=== PATIENT | female | born 1935 | race Caucasian/White ===

== ENCOUNTER 2016-09-13 01:31 | Emergency (ER) | payer MEDICARE, OTHER ==
[~2016-09-13] VITALS: Ht 154.9 cm; Wt 90.7 kg
[~2016-09-13 01:31] MED LIST: ACET-2303 PO; AMT10T PO; ANAL2.5CR PR; ASP81TEC PO; BISA5TAB8 PO; CITA20TA4 PO; CLOT10SO TOP; DICY20TA10 PO; DICY20TA57 PO; DOXY-182 PO; DOXY100C2 PO; DXCC100CRX PO; FAMO20TA5 PO; FLC100T1 PO; GBPN100C PO; HSCO125 PO; HYOS0.1217 PO; LIPOFLAVONOID PO; MAGN1TAB PO; MECL-105 PO; MELO15TA39 PO; METO25TA2 PO; ONDA-42 SL; ONDA8TAB9 PO; ONDN4T PO; PNT40TEC PO; POTA10CA43 PO; SCOP1PAT TD; SCR1T PO; SENN1TAB76 PO; SMT80CT PO; TRAM150C3 PO; TRM50T PO
[2016-09-13 02:05] LABS: BILIRUBIN,URINE NEGATIVE (NEGATIVE); KETONES,URINE NEGATIVE (NEGATIVE); LEUKOCYTE ESTERASE ,URINE NEGATIVE (NEGATIVE); NITRITE,URINE NEGATIVE (NEGATIVE); PH,URINE 8 (5-9); PROTEIN,URINE NEGATIVE (NEGATIVE); UROBILINOGEN,URINE NORMAL (NORMAL)
[2016-09-13 02:14] LABS: SQUAMOUS EPITHELIAL CELL,UR 0-2 /HPF
[2016-09-13 02:22] LABS: BASOPHILS % (AUTO) 0 % (0-10); EOSINOPHILS # (AUTO) 0.1 10^3/uL (0.0-0.3); EOSINOPHILS % (AUTO) 2 % (0-10); LYMPHOCYTES # (AUTO) 1.7 X 10^3 (1.0-4.0); LYMPHOCYTES % (AUTO) 25 % (12-44); MEAN CORPUSCULAR HEMOGLOBIN 31 PG (25-34); MEAN CORPUSCULAR HGB CONC 33 G/DL (32-36); MEAN CORPUSCULAR VOLUME 93 FL (80-99); MEAN PLATELET VOLUME 10.3 FL (7.4-10.4); MONOCYTES % (AUTO) 15 % (0-12); NEUTROPHILS # (AUTO) 3.9 X 10^3 (1.8-7.8); NEUTROPHILS % (AUTO) 58 % (42-75); PLATELET COUNT 161 10^3/uL (130-400); RED BLOOD COUNT 4.23 10^6/uL (4.35-5.85); RED CELL DISTRIBUTION WIDTH 13.8 % (10.0-14.5); WHITE BLOOD COUNT 6.8 10^3/uL (4.3-11.0)
[2016-09-13 02:37] LABS: ALANINE AMINOTRANSFERASE 12 U/L (0-55); ANION GAP 12 MMOL/L (5-14); ASPARTATE AMINO TRANSFERASE 20 U/L (5-34); BLOOD UREA NITROGEN 11 MG/DL (7-18); BUN/CREATININE RATIO 13; CALCIUM 9.2 MG/DL (8.5-10.1); CARBON DIOXIDE 21 MMOL/L (21-32); CHLORIDE 111 MMOL/L (98-107); CREATININE SERUM 0.82 MG/DL (0.60-1.30); GFR ESTIMATED > 60; GLUCOSE 136 MG/DL (70-105); LIPASE 15 U/L (8-78); POTASSIUM 3.5 MMOL/L (3.6-5.0); SODIUM 144 MMOL/L (135-145); TOTAL PROTEIN 6.9 G/DL (6.4-8.2)
[2016-09-13] MEDS ORDERED: ONDANSETRON 4 MG/2 ML (SDV) Z0FRAN IVP ONE (03:15)
[2016-09-13] MEDS ORDERED: LIDOCAINE 2% VISCOUS 15 ML UDC PO ONE (03:15)
[2016-09-13] MEDS ORDERED: ANTACID SUSP 30 ML UDC (MYLANTA) PO ONE (03:15)
[2016-09-13] MEDS ORDERED: OMEP20CA12 PO (03:56)
--- NOTE | 2016-09-13 03:56 | ED Abdominal Pain ---
General Chief Complaint: Abdominal/GI Problems Stated Complaint: ABD PAIN Nursing Triage Note: c/o LUQ abdomen pain. c/o nausea, denies vomiting and diarrhea Sepsis Screen: No Definite Risk Source of Information: Patient Exam Limitations: No Limitations History of Present Illness Time Seen By Provider: 01:45 Initial Comments This 81-year-old woman presents to the emergency room with left flank pain and left upper quadrant pain 2 this evening. She has a dull ache now but states the 2 episodes of pain that brought her to the emergency room where intense and sharp in nature. She has had some similar pains intermittently over the past week. She has been eating some food that is uncharacteristically spicy for her over the past week. She has also had some epigastric discomfort similar to the pain that led to diagnosis of gallbladder problems and cholecystectomy. She denies constipation or diarrhea. Her last bowel movement was this morning and was normal. Denies vomiting but the pain did cause nausea. No urinary changes. Patient has significant hypertension. Blood pressure is consistently higher on the left than the right. Patient denies any chest pain. Allergies and Home Medications Allergies Coded Allergies: gabapentin (Unverified Adverse Reaction, Unknown, VOMITING. , 12/10/14) Home Medications Meclizine Hcl 25 Mg Tablet 25 MG PO BID (Reported) Omeprazole 20 Mg Capsule. #30 20 MG PO BID Prescribed by: OCTAVIO RENO on 09/13/16 0356 Review of Systems Constitutional: no symptoms reported EENTM: No Symptoms Reported Respiratory: No Symptoms Reported Cardiovascular: No Symptoms Reported Gastrointestinal: See HPI Genitourinary: No Symptoms Reported Musculoskeletal: no symptoms reported Skin: no symptoms reported Psychiatric/Neurological: No Symptoms Reported Endocrine: No Symptoms Reported Past Xngvicr-Flnxid-Phxxpk Hx Patient Social History Alcohol Use: Denies Use Recreational Drug Use: No Smoking Status: Never a Smoker Recent Foreign Travel: No Contact w/Someone Who Travel: No Recent Infectious Disease Expo: No Recent Hopitalizations: No Physical Abuse Screen: No Sexual Abuse: No Immunizations Up To Date Tetanus Booster (TDap): More than 5yrs Seasonal Allergies Seasonal Allergies: No Surgeries HX Surgeries: Yes (EGD/ESOPHAGEAL DILATION) Surgeries: Appendectomy, Cardiac, Gallbladder Respiratory Hx Respiratory Disorders: No Cardiovascular Hx Cardiac Disorders: Yes (RECENT HEART CATH that was negative) Neurological Hx Neurological Disorders: Yes Neurological Disorders: Neuropathy, Vertigo Reproductive System Hx Reproductive Disorders: No Sexually Transmitted Disease: No HIV/AIDS: No Female 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 Flores 2012--ESOPHAGEAL DILATION FOR STRICTURE;TELLY) Gastrointestinal Disorders: Gastroesophageal Reflux, Chronic Constipation, Hemorrhoids, Ulcer, Gall Bladder Disease Musculoskeletal Hx Musculoskeletal Disorders: Yes Musculoskeletal Disorders: Arthritis Endocrine Hx Endocrine Disorders: Yes Endocrine Disorders: Hypothyroidsim HEENT HX ENT Disorders: Yes ("SINUS DRAINAGE") HEENT Disorders: Tinnitis Cancer Hx Cancer: No Psychosocial Hx Psychiatric Problems: Yes (REFUSES TO TAKE MEDICATION) Behavioral Health Disorders: Anxiety, Depression Integumentary HX Skin/Integumentary Disorder: No Blood Transfusions Hx Blood Disorders: No Adverse Reaction to a Blood Tr: No Family Medical History Family Medial History: FHx: pancreatic cancer 19 MOTHER Myocardial infarction 19 FATHER Physical Exam Vital Signs VS - Last 72 Hours, by Label 09/13/16 09/13/16 01:39 03:58 Temp 98.2 Pulse 81 72 Resp 18 18 B/P Pulse Ox 96 99 O2 Delivery Room Air Capillary Refill : Less Than 3 Seconds General Appearance: WD/WN no apparent distress HEENT: PERRL/EOMI normal ENT inspection pharynx normal Neck: normal inspection Respiratory: lungs clear normal breath sounds no respiratory distress no accessory muscle use Cardiovascular: regular rate, rhythm no edema no murmur Gastrointestinal: normal bowel sounds non tender soft Extremities: normal inspection no pedal edema 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 no motor/sensory deficits alert normal mood/affect oriented x 3 Skin: normal color warm/dry Progress/Results/Core Measures Results/Orders Lab Results Laboratory Tests Test 09/13/16 01:55 09/13/16 02:10 Range/Units Urine Bacteria NEGATIVE /HPF Urine Bilirubin NEGATIVE NEGATIVE Urine Casts NONE /LPF Urine Clarity CLEAR Urine Color YELLOW Urine Crystals NONE /LPF Urine Culture Indicated NO Urine Glucose (UA) NEGATIVE NEGATIVE Urine Ketones NEGATIVE NEGATIVE Urine Leukocyte Esterase NEGATIVE NEGATIVE Urine Mucus NEGATIVE /LPF Urine Nitrite NEGATIVE NEGATIVE Urine Protein NEGATIVE NEGATIVE Urine RBC NONE /HPF Urine RBC (Auto) NEGATIVE NEGATIVE Urine Specific [place] 1.010 L 1.016-1.022 Urine Squamous Epithelial Cells 0-2 /HPF Urine Urobilinogen NORMAL NORMAL MG/DL Urine WBC NONE /HPF Urine pH 8 5-9 Alanine Aminotransferase (ALT/SGPT) 12 0-55 U/L Albumin 4.0 3.2-4.5 G/DL Alkaline Phosphatase 79 40-136 U/L Anion Gap 12 5-14 MMOL/L Aspartate Amino Transf (AST/SGOT) 20 5-34 U/L BUN/Creatinine Ratio 13 Basophils # (Auto) 0.0 0.0-0.1 10^3/uL Basophils (%) (Auto) 0 0-10 % Blood Urea Nitrogen 11 7-18 MG/DL Calcium Level 9.2 8.5-10.1 MG/DL Carbon Dioxide Level 21 21-32 MMOL/L Chloride Level 111 H 98-107 MMOL/L Creatinine 0.82 0.60-1.30 MG/DL Eosinophils # (Auto) 0.1 0.0-0.3 10^3/uL Eosinophils (%) (Auto) 2 0-10 % Estimat Glomerular Filtration Rate > 60 Glucose Level 136 H 70-105 MG/DL Hematocrit 40 35-52 % Hemoglobin 13.2 11.5-16.0 G/DL Lipase 15 8-78 U/L Lymphocytes # (Auto) 1.7 1.0-4.0 X 10^3 Lymphocytes (%) (Auto) 25 12-44 % Mean Corpuscular Hemoglobin 31 25-34 PG Mean Corpuscular Hemoglobin Concent 33 32-36 G/DL Mean Corpuscular Volume 93 80-99 FL Mean Platelet Volume 10.3 7.4-10.4 FL Monocytes # (Auto) 1.0 0.0-1.0 X 10^3 Monocytes (%) (Auto) 15 H 0-12 % Neutrophils # (Auto) 3.9 1.8-7.8 X 10^3 Neutrophils (%) (Auto) 58 42-75 % Platelet Count 161 130-400 10^3/uL Potassium Level 3.5 L 3.6-5.0 MMOL/L Red Blood Count 4.23 L 4.35-5.85 10^6/uL Red Cell Distribution Width 13.8 10.0-14.5 % Sodium Level 144 135-145 MMOL/L Total Bilirubin 1.0 0.1-1.0 MG/DL Total Protein 6.9 6.4-8.2 G/DL White Blood Count 6.8 4.3-11.0 10^3/uL My Orders Orders-OCTAVIO PECK MD Cbc With Automated Diff (09/13/16 01:46) Comprehensive Metabolic Panel (09/13/16 01:46) Lipase (09/13/16 01:46) Ua Culture If Indicated (09/13/16 01:46) Saline Lock/Iv-Start (09/13/16 01:46) Ondansetron Injection (Zofran Injectio (09/13/16 03:15) Lidocaine 2% Viscous 15 Ml (Xylocaine Vi (09/13/16 03:15) Antacid Suspension (Mylanta Suspension (09/13/16 03:15) Abdomen, Flat & Upright/Decub (09/13/16 03:03) Pantoprazole Tablet (Protonix Tablet) (09/13/16 04:00) Medications Given in ED Current Medications Medications Dose Ordered Sig/Toyin Route Start Time Stop Time Status Last Admin Dose Admin Al Hydrox/Mg Hydrox/Simethicone 30 ml ONCE ONCE PO 09/13/16 03:15 09/13/16 03:16 DC 09/13/16 03:11 30 ML Lidocaine HCl 15 ml ONCE ONCE PO 09/13/16 03:15 09/13/16 03:16 DC 09/13/16 03:11 15 ML Ondansetron HCl 4 mg ONCE ONCE IVP 09/13/16 03:15 09/13/16 03:16 DC 09/13/16 03:10 4 MG Pantoprazole Sodium 40 mg ONCE ONCE PO 09/13/16 04:00 09/13/16 04:00 DC 09/13/16 03:56 40 MG Vital Signs/I&O Vital Sign - Last 12Hours 09/13/16 09/13/16 01:39 03:58 Temp 98.2 Pulse 81 72 Resp 18 18 B/P Pulse Ox 96 99 O2 Delivery Room Air Progress Note : Progress Note Workup was essentially unremarkable. Patient was treated with a GI cocktail which improved her pain. Her blood pressure improved after her pain was controlled as well. Her last blood pressure was 134/73. An oral Protonix was given prior to dismissal. Diagnostic Imaging Diagonstic Imaging: Xray Plain Films/CT/US/NM/MRI: abdomen Comments Abdominal x-ray was viewed by me. Report not yet available. No acute abnormalities were appreciated. Departure Impression Impression: Primary Impression: Left upper quadrant pain Additional Impression: Gastritis Qualified Code: K29.00 - Acute gastritis without bleeding Disposition: HOME, SELF-CARE Condition: Improved Departure-Patient Inst. Decision time for Depature: 03:50 Referrals: [facility] [place] (PCP/Family) Primary Care Physician Patient Instructions: Acute Abdomen (Belly Pain), Adult (DC), Gastritis (DC) Add. Discharge Instructions: Use omeprazole as prescribed for at least 2 weeks. Avoid the following: Eating large meals, eating close to bedtime, spicy foods, fatty or greasy foods, caffeine, carbonation, chocolate, citrus fruits and juices, tomato products, alcohol, tobacco products, NSAID medications such as ibuprofen or naproxen, or anything else you know irritates your stomach. Follow-up with your primary care provider within the next couple of weeks. Return to the ER symptoms worsen. All discharge instructions reviewed with patient and/or family. Voiced understanding. Scripts Omeprazole 20 Mg Capsule.dr20 Mg PO BID #30 CAP Prov:OCTAVIO PECK MD 09/13/16 OCTAVIO PECK MD Sep 13, 2016 03:56
[2016-09-13 03:58] VITALS: BP 134/73
[2016-09-13] MEDS ORDERED: PANTOPRAZOLE 40 MG (PROTONIX) TAB PO ONE (04:00)
--- NOTE | 2016-09-13 06:13 | Diagnostic Imaging Report ---
INDICATION: Abdominal pain. Patient has history of ulcers. Comparison with 11/02/2015. FINDINGS: The bowel gas pattern appears normal. No evidence of bowel obstruction. No organomegaly. There are surgical clips in the biliary fossa. No pathologic calcifications. Degenerative changes noted in the lumbar spine. IMPRESSION: No acute abnormalities are demonstrated when compared with previous exam. Dictated by: Dictated on workstation # [id number]
[2016-10-21] MEDS ORDERED: OMEP40CA36 PO (12:20)
== END 2016-09-13 03:59 | disposition home or self-care (01) ==
LOC: EDUNIT# 01:31 → ER 01:33
DX: R10.12 Left upper quadrant pain (principal); K29.70 Gastritis, unspecified, without bleeding; I10 Essential (primary) hypertension; Z79.899 Other long term (current) drug therapy
CPT/HCPCS: 36415; 74020; 80053; 81000; 83690; 85025; 96374

== ENCOUNTER 2016-10-20 04:18 | Observation (INO) | payer MEDICARE, OTHER ==
[~2016-10-20] VITALS: Ht 162.6 cm; Wt 98.0 kg
[~2016-10-20 04:18] MED LIST changes: +OMEP20CA12 PO
[2016-10-20] MEDS ORDERED: LACTATED RINGERS 1,000 ML IV ONE (04:24)
[2016-10-20] MEDS ORDERED: SCOPOLAMINE 1.5 MG (TRANSDERM-SCOP) PATCH TD ONE (04:30)
[2016-10-20] MEDS ORDERED: MECLIZINE 25 MG (ANTIVERT) TAB PO ONE (04:30)
[2016-10-20] MEDS ORDERED: ONDANSETRON 4 MG/2 ML (SDV) Z0FRAN IVP ONE ×2 (04:30→06:30)
--- NOTE | 2016-10-20 04:31 | ED General ---
General Chief Complaint: Dizziness/Syncope Stated Complaint: DIZZINESS Source of Information: Patient, EMS, Old Records History of Present Illness Time Seen by Provider: 04:17 Initial Comments PT ARRIVES VIA [facility] FROM HOME C/O WAKING UP AN HOUR AGO WITH SEVERE DIZZINESS, SWEATS, NAUSEA AND VOMITING AND LUQ/LEFT FLANK PAIN STATES SHE HAS VOMITED SEVERAL TIMES--UNKNOWN #--PT HAS CONTINUED TO DRINK WATER AND MILK--STATES "IT JUST COMES RIGHT BACK UP" NO DIARRHEA NO FEVER STATES SHE FELT FINE WHEN SHE WENT TO BED PT HAS CHRONIC INTERMITTENT VERTIGO FOR MANY YEARS--HAS RX FOR MECLIZINE BUT HAS NOT TAKEN ANY PT SEEN HERE 09/13/16 FOR LUQ PAIN--FELT TO BE GASTRITIS, TX WITH GI COCKTAIL, NO ADDITIONAL RX--PT WAS ALREADY ON A PPI PCP: ALEXANDER, XIAO CEVALLOS Allergies and Home Medications Allergies Coded Allergies: gabapentin (Unverified Adverse Reaction, Unknown, VOMITING. , 12/10/14) Home Medications Meclizine Hcl 25 Mg Tablet 25 MG PO BID (Reported) Omeprazole 20 Mg Capsule. #30 20 MG PO BID Prescribed by: OCTAVIO RENO on 09/13/16 0356 Constitutional: diaphoresis dizziness EENTM: no symptoms reported Respiratory: no symptoms reported Cardiovascular: no symptoms reported Gastrointestinal: see HPI abdominal pain nausea vomiting Genitourinary: no symptoms reported Musculoskeletal: see HPI Skin: no symptoms reported Psychiatric/Neurological: No Symptoms ReportedDenies Headache, Denies Numbness , Denies Paresthesia, Denies Seizure, Denies Tingling, Denies Weakness Hematologic/Lymphatic: No Symptoms Reported Immunological/Allergic: no symptoms reported Past Yhfdkyt-Lcosvq-Thojwr Hx Patient Social History Alcohol Use: Denies Use Recreational Drug Use: No Smoking Status: Never a Smoker Recent Foreign Travel: No Contact w/Someone Who Travel: No Recent Hopitalizations: No Immunizations Up To Date Tetanus Booster (TDap): More than 5yrs Seasonal Allergies Seasonal Allergies: No Surgeries HX Surgeries: Yes (EGD/ESOPHAGEAL DILATION; CARDIAC CATH--NO INTERVENTION) Surgeries: Appendectomy, Cardiac, Gallbladder Respiratory Hx Respiratory Disorders: No Cardiovascular Hx Cardiac Disorders: Yes (CARDIAC CATH--NORMAL) Cardiac Disorders: Hypertension Neurological Hx Neurological Disorders: Yes Neurological Disorders: Neuropathy, Vertigo Reproductive System Hx Reproductive Disorders: No Sexually Transmitted Disease: No HIV/AIDS: No Female 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 Flores 2012--ESOPHAGEAL DILATION FOR STRICTURE;TELLY) Gastrointestinal Disorders: Gastroesophageal Reflux, Chronic Constipation, Hemorrhoids, Ulcer, Gall Bladder Disease Musculoskeletal Hx Musculoskeletal Disorders: Yes Musculoskeletal Disorders: Arthritis Endocrine Hx Endocrine Disorders: Yes (OBESITY) Endocrine Disorders: Hypothyroidsim HEENT HX ENT Disorders: Yes ("SINUS DRAINAGE") HEENT Disorders: Tinnitis Cancer Hx Cancer: No Psychosocial Hx Psychiatric Problems: Yes (REFUSES TO TAKE MEDICATION) Behavioral Health Disorders: Anxiety, Depression Integumentary HX Skin/Integumentary Disorder: No Blood Transfusions Hx Blood Disorders: No Adverse Reaction to a Blood Tr: No Family Medical History Family Medial History: FHx: pancreatic cancer 19 MOTHER Myocardial infarction 19 FATHER Physical Exam Vital Signs Vital Sign - Last 12Hours 10/20/16 04:20 Temp 97.7 Pulse 72 Resp 20 B/P 192/77 Pulse Ox 97 O2 Delivery Room Air Capillary Refill : General Appearance: No Apparent Distress WD/WN Obese HEENT: PERRL/EOMI Neck: Full Range of Motion Normal Inspection Non Tender Supple Respiratory: Normal Breath Sounds No Accessory Muscle Use No Respiratory Distress Cardiovascular: Regular Rate, Rhythm No Edema No JVD No Murmur Normal Peripheral Pulses Gastrointestinal: Normal Bowel Sounds No Organomegaly No Pulsatile Mass Soft Tenderness (LUQ AND LEFT FLANK WITH MODERATE TENDERNESS) Back: No Vertebral Tenderness CVA Tenderness (L) Extremity: Normal Capillary Refill Normal Inspection Normal Range of Motion Non Tender No Calf Tenderness Neurologic/Psychiatric: Alert Oriented x3 No Motor/Sensory Deficits 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 Norm as Tested Other (UNABLE TO PERFORM CEREBELLAR TESTING ON ARRIVAL) Skin: Normal Color Warm/Dry Progress/Results/Core Measures Results/Orders Lab Results Laboratory Tests Test 10/20/16 04:30 10/20/16 04:46 Range/Units Alanine Aminotransferase (ALT/SGPT) 11 0-55 U/L Albumin 3.8 3.2-4.5 G/DL Alkaline Phosphatase 77 40-136 U/L Amylase Level 18 L 25-125 U/L Anion Gap 13 5-14 MMOL/L Aspartate Amino Transf (AST/SGOT) 20 5-34 U/L BUN/Creatinine Ratio 16 Basophils # (Auto) 0.0 0.0-0.1 10^3/uL Basophils (%) (Auto) 0 0-10 % Blood Urea Nitrogen 12 7-18 MG/DL Calcium Level 8.9 8.5-10.1 MG/DL Carbon Dioxide Level 20 L 21-32 MMOL/L Chloride Level 108 H 98-107 MMOL/L Creatinine 0.76 0.60-1.30 MG/DL Eosinophils # (Auto) 0.1 0.0-0.3 10^3/uL Eosinophils (%) (Auto) 1 0-10 % Estimat Glomerular Filtration Rate > 60 Glucose Level 138 H 70-105 MG/DL Hematocrit 39 35-52 % Hemoglobin 13.2 11.5-16.0 G/DL Lipase 11 8-78 U/L Lymphocytes # (Auto) 1.5 1.0-4.0 X 10^3 Lymphocytes (%) (Auto) 23 12-44 % Magnesium Level 2.1 1.8-2.4 MG/DL Mean Corpuscular Hemoglobin 31 25-34 PG Mean Corpuscular Hemoglobin Concent 34 32-36 G/DL Mean Corpuscular Volume 91 80-99 FL Mean Platelet Volume 10.5 H 7.4-10.4 FL Monocytes # (Auto) 0.8 0.0-1.0 X 10^3 Monocytes (%) (Auto) 12 0-12 % Neutrophils # (Auto) 4.0 1.8-7.8 X 10^3 Neutrophils (%) (Auto) 63 42-75 % Platelet Count 172 130-400 10^3/uL Potassium Level 3.7 3.6-5.0 MMOL/L Red Blood Count 4.25 L 4.35-5.85 10^6/uL Red Cell Distribution Width 14.0 10.0-14.5 % Sodium Level 141 135-145 MMOL/L Total Bilirubin 1.0 0.1-1.0 MG/DL Total Protein 6.6 6.4-8.2 G/DL Troponin I < 0.30 <0.30 NG/ML White Blood Count 6.3 4.3-11.0 10^3/uL Urine Bacteria TRACE /HPF Urine Bilirubin NEGATIVE NEGATIVE Urine Casts NONE /LPF Urine Clarity CLEAR Urine Color YELLOW Urine Crystals NONE /LPF Urine Culture Indicated YES Urine Glucose (UA) NEGATIVE NEGATIVE Urine Ketones NEGATIVE NEGATIVE Urine Leukocyte Esterase 1+ H NEGATIVE Urine Mucus NEGATIVE /LPF Urine Nitrite NEGATIVE NEGATIVE Urine Protein NEGATIVE NEGATIVE Urine RBC NONE /HPF Urine RBC (Auto) NEGATIVE NEGATIVE Urine Specific [place] 1.010 L 1.016-1.022 Urine Squamous Epithelial Cells 10-25 H /HPF Urine Urobilinogen NORMAL NORMAL MG/DL Urine WBC 5-10 H /HPF Urine pH 8 5-9 My Orders Orders-LAMBERT RAMOS DO Scopolamine Patch (Transderm-Scop Patch) (10/20/16 04:30) Meclizine Tablet (Antivert Tablet) (10/20/16 04:30) Ondansetron Injection (Zofran Injectio (10/20/16 04:30) Saline Lock/Iv-Start (10/20/16 04:24) Ekg Tracing (10/20/16 04:24) Monitor-Rhythm Ecg Trace Only (10/20/16 04:24) Amylase (10/20/16 04:24) Cbc With Automated Diff (10/20/16 04:24) Comprehensive Metabolic Panel (10/20/16 04:24) Lipase (10/20/16 04:24) Magnesium (10/20/16 04:24) Troponin I (10/20/16 04:24) Ua Culture If Indicated (10/20/16 04:24) Saline Lock/Iv-Start (10/20/16 04:24) Lactated Ringers (Lr 1000 Ml Iv Solution (10/20/16 04:24) Ct Abd/Pelvis Wo(Kidney Stone) (10/20/16 04:31) Ct Head Wo (10/20/16 04:31) Chest 1 View, Ap/Pa Only (10/20/16 04:31) Urine Culture (10/20/16 04:46) Ondansetron Injection (Zofran Injectio (10/20/16 06:30) Diazepam Injection (Valium Injection) (10/20/16 06:30) Levofloxacin 500 Mg/100 Ml Iv (Levaquin (10/20/16 06:30) Medications Given in ED Current Medications Medications Dose Ordered Sig/Toyin Route Start Time Stop Time Status Last Admin Dose Admin Meclizine HCl 50 mg ONCE ONCE PO 10/20/16 04:30 10/20/16 04:31 DC 10/20/16 04:44 50 MG Ondansetron HCl 4 mg ONCE ONCE IVP 10/20/16 04:30 10/20/16 04:31 DC 10/20/16 04:44 4 MG Scopolamine 1.5 mg ONCE ONCE TD 10/20/16 04:30 10/20/16 04:31 DC 10/20/16 04:44 1.5 MG Vital Signs/I&O Vital Sign - Last 12Hours 10/20/16 04:20 Temp 97.7 Pulse 72 Resp 20 B/P 192/77 Pulse Ox 97 O2 Delivery Room Air Progress Note : Progress Note BP IS SIGNIFICANTLY ELEVATED EVERY TIME SHE COMES TO ER--INSISTS THAT BP IS ONLY HIGH WHEN SHE HAS VERTIGO, OR PAIN OR WHATEVER COMPLAINT SHE COMES TO ER FOR THAT PARTICULAR VISIT. BP DOWN WITHOUT TREATMENT SYMPTOMS IMPROVED SOMEWHAT WITH MEDICATIONS, BUT WITH ANY MOVEMENT PT BECOMES SEVERELY DIZZY AND HAS NAUSEA AND DRY HEAVES ECG Initial ECG Impression Time: 04:36 Initial ECG Rate: 68 Initial ECG Rhythm: Normal Sinus Initial ECG Impression: Normal Initial ECG Comparisson: Unchanged Diagnostic Imaging Comments CXR--NO ACUTE PROCESS, PENDING RADIOLOGIST REVIEW CT HEAD--NO ACUTE PROCESS, PER [facility] VIA FAX @ [phone] CT ABDOMEN/PELVIS--THICKENING OF PROXIMAL DESCENDING COLON--NON-SPECIFIC COLITIS --PER [facility] VIA FAX @ [phone] Reviewed: Reviewed by Me Departure Communication Progress Notes 0622--SPOKE WITH DR. ROUSE, ACCEPTS PT FOR ADMIT. Impression Impression: Primary Impression: INTRACTABLE VERTIGO Additional Impressions: CHRONIC INTERMITTENT VERTIGO UTI (urinary tract infection) Chronic hypertension COLITIS WITH LUQ/LEFT FLANK PAIN Disposition: ADMITTED INPATIENT Condition: Stable Decision to Admit Reason: Admit from ER (General) Decision to Admit/Date: Oct 20, 2016 Time/Decision to Admit Time: 06:25 Departure-Patient Inst. Referrals: [facility] [place] ([place]P/Family) Primary Care Physician LAMBERT RAMOS DO Oct 20, 2016 04:31
[2016-10-20 04:43] LABS: BASOPHILS % (AUTO) 0 % (0-10); EOSINOPHILS # (AUTO) 0.1 10^3/uL (0.0-0.3); EOSINOPHILS % (AUTO) 1 % (0-10); LYMPHOCYTES # (AUTO) 1.5 X 10^3 (1.0-4.0); LYMPHOCYTES % (AUTO) 23 % (12-44); MEAN CORPUSCULAR HEMOGLOBIN 31 PG (25-34); MEAN CORPUSCULAR HGB CONC 34 G/DL (32-36); MEAN CORPUSCULAR VOLUME 91 FL (80-99); MEAN PLATELET VOLUME 10.5 FL (7.4-10.4); MONOCYTES # (AUTO) 0.8 X 10^3 (0.0-1.0); MONOCYTES % (AUTO) 12 % (0-12); NEUTROPHILS % (AUTO) 63 % (42-75); PLATELET COUNT 172 10^3/uL (130-400); RED BLOOD COUNT 4.25 10^6/uL (4.35-5.85); WHITE BLOOD COUNT 6.3 10^3/uL (4.3-11.0)
[2016-10-20 04:53] LABS: BILIRUBIN,URINE NEGATIVE (NEGATIVE); KETONES,URINE NEGATIVE (NEGATIVE); LEUKOCYTE ESTERASE ,URINE 1+ (NEGATIVE); NITRITE,URINE NEGATIVE (NEGATIVE); PH,URINE 8 (5-9); PROTEIN,URINE NEGATIVE (NEGATIVE); UROBILINOGEN,URINE NORMAL (NORMAL)
[2016-10-20 05:05] LABS: ALANINE AMINOTRANSFERASE 11 U/L (0-55); ALBUMIN 3.8 G/DL (3.2-4.5); AMYLASE 18 U/L (25-125); ANION GAP 13 MMOL/L (5-14); ASPARTATE AMINO TRANSFERASE 20 U/L (5-34); BLOOD UREA NITROGEN 12 MG/DL (7-18); BUN/CREATININE RATIO 16; CALCIUM 8.9 MG/DL (8.5-10.1); CARBON DIOXIDE 20 MMOL/L (21-32); CHLORIDE 108 MMOL/L (98-107); CREATININE SERUM 0.76 MG/DL (0.60-1.30); GFR ESTIMATED > 60; GLUCOSE 138 MG/DL (70-105); LIPASE 11 U/L (8-78); MAGNESIUM 2.1 MG/DL (1.8-2.4); POTASSIUM 3.7 MMOL/L (3.6-5.0); SODIUM 141 MMOL/L (135-145); TOTAL PROTEIN 6.6 G/DL (6.4-8.2)
[2016-10-20 05:13] LABS: TROPONIN I < 0.30 NG/ML (<0.30)
--- NOTE | 2016-10-20 06:17 | Diagnostic Imaging Report ---
Indication: Altered mental status Chest 5:49 AM Heart size and pulmonary vascularity are normal. Lungs are clear. There are no effusions or pneumothoraces. Impression: Negative chest Dictated by: Dictated on workstation # [id number]
--- NOTE | 2016-10-20 06:22 | Diagnostic Imaging Report ---
PROCEDURE: CT head without contrast. TECHNIQUE: Multiple contiguous axial images were obtained through the brain without the use of intravenous contrast. INDICATION: Altered mental status, dizziness Ventricles are normal in size, shape and position. There is mild atrophy. There is basal ganglia calcification. There are no hemorrhages or masses. There are no extra-axial fluid collections. Impression: Diffuse cerebral degeneration. No acute abnormalities seen. Dictated by: Dictated on workstation # [id number]
[2016-10-20] MEDS ORDERED: DIAZEPAM INJ 10 MG/2 ML (VALIUM) SYR IV ONE (06:30)
[2016-10-20] MEDS ORDERED: LEVOFLOXACIN 500 MG/100 ML IV 100 ML IV ONE (06:30)
--- NOTE | 2016-10-20 06:36 | Diagnostic Imaging Report ---
PROCEDURE: CT urinary tract, rule out kidney stone. TECHNIQUE: Multiple contiguous axial images were obtained through the abdomen and pelvis without the use of intravenous contrast. INDICATION: Flank pain There is minimal atelectasis at both lung bases. There is cardiac annular calcification. Liver appears normal. The gallbladder is surgically absent. Pancreas is fatty-replaced. Spleen is not enlarged. Adrenals are normal. Kidneys appear normal. There is calcific atherosclerosis of the aorta but no aneurysm. Small bowel is not dilated. The urinary bladder is distended. Uterus is present. Adnexa are unremarkable. Small bowel is not dilated. There is diverticulosis of the colon without evidence of diverticulitis. IMPRESSION: Uncomplicated diverticulosis of the colon. Dictated by: Dictated on workstation # [id number]
[2016-10-20 08:30] VITALS: BP 164/78
[2016-10-20] MEDS ORDERED: metroNIDAZOLE 500 MG/100 ML IVPB (PRE-MIX) IV SCH (08:38)
[2016-10-20] MEDS ORDERED: ONDANSETRON 4 MG/2 ML (SDV) Z0FRAN IV PRN (08:45)
[2016-10-20] MEDS ORDERED: DIAZEPAM INJ 10 MG/2 ML (VALIUM) SYR IV PRN (08:45)
[2016-10-20] MEDS ORDERED: CATHETER FLUSH 10 ML SYR IV PRN (08:45)
[2016-10-20] MEDS ORDERED: fentaNYL INJECTION 100 MCG/2 ML AMP IV PRN (08:45)
--- NOTE | 2016-10-20 09:11 | History & Physicial (CHS) ---
HPI History of Present Illness: 81 yo female admitted from ER after coming in for vertigo and LUQ pain. She has chronic intermittent vertigo, last night she took meclizine and then vomited and then had LUQ pain and came in by EMS to the ER. She continued to have LUQ pain, nausea, vomiting, diaphoresis and vertigo. She denies fever, but states she has had bright yellow, loose, floating stools for the last month ever since she had the first episode of shooting LUQ pain in September (for which she was seen in the ER and no clear pathology was found). Has had history of peptic ulcer disease she states and was prescribed omeprazole after her ER visit but she does not take it. Movement makes her abdominal pain worse. She has had problems with abdominal pain on and off for a long time and is concerned about taking any oral medications, particularly antibiotics because she gets an upset stomach so easily. She says she has had a dull aching right upper quadrant pain ever since her cholecystectomy. She notes she has had vertigo diagnosed 15 years ago and takes meclizine scheduled ever since. She saw an ENT at one point and states he was a "quack" and wanted her to do exercises. Her biggest concern is her LUQ pain. She had an EGD and colonoscopy 11/2015 which showed internal hemorrhoids and diverticulosis but was otherwise essentially unremarkable. Attending Physician Shanon Tejeda [place] [facility] [place] Date of Admission Oct 20, 2016 at 06:34 Home Medications Home Medications Reviewed patient Home Medication Reconciliation Form Allergies Coded Allergies: gabapentin (Unverified Adverse Reaction, Unknown, VOMITING. , 12/10/14) WEJ-Hyzvbw-Auvddq Hx Patient Social History Alcohol Use: Denies Use Recreational Drug Use: No Smoking Status: Never a Smoker Recent Foreign Travel: No Contact w/other who traveled: No Recent Hopitalizations: No Recent Infectious Disease Expo: No Immunizations Up To Date Tetanus Booster (TDap): More than 5yrs Past Medical History PMHx: Vertigo PSurgHx: Cholecystectomy Appendectomy Family Medical History Significant Family History: Cancer (mother pancreatic cancer) Review of Systems ([facility]) Constitutional: No fever EENTM: No nose congestion, No throat pain Respiratory: No short of breath Cardiovascular: No palpitations Gastrointestinal: see HPINo constipation, diarrhea Genitourinary: dysuria Musculoskeletal: no symptoms reported Skin: no symptoms reported Psychiatric/Neurological: No Symptoms Reported Reviewed Test Results Reviewed Test Results Lab Laboratory Tests Test 10/20/16 04:30 10/20/16 04:46 Range/Units Alanine Aminotransferase (ALT/SGPT) 11 0-55 U/L Albumin 3.8 3.2-4.5 G/DL Alkaline Phosphatase 77 40-136 U/L Amylase Level 18 L 25-125 U/L Anion Gap 13 5-14 MMOL/L Aspartate Amino Transf (AST/SGOT) 20 5-34 U/L BUN/Creatinine Ratio 16 Basophils # (Auto) 0.0 0.0-0.1 10^3/uL Basophils (%) (Auto) 0 0-10 % Blood Urea Nitrogen 12 7-18 MG/DL Calcium Level 8.9 8.5-10.1 MG/DL Carbon Dioxide Level 20 L 21-32 MMOL/L Chloride Level 108 H 98-107 MMOL/L Creatinine 0.76 0.60-1.30 MG/DL Eosinophils # (Auto) 0.1 0.0-0.3 10^3/uL Eosinophils (%) (Auto) 1 0-10 % Estimat Glomerular Filtration Rate > 60 Glucose Level 138 H 70-105 MG/DL Hematocrit 39 35-52 % Hemoglobin 13.2 11.5-16.0 G/DL Lipase 11 8-78 U/L Lymphocytes # (Auto) 1.5 1.0-4.0 X 10^3 Lymphocytes (%) (Auto) 23 12-44 % Magnesium Level 2.1 1.8-2.4 MG/DL Mean Corpuscular Hemoglobin 31 25-34 PG Mean Corpuscular Hemoglobin Concent 34 32-36 G/DL Mean Corpuscular Volume 91 80-99 FL Mean Platelet Volume 10.5 H 7.4-10.4 FL Monocytes # (Auto) 0.8 0.0-1.0 X 10^3 Monocytes (%) (Auto) 12 0-12 % Neutrophils # (Auto) 4.0 1.8-7.8 X 10^3 Neutrophils (%) (Auto) 63 42-75 % Platelet Count 172 130-400 10^3/uL Potassium Level 3.7 3.6-5.0 MMOL/L Red Blood Count 4.25 L 4.35-5.85 10^6/uL Red Cell Distribution Width 14.0 10.0-14.5 % Sodium Level 141 135-145 MMOL/L Total Bilirubin 1.0 0.1-1.0 MG/DL Total Protein 6.6 6.4-8.2 G/DL Troponin I < 0.30 <0.30 NG/ML White Blood Count 6.3 4.3-11.0 10^3/uL Urine Bacteria TRACE /HPF Urine Bilirubin NEGATIVE NEGATIVE Urine Casts NONE /LPF Urine Clarity CLEAR Urine Color YELLOW Urine Crystals NONE /LPF Urine Culture Indicated YES Urine Glucose (UA) NEGATIVE NEGATIVE Urine Ketones NEGATIVE NEGATIVE Urine Leukocyte Esterase 1+ H NEGATIVE Urine Mucus NEGATIVE /LPF Urine Nitrite NEGATIVE NEGATIVE Urine Protein NEGATIVE NEGATIVE Urine RBC NONE /HPF Urine RBC (Auto) NEGATIVE NEGATIVE Urine Specific [place] 1.010 L 1.016-1.022 Urine Squamous Epithelial Cells 10-25 H /HPF Urine Urobilinogen NORMAL NORMAL MG/DL Urine WBC 5-10 H /HPF Urine pH 8 5-[address] head 10/20/16 Diffuse cerebral degeneration CXR 10/20/[address] abdomen/pelvis 10/20/16 Diverticulosis with no diverticulitis Physical Exam-([facility]) Physical Exam Vital Signs VS - Last 72 Hours, by Label 10/20/16 04:20 Temp 97.7 Pulse 72 Resp 20 B/P 192/77 Pulse Ox 97 O2 Delivery Room Air Capillary Refill : Less Than 3 Seconds General Appearance: WD/WN no apparent distress HEENT: No scleral icterus (R), No scleral icterus (L) Respiratory: lungs clear Cardiovascular: regular rate, rhythm no murmur Gastrointestinal: normal bowel sounds soft tenderness (epigastric, RUQ, and LUQ, greatest in LUQ) 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 Vertigo 2. Left upper quadrant pain 3. Suspected UTI Plan 1. Vertigo- chronic, continue meclizine, discussed the likely benefit of exercises for probable BPPV -Zofran for nausea 2. Left upper quadrant pain- unclear etiology, CT without significant pathology and labwork without concerns -Will d/c antibiotics for colitis -Discussed further outpatient work-up, consider repeat EGD or GI consult 3. Suspected UTI- rocephin for now while waiting on culture given her desire to avoid PO antibiotics DVT ppx- SCDs, enoxaparin Diagnosis/Problems: Copy Copies To 1: JULIO Szymanski BETHANY N MD Oct 20, 2016 9:11 am
[2016-10-20] MEDS: D5 1/2 NS 1000 ML IV SOLUTION 1,000 ML IV SCH (10:07)
--- NOTE | 2016-10-20 11:51 | History & Physicial ---
GEORGE HOLDER MEDICAL STUDENT 10/20/16 1150: History of Present Illness History of Present Illness Reason for visit/HPI L flank pain and dizziness Date of Admission Oct 20, 2016 at 06:34 I consulted on this patient on 10/20/16 06:25 Attending Physician Attending Physician: Ankur Rouse MD Medical Student: George Holder Admitting Physician [place],[facility] Allergies and Home Medications Allergies Coded Allergies: gabapentin (Unverified Adverse Reaction, Unknown, VOMITING. , 12/10/14) Home Medications Meclizine Hcl 25 Mg Tablet 25 MG PO 0800,1400,1999 (Reported) Past Gmkwaus-Huwgia-Rrlyjg Hx Patient Social History Living Status: Lives with son Alcohol Use: Denies Use Recreational Drug Use: No Smoking Status: Smoker Current Status [facility] Recent Foreign Travel: No Contact w/other who traveled: No Recent Hopitalizations: No Recent Infectious Disease Expo: No Immunizations Up To Date Tetanus Booster (TDap): Unknown Seasonal Allergies Seasonal Allergies: No Surgeries HX Surgeries: Yes (EGD/ESOPHAGEAL DILATION; CARDIAC CATH--NO INTERVENTION) Surgeries: Appendectomy, Cardiac, Gallbladder Respiratory Hx Respiratory Disorders: No Cardiovascular Hx Cardiovascular Disorders: Yes (CARDIAC CATH--NORMAL) Cardiac Disorders: Hypertension Neurological Hx Neurological Disorders: Yes (CHRONIC VERTIGO) Neurological Disorders: Neuropathy, Vertigo (~15 year history, refused vestibular rehabilitation therapy, currently treated with meclizine PRN (she reports regular use at least once per day)) Reproductive System Hx Reproductive Disorders: No Sexually Transmitted Disease: No HIV/AIDS: No Female Reproductive Disorders: Denies Genitourinary Hx Genitourinary Disorders: Yes Genitourinary Disorders: UTI-Chronic Gastrointestinal Hx Gastrointestinal Disorders: Yes (EGD by Dr. Flores 2012--ESOPHAGEAL DILATION FOR STRICTURE;TELLY) Gastrointestinal Disorders: Gastroesophageal Reflux, Hemorrhoids, Ulcer, Gall Bladder Disease (s/p cholecystectomy in 2012) Musculoskeletal Hx Musculoskeletal Disorders: Yes Musculoskeletal Disorders: Arthritis Endocrine Hx Endocrine Disorders: Yes (OBESITY) Endocrine Disorders: Hypothyroidsim HEENT HX ENT Disorders: Yes ("SINUS DRAINAGE") HEENT Disorders: Tinnitis Cancer Hx Cancer: No Psychosocial Hx Psychiatric Problems: Yes (not on any pharmacologic treatment) Behavioral Health Disorders: Anxiety, Depression Integumentary HX Skin/Integumentary Disorder: No Blood Transfusions Hx Blood Disorders: No Adverse Reaction to a Blood Tr: No Family Medical History Significant Family History: Heart Disease (Her son has had an AR), Cancer (Her mother was diagnosed with pancreatic cancer at age 74) Family Hx: FHx: pancreatic cancer 19 MOTHER, Onset:60 years & older Myocardial infarction 19 FATHER Son Constitutional: see HPI diaphoresis dizziness Respiratory: no symptoms reported Cardiovascular: no symptoms reported Gastrointestinal: LUQ (severe L flank and LUQ pain)No constipation, nausea vomiting other (steatorrhea for approximately the past month) Genitourinary: dysuriaNo incontinence Physical Exam Vital Signs Vital Sign - Last 12Hours 10/20/16 04:20 Temp 97.7 Pulse 72 Resp 20 B/P 192/77 Pulse Ox 97 O2 Delivery Room Air Capillary Refill : Less Than 3 Seconds General Appearance: No Apparent Distress Other (Some generalized pallor, appears younger than stated age) Eyes: Bilateral Eye EOMI, Bilateral Eye Normal Inspection, Bilateral Eye PERRL HEENT: PERRL/EOMI Neck: No JVD Respiratory: Chest Non Tender Lungs Clear Normal Breath Sounds Cardiovascular: Regular Rate, Rhythm (one skipped beat during ~20 second cardiac auscultation) No JVD No Murmur Gastrointestinal: Normal Bowel Sounds Soft Tenderness (moderate RUQ TTP, severe LUQ TTP) Other (Pt reports that she feels very bloated, abdomen demonstrates some bloating on exam) Neurologic/Psychiatric: Alert Normal Mood/Affect Skin: Pallor Assessment/Plan Assessment and Plan Dizziness - Describes as "head feels like it's spinning" - ~15 year history of episodic vertigo that she experiences on a daily basis - Has been evaluated by ENT but declined vestibular rehabilitation maneuvers/ therapy when offered - Currently tx with meclizine prn which she reportedly takes at least daily - Also reports tinnitus, but not associated with timing of dizziness onset - CT head was negative for cerebrovascular etiology and neuro exam was normal, but this does not rule out neurologic origin - Ms. Cm may benefit from further education about common causes of dizziness and the potential benefit of vestibular rehabilitation therapy as she seemed to have some misconceptions about its purpose - Treated inpatient with one dose of diazepam 2.5 mg IV - [employer]CR[employer]E [employer] meclizine 50 mg PO Q6H PRN - IVF (D5 1/2 NS @ 60 mL/hr) L flank and LUQ pain - Severe, sharp, shooting, motion-sensitive pain that has occurred multiple times for at least the past 4 years - She reports that she was evaluated at [facility] on 09/13 for very similar pain (rapid onset of sever L flank pain that caused her to lose consciousness and fall) - She reports that that her current painful episode started yesterday after she vomited shortly after she took a dose of meclizine due to onset of vertigo - She reports that the pain has been stable and severe since early this AM despite treatment in the ED - Discussed her prescription for omeprazole, and she explained that she was too hesitant to take it due to history of GI symptoms after taking PO medications. We emphasized today that the omeprazole is to help with her stomach pain and facilitate healing of her GI tissue - Discussed our recommendation that she follow up as an outpatient with a cardiovascular invasive specialist in [place] for further evaluation of her episodes of abdominal pain and recent abnormal bowel movements - CT exam and laboratory findings not immediately suggestive of pancreatic etiology, but her symptoms warrant further evaluation with GI specialist UTI - She reports burning with urination recently - Urine testing demonstrated positive leukocyte esterase, WBCs, and bacteria - Urine culture and sensitivities pending - Ms. Cm explained that she has a history of severe stomach sensitivity to PO antibiotics and that she will refuse any PO abx - Plan to start ceftriaxone tomorrow (due to administration of Levaquin today due to suspicion for colitis initially) ANKUR ROUSE MD 10/20/16 1242: Allergies and Home Medications Allergies Coded Allergies: gabapentin (Unverified Adverse Reaction, Unknown, VOMITING. , 12/10/14) Home Medications Meclizine Hcl 25 Mg Tablet 25 MG PO 0800,1400,1999 (Reported) Past Sakgmgs-Okunbe-Vupvbk Hx Family Medical History Family Hx: FHx: pancreatic cancer 19 MOTHER, Onset:60 years & older Myocardial infarction 19 FATHER Son Physical Exam Vital Signs Vital Sign - Last 12Hours 10/20/16 04:20 Temp 97.7 Pulse 72 Resp 20 B/P 192/77 Pulse Ox 97 O2 Delivery Room Air Supervisory-Addendum Brief Supervisory Addendum Patient seen and evaluated by me with EVELIN Holder, see my notes same day. GEORGE HOLDER MEDICAL STUDENT Oct 20, 2016 11:50 ANKUR ROUSE MD Oct 20, 2016 12:42
[2016-10-20 12:00] VITALS: BP 153/72
[2016-10-20] MEDS: MECLIZINE 25 MG (ANTIVERT) TAB PO SCH ×3 (13:07→23:59)
[2016-10-20] MEDS: ENOXAPARIN 40 MG/0.4 ML (LOVENOX) SYR SC SCH (13:09)
[2016-10-20 15:50] VITALS: BP 131/67
[2016-10-20 20:00] VITALS: BP 144/68
[2016-10-20] MEDS ORDERED: FLUTICASONE NASAL SPRAY (FLONASE) 16 GM BTL NS PRN (20:15)
[2016-10-21] VITALS (7 sets, daily range): BP systolic 121–210; BP diastolic 57–79
[2016-10-21] MEDS: D5 1/2 NS 1000 ML IV SOLUTION 1,000 ML IV SCH (03:31)
[2016-10-21 05:15] LABS: BASOPHILS % (AUTO) 0 % (0-10); EOSINOPHILS # (AUTO) 0.1 10^3/uL (0.0-0.3); EOSINOPHILS % (AUTO) 1 % (0-10); LYMPHOCYTES # (AUTO) 1.8 X 10^3 (1.0-4.0); LYMPHOCYTES % (AUTO) 30 % (12-44); MEAN CORPUSCULAR HEMOGLOBIN 31 PG (25-34); MEAN CORPUSCULAR HGB CONC 33 G/DL (32-36); MEAN CORPUSCULAR VOLUME 94 FL (80-99); MEAN PLATELET VOLUME 10.9 FL (7.4-10.4); MONOCYTES # (AUTO) 0.8 X 10^3 (0.0-1.0); MONOCYTES % (AUTO) 13 % (0-12); NEUTROPHILS # (AUTO) 3.3 X 10^3 (1.8-7.8); NEUTROPHILS % (AUTO) 55 % (42-75); PLATELET COUNT 168 10^3/uL (130-400); RED BLOOD COUNT 3.99 10^6/uL (4.35-5.85); RED CELL DISTRIBUTION WIDTH 14.2 % (10.0-14.5); WHITE BLOOD COUNT 5.9 10^3/uL (4.3-11.0)
[2016-10-21 05:17] LABS: ALBUMIN 3.5 G/DL (3.2-4.5); BILIRUBIN,TOTAL 1.7 MG/DL (0.1-1.0); CALCIUM 8.4 MG/DL (8.5-10.1); CREATININE SERUM 0.92 MG/DL (0.60-1.30); POTASSIUM 3.6 MMOL/L (3.6-5.0); TOTAL PROTEIN 6.1 G/DL (6.4-8.2)
[2016-10-21] MEDS: MECLIZINE 25 MG (ANTIVERT) TAB PO SCH ×2 (05:29→12:13)
--- NOTE | 2016-10-21 08:12 | Progress Note (SOAP) ---
IVY HOLDER MEDICAL STUDENT 10/21/1612: Subjective Subjective/Events-last exam Ms. Cm reports that this morning her pain has not improved at all, and painful area starting at her posterior left flank and extending around her LUQ has now expanded to extend down to her left groin, ending just medial to her anterior superior iliac spine. She is interested in knowing what is going on with her care, so I talked to her about some of the investigations that we have done so far, and I explained that she may still benefit from further workup by a GI specialist given her history. Based on our discussion yesterday, I also took some time to explain the reasons for prescribing and the mechanism of action of omeprazole, and she agreed that it's a medication that she could benefit from taking, and is willing to start taking it again for now. I also discussed her vertigo with her, and although we don't have records from her workup by ENT, her clinical history sounds like BPPV (she describes true vertigo, her symptoms are worst when she first moves her head in the morning, and episodes of vertigo are often triggered by head rotations/accelerations). I explained the reasoning behind vestibular rehabilitation maneuvers, and she expressed better understanding of why that was prescribed, but she strongly prefers to take meclizine PRN as she has been doing for some time now. Review of Systems General: No Chills, No Night Sweats HEENT: Other (she feels like her ear canals are very dry (which she prefers), and her nasal passages are very dry (which is uncomfortable for her)) Pulmonary: No Dyspnea Cardiovascular: No: Chest Pain, Palpitations Gastrointestinal: No: Vomiting (She tolerated some soup over the past 24 hrs without vomiting, and she has not had a bowel movement since yesterday morning) Neurological: No: Numbness, Weakness Objective Exam Vital Signs Date Time Temp Pulse Resp B/P Pulse Ox O2 Delivery O2 Flow Rate FiO2 10/21/16 07:55 96.0 58 16 121/63 94 Room Air 10/21/16 01:18 59 10/21/16 00:00 98.2 54 18 121/57 94 Room Air 10/20/16 21:00 94 Room Air 10/20/16 20:00 98.2 56 18 144/68 97 Room Air 2/16/17 19:00 61 10/20/16 15:50 98.4 62 17 131/67 92 Room Air 10/20/16 13:00 66 10/20/16 12:00 98.7 66 20 153/72 98 Room Air 10/20/16 11:00 68 10/20/16 08:30 97.2 69 20 164/78 99 Nasal Cannula 2.00 I & O 10/21/16 07:00 Intake Total 1050 ml Output Total 750 ml Balance 300 ml Capillary Refill : Less Than 3 Seconds General Appearance: No Apparent Distress Obese HEENT: PERRL/EOMI Neck: No JVD Respiratory: Lungs Clear Normal Breath Sounds Cardiovascular: Regular Rate, Rhythm No Edema No Murmur Peripheral Pulses: 2+ Radial Pulses (R), 2+ Radial Pulses (L) Gastrointestinal: abnormal bowel sounds (somewhat hyperactive low-pitched bowel sounds) other (moderate RUQ tenderness to palpation, severe LUQ tenderness to palpation) Neurologic/Psychiatric: Alert Oriented x3 Normal Mood/Affect Skin: Warm/Dry Results Lab Laboratory Tests 10/21/16 03:50: Alanine Aminotransferase (ALT/SGPT) 11, Albumin 3.5, Alkaline Phosphatase 70, Anion Gap 8, Aspartate Amino Transf (AST/SGOT) 17, BUN/Creatinine Ratio 14, Basophils # (Auto) 0.0, Basophils (%) (Auto) 0, Blood Urea Nitrogen 13, Calcium Level 8.4L, Carbon Dioxide Level 23, Chloride Level 108H, Creatinine 0.92, Eosinophils # (Auto) 0.1, Eosinophils (%) (Auto) 1, Estimat Glomerular Filtration Rate 58, Glucose Level 135H, Hematocrit 37, Hemoglobin 12.4, Lymphocytes # (Auto) 1.8, Lymphocytes (%) (Auto) 30, Mean Corpuscular Hemoglobin 31, Mean Corpuscular Hemoglobin Concent 33, Mean Corpuscular Volume 94, Mean Platelet Volume 10.9H, Monocytes # (Auto) 0.8, Monocytes (%) (Auto) 13H , Neutrophils # (Auto) 3.3, Neutrophils (%) (Auto) 55, Platelet Count 168, Potassium Level 3.6, Red Blood Count 3.99L, Red Cell Distribution Width 14.2, Sodium Level 139, Total Bilirubin 1.7H, Total Protein 6.1L, White Blood Count 5.9 Microbiology 10/20/16 Urine Culture - Preliminary, Resulted Assessment/Plan Assessment/Plan Assess & Plan/Chief Complaint L flank pain - She reports minimal improvement compared to yesterday - The pain used to extend around to LUQ, and now it goes all the way down to her L groin - She has not had a bowel movement since yesterday AM (unusual for her, but she also has been eating less; she had soup PO yesterday without nausea/vomiting) - No vomiting since yesterday early AM - She is ok to start omeprazole Vertigo - Worst in AM when she first moves her head, occasionally triggered with head movement, affects her daily - We discussed vestibular rehabilitation maneuvers at length today - For now she prefers to continue treatment with meclizine PRN (she does not have constipation, evidence of delirium or other cognitive impairment, or urinary retention, but meclizine is on the [facility] list for its partial anticholinergic activity) Nasal dryness - Consider switching nasal spray from Flonase to a saline spray PRN for dryness (initially started Flonase for complaint of nasal congestion) Disposition - Plan for discharge today on omeprazole - Plan to revisit meclizine and discuss vestibular rehab with PCP at outpatient hospital follow-up - Plan for followup with gasterenterology in [place] for further evaluation, consider MRCP Diagnosis/Problems: Clinical Quality Measures DVT/VTE Risk/Contraindication: Risk Factor Score Per Nursin RFS Level Per Nursing on Admit: 2=Moderate ANKUR ROUSE MD 10/21/16 1231: Supervisory-Addendum Brief Supervisory Addendum I personally interviewed and examined the patient, please see my notes for documentation IVY HOLDER MEDICAL STUDENT Oct 21, 2016 08:12 ANKUR ROUSE MD Oct 21, 2016 16:44
[2016-10-21] MEDS ORDERED: cefTRIAXone INJECTION 1,000 MG in NS (IVPB) 50 ML IV SCH (09:00)
[2016-10-21] MEDS ORDERED: LEVOFLOXACIN 500 MG/D5W 100 ML (PRE-MIX) IV SCH (09:00)
[2016-10-21] MEDS ORDERED: FLU TRIvalent (5 YOA+) 2016-17 (AFLURIA) 0.5 ML IM ONE (11:15)
[2016-10-21] MEDS: ENOXAPARIN 40 MG/0.4 ML (LOVENOX) SYR SC SCH (12:00)
[2016-10-21] MEDS ORDERED: OMEP40CA36 PO (12:20)
--- NOTE | 2016-10-21 12:22 | Discharge Instructions ---
Discharge [facility] Discharge Medications New, Converted or Re-Newed RX: Transmitted to Pharmacy New Medications: Omeprazole (Omeprazole) 40 Mg Capsule. 40 MG PO DAILY #0 Ref 0 CAP Continued Medications: Meclizine Hcl (Verticalm) 25 Mg Tablet 25 MG PO 0800,1400,2000 TAB Patient Instructions Goal/Follow Up Appt: Follow up with Lakia Platt APRN on 10/08 at 9 am. Return to The Hospital For: Uncontrolled dizziness, uncontrolled pain, inability to keep down liquids Activity & Diet Discharge Diet: Eat Small Frequent Meals Activity as Tolerated: Yes Orders-Post D/C & Referrals Pneu Vac Indicated: Yes Copy Copies To 1: JULIO Szymanski BETHANY N MD Oct 21, 2016 12:22 pm
--- NOTE | 2016-10-21 12:23 | Discharge Summary ---
Diagnosis/Chief Complaint Date of Admission Oct 20, 2016 at 6:34 am Date of Discharge Oct 21, 2016 Admission Diagnosis Admission Diagnosis 1. Vertigo 2. Left upper quadrant pain 3. Suspected UTI Discharge Diagnosis 1. Vertigo- chronic, improved and able to tolerate oral intake and walked with walker (has walker at home) without difficulty. 2. Left upper quadrant pain- present for some time, unclear etiology, CT abdomen without clear pathology but given the fatty replacement of per pancreas and her report of floating, yellow stools, consider chronic pancreatitis or other pancreatic problem, discussed with her that GI consult and stool testing for fat (72 hours) may be considered as next steps outpatient. She is agreeable to continuing omeprazole at this time to address any gastritis which may be contributing to her epigastric pain. -Elevated bilirubin on day of d/c- again CT unremarkable, consider further testing as noted and recheck labs at f/u visit. 3. Suspected UTI- ruled out, culture with mixed vinicio 4. HTN- resolved after admission with no treatment and was high again before d/ c but given her vertigo and normal BP without intervention, hesitate to start medication which may increase her risk of hypotension and fall. Recommended outpatient BP check tomorrow for further evaluation. Chief Complaint/HPI Chief Complaint/HPI 81 yo female admitted from ER after coming in for vertigo and LUQ pain. She has chronic intermittent vertigo, last night she took meclizine and then vomited and then had LUQ pain and came in by EMS to the ER. She continued to have LUQ pain, nausea, vomiting, diaphoresis and vertigo. She denies fever, but states she has had bright yellow, loose, floating stools for the last month ever since she had the first episode of shooting LUQ pain in September (for which she was seen in the ER and no clear pathology was found). Has had history of peptic ulcer disease she states and was prescribed omeprazole after her ER visit but she does not take it. Movement makes her abdominal pain worse. She has had problems with abdominal pain on and off for a long time and is concerned about taking any oral medications, particularly antibiotics because she gets an upset stomach so easily. She says she has had a dull aching right upper quadrant pain ever since her cholecystectomy. She notes she has had vertigo diagnosed 15 years ago and takes meclizine scheduled ever since. She saw an ENT at one point and states he was a "quack" and wanted her to do exercises. Her biggest concern is her LUQ pain. She had an EGD and colonoscopy 11/2015 which showed internal hemorrhoids and diverticulosis but was otherwise essentially unremarkable. Discharge Summary-Simple/Stand Consultations Discharge Physical Examination Allergies: Coded Allergies: gabapentin (Unverified Adverse Reaction, Unknown, VOMITING. , 12/10/14) Vitals & I&Os Vital Sign - Last 12Hours Date Time Temp Pulse Resp B/P Pulse Ox O2 Delivery O2 Flow Rate FiO2 10/21/16 07:55 96.0 58 16 121/63 94 Room Air 10/20/16 08:30 2.00 Intake and Output 10/21/16 00:00 Intake Total 850 ml Output Total 750 ml Balance 100 ml General Appearance: Alert, No Acute Distress Respiratory: Clear to Auscultation, Normal Air Movement Cardiovascular: Regular Rate, No Murmurs Abdominal: Normal Bowel Sounds, Soft, Other (mild epigastric and RUQ ttp) Neuro: Normal Speech Hospital Course See final discharge diagnosis. Labs Laboratory Tests Test 10/20/16 04:30 10/20/16 04:46 10/21/16 03:50 Range/Units Alanine Aminotransferase (ALT/SGPT) 11 11 0-55 U/L Albumin 3.8 3.5 3.2-4.5 G/DL Alkaline Phosphatase 77 70 40-136 U/L Amylase Level 18 L 25-125 U/L Anion Gap 13 8 5-14 MMOL/L Aspartate Amino Transf (AST/SGOT) 20 17 5-34 U/L BUN/Creatinine Ratio 16 14 Basophils # (Auto) 0.0 0.0 0.0-0.1 10^3/uL Basophils (%) (Auto) 0 0 0-10 % Blood Urea Nitrogen 12 13 7-18 MG/DL Calcium Level 8.9 8.4 L 8.5-10.1 MG/DL Carbon Dioxide Level 20 L 23 21-32 MMOL/L Chloride Level 108 H 108 H 98-107 MMOL/L Creatinine 0.76 0.92 0.60-1.30 MG/DL Eosinophils # (Auto) 0.1 0.1 0.0-0.3 10^3/uL Eosinophils (%) (Auto) 1 1 0-10 % Estimat Glomerular Filtration Rate > 60 58 Glucose Level 138 H 135 H 70-105 MG/DL Hematocrit 39 37 35-52 % Hemoglobin 13.2 12.4 11.5-16.0 G/DL Lipase 11 8-78 U/L Lymphocytes # (Auto) 1.5 1.8 1.0-4.0 X 10^3 Lymphocytes (%) (Auto) 23 30 12-44 % Magnesium Level 2.1 1.8-2.4 MG/DL Mean Corpuscular Hemoglobin 31 31 25-34 PG Mean Corpuscular Hemoglobin Concent 34 33 32-36 G/DL Mean Corpuscular Volume 91 94 80-99 FL Mean Platelet Volume 10.5 H 10.9 H 7.4-10.4 FL Monocytes # (Auto) 0.8 0.8 0.0-1.0 X 10^3 Monocytes (%) (Auto) 12 13 H 0-12 % Neutrophils # (Auto) 4.0 3.3 1.8-7.8 X 10^3 Neutrophils (%) (Auto) 63 55 42-75 % Platelet Count 172 168 130-400 10^3/uL Potassium Level 3.7 3.6 3.6-5.0 MMOL/L Red Blood Count 4.25 L 3.99 L 4.35-5.85 10^6/uL Red Cell Distribution Width 14.0 14.2 10.0-14.5 % Sodium Level 141 139 135-145 MMOL/L Total Bilirubin 1.0 1.7 H 0.1-1.0 MG/DL Total Protein 6.6 6.1 L 6.4-8.2 G/DL Troponin I < 0.30 <0.30 NG/ML White Blood Count 6.3 5.9 4.3-11.0 10^3/uL Urine Bacteria TRACE /HPF Urine Bilirubin NEGATIVE NEGATIVE Urine Casts NONE /LPF Urine Clarity CLEAR Urine Color YELLOW Urine Crystals NONE /LPF Urine Culture Indicated YES Urine Glucose (UA) NEGATIVE NEGATIVE Urine Ketones NEGATIVE NEGATIVE Urine Leukocyte Esterase 1+ H NEGATIVE Urine Mucus NEGATIVE /LPF Urine Nitrite NEGATIVE NEGATIVE Urine Protein NEGATIVE NEGATIVE Urine RBC NONE /HPF Urine RBC (Auto) NEGATIVE NEGATIVE Urine Specific [place] 1.010 L 1.016-1.022 Urine Squamous Epithelial Cells 10-25 H /HPF Urine Urobilinogen NORMAL NORMAL MG/DL Urine WBC 5-10 H /HPF Urine pH 8 5-[address] head 10/20/16 Diffuse cerebral degeneration CXR 10/20/[address] abdomen/pelvis 10/20/16 Diverticulosis with no diverticulitis Discharge Instructions to patient/family Please see electonic discharge instructions given to patient. Discharge Medications Reviewed and agree with Discharge Medication list on patient's Discharge Instruction sheet Clinical Quality Measures DVT/VTE Risk/Contraindication: Risk Factor Score Per Nursin RFS Level Per Nursing on Admit: 2=Moderate Copy Copies To 1: JULIO Szymanski BETHANY N MD Oct 21, 2016 12:22 pm
[2016-10-23] MEDS ORDERED: SCOPOLAMINE PATCH REMOVAL TP SCH (08:59)
[2016-10-23] MEDS ORDERED: SCOPOLAMINE 1.5 MG (TRANSDERM-SCOP) PATCH TOP SCH (09:00)
== END 2016-10-21 12:21 | disposition home or self-care (01) ==
LOC: EDUNIT# 04:18 → ER 04:21 → CSD 06:34 → UNDOADMOB 06:34 → CSD 08:30 → UNDODISOB 10-21 15:00
PROVIDERS: ADMIT Family Medicine; ATTEND Family Medicine
DX: R42 Dizziness and giddiness (principal); R10.12 Left upper quadrant pain; I10 Essential (primary) hypertension; E03.9 Hypothyroidism, unspecified; K21.9 Gastro-esophageal reflux disease without esophagitis; R30.0 Dysuria; J34.89 Other specified disorders of nose and nasal sinuses
CPT/HCPCS: 36415; 70450; 71010; 74176; 80053; 81000; 82150; 83690; 83735; 84484; 85025; 87088; 93005; 93041; 96374; 96375; 96376; G0378

== ENCOUNTER 2016-10-25 07:57 | Emergency (ER) | payer MEDICARE, OTHER ==
[~2016-10-25] VITALS: Ht 162.6 cm; Wt 98.0 kg
[~2016-10-25 07:57] MED LIST changes: +OMEP40CA36 PO
[2016-10-25] MEDS ORDERED: LACTATED RINGERS 1,000 ML IV ONE (08:09)
[2016-10-25] MEDS ORDERED: CATHETER FLUSH 10 ML SYR IV PRN (08:15)
[2016-10-25] MEDS ORDERED: IOHEXOL 350 MG/ML 100 ML (OMNIPAQUE 350) VIAL IV ONE (08:15)
[2016-10-25] MEDS ORDERED: NS 100 ML (IVPB) BAG IV ONE (08:15)
--- NOTE | 2016-10-25 08:20 | ED Abdominal Pain ---
General Stated Complaint: LEFT FLANK PAIN/UTI SYMPTOMS Source of Information: Patient, Family (SON) History of Present Illness Time Seen By Provider: 08:04 Initial Comments PT ARRIVES VIA POV FROM HOME C/O ONGOING LUQ/LEFT FLANK PAIN -PAIN IN LEFT FLANK HAS BEEN SEVERE SINCE 0300 THIS AM. HAS NOT TAKEN ANYTHING FOR PAIN HAS BEEN DX WITH COLITIS--PT ADMITTED HERE 10/21-10/21 FOR INTRACTABLE VERTIGO ( PT HAS CHRONIC VERTIGO) AND WAS ALSO C/O ONGOING LUQ PAIN AT THAT TIME AND CT SHOWED COLITIS. PT C/O URINARY FREQUENCY THIS AM NO FEVER NO NAUSEA--HAS TAKEN OMEPRAZOLE, MECLIZINE AND ASPIRIN THIS AM NO DIARRHEA OR CONSTIPATION Allergies and Home Medications Allergies Coded Allergies: gabapentin (Unverified Adverse Reaction, Unknown, VOMITING. , 12/10/14) Home Medications Ciprofloxacin HCl 500 Mg Tablet #20 500 MG PO BID Prescribed by: LAMBERT RAMOS on 10/25/16 0945 Hydrocodone/Acetaminophen 1 Each Tablet #20 1 EACH PO Q4H Prescribed by: LAMBERT RAMOS on 10/25/16 0945 Meclizine Hcl 25 Mg Tablet 25 MG PO 0800,1400,1999 (Reported) Metronidazole 500 Mg Tablet #40 500 MG PO QID Prescribed by: LAMBERT RAMOS on 10/25/16 0945 Omeprazole 40 Mg Capsule.dr #0 40 MG PO DAILY Prescribed by: ANKUR ROUSE on 10/21/16 1220 Ondansetron 4 Mg Tab.rapdis #10 4 MG PO Q4H Prescribed by: LAMBERT RAMOS on 10/25/16 0945 Review of Systems Constitutional: no symptoms reported Respiratory: No Symptoms Reported Cardiovascular: No Symptoms Reported Gastrointestinal: See HPI Genitourinary: See HPI Musculoskeletal: see HPI Skin: no symptoms reported Psychiatric/Neurological: No Symptoms Reported Endocrine: No Symptoms Reported Past Rwpnumn-Ikmcxw-Gbajib Hx Patient Social History Recent Foreign Travel: No Contact w/Someone Who Travel: No Recent Hopitalizations: No Immunizations Up To Date Tetanus Booster (TDap): Unknown Seasonal Allergies Seasonal Allergies: Yes (vicks under nose, lashaun bothered stomach) Surgeries HX Surgeries: Yes (EGD/ESOPHAGEAL DILATION; CARDIAC CATH--NO INTERVENTION) Surgeries: Appendectomy, Cardiac, Gallbladder Respiratory Hx Respiratory Disorders: No Cardiovascular Hx Cardiac Disorders: Yes (CARDIAC CATH--NORMAL) Cardiac Disorders: Hypertension Neurological Hx Neurological Disorders: Yes (CHRONIC VERTIGO) Neurological Disorders: Neuropathy, Vertigo Reproductive System Hx Reproductive Disorders: No Sexually Transmitted Disease: No HIV/AIDS: No 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 Flores 2012--ESOPHAGEAL DILATION FOR STRICTURE;TELLY) Gastrointestinal Disorders: Gastroesophageal Reflux, Hemorrhoids, Ulcer, Gall Bladder Disease Musculoskeletal Hx Musculoskeletal Disorders: Yes Musculoskeletal Disorders: Arthritis Endocrine Hx Endocrine Disorders: Yes (OBESITY) Endocrine Disorders: Hypothyroidsim HEENT HX ENT Disorders: Yes ("SINUS DRAINAGE") HEENT Disorders: Tinnitis Cancer Hx Cancer: No Psychosocial Hx Psychiatric Problems: Yes (not on any pharmacologic treatment) Behavioral Health Disorders: Eating Disorder, Sleep Difficulties, Anxiety, Depression Integumentary HX Skin/Integumentary Disorder: No Blood Transfusions Hx Blood Disorders: No Adverse Reaction to a Blood Tr: No Family Medical History Significant Family History: Heart Disease, Cancer Family Medial History: FHx: pancreatic cancer 19 MOTHER, Onset:60 years & older Myocardial infarction 19 FATHER Son Physical Exam Vital Signs VS - Last 72 Hours, by Label 10/25/16 10/25/16 08:05 10:30 Temp 97.5 97.5 Pulse 70 74 Resp 18 18 B/P 199/86 Pulse Ox 96 96 O2 Delivery Room Air Capillary Refill : General Appearance: WD/WN no apparent distress Respiratory: normal breath sounds no respiratory distress no accessory muscle use Cardiovascular: regular rate, rhythm no murmur Gastrointestinal: normal bowel sounds soft tenderness (LEFT MID ABD AND LEFT FLANK TENDERNESS) Back: CVA tenderness (L) 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 as tested no motor/sensory deficits alert normal mood/affect oriented x 3 Skin: normal color warm/dryNo rash Progress/Results/Core Measures Results/Orders Lab Results Laboratory Tests Test 10/25/16 08:20 10/25/16 08:24 Range/Units Alanine Aminotransferase (ALT/SGPT) 16 0-55 U/L Albumin 3.9 3.2-4.5 G/DL Alkaline Phosphatase 71 40-136 U/L Amylase Level 16 L 25-125 U/L Anion Gap 9 5-14 MMOL/L Aspartate Amino Transf (AST/SGOT) 22 5-34 U/L BUN/Creatinine Ratio 12 Basophils # (Auto) 0.0 0.0-0.1 10^3/uL Basophils (%) (Auto) 0 0-10 % Blood Urea Nitrogen 10 7-18 MG/DL Calcium Level 9.0 8.5-10.1 MG/DL Carbon Dioxide Level 25 21-32 MMOL/L Chloride Level 109 H 98-107 MMOL/L Creatinine 0.82 0.60-1.30 MG/DL Eosinophils # (Auto) 0.1 0.0-0.3 10^3/uL Eosinophils (%) (Auto) 2 0-10 % Estimat Glomerular Filtration Rate > 60 Glucose Level 123 H 70-105 MG/DL Hematocrit 39 35-52 % Hemoglobin 13.1 11.5-16.0 G/DL Lipase 11 8-78 U/L Lymphocytes # (Auto) 1.5 1.0-4.0 X 10^3 Lymphocytes (%) (Auto) 27 12-44 % Mean Corpuscular Hemoglobin 31 25-34 PG Mean Corpuscular Hemoglobin Concent 34 32-36 G/DL Mean Corpuscular Volume 92 80-99 FL Mean Platelet Volume 10.9 H 7.4-10.4 FL Monocytes # (Auto) 0.7 0.0-1.0 X 10^3 Monocytes (%) (Auto) 13 H 0-12 % Neutrophils # (Auto) 3.3 1.8-7.8 X 10^3 Neutrophils (%) (Auto) 58 42-75 % Platelet Count 168 130-400 10^3/uL Potassium Level 3.6 3.6-5.0 MMOL/L Red Blood Count 4.22 L 4.35-5.85 10^6/uL Red Cell Distribution Width 14.0 10.0-14.5 % Sodium Level 143 135-145 MMOL/L Total Bilirubin 1.6 H 0.1-1.0 MG/DL Total Protein 6.8 6.4-8.2 G/DL White Blood Count 5.6 4.3-11.0 10^3/uL Urine Bacteria NEGATIVE /HPF Urine Bilirubin NEGATIVE NEGATIVE Urine Casts NONE /LPF Urine Clarity CLEAR Urine Color YELLOW Urine Crystals NONE /LPF Urine Culture Indicated NO Urine Glucose (UA) NEGATIVE NEGATIVE Urine Ketones NEGATIVE NEGATIVE Urine Leukocyte Esterase NEGATIVE NEGATIVE Urine Mucus NEGATIVE /LPF Urine Nitrite NEGATIVE NEGATIVE Urine Protein NEGATIVE NEGATIVE Urine RBC NONE /HPF Urine RBC (Auto) NEGATIVE NEGATIVE Urine Specific [place] 1.005 L 1.016-1.022 Urine Squamous Epithelial Cells 0-2 /HPF Urine Urobilinogen NORMAL NORMAL MG/DL Urine WBC NONE /HPF Urine pH 7 5-9 My Orders Orders-LAMBERT RAMOS Carmelita DO Ua Culture If Indicated (10/25/16 08:05) Saline Lock/Iv-Start (10/25/16 08:09) Ct Abdomen/Pelvis W (10/25/16 08:09) Amylase (10/25/16 08:09) Cbc With Automated Diff (10/25/16 08:09) Comprehensive Metabolic Panel (10/25/16 08:09) Lipase (10/25/16 08:09) Saline Lock/Iv-Start (10/25/16 08:09) Lactated Ringers (Lr 1000 Ml Iv Solution (10/25/16 08:09) Iohexol Injection (Omnipaque 350 Mg/Ml 1 (10/25/16 08:15) Sodium Chloride Flush (Catheter Flush Sy (10/25/16 08:15) Ns (Ivpb) (Sodium Chloride 0.9% Ivpb Bag (10/25/16 08:15) Ketorolac Injection (Toradol Injection) (10/25/16 09:45) Fentanyl Injection (Sublimaze Injection (10/25/16 09:46) Medications Given in ED Vital Signs/I&O Vital Sign - Last 12Hours 10/25/16 10/25/16 08:05 10:30 Temp 97.5 97.5 Pulse 70 74 Resp 18 18 B/P 199/86 Pulse Ox 96 96 O2 Delivery Room Air Progress Note : Progress Note PAIN EASED AT DISMISSAL Diagnostic Imaging Comments CT ABDOMEN/PELVIS--DIVERTICULAR DISEASE, QUESTIONABLE MILD DIVERTICULITIS IN LLQ --PER RADIOLOGIST VIA PHONE @ 0991 Reviewed: Reviewed by Me, Discussed w/Radiologist Departure Impression Impression: Primary Impression: Left flank pain Additional Impressions: LUQ pain Diverticulitis Disposition: 01 HOME, SELF-CARE Condition: Stable Departure-Patient Inst. Referrals: [facility] (PCP/Family) Primary Care Physician Patient Instructions: Diverticulitis (DC), Flank Pain (DC) Add. Discharge Instructions: CLEAR LIQUIDS--WATER, BROTH, JELLO, GATORADE TOMORROW IF YOU ARE BETTER, ADD BRATS DIET TO CLEAR LIQUIDS--BANANAS, RICE, APPLESAUCE, TOAST, SALTINES FOLLOW UP WITH YOUR DR THIS WEEK FOR FURTHER CARE Scripts Hydrocodone/Acetaminophen (Hydrocodon -Acetaminophen 5-325)1 Each Tablet1 Each PO Q4H #20 TAB Prov:LAMBERT RAMOS DO 10/25/16 Ondansetron (Zofran Odt)4 Mg Tab.rapdis4 Mg PO Q4H Nausea/Vomiting #10 TAB Prov:LAMBERT RAMOS DO 10/25/16 Metronidazole (Flagyl)500 Mg [id number] Mg PO QID FOR INFECTION #40 TAB Prov:LAMBERT RAMOS DO 10/25/16 Ciprofloxacin HCl (Cipro)500 Mg [id number] Mg PO BID #20 TAB Prov:LAMBERT RAMOS DO 10/25/16 LAMBERT RAMOS DO Oct 25, 2016 08:20
[2016-10-25 08:30] LABS: BASOPHILS % (AUTO) 0 % (0-10); EOSINOPHILS # (AUTO) 0.1 10^3/uL (0.0-0.3); EOSINOPHILS % (AUTO) 2 % (0-10); LYMPHOCYTES # (AUTO) 1.5 X 10^3 (1.0-4.0); LYMPHOCYTES % (AUTO) 27 % (12-44); MEAN CORPUSCULAR HEMOGLOBIN 31 PG (25-34); MEAN CORPUSCULAR HGB CONC 34 G/DL (32-36); MEAN CORPUSCULAR VOLUME 92 FL (80-99); MEAN PLATELET VOLUME 10.9 FL (7.4-10.4); MONOCYTES # (AUTO) 0.7 X 10^3 (0.0-1.0); MONOCYTES % (AUTO) 13 % (0-12); NEUTROPHILS # (AUTO) 3.3 X 10^3 (1.8-7.8); NEUTROPHILS % (AUTO) 58 % (42-75); PLATELET COUNT 168 10^3/uL (130-400); RED BLOOD COUNT 4.22 10^6/uL (4.35-5.85); WHITE BLOOD COUNT 5.6 10^3/uL (4.3-11.0)
[2016-10-25 08:34] LABS: BILIRUBIN,URINE NEGATIVE (NEGATIVE); KETONES,URINE NEGATIVE (NEGATIVE); LEUKOCYTE ESTERASE ,URINE NEGATIVE (NEGATIVE); NITRITE,URINE NEGATIVE (NEGATIVE); PH,URINE 7 (5-9); PROTEIN,URINE NEGATIVE (NEGATIVE); UROBILINOGEN,URINE NORMAL (NORMAL)
[2016-10-25 08:43] LABS: SQUAMOUS EPITHELIAL CELL,UR 0-2 /HPF
[2016-10-25 08:46] LABS: ALANINE AMINOTRANSFERASE 16 U/L (0-55); ALBUMIN 3.9 G/DL (3.2-4.5); AMYLASE 16 U/L (25-125); ANION GAP 9 MMOL/L (5-14); ASPARTATE AMINO TRANSFERASE 22 U/L (5-34); BILIRUBIN,TOTAL 1.6 MG/DL (0.1-1.0); BLOOD UREA NITROGEN 10 MG/DL (7-18); BUN/CREATININE RATIO 12; CARBON DIOXIDE 25 MMOL/L (21-32); CHLORIDE 109 MMOL/L (98-107); CREATININE SERUM 0.82 MG/DL (0.60-1.30); GFR ESTIMATED > 60; GLUCOSE 123 MG/DL (70-105); LIPASE 11 U/L (8-78); POTASSIUM 3.6 MMOL/L (3.6-5.0); SODIUM 143 MMOL/L (135-145); TOTAL PROTEIN 6.8 G/DL (6.4-8.2)
--- NOTE | 2016-10-25 09:43 | Diagnostic Imaging Report ---
PROCEDURE: CT abdomen and pelvis with contrast. TECHNIQUE: Multiple contiguous axial images were obtained through the abdomen and pelvis after administration of intravenous contrast. INDICATION: Left flank pain Recent CT abdomen/pelvis exam performed on 10/20/16 noted numerous diverticula involving the sigmoid and descending colon. There is no sign of acute diverticulitis however. On this exam the overall appearance of the sigmoid and descending colon does not seem to have changed significantly. There may be very slight distortion of the pericolonic fat near the junction of sigmoid and descending colon. The possibility that there is an element of mild diverticulitis present should be considered. There is certainly no diverticular mass or abscess identified and there is no sign of a microperforation. There is no pelvic mass or free fluid collection noted either. The uterus and urinary bladder are grossly unremarkable. By history the appendix is surgically absent. The liver, spleen, pancreas, adrenals, kidneys, aorta and inferior vena cava are unremarkable for an acute abnormality. There is atherosclerotic plaque involving both renal origins but there is no clear evidence for hemodynamically significant stenosis. The stomach is not well distended and consequently difficult to assess. There is a small 2.0 x 2.6 CM hiatal hernia. The bone windows show no sign of a fracture or of a destructive lesion. The lung bases are generally clear. The heart is enlarged. IMPRESSION: 1. There is extensive diverticulosis of the sigmoid and descending colon. There is slight distortion of the pericolonic fat near the junction of sigmoid and descending colon does raise the question of mild diverticulitis. Clinical followup is recommended. 2. There is no acute abnormality of the abdomen or pelvis noted otherwise. 3. These results were discussed with Dr. Arellano in the ER. Dictated by: Dictated on workstation # [id number]
[2016-10-25] MEDS ORDERED: ONDA4TAB8 PO (09:45)
[2016-10-25] MEDS ORDERED: CIPR-225 PO (09:45)
[2016-10-25] MEDS ORDERED: KETOROLAC 30 MG/ML VIAL IVP ONE (09:45)
[2016-10-25] MEDS ORDERED: METR500T PO (09:45)
[2016-10-25] MEDS ORDERED: HYDR-3812 PO (09:45)
[2016-10-25] MEDS ORDERED: fentaNYL INJECTION 100 MCG/2 ML AMP IVP STA (09:46)
[2016-10-25 10:30] VITALS: BP 185/86
--- OUTSIDE RECORDS SUMMARY | 2016-10-25 13:11 | XMS REPORT | Continuity of Care Document ---
Author Author [facility] Organization [facility] Address Unknown Phone Unavailable Care Team Providers Care Supervisor [employer] Name Role Phone [facility] OF PCP Insurance Providers Payer Name Policy Number Subscriber Name Relationship [employer] [id number] Lety Carver 17 Self / Same As Patient Advance Directives Directive Response Recorded Date/Time Advance Directives Yes 10/25/16 8:05am Health Care Power of Routing Equipment Tender No 10/25/16 8:05am Organ Donor No 10/25/16 8:05am Resuscitation Status Full Code 10/25/16 8:05am Chief Complaint and Reason for Visit Chief Complaint Back Problems Reason for Visit [id number] Left flank pain Problems Active Problems Medical Problem Onset Date Status Acute lower GI bleeding Unknown Acute Carotid artery stenosis Unknown Acute Chronic abdominal pain Unknown Acute Chronic hypertension Unknown Acute Constipation Unknown Acute Diverticulitis Unknown Acute Epigastric abdominal pain Unknown Acute Epigastric abdominal pain Unknown Acute GERD (gastroesophageal reflux disease) Unknown Acute Gastritis Unknown Acute Headache Unknown Acute Hypertension Unknown Acute Hypokalemia Unknown Acute Hypokalemia Unknown Acute LUQ pain Unknown Acute Labile hypertension Unknown Acute Left flank pain Unknown Acute Left upper quadrant pain Unknown Acute Nausea Unknown Acute Neuropathy Unknown Acute Otitis media Unknown Acute Paresthesia Unknown Acute UTI (urinary tract infection) Unknown Acute generalized weakness Unknown Acute unable to care for self Unknown Acute weakness Unknown Acute Medications Current Home Medications Medication Dose Units Route Directions Days/Qty Instructions Start Date Meclizine Hcl 25 Mg 25 Mg Oral Take Today At 8:00AM, 2:00PM, And 8:00PM 10/24/12 Omeprazole 40 Mg 40 Mg Oral Daily 0 10/21/16 Ciprofloxacin Hcl 500 Mg 500 Mg Oral Twice A Day 20 10/25/16 Metronidazole 500 Mg 500 Mg Oral Four Times Daily for For Infection 40 10/25/16 Ondansetron 4 Mg 4 Mg Oral Every 4HRS for Nausea/Vomiting 10 10/25/16 Hydrocodone/Acetaminophen 1 Each 1 Each Oral Every 4HRS 10/25/16 Past Home Medications Medication Directions Ordered Status Amitriptyline Hcl 10 Mg Tab, 1 Each Oral Bedtime 08/11/12 Discontinued Aspirin 81 Mg Tabec, 81 Mg Oral Daily 10/26/12 Discontinued Doxycycline Hyclate 100 Mg Tab, 100 Mg Oral Twice A Day 03/08/13 Discontinued Acetaminophen 500 Mg Tab, 0 Mg Oral Every 6 Hours as needed 03/08/13 Discontinued Ondansetron Hcl 4 Mg Tab, 1 Tab Oral Every 6 Hours 03/08/13 Discontinued Doxycycline Hyclate 100 Mg Tablet.dr, 100 Mg Oral Twice A Day 03/09/13 Discontinued Dicyclomine Hcl 20 Mg Tablet, 1 Each Oral Qid Prn 03/12/13 Discontinued [Lipoflavonoid] , 1 Tab Oral Twice A Day 03/15/13 Discontinued Ondansetron Hcl 4 Mg Tab, 4 Mg Oral Every 6 Hours as needed 03/15/13 Discontinued Dicyclomine Hcl 20 Mg Tablet, 20 Mg Oral Four Times Daily as needed 03/15/13 Discontinued Doxycycline Hyclate (Vibramycin) 100 Mg Capsule, 100 Mg Oral Twice A Day 08/16 Discontinued Magnesium Carbonate/Al Hydrox 1 Tab.chew Tab.chew, 2 Tab.chew Oral Before Meals as needed 03/15/13 Discontinued Fluconazole 100 Mg Tablet, 100 Mg Oral Daily 03/15/13 Discontinued Dicyclomine Hcl 20 Mg Tablet, 20 Mg Oral Four Times Daily as needed 03/19/13 Discontinued Tramadol Hcl 150 Mg Cpmp.25.75, 50 Mg Oral Give Every 12 Hrs On Schedule Discontinued Aspirin 81 Mg Tabec, 81 Mg Oral Daily 05/09/13 Discontinued Famotidine (Pepcid) 20 Mg Tablet, 1 Each Oral Twice A Day 06/28/13 Discontinued Pantoprazole Sodium 40 Mg Tablet.dr, 40 Mg Oral Daily@0700 07/02/13 Discontinued Simethicone 80 Mg Chew, 80 Mg Oral As Needed 07/02/13 Discontinued Hyoscyamine Sulfate 0.125 Mg Tab, 0.125 Mg Oral Before Meals And At Bedtime 07/02/13 Discontinued Ondansetron Hcl 8 Mg/Tab Tab.rapdis, 8 Mg Oral Every 6 Hours as needed Discontinued Potassium Chloride (Micro K) 10 Meq Capsule.sa, 1 Each Oral Daily With Food 07/11/13 Discontinued Potassium Chloride (Micro K) 10 Meq Capsule.sa, 1 Each Oral Daily With Food 07/11/13 Discontinued Tramadol Hcl 50 Mg Tablet, 50 Mg Oral Every 6 Hours as needed for Pain Discontinued Bisacodyl 5 Mg Tab, 0 Mg Oral Daily 08/05/13 Discontinued Citalopram Hydrobromide 20 Mg Tab, 20 Mg Oral Daily 08/05/13 Discontinued Clotrimazole 10 Ml Solution, 0 Ml Topically Three Times A Day 08/05/13 Discontinued Gabapentin 100 Mg Cap, 100 Mg Oral Three Times A Day 08/05/13 Discontinued Hydrocortisone/Pramoxine 30 Gm Cream.gm., 0 Gm Rectal Twice A Day as needed for Rash 08/05/13 Discontinued Senna 1 Ea Tablet, 1 Ea Oral Twice A Day as needed for Constipation 08/05/13 Discontinued Simethicone 80 Mg Chew, 80 Mg Oral Four Times Daily for Indigestion 08/05/13 Discontinued Pantoprazole Sod 40 Mg Tab, 40 Mg Oral Daily 12/10/14 Discontinued Sucralfate 1 Gm/10 Ml Susp, 2 Tsp Oral Before Meals And At Bedtime 12/10/14 Discontinued Ondansetron Hcl 4 Mg Tab, 4 Mg Sublingual Every 4HRS 12/10/14 Discontinued Bisacodyl 5 Mg Tab, 1 Mg Oral Twice A Day 12/12/14 Discontinued Meloxicam 15 Mg Tablet, 15 Mg Oral Daily as needed for Pain 11/03/15 Discontinued Scopolamine 1 Each Patch.td72, 1 Each Transderm Q72 Hours for Dizziness 07/31 Discontinued Omeprazole 20 Mg Capsule.dr, 20 Mg Oral Twice A Day 09/13/16 Discontinued Social History Social History Problem Response Recorded Date/Time Alcohol Use Denies Use 11/02/2015 10:11pm Recreational Drug Use No 11/02/2015 10:11pm Recent Foreign Travel No 10/25/2016 8:05am Recent Infectious Disease Exposure No 10/25/2016 8:05am Hospitalization with Isolation Denies 08/05/2013 2:45pm Sexually Transmitted Disease No 10/25/2016 8:05am HIV/AIDS No 10/25/2016 8:05am Smoking Status Never a Smoker 10/25/2016 8:05am Do you dip or chew tobacco? No 11/02/2015 10:11pm Recent Hopitalizations Y VERTIGO 10/25/2016 8:05am Sexually Transmitted Disease No 10/25/2016 8:05am Hospitalization with Isolation Denies 08/05/2013 2:45pm Query Response Start Date Stop Date Smoking Status Never a Smoker Hospital Discharge Instructions No hospital discharge instructions. Plan of Care Discharge Date 10/25/16 10:30am Disposition 01 HOME, SELF-CARE Condition at Discharge Stable Instructions/Education Provided Diverticulitis (DC) Flank Pain (DC) Prescriptions See Medication Section Referrals [facility] - Primary Care Physician Additional Instructions/Education CLEAR LIQUIDS--WATER, BROTH, JELLO, GATORADE TOMORROW IF YOU ARE BETTER, ADD BRATS DIET TO CLEAR LIQUIDS--BANANAS, RICE, APPLESAUCE, TOAST, SALTINES FOLLOW UP WITH YOUR DR THIS WEEK FOR FURTHER CARE Functional Status No functional status results. Allergies, Adverse Reactions, Alerts Allergen Type Severity Reaction Status Last Updated Gabapentin Adverse Reaction Unknown VOMITING. Active 12/10/14 Immunizations Name Given Type FLU TRIvalent 5 years - Adult 10/21/16 Administered Vital Signs Acute Vital Signs Vital Response Date/Time Temperature (Fahrenheit) 97.5 degrees F (97.6 - 99.5) 10/25/2016 8:05am Temperature (Calculated Celsius) 36.65290 degrees C (36.4 - 37.5) 10/25/2016 8:05am Temperature Source Tympanic 10/25/2016 8:05am Pulse Rate (adult) 70 bpm (60 - 90) 10/25/2016 8:05am Respiratory Rate 18 bpm (12 - 24) 10/25/2016 8:05am O2 Sat by Pulse Oximetry 96 % (88 - 100) 10/25/2016 8:05am Blood Pressure 199/86 mm Hg 10/25/2016 8:05am Blood Pressure Mean 123 mm Hg 10/25/2016 8:05am Pain Numeric Pain Scale 8 10/25/2016 10:11am Pain Numeric Pain Scale 8 10/25/2016 10:11am Height (Feet) 5 feet 10/25/2016 8:05am Height (Inches) 4.00 inches 10/25/2016 8:05am Height (Calculated Centimeters) 162.456265 cm 10/25/2016 8:05am Weight (Pounds) 216 pounds 10/25/2016 8:05am Weight (Ounces) 0.0 oz 10/25/2016 8:05am Weight (Calculated Grams) 05559.953 gm 10/25/2016 8:05am Weight (Calculated Kilograms) 97.621547 kilograms 10/25/2016 8:05am Calculated BMI 37.1 10/25/2016 8:05am Capillary Refill Capillary Refill Less Than 3 Seconds 10/25/2016 8:05am Results Laboratory Results Test Name Result Units Flags Reference Collection Date/Time Result Date/ Time Comments White Blood Count 5.9 10^3/uL 4.3-11.0 10/21/2016 3:50am 10/21/2016 5: 16am Red Blood Count 3.99 10^6/uL L 4.35-5.85 10/21/2016 3:50am 10/21/2016 5: 16am Hemoglobin 12.4 G/DL 11.5-16.0 10/21/2016 3:50am 10/21/2016 5:16am Hematocrit 37 % 35-52 10/21/2016 3:50am 10/21/2016 5:16am Mean Corpuscular Volume 94 FL 80-99 10/21/2016 3:50am 10/21/2016 5: 16am Mean Corpuscular Hemoglobin 31 PG 25-34 10/21/2016 3:50am 10/21/2016 5: 16am Mean Corpuscular Hemoglobin Concent 33 G/DL 32-36 10/21/2016 3:50am 5:16am Red Cell Distribution Width 14.2 % 10.0-14.5 10/21/2016 3:50am 2016 5:16am Platelet Count 168 10^3/uL 130-400 10/21/2016 3:50am 10/21/2016 5:16am Mean Platelet Volume 10.9 FL H 7.4-10.4 10/21/2016 3:50am 10/21/2016 5: 16am Neutrophils (%) (Auto) 55 % 42-75 10/21/2016 3:50am 10/21/2016 5:16am Lymphocytes (%) (Auto) 30 % 12-44 10/21/2016 3:50am 10/21/2016 5:16am Monocytes (%) (Auto) 13 % H 0-12 10/21/2016 3:50am 10/21/2016 5:16am Eosinophils (%) (Auto) 1 % 0-10 10/21/2016 3:50am 10/21/2016 5:16am Basophils (%) (Auto) 0 % 0-10 10/21/2016 3:50am 10/21/2016 5:16am Neutrophils # (Auto) 3.3 X 10^3 1.8-7.8 10/21/2016 3:50am 10/21/2016 5: 16am Lymphocytes # (Auto) 1.8 X 10^3 1.0-4.0 10/21/2016 3:50am 10/21/2016 5: 16am Monocytes # (Auto) 0.8 X 10^3 0.0-1.0 10/21/2016 3:50am 10/21/2016 5: 16am Eosinophils # (Auto) 0.1 10^3/uL 0.0-0.3 10/21/2016 3:50am 10/21/2016 5 :16am Basophils # (Auto) 0.0 10^3/uL 0.0-0.1 10/21/2016 3:50am 10/21/2016 5: 16am Urine Color YELLOW 10/20/2016 4:46am 10/20/2016 5:01am Urine Clarity CLEAR 10/20/2016 4:46am 10/20/2016 5:01am Urine pH 8 5-9 10/20/2016 4:46am 10/20/2016 5:01am Urine Specific Bar[place] 1.010 * 1.016-1.022 10/20/2016 4:46am 2016 5:01am Urine Protein NEGATIVE NEGATIVE 10/20/2016 4:46am 10/20/2016 5:01am Urine Glucose (UA) NEGATIVE NEGATIVE 10/20/2016 4:46am 10/20/2016 5: 01am Urine RBC (Auto) NEGATIVE NEGATIVE 10/20/2016 4:46am 10/20/2016 5: 01am Urine Ketones NEGATIVE NEGATIVE 10/20/2016 4:46am 10/20/2016 5:01am Urine Nitrite NEGATIVE NEGATIVE 10/20/2016 4:46am 10/20/2016 5:01am Urine Bilirubin NEGATIVE NEGATIVE 10/20/2016 4:46am 10/20/2016 5: 01am Urine Urobilinogen NORMAL MG/DL NORMAL 10/20/2016 4:46am 10/20/2016 5: 01am Urine Leukocyte Esterase 1+ * NEGATIVE 10/20/2016 4:46am 10/20/2016 5: 01am Urine RBC NONE /HPF 10/20/2016 4:46am 10/20/2016 5:01am Urine WBC 5-10 /HPF * 10/20/2016 4:46am 10/20/2016 5:01am Urine Bacteria TRACE /HPF 10/20/2016 4:46am 10/20/2016 5:01am Urine Squamous Epithelial Cells 10-25 /HPF * 10/20/2016 4:46am 2016 5:01am Urine Crystals NONE /LPF 10/20/2016 4:46am 10/20/2016 5:01am Urine Casts NONE /LPF 10/20/2016 4:46am 10/20/2016 5:01am Urine Mucus NEGATIVE /LPF 10/20/2016 4:46am 10/20/2016 5:01am Urine Culture Indicated YES 10/20/2016 4:46am 10/20/2016 5:01am Sodium Level 139 MMOL/L 135-145 10/21/2016 3:50am 10/21/2016 5:20am Potassium Level 3.6 MMOL/L 3.6-5.0 10/21/2016 3:50am 10/21/2016 5:20am Chloride Level 108 MMOL/L H 98-107 10/21/2016 3:50am 10/21/2016 5:20am Carbon Dioxide Level 23 MMOL/L 21-32 10/21/2016 3:50am 10/21/2016 5: 20am Anion Gap 8 MMOL/L 5-14 10/21/2016 3:50am 10/21/2016 5:20am Blood Urea Nitrogen 13 MG/DL 7-18 10/21/2016 3:50am 10/21/2016 5:20am Creatinine 0.92 MG/DL 0.60-1.30 10/21/2016 3:50am 10/21/2016 5:20am BUN/Creatinine Ratio 14 10/21/2016 3:50am 10/21/2016 5:20am Estimat Glomerular Filtration Rate 58 10/21/2016 3:50am 10/21/2016 5:20am GFR INTERPRETIVE DATA UNITS FOR ESTIMATED GFR (eGFR): mL/min/1.73 M2 REFERENCE RANGE FOR ESTIMATED GFR (eGFR) eGFR NORMAL eGFR >60 MODERATELY DECREASED eGFR 30-59 SEVERLY DECREASED eGFR 15-29 KIDNEY FAILURE <15 (OR DIALYSIS) Glucose Level 135 MG/DL H 70-105 10/21/2016 3:50am 10/21/2016 5:20am Calcium Level 8.4 MG/DL L 8.5-10.1 10/21/2016 3:50am 10/21/2016 5:20am Magnesium Level 2.1 MG/DL 1.8-2.4 10/20/2016 4:30am 10/20/2016 5:08am Total Bilirubin 1.7 MG/DL H 0.1-1.0 10/21/2016 3:50am 10/21/2016 5:20am Alkaline Phosphatase 70 U/L 40-136 10/21/2016 3:50am 10/21/2016 5:20am Aspartate Amino Transf (AST/SGOT) 17 U/L 5-34 10/21/2016 3:50am 2016 5:20am Alanine Aminotransferase (ALT/SGPT) 11 U/L 0-55 10/21/2016 3:50am 10/21 5:20am Troponin I < 0.30 NG/ML <0.30 10/20/2016 4:30am 10/20/2016 5:15am Total Protein 6.1 G/DL L 6.4-8.2 10/21/2016 3:50am 10/21/2016 5:20am Albumin 3.5 G/DL 3.2-4.5 10/21/2016 3:50am 10/21/2016 5:20am Amylase Level 18 U/L L 25-125 10/20/2016 4:30am 10/20/2016 5:08am Lipase 11 U/L 8-78 10/20/2016 4:30am 10/20/2016 5:08am Pending Laboratory Results Test Name Collection Date/Time Procedures Procedure Status Date Provider(s) Tracing only of electrocardiogram Completed 10/20/16 LAMBERT RAMOS DO Encounters Encounter Location Arrival/Admit Date Discharge/Depart Date Attending Provider Departed Emergency Room [facility] 10/25/16 7:59am 10/25 10:30am LAMBERT RAMOS DO Discharged Inpatient (obs) [facility] 10/20/16 8:30am 12:21pm ANKUR ROUSE MD Recent Diagnosis
== END 2016-10-25 10:30 | disposition home or self-care (01) ==
LOC: EDUNIT# 07:57 → ER 07:59
DX: N39.0 Urinary tract infection, site not specified (principal); K57.32 Diverticulitis of large intestine without perforation or abscess without bleeding; R10.12 Left upper quadrant pain; I10 Essential (primary) hypertension; Z79.899 Other long term (current) drug therapy
CPT/HCPCS: 36415; 74177; 80053; 81000; 82150; 83690; 85025; 96361; 96374; 96375

== ENCOUNTER 2017-05-09 21:38 | Emergency (ER) | payer MEDICARE ==
[~2017-05-09] VITALS: Ht 162.6 cm; Wt 98.0 kg
[~2017-05-09 21:38] MED LIST changes: +CIPR-225 PO; +HYDR-3812 PO; +METR500T PO; +ONDA4TAB8 PO
[2017-05-09] MEDS ORDERED: MECLIZINE 25 MG (ANTIVERT) TAB PO ONE (23:30)
[2017-05-09] MEDS ORDERED: SCOPOLAMINE 1.5 MG (TRANSDERM-SCOP) PATCH TD ONE (23:30)
[2017-05-09] MEDS ORDERED: ONDANSETRON 4 MG/2 ML (SDV) Z0FRAN IVP ONE (23:30)
[2017-05-09 23:32] LABS: BILIRUBIN,URINE NEGATIVE (NEGATIVE); KETONES,URINE NEGATIVE (NEGATIVE); LEUKOCYTE ESTERASE ,URINE NEGATIVE (NEGATIVE); NITRITE,URINE NEGATIVE (NEGATIVE); PH,URINE 8 (5-9); PROTEIN,URINE NEGATIVE (NEGATIVE); UROBILINOGEN,URINE NORMAL (NORMAL)
[2017-05-09 23:34] LABS: BASOPHILS % (AUTO) 1 % (0-10); EOSINOPHILS # (AUTO) 0.1 10^3/uL (0.0-0.3); EOSINOPHILS % (AUTO) 1 % (0-10); LYMPHOCYTES # (AUTO) 1.6 X 10^3 (1.0-4.0); LYMPHOCYTES % (AUTO) 20 % (12-44); MEAN CORPUSCULAR HEMOGLOBIN 31 PG (25-34); MEAN CORPUSCULAR HGB CONC 33 G/DL (32-36); MEAN CORPUSCULAR VOLUME 94 FL (80-99); MEAN PLATELET VOLUME 10.1 FL (7.4-10.4); MONOCYTES # (AUTO) 1.1 X 10^3 (0.0-1.0); MONOCYTES % (AUTO) 13 % (0-12); NEUTROPHILS # (AUTO) 5.3 X 10^3 (1.8-7.8); NEUTROPHILS % (AUTO) 66 % (42-75); PLATELET COUNT 175 10^3/uL (130-400); RED BLOOD COUNT 4.49 10^6/uL (4.35-5.85); RED CELL DISTRIBUTION WIDTH 13.8 % (10.0-14.5); WHITE BLOOD COUNT 8.1 10^3/uL (4.3-11.0)
[2017-05-09 23:40] LABS: SQUAMOUS EPITHELIAL CELL,UR 0-2 /HPF; WBC,URINE RARE /HPF
[2017-05-09 23:48] LABS: PROTHROMBIN TIME PATIENT 13.7 SEC (12.2-14.7)
[2017-05-09 23:58] LABS: ALANINE AMINOTRANSFERASE 17 U/L (0-55); ALBUMIN 4.1 GM/DL (3.2-4.5); ANION GAP 11 MMOL/L (5-14); ASPARTATE AMINO TRANSFERASE 22 U/L (5-34); BILIRUBIN,TOTAL 1.2 MG/DL (0.1-1.0); BLOOD UREA NITROGEN 12 MG/DL (7-18); BUN/CREATININE RATIO 14; CALCIUM 9.4 MG/DL (8.5-10.1); CARBON DIOXIDE 24 MMOL/L (21-32); CHLORIDE 106 MMOL/L (98-107); CREATININE SERUM 0.84 MG/DL (0.60-1.30); GFR ESTIMATED > 60; GLUCOSE 110 MG/DL (70-105); MAGNESIUM 2.3 MG/DL (1.8-2.4); POTASSIUM 3.6 MMOL/L (3.6-5.0); SODIUM 141 MMOL/L (135-145); TOTAL PROTEIN 7.6 GM/DL (6.4-8.2)
[2017-05-10] MEDS ORDERED: ONDANSETRON 4 MG (ZOFRAN) ORAL DISSOLVE TAB PO ONE (00:15)
[2017-05-10 00:18] LABS: TROPONIN I < 0.30 NG/ML (<0.30)
[2017-05-10] MEDS ORDERED: RX-ONDANSETRON 4 MG ODT (ZOFRAN) PPK #4 PO STA (00:32)
[2017-05-10] MEDS ORDERED: SCOP1PAT TD (00:35)
[2017-05-10] MEDS ORDERED: ONDA4TAB8 PO (00:35)
--- NOTE | 2017-05-10 00:36 | ED General ---
General Chief Complaint: Dizziness/Syncope Stated Complaint: DIZZINESS Nursing Triage Note: c/o dizziness and weakness for a couple weeks Nursing Sepsis Screen: No Definite Risk Source of Information: Patient (SOMEWHAT DIFFICULT HISTORIAN), Other (SON) History of Present Illness Time Seen by Provider: 22:40 Initial Comments PT ARRIVES VIA POV FROM HOME MULTIPLE COMPLAINTS C/O DIZZINESS AND GENERALIZED WEAKNESS FOR A COUPLE OF WEEKS PT INITIALLY STATES THAT SYMPTOMS ARE NO DIFFERENT TODAY AND HAD NOT TAKEN ANYTHING FOR SYMPTOMS AND HAD NOT SOUGHT CARE UNTIL TODAY PT THEN LATER STATES THAT SYMPTOMS CAME ON SUDDENLY TONIGHT ( OR GOT WORSE) AT 2030 WHILE IN BATHROOM, AND THAT SHE TOOK [address] HERE AND THEN TOOK 1 WHILE IN WAITING ROOM, WITHOUT RELIEF--DID NOT RELATE THIS INFORMATION UNTIL MUCH LATER DURING VISIT PT WITH CHRONIC VERTIGO--STATES "WHEN I PUT WATER IN MY EARS IT GOES AWAY" -- BUT HAS NOT "PUT WATER IN HER EARS" TONIGHT TO TRY TO MAKE SYMPTOMS GO AWAY C/O NAUSEA, NO VOMITING. BUT STATES "I 'VE EATEN A BIT OF EVERY THING TODAY" --- HAS HAD [place], LOTS OF COOKIES, "TONS" OF CHOCOLATE PEANUT CLUSTERS, BANANAS HAS BEEN DRINKING ALOT OF WATER, AND URINATES "EVERY 10 MINUTES" --WHICH IS NORMAL FOR PT PT STATES SHE "THINKS SHE'S DEHYDRATED" HAS HAD SEVERAL BM'S TODAY, NO DIARRHEA. --NORMAL FOR PT NO ABDOMINAL PAIN--STATES SHE "FEELS BLOATED" NO HEADACHE NO VISION CHANGES NO CHEST PAIN, PALPITATIONS OR SHORTNESS OF BREATH NO PARESTHESIAS OR MOTOR DEFICITS PT HAS HISTORY OF CHRONIC VERTIGO FOR MANY YEARS AND HAS HAD MULTIPLE VISITS FOR SAME. PCP: ALEXANDER, XIAO CEVALLOS Allergies and Home Medications Allergies Coded Allergies: gabapentin (Unverified Adverse Reaction, Unknown, VOMITING. , 12/10/14) Home Medications Ciprofloxacin HCl 500 Mg Tablet, 500 MG PO BID, #20 Prescribed by: LAMBERT RAMOS on 10/25/16 0945 Hydrocodone/Acetaminophen 1 Each Tablet, 1 EACH PO Q4H, #20 Prescribed by: LAMBERT RAMOS on 10/25/16 0945 Meclizine Hcl 25 Mg Tablet, 25 MG PO 0800,1400,2000, (Reported) Metronidazole 500 Mg Tablet, 500 MG PO QID, #40 Prescribed by: LAMBERT RAMOS on 10/25/16 0945 Omeprazole 40 Mg Capsule.dr, 40 MG PO DAILY, #0 Ref 0 Prescribed by: ANKUR ROUSE on 10/21/16 1220 Ondansetron 4 Mg Tab.rapdis, 4 MG PO Q4H, #10 Prescribed by: LAMBERT RAMOS on 10/25/16 0945 Ondansetron 4 Mg Tab.rapdis, 4 MG PO Q4H, #20 Prescribed by: LAMBERT RAMOS on 05/10/17 0035 Scopolamine 1 Each Patch.td72, 1 EACH TD Q72 HOURS, #3 Prescribed by: LAMBERT RAMOS on 05/10/17 0035 Constitutional: No chills, No diaphoresis, dizziness, No fever, weakness EENTM: no symptoms reported, No blurred vision Respiratory: no symptoms reported Cardiovascular: no symptoms reported, No chest pain, No syncope Gastrointestinal: see HPI, No abdominal pain, No loss of appetite, nausea, No vomiting Genitourinary: see HPI, frequency Musculoskeletal: no symptoms reported Skin: no symptoms reported Psychiatric/Neurological: See HPI (DIZZINESS), Denies Headache, Denies Numbness , Denies Paresthesia, Denies Seizure, Denies Tingling, Denies Weakness Hematologic/Lymphatic: No Symptoms Reported Immunological/Allergic: no symptoms reported Past Ocgzejo-Lmdbog-Kxcssw Hx Patient Social History Alcohol Use: Denies Use Recreational Drug Use: No Smoking Status: Never a Smoker Recent Foreign Travel: No Contact w/Someone Who Travel: No Recent Infectious Disease Expo: No Recent Hopitalizations: No Immunizations Up To Date Tetanus Booster (TDap): Unknown Seasonal Allergies Seasonal Allergies: Yes Surgeries History of Surgeries: Yes (EGD/ESOPHAGEAL DILATION; CARDIAC CATH--NO INTERVENTION) Surgeries: Appendectomy, Cardiac, Gallbladder Respiratory History of Respiratory Disorde: No Cardiovascular History of Cardiac Disorders: Yes (CARDIAC CATH--NORMAL) Cardiac Disorders: Hypertension Neurological History of Neurological Disord: Yes (CHRONIC VERTIGO) Neurological Disorders: Neuropathy, Vertigo Reproductive System Hx Reproductive Disorders: No Sexually Transmitted Disease: No HIV/AIDS: No Female Reproductive Disorders: Denies 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 Flores 2013--ESOPHAGEAL DILATION FOR STRICTURE;TELLY) Gastrointestinal Disorders: Gastroesophageal Reflux, Hemorrhoids, Ulcer, Gall Bladder Disease Musculoskeletal History of Musculoskeletal Dis: Yes Musculoskeletal Disorders: Arthritis Endocrine History of Endocrine Disorders: Yes (OBESITY) Endocrine Disorders: Hypothyroidsim HEENT History of HEENT Disorders: Yes HEENT Disorders: Tinnitis Cancer History of Cancer: No Psychosocial History of Psychiatric Problem: Yes (not on any pharmacologic treatment) Behavioral Health Disorders: Eating Disorder, Sleep Difficulties, Anxiety, Depression Integumentary History of Skin or Integumenta: No Blood Transfusions History of Blood Disorders: No Adverse Reaction to a Blood Tr: No Family Medical History Significant Family History: Heart Disease, Cancer Family Medial History: FHx: pancreatic cancer 19 MOTHER, Onset:60 years & older Myocardial infarction 19 FATHER Son Physical Exam Vital Signs Vital Sign - Last 12Hours 05/09/17 22:36 Temp 98.6 Pulse 80 Resp 18 B/P (MAP) 195/80 Pulse Ox 98 Capillary Refill : Less Than 3 Seconds General Appearance: No Apparent Distress, WD/WN, Other (SOMEWHAT HOSTILE AT TIMES) HEENT: PERRL/EOMI, TMs Normal, Normal ENT Inspection, Pharynx Normal Neck: Full Range of Motion, Normal Inspection, Non Tender, Supple, No Carotid Bruit, No JVD Respiratory: Normal Breath Sounds, No Accessory Muscle Use, No Respiratory Distress Cardiovascular: Regular Rate, Rhythm, No Edema, No JVD, No Murmur, Normal Peripheral Pulses Gastrointestinal: Normal Bowel Sounds, No Organomegaly, No Pulsatile Mass, Non Tender, Soft Extremity: Normal Capillary Refill, Normal Inspection, Normal Range of Motion, Non Tender, No Calf Tenderness, No Pedal Edema Neurologic/Psychiatric: Alert, Oriented x3, No Motor/Sensory Deficits, it communications specialist II- XII Norm as Tested Skin: Normal Color, Warm/Dry Progress/Results/Core Measures Results/Orders Lab Results Laboratory Tests Test 05/09/17 23:26 Range/Units White Blood Count 8.1 4.3-11.0 10^3/uL Red Blood Count 4.49 4.35-5.85 10^6/uL Hemoglobin 14.1 11.5-16.0 G/DL Hematocrit 42 35-52 % Mean Corpuscular Volume 94 80-99 FL Mean Corpuscular Hemoglobin 31 25-34 PG Mean Corpuscular Hemoglobin Concent 33 32-36 G/DL Red Cell Distribution Width 13.8 10.0-14.5 % Platelet Count 175 130-400 10^3/uL Mean Platelet Volume 10.1 7.4-10.4 FL Neutrophils (%) (Auto) 66 42-75 % Lymphocytes (%) (Auto) 20 12-44 % Monocytes (%) (Auto) 13 H 0-12 % Eosinophils (%) (Auto) 1 0-10 % Basophils (%) (Auto) 1 0-10 % Neutrophils # (Auto) 5.3 1.8-7.8 X 10^3 Lymphocytes # (Auto) 1.6 1.0-4.0 X 10^3 Monocytes # (Auto) 1.1 H 0.0-1.0 X 10^3 Eosinophils # (Auto) 0.1 0.0-0.3 10^3/uL Basophils # (Auto) 0.0 0.0-0.1 10^3/uL Prothrombin Time 13.7 12.2-14.7 SEC INR Comment 1.0 0.8-1.4 Activated Partial Thromboplast Time 30 24-35 SEC Urine Color YELLOW Urine Clarity CLEAR Urine pH 8 5-9 Urine Specific Union 1.010 L 1.016-1.022 Urine Protein NEGATIVE NEGATIVE Urine Glucose (UA) NEGATIVE NEGATIVE Urine Ketones NEGATIVE NEGATIVE Urine Nitrite NEGATIVE NEGATIVE Urine Bilirubin NEGATIVE NEGATIVE Urine Urobilinogen NORMAL NORMAL MG/DL Urine Leukocyte Esterase NEGATIVE NEGATIVE Urine RBC (Auto) NEGATIVE NEGATIVE Urine RBC NONE /HPF Urine WBC RARE /HPF Urine Squamous Epithelial Cells 0-2 /HPF Urine Crystals NONE /LPF Urine Bacteria TRACE /HPF Urine Casts NONE /LPF Urine Mucus NEGATIVE /LPF Urine Culture Indicated NO Sodium Level 141 135-145 MMOL/L Potassium Level 3.6 3.6-5.0 MMOL/L Chloride Level 106 98-107 MMOL/L Carbon Dioxide Level 24 21-32 MMOL/L Anion Gap 11 5-14 MMOL/L Blood Urea Nitrogen 12 7-18 MG/DL Creatinine 0.84 0.60-1.30 MG/DL Estimat Glomerular Filtration Rate > 60 BUN/Creatinine Ratio 14 Glucose Level 110 H 70-105 MG/DL Calcium Level 9.4 8.5-10.1 MG/DL Magnesium Level 2.3 1.8-2.4 MG/DL Total Bilirubin 1.2 H 0.1-1.0 MG/DL Aspartate Amino Transf (AST/SGOT) 22 5-34 U/L Alanine Aminotransferase (ALT/SGPT) 17 0-55 U/L Alkaline Phosphatase 72 40-136 U/L Troponin I < 0.30 <0.30 NG/ML Total Protein 7.6 6.4-8.2 GM/DL Albumin 4.1 3.2-4.5 GM/DL TSH [place] Testing 2.66 0.35-4.94 UIU/ML My Orders Orders - LAMBERT RAMOS DO Ekg Tracing (05/09/17 22:52) Monitor-Rhythm Ecg Trace Only (05/09/17 22:52) Ct Head Wo (05/09/17 22:52) Cbc With Automated Diff (05/09/17 22:52) Comprehensive Metabolic Panel (05/09/17 22:52) Magnesium (05/09/17 22:52) Protime With Inr (05/09/17 22:52) Partial Thromboplastin Time (05/09/17 22:52) Thyroid Analyzer (05/09/17 22:52) Troponin I (05/09/17 22:52) Ua Culture If Indicated (05/09/17 22:52) Chest 1 View, Ap/Pa Only (05/09/17 22:52) Scopolamine Patch (Transderm-Scop Patch) (05/09/17 23:30) Ondansetron Injection (Zofran Injectio (05/09/17 23:30) Meclizine Tablet (Antivert Tablet) (05/09/17 23:30) Ondansetron Oral Dissolve Tab (Zofran (05/10/17 00:15) Rx-Ondansetron Po (Rx-Zofran Po) (05/10/17 00:32) Medications Given in ED Current Medications Medications Dose Ordered Sig/Toyin Route Start Time Stop Time Status Last Admin Dose Admin Ondansetron HCl 4 mg ONCE ONCE PO 05/10/17 00:15 05/10/17 00:16 DC 05/10/17 00:10 4 MG Scopolamine 1.5 mg ONCE ONCE TD 05/09/17 23:30 05/09/17 23:31 DC 05/10/17 00:10 1.5 MG Vital Signs/I&O Vital Sign - Last 12Hours 05/09/17 05/10/17 22:36 00:40 Temp 98.6 98.6 Pulse 80 80 Resp 18 18 B/P (MAP) 195/80 Pulse Ox 98 98 Blood Pressure Mean: 118 Progress Note : Progress Note 0005--PT REFUSES MECLIZINE--THIS IS WHEN PT REPORTS THAT SHE HAS ALREADY TAKEN 3 TONIGHT. PT REFUSES ADMIT AND IS NOW VERY INSISTENT ON GOING HOME--STATES SHE IS FINE NOW. PT IS TOLERATING WATER AND ICE CHIPS. NO VOMITING DURING ER STAY BP DOWN TO 140'S /90'S AT TIME OF DISMISSAL ECG Initial ECG Impression Time: 22:43 Initial ECG Rate: 74 Initial ECG Rhythm: Normal Sinus Diagnostic Imaging Comments CXR--NO ACUTE PROCESS, PENDING RADIOLOGIST REVIEW CT HEAD--NO ACUTE PROCESS, PER [facility] VIA FAX @ [phone] Reviewed: Reviewed by Me Departure Impression Impression: Primary Impression: exacerbation of chronic vertigo Disposition: 01 HOME, SELF-CARE Condition: Improved Departure-Patient Inst. Referrals: [facility] (PCP) Primary Care Physician ELIF CEVALLOS (Family) Primary Care Physician Patient Instructions: Vertigo (a Type of Dizziness) (DC) Add. Discharge Instructions: SLOW POSITION CHANGES TAKE YOUR MECLIZINE 2 PILLS EVERY 4 HOURS [facility] IF NO BETTER RETURN TO ER IF WORSE All discharge instructions reviewed with patient and/or family. Voiced understanding. Scripts Ondansetron (Zofran Odt) 4 Mg Tab.rapdis 4 MG PO Q4H for Nausea/Vomiting, #20 TAB Prov: LAMBERT RAMOS DO 05/10/17 Scopolamine (Transderm-Scop) 1 Each Patch.td72 1 EACH TD Q72 HOURS for Dizziness, #3 PATCH Prov: LAMBERT RAMOS DO 05/10/17 LAMBERT RAMOS DO May 10, 2017 00:35
[2017-05-10 00:40] VITALS: BP 168/74
--- NOTE | 2017-05-10 05:54 | Diagnostic Imaging Report ---
INDICATION: Dizziness and weakness TECHNIQUE: Routine non contrast-enhanced axial images were obtained from the skull base to the vertex. COMPARISON: 10/20/2016 FINDINGS: The ventricles and cortical sulci are diffusely prominent, compatible with age-related volume loss. There are confluent areas of abnormal, low attenuation in the periventricular white matter. This is consistent with chronic small vessel ischemic changes. 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 There is no midline shift or mass-effect. No acute intra-axial hemorrhage is seen. There are no abnormal areas of increased or decreased density to suggest acute hemorrhage or edema. No extra-axial masses or collections are present. The bony calvarium is intact. The visualized paranasal sinuses are unremarkable. The mastoid air cells are clear. IMPRESSION: 1. No acute intracranial abnormality. No CT evidence of mass, acute infarct or intracranial hemorrhage. 2. 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 Dictated by: Dictated on workstation # [id number]
--- NOTE | 2017-05-10 06:14 | Diagnostic Imaging Report ---
INDICATION: Dizziness and weakness COMPARISON: 10/20/2016 FINDINGS: Single frontal view of the chest demonstrates mild cardiomegaly. Pulmonary vasculature appears to be slightly prominent as well. The lungs are well aerated and clear. No large pleural effusion or pneumothorax is seen. The visualized osseous structures show no acute abnormalities. IMPRESSION: 1. Mild cardiomegaly and pulmonary vascular congestion. 2. No focal consolidation. Dictated by: Dictated on workstation # [id number]
== END 2017-05-10 00:40 | disposition home or self-care (01) ==
LOC: EDUNIT# 21:38 → ER 21:40
DX: R42 Dizziness and giddiness (principal); F32.9 Major depressive disorder, single episode, unspecified; F41.9 Anxiety disorder, unspecified; G47.9 Sleep disorder, unspecified; E66.9 Obesity, unspecified; G62.9 Polyneuropathy, unspecified; I10 Essential (primary) hypertension; E03.9 Hypothyroidism, unspecified; K21.9 Gastro-esophageal reflux disease without esophagitis; Z87.11 Personal history of peptic ulcer disease; Z87.440 Personal history of urinary (tract) infections; Z90.49 Acquired absence of other specified parts of digestive tract; Z80.0 Family history of malignant neoplasm of digestive organs; Z82.49 Family history of ischemic heart disease and other diseases of the circulatory system
CPT/HCPCS: 36415; 70450; 71010; 80053; 81000; 83735; 84443; 84484; 85025; 85610; 85730; 93005

== ENCOUNTER 2017-12-05 16:53 | Emergency (ER) | payer MEDICARE ==
[~2017-12-05] VITALS: Ht 152.4 cm; Wt 122.5 kg
[~2017-12-05 16:53] MED LIST changes: +ACHD5005 PO; -HYDR-3812 PO; -SCOP1PAT TD; +SCOP1PAT11 TD
--- OUTSIDE RECORDS SUMMARY | 2017-12-05 17:00 | XMS REPORT ---
Author ELIF Bergman Organization [employer] Address Unknown Phone Unavailable Care Team Providers Care Ship/Rec/Doc Control Name Role Phone ELIF CEVALLOS CP Unavailable Allergies, Adverse Reactions, Alerts Substance Reaction Event Type Neurontin nausea Drug Allergy Problems Problem Type Condition Code Onset Dates Condition Status Assessment Carotid occlusion, 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 Problem Dizziness R42 Active Problem Environmental allergies Z91.09 Active Problem White coat hypertension R03.0 Active Assessment Dizziness R42 Active Assessment Environmental allergies Z91.09 Active Problem Carotid occlusion, 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 Assessment White coat hypertension R03.0 Active Medications Medication Code System Code Instructions Start Date End Date Status Dosage meclizine NDC 0 25 mg Sep 23, 2013 1 tablet by Oral route 4 times per day PRN Fexofenadine HCl NDC [address]-05 180 MG Orally Once a day May 02, 2016 Jul 31, 2016 1 tablet as needed Procedures Procedure Coding System Code Date [facility] VISIT ESTABLISHED PATIENT CPT-4 G0467 May 02, 2016 Office Visit, Est Pt., Level 4 CPT-4 94615 May 02, 2016 [facility] CPT-4 NOBLL May 02, 2016 VENIPUNCT, ROUTINE* CPT-4 94509 May 02, 2016 Vital Signs Date/Time: May 02, 2016 Cardiac Monitoring Heart Rate 68 bpm Weight 206 lbs Height 64 in BMI 35.36 Index Blood Pressure Diastolic 88 mmHg Blood Pressure Systolic 160 mmHg Results No Known Results Summary Purpose [employer] Submission
--- OUTSIDE RECORDS SUMMARY | 2017-12-05 17:00 | XMS REPORT ---
Author ELIF Bergman [facility] [employer] Address Unknown Phone Unavailable Care Team Providers Care Pulp Refiner Operator Name Role Phone ELIF CEVALLOS CP Unavailable Allergies No Known Allergies Problems Problem Type Condition Code Onset Dates Condition Status Assessment Encounter to establish care Z76.89 Active Problem White coat hypertension 796.2 Active Problem Environmental allergies V15.09 Active Problem Osteoarthritis 715.90 Active Problem Unspecified hereditary and idiopathic peripheral neuropathy 356.9 Active Problem Occlusion and stenosis of carotid artery without mention of cerebral infarction 433.10 Active Problem Hypopotassemia 276.8 Active Problem Dizziness and giddiness 780.4 Active Medications No Known Medications Results No Known Results Summary Purpose [employer] Submission
--- OUTSIDE RECORDS SUMMARY | 2017-12-05 17:00 | XMS REPORT ---
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 190018910 ALLERGIES No Information SOCIAL HISTORY Never Assessed PLAN OF CARE VITAL SIGNS MEDICATIONS Medication Instructions Dosage Frequency Start Date End Date Duration Status meclizine 25 mg 1 tablet by Oral route 4 times per day PRN Sep, Active Omeprazole 40 MG Orally Once a day 1 capsule 24h Active RESULTS No Results PROCEDURES No Known procedures IMMUNIZATIONS No Known Immunizations MEDICAL (GENERAL) HISTORY Type Description Date Medical History osteoarthritis Medical History seasonal allergies Medical History vertigo Surgical History appendectomy 1963 Surgical History cholecystectomy 2012 Surgical History EGD Surgical History heart cath 2013 Hospitalization History surgeries Hospitalization History Vertigo, [facility]Q pain-[facility] 10/20/16
--- OUTSIDE RECORDS SUMMARY | 2017-12-05 17:01 | XMS REPORT ---
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 267202037 ALLERGIES Substance Reaction Event Type Date Status Neurontin nausea Drug Allergy Nov, Active SOCIAL HISTORY Never Assessed PLAN OF CARE Activity Details Follow Up 6 Months, prn Reason: VITAL SIGNS Height 64 in 2016-11-14 Weight 214 lbs 2016-11-14 Temperature 97.9 degrees Fahrenheit 2016-11-14 Heart Rate 76 bpm 2016-11-14 Respiratory Rate 20 2016-11-14 BMI 36.73 kg/m2 2016-11-14 Blood pressure systolic 144 mmHg 2016-11-14 Blood pressure diastolic 92 mmHg 2016-11-14 MEDICATIONS Medication Instructions Dosage Frequency Start Date End Date Duration Status meclizine 25 mg 1 tablet by Oral route 4 times per day PRN Sep, Active RESULTS No Results PROCEDURES Procedure Date Ordered Result Body Site [facility] VISIT ESTABLISHED PATIENT November 14, 2016 IMMUNIZATIONS No Known Immunizations MEDICAL (GENERAL) HISTORY Type Description Date Medical History osteoarthritis Medical History seasonal allergies Medical History vertigo Surgical History appendectomy 1963 Surgical History cholecystectomy 2012 Surgical History EGD Surgical History heart cath 2013 Hospitalization History surgeries Hospitalization History Vertigo, [facility]Q pain-[facility] 10/20/16
--- OUTSIDE RECORDS SUMMARY | 2017-12-05 17:01 | XMS REPORT ---
Author Author ELIF CEVALLOS [facility] e[employer] Address Unknown Phone Unavailable Care Team Providers Care Security Incident Handler Name Role Phone ELIF CEVALLOS CP Unavailable Allergies No Known Allergies Problems Problem Type Condition Code Onset Dates Condition Status Problem White coat hypertension 796.2 Active Problem [...]
--- OUTSIDE RECORDS SUMMARY | 2017-12-05 17:01 | XMS REPORT ---
Author Author ELIF CEVALLOS [facility] [employer] Address Unknown Phone Unavailable Care Team Providers Care Associate Account Director Name Role Phone ELIF CEVALLOS CP Unavailable [...] Problem Dizziness and giddiness 780.4 Active Medications Medication Code System Code Instructions Start Date End Date Status Dosage [facility] [address]-36 15 MG Orally Once a day 1 tablet Results No Known Results Summary Purpose [employer] Submission
--- OUTSIDE RECORDS SUMMARY | 2017-12-05 17:02 | XMS REPORT ---
Author Author ELIF CEVALLOS [facility] [employer] Address Unknown Phone Unavailable Care Team Providers Care Rating Officer Name Role Phone ELIF CEVALLOS CP Unavailable Allergies No Known Allergies Problems Problem Type Condition ICD-9 Code Onset Dates Condition Status Problem White [...]
--- OUTSIDE RECORDS SUMMARY | 2017-12-05 17:02 | XMS REPORT ---
Author Author ELIF CEVALLOS [facility] [employer] Address Unknown Phone Unavailable Care Team Providers Care Corn Cooker Name Role Phone ELIF CEVALLOS CP Unavailable [...]
--- OUTSIDE RECORDS SUMMARY | 2017-12-05 17:02 | XMS REPORT ---
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 438663770 ALLERGIES No Information SOCIAL HISTORY Never Assessed PLAN OF CARE VITAL SIGNS MEDICATIONS Medication Instructions Dosage Frequency Start Date End Date Duration Status Cipro 500 MG Orally Twice a day 1 tablet 12h Oct, 10 day(s) Active Hydrocodone-Acetaminophen 5-325 MG Orally every 4 hours 1 tablet as needed 4h Oct, Oct, 3 days Active Flagyl 500 mg Orally 4 times a day 1 tablet 6h Oct, 7 days Active RESULTS No Results PROCEDURES No Known procedures IMMUNIZATIONS No Known Immunizations MEDICAL (GENERAL) HISTORY Type Description Date Medical History osteoarthritis Medical History seasonal allergies Medical History vertigo Surgical History appendectomy 1963 Surgical History cholecystectomy 2013 Surgical History EGD Surgical History heart cath 2013 Hospitalization History surgeries Hospitalization History Vertigo, [facility]Q pain-[facility] 10/20/16
--- OUTSIDE RECORDS SUMMARY | 2017-12-05 17:02 | XMS REPORT ---
Author Author KALEN PIERRE Organization [employer] Address Unknown Phone Unavailable Care Team Providers Care Blood Bank Coordinator Name Role Phone KALEN PIERRE CP Unavailable Allergies, Adverse Reactions, Alerts Substance Reaction Event Type Neurontin nausea Drug Allergy Problems Problem Type Condition Code Onset Dates Condition Status Assessment Seasonal allergic rhinitis, unspecified allergic rhinitis trigger J30.2 Active Problem White coat hypertension 796.2 Active [...] Oral route 4 times per day PRN Procedures Procedure Coding System Code Date Office Visit, Est Pt., Level 3 CPT-4 66917 Apr 25, 2016 DEXAMETHASONE 4MG/ML (PER 1 MG) CPT-4 J1100 Apr 25, 2016 [facility] VISIT ESTABLISHED PATIENT CPT-4 G0467 Apr 25, 2016 DEPO MEDROL 80 MG/ML CPT-4 J1040 Apr 25, 2016 THER/PROPH/DIAG INJ, SC/IM CPT-4 80056 Apr 25, 2016 Vital Signs Date/Time: Apr 25, 2016 Cardiac Monitoring Heart Rate 62 bpm Weight 213.6 lbs Height 64 in BMI 36.66 Index Blood Pressure Diastolic 80 mmHg Blood Pressure Systolic 154 mmHg Results No Known Results Summary Purpose [employer]ClinicalWorks Submission
--- OUTSIDE RECORDS SUMMARY | 2017-12-05 17:02 | XMS REPORT ---
Author Author KAMERON MORENO [facility] eClinicalWorks Address Unknown Phone Unavailable Care Team Providers Care Claim Specialist Name Role Phone KAMERON MORENO CP Unavailable Allergies, Adverse Reactions, Alerts Substance Reaction Event Type Neurontin nausea Drug Allergy Problems Problem Type Condition Code Onset Dates Condition Status Assessment Bronchitis J40 Active Problem White coat hypertension 796.2 Active Problem Environmental allergies V15.09 Active Problem Osteoarthritis 715.90 Active Problem Unspecified hereditary and idiopathic peripheral neuropathy 356.9 Active Problem Occlusion and stenosis of carotid artery without mention of cerebral infarction 433.10 Active Problem Hypopotassemia 276.8 Active Problem Dizziness and giddiness 780.4 Active Medications Medication Code System Code Instructions Start Date End Date Status Dosage Mobic [facility] 56218995640 15 MG Orally Once a day 1 tablet PredniSONE NDC [address]-08 20 MG Orally Once a day Jun 06, 2015 Jun 12, 2015 2 tab daily x 3 days, 1 tab daily x 3 days meclizine NDC 0 25 mg Sep 23, 2013 1 tablet by Oral route 4 times per day PRN Procedures Procedure Coding System Code Date Office Visit, Est Pt., Level 3 CPT-4 42319 Jun 06, 2015 [facility] VISIT ESTABLISHED PATIENT CPT-4 G0467 Jun 06, 2015 Vital Signs Date/Time: Jun 06, 2015 Temperature 98.1 F Weight 197.5 lbs Height 64 in BMI 33.90 Index Blood Pressure Diastolic 72 mmHg Blood Pressure Systolic 142 mmHg Cardiac Monitoring Heart Rate 64 bpm Results No Known Results Summary Purpose eClinicalWorks Submission
--- OUTSIDE RECORDS SUMMARY | 2017-12-05 17:03 | XMS REPORT | Continuity of Care Document ---
Author Author [facility] Address Unknown Phone Unavailable Allergies Active Description Code Type Severity Reaction Onset Reported/Identified Relationship to Patient Clinical Status Yes No Known Drug Allergies [id number] Drug Allergy Unknown N/A 08/11/2012 Yes gabapentin [id number] Drug Allergy Unknown VOMITING. 12/10/2014 Medications There is no data. 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4 DIZZINESS AND GIDDINESS 03/09/2013 POLINA MARTÍNEZ MD Ot 784.2 SWELLING IN HEAD NECK 03/12/2013 ESTEPHANIA WRIGHT, HIRO A Ot 789.06 ABDOMINAL PAIN, EPIGASTRIC 03/14/2013 AYAKA LANG MD Ot 599.0 URIN TRACT INFECTION NOS 03/14/2013 AYAKA LANG MD Ot 787.3 FLATUL/ERUCTAT/GAS PAIN 03/19/2013 POLINA MARTÍNEZ MD Ot 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, TYPE II OR UNSPEC TY 03/19/2013 POLINA MARTÍNEZ MD Ot 278.00 OBESITY, NOS 03/19/2013 POLINA MARTÍNEZ MD Ot 311 DEPRESSIVE DISORDER NEC 03/19/2013 POLINA MARTÍNEZ MD Ot 455.6 HEMORRHOIDS NOS 03/19/2013 POLINA MARTÍNEZ MD Ot 536.8 STOMACH FUNCTION DIS NEC 03/19/2013 POLINA MARTÍNEZ MD Ot 560.1 PARALYTIC ILEUS 03/19/2013 POLINA MARTÍNEZ MD Ot 564.00 UNSPEC CONSTIPATION 03/19/2013 POLINA MARTÍNEZ MD Ot 575.11 CHRONIC CHOLECYSTITIS 03/19/2013 POLINA MARTÍNEZ MD Ot 575.8 DIS OF GALLBLADDER NEC 03/19/2013 POLINA MARTÍNEZ MD Ot 797 SENILITY W/O PSYCHOSIS 03/19/2013 POLINA MARTÍNEZ MD Ot 799.3 DEBILITY NOS 03/19/2013 POLINA MARTÍNEZ MD Ot V85.32 BODY MASS INDEX 32.0-32.9, ADULT 03/21/2013 POLINA MARTÍNEZ MD Ot 263.9 PROTEIN-GEOVANI MALNUTR NOS 03/21/2013 POLINA MARTÍNEZ MD Ot 311 DEPRESSIVE DISORDER NEC 03/21/2013 POLINA MARTÍNEZ MD Ot 575.12 ACUTE CHRONIC CHOLESCYSTITIS 03/21/2013 POLINA MARTÍNEZ MD Ot 575.8 DIS OF GALLBLADDER NEC 03/21/2013 POLINA MARTÍNEZ MD Ot 783.7 ADULT FAILURE TO THRIVE 03/21/2013 POLINA MARTÍNEZ MD Ot 797 SENILITY W/O PSYCHOSIS 03/21/2013 POLINA MARTÍNEZ MD Ot 799.3 DEBILITY NOS 05/09/2013 NATHANAEL SIMPSON MD Ot 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3 ESOPHAGEAL STRICTURE 07/02/2013 LINDA WILLOUGHBY MD Ot 535.40 OTH SPECIFIED GASTRITIS,W/O MENTION OF H 07/02/2013 LINAD WILLOUGHBY MD Ot V58.69 OTH MED,LT,CURRENT USE 07/02/2013 SUZIE ANGULO Ot 787.20 DYSPHAGIA, UNSPECIFIED 07/02/2013 SUZIE ANGULO Ot 789.06 ABDOMINAL PAIN, EPIGASTRIC 07/05/2013 LAMBERT RAMOS DO Ot 789.00 ABDOMINAL PAIN, UNSPECIFIED SITE 07/11/2013 OCTAVIO PECK MD Ot 276.8 HYPOPOTASSEMIA 07/11/2013 OCTAVIO PECK MD Ot 780.79 OTH MALAISE FATIGUE 07/11/2013 OCTAVIO PECK MD Ot 782.0 SKIN SENSATION DISTURB 07/11/2013 OCTAVIO PECK MD Ot 787.02 NAUSEA ALONE 07/11/2013 OCTAVIO PECK MD Ot 789.00 ABDOMINAL PAIN, UNSPECIFIED SITE 07/24/2013 OCTAVIO PECK MD Ot 276.8 HYPOPOTASSEMIA 07/24/2013 OCTAVIO PECK MD Ot 355.9 MONONEURITIS NOS 07/24/2013 OCTAVIO PECK MD Ot 382.9 OTITIS MEDIA NOS 07/24/2013 OCTAVIO PECK MD Ot 433.10 CAROTID ARTERY OCCLUSION W O CEREBRAL IN 07/24/2013 OCTAVIO PECK MD Ot 780.2 SYNCOPE AND COLLAPSE 07/24/2013 OCTAVIO PECK MD Ot 780.79 OTH MALAISE FATIGUE 07/24/2013 OCTAVIO PECK MD Ot 788.41 URINARY FREQUENCY 07/24/2013 OCTAVIO PECK MD Ot V58.69 OTH MED,LT,CURRENT USE 08/02/2013 ROSIE MARTINEZ DO K 433.10 CAROTID 08/02/2013 ROSIE MARTINEZ DO 433.10 CAROTID 08/05/2013 CHETNA WRIGHT, MAURICE E Ot 111.8 DERMATOMYCOSES NEC 08/05/2013 MAURICE BASILIO MD E Ot 276.8 HYPOPOTASSEMIA 08/05/2013 MAURICE BASILIO MD E Ot 300.00 ANXIETY STATE NOS 08/05/2013 MAURICE BASILIO MD E Ot 356.9 IDIO PERIPH NEURPTHY NOS 08/05/2013 MAURICE BASILIO MD E Ot 380.15 CHR MYCOT OTITIS EXTERNA 08/05/2013 MAURICE BASILIO MD E Ot 382.9 OTITIS MEDIA NOS 08/05/2013 MAURICE BASILIO MD E Ot 433.10 CAROTID ARTERY OCCLUSION W O CEREBRAL IN 08/05/2013 MAURICE BASILIO MD E Ot 534.90 GASTROJEJUNAL ULCER NOS 08/05/2013 CHETNA WRIGHT MAURICE E Ot 721.0 CERVICAL SPONDYLOSIS 08/05/2013 MAURICE BASILIO MD E Ot 722.4 CERVICAL DISC DEGEN 08/05/2013 MAURICE BASILIO MD E Ot 729.1 MYALGIA AND MYOSITIS NOS 08/05/2013 MAURICE BASILIO MD E Ot 788.41 URINARY FREQUENCY 08/05/2013 CHETNA WRIGHT MAURICE E Ot V57.89 REHABILITATION PROC NEC 09/23/2013 ROSIE MARTINEZ DO K 276.8 HYPOPOTASSEMIA 09/23/2013 ROSIE MARTINEZ DO K 356.9 UNSPECIFIED IDIOPATHIC PERIPHERAL NEUROPATHY 09/23/2013 ROSIE MARTINEZ DO K 780.4 DIZZINESS AND GIDDINESS 09/23/2013 ROSIE MARTINEZ DO K 276.8 HYPOPOTASSEMIA 09/23/2013 ROSIE MARTINEZ DO K 356.9 UNSPECIFIED IDIOPATHIC PERIPHERAL NEUROPATHY 09/23/2013 MARTINEZ ROSIE K 780.4 DIZZINESS AND GIDDINESS 12/10/2014 LAMBERT RAMOS DO Ot 530.81 ESOPHAGEAL REFLUX 12/10/2014 LAMBERT RAMOS DO K Ot 789.06 ABDOMINAL PAIN, EPIGASTRIC 12/12/2014 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 Ot 564.00 UNSPEC CONSTIPATION 12/12/2014 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 Ot 789.06 ABDOMINAL PAIN, EPIGASTRIC 12/31/2014 ANGEL WRIGHT, BRYAN Rico Ot 789.06 ABDOMINAL PAIN, EPIGASTRIC 11/04/2015 FARTUN WRIGHT, LINDA Ramos Ot K21.9 11/04/2015 FARTUN WRIGHT, LINDA Ramos Ot K62.5 11/04/2015 FARTUN WRIGHT, LINDA Ramos Ot R42 11/05/2015 FARTUN WRIGHT, LINDA Ramos Ot K21.9 GASTRO-ESOPHAGEAL REFLUX DISEASE WITHOUT 11/05/2015 FARTUN WRIGHT, LINDA Ramos Ot K44.9 DIAPHRAGMATIC HERNIA WITHOUT OBSTRUCTION 11/05/2015 FARTUN WRIGHT, LINDA Ramos Ot K57.30 DVRTCLOS OF LG INT W/O PERFORATION OR AB 11/05/2015 FARTUN WRIGHT, LINDA Ramos Ot K64.4 RESIDUAL HEMORRHOIDAL SKIN TAGS 11/05/2015 FARTUN WRIGHT, LINDA Ramos Ot K92.2 GASTROINTESTINAL HEMORRHAGE, UNSPECIFIED 11/05/2015 FARTUN WRIGHT, LINDA Ramos Ot R42 DIZZINESS AND GIDDINESS 04/26/2016 ANGEL WRIGHT, BRYAN Rico Ot E03.9 HYPOTHYROIDISM, UNSPECIFIED 04/26/2016 BRYAN ORTIZ MD Ot I10 ESSENTIAL (PRIMARY) HYPERTENSION 04/26/2016 BRYAN ORTIZ MD Ot K21.9 GASTRO-ESOPHAGEAL REFLUX DISEASE WITHOUT 04/26/2016 BRYAN ORTIZ MD Ot R51 HEADACHE 05/04/2016 BRYAN ORTIZ MD Ot E03.9 HYPOTHYROIDISM, UNSPECIFIED 05/04/2016 BRYAN ORTIZ MD Ot I10 ESSENTIAL (PRIMARY) HYPERTENSION 05/04/2016 BRYAN ORTIZ MD Ot K21.9 GASTRO-ESOPHAGEAL REFLUX DISEASE WITHOUT 05/04/2016 BRYAN ORTIZ MD Ot R51 HEADACHE 07/31/2016 LAMBERT RAMOS DO Ot I10 ESSENTIAL (PRIMARY) HYPERTENSION 07/31/2016 RACHEL DO, LAMBERT K Ot R42 DIZZINESS AND GIDDINESS 08/02/2016 RACHEL DO, LAMBERT K Ot I10 ESSENTIAL (PRIMARY) HYPERTENSION 08/02/2016 RACHEL DO, LAMBERT K Ot R42 DIZZINESS AND GIDDINESS 09/13/2016 LIV WRIGHT, OCTAVIO Lewis Ot I10 ESSENTIAL (PRIMARY) HYPERTENSION 09/13/2016 LIV WRIGHT, OCTAVIO Lewis Ot K29.70 GASTRITIS, UNSPECIFIED, WITHOUT BLEEDING 09/13/2016 LIV WRIGHT, OCTAVIO Lewis Ot R10.12 LEFT UPPER QUADRANT PAIN 09/13/2016 LIV WRIGHT, OCTAVIO Lewis Ot Z79.899 OTHER ONCOLOGY SOCIAL WORK (CURRENT) DRUG THERAPY 10/21/2016 PADMA WRIGHT, ANKUR Rider Ot E03.9 HYPOTHYROIDISM, UNSPECIFIED 10/21/2016 PADMA WRIGHT, ANKUR Rider Ot I10 ESSENTIAL (PRIMARY) HYPERTENSION 10/21/2016 PADMA WRIGHT, ANKUR Rider Ot J34.89 OTHER SPECIFIED DISORDERS OF NOSE AND NA 10/21/2016 PADMA WRIGHT, ANKUR Rider Ot K21.9 GASTRO-ESOPHAGEAL REFLUX DISEASE WITHOUT 10/21/2016 ANKUR ROUSE MD Ot R10.12 LEFT UPPER QUADRANT PAIN 10/21/2016 ANKUR ROUSE MD Ot R30.0 DYSURIA 10/21/2016 ANKUR ROUSE MD Ot R42 DIZZINESS AND GIDDINESS 10/25/2016 RACHEL DO, LAMBERT K Ot I10 ESSENTIAL (PRIMARY) HYPERTENSION 10/25/2016 RACHEL DO, LAMBERT K Ot K57.32 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 10/25/2016 RACHEL DO, LAMBERT K Ot N39.0 URINARY TRACT INFECTION, SITE NOT SPECIF 10/25/2016 RACHEL DO, LAMBERT K Ot R10.12 LEFT UPPER QUADRANT PAIN 10/25/2016 RACHEL DO, LAMBERT K Ot Z79.899 OTHER ONCOLOGY SOCIAL WORK (CURRENT) DRUG THERAPY 10/27/2016 RACHEL DO, LAMBERT K Ot I10 ESSENTIAL (PRIMARY) HYPERTENSION 10/27/2016 RACHEL DO, LAMBERT K Ot K57.32 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 10/27/2016 RACHEL DO, LAMBERT K Ot N39.0 URINARY TRACT INFECTION, SITE NOT SPECIF 10/27/2016 RACHEL MARIE LAMBERT Carmelita Ot R10.12 LEFT UPPER QUADRANT PAIN 10/27/2016 RACHEL MARIE LAMBERT Carmelita Ot Z79.899 OTHER CORRECTION (CURRENT) DRUG THERAPY 05/10/2017 RACHEL MARIE LAMBERT Carmelita Ot E03.9 HYPOTHYROIDISM, UNSPECIFIED 05/10/2017 RACHEL MARIE LAMBERT K Ot E66.9 OBESITY, UNSPECIFIED 05/10/2017 RACHEL LAMBERT Ot F32.9 MAJOR DEPRESSIVE DISORDER, SINGLE EPISOD 05/10/2017 RACHEL LAMBERT K Ot F41.9 ANXIETY DISORDER, UNSPECIFIED 05/10/2017 RACHEL LAMBERT Ot G47.9 SLEEP DISORDER, UNSPECIFIED 05/10/2017 RACHEL LAMBERT K Ot G62.9 POLYNEUROPATHY, UNSPECIFIED 05/10/2017 RACHEL LAMBERT K Ot I10 ESSENTIAL (PRIMARY) HYPERTENSION 05/10/2017 RACHEL LAMBERT MARIE Ot K21.9 GASTRO-ESOPHAGEAL REFLUX DISEASE WITHOUT 05/10/2017 RACHEL LAMBERT MARIE Ot R42 DIZZINESS AND GIDDINESS 05/10/2017 RACHEL MARIE LAMBERT K Ot Z80.0 FAMILY HISTORY OF MALIGNANT NEOPLASM OF 05/10/2017 RACHEL LAMBERT MARIE Ot Z82.49 FAMILY HX OF ISCHEM HEART DIS AND OTH DI 05/10/2017 RACHEL DOLAMBERT Ot Z87.11 PERSONAL HISTORY OF PEPTIC ULCER DISEASE 05/10/2017 LAMBERT RAMOS DO Ot Z87.440 PERSONAL HISTORY OF URINARY (TRACT) INFE 05/10/2017 RACHEL DOLAMBERT Ot Z90.49 ACQUIRED ABSENCE OF OTHER SPECIFIED PART 05/10/2017 RACHEL MARIE LAMBERT Carmelita Ot E03.9 HYPOTHYROIDISM, UNSPECIFIED 05/10/2017 RACHEL LAMBERT MARIE Ot E66.9 OBESITY, UNSPECIFIED 05/10/2017 RACHEL HIRENA Carmelita Ot F32.9 MAJOR DEPRESSIVE DISORDER, SINGLE EPISOD 05/10/2017 RACHEL LAMBERT MARIE Ot F41.9 ANXIETY DISORDER, UNSPECIFIED 05/10/2017 RACEHL LAMBERT MARIE Ot G47.9 SLEEP DISORDER, UNSPECIFIED 05/10/2017 RACHEL LAMBERT MARIE Ot G62.9 POLYNEUROPATHY, UNSPECIFIED 05/10/2017 LAMBERT RAMOS DO Ot I10 ESSENTIAL (PRIMARY) HYPERTENSION 05/10/2017 LAMBERT RAMOS DO Ot K21.9 GASTRO-ESOPHAGEAL REFLUX DISEASE WITHOUT 05/10/2017 LAMBERT RAMOS DO Ot R42 DIZZINESS AND GIDDINESS 05/10/2017 LAMBERT ARMOS DO Ot Z80.0 FAMILY HISTORY OF MALIGNANT NEOPLASM OF 05/10/2017 LAMBERT RAMOS DO Ot Z82.49 FAMILY HX OF ISCHEM HEART DIS AND OTH DI 05/10/2017 LAMBERT RAMOS DO Ot Z87.11 PERSONAL HISTORY OF PEPTIC ULCER DISEASE 05/10/2017 LAMBERT RAMOS DO Ot Z87.440 PERSONAL HISTORY OF URINARY (TRACT) INFE 05/10/2017 LAMBERT RAMOS DO Ot Z90.49 ACQUIRED ABSENCE OF OTHER SPECIFIED PART Procedures Code Description Performed By Performed On 51.23 LAPAROSCOPIC CHOLECYSTECTOMY 03/19/2013 39280 ROUTINE VENIPUNCTURE 09/23/2013 26909 CMP 09/23/2013 [id number] INSPECTION OF UPPER INTESTINAL TRACT, EN 11/04/2015 [id number] INSPECTION OF LOWER INTESTINAL TRACT, EN 11/04/2015 Results Test Result Range Complete blood count (CBC) with automated white blood cell (WBC) differential - 04/26/16 00:10 Blood leukocytes automated count (number/volume) 8.8 10*3/uL 4.3-11.0 Blood erythrocytes automated count (number/volume) 4.31 10*6/uL 4.35-5.85 Venous blood hemoglobin measurement (mass/volume) 13.1 g/dL 11.5-16.0 Blood hematocrit (volume fraction) 39 % 35-52 Automated erythrocyte mean corpuscular volume 90 [foz_us] 80-99 Automated erythrocyte mean corpuscular hemoglobin (mass per erythrocyte) 30 pg 25-34 Automated erythrocyte mean corpuscular hemoglobin concentration measurement ( mass/volume) 34 g/dL 32-36 Automated erythrocyte distribution width ratio 15.1 % 10.0-14.5 Automated blood platelet count (count/volume) 191 10*3/uL 130-400 Automated blood platelet mean volume measurement 10.6 [foz_us] 7.4-10.4 Automated blood neutrophils/100 leukocytes 80 % 42-75 Automated blood lymphocytes/100 leukocytes 14 % 12-44 Blood monocytes/100 leukocytes 7 % 0-12 Automated blood eosinophils/100 leukocytes 0 % 0-10 Automated blood basophils/100 leukocytes 0 % 0-10 Blood neutrophils automated count (number/volume) 7.0 10*3 1.8-7.8 Blood lymphocytes automated count (number/volume) 1.2 10*3 1.0-4.0 Blood monocytes automated count (number/volume) 0.6 10*3 0.0-1.0 Automated eosinophil count 0.0 10*3/uL 0.0-0.3 Automated blood basophil count (count/volume) 0.0 10*3/uL 0.0-0.1 Comprehensive metabolic panel - 04/26/16 00:10 Serum or plasma sodium measurement (moles/volume) 138 mmol/L 135-145 Serum or plasma potassium measurement (moles/volume) 4.2 mmol/L 3.6-5.0 Serum or plasma chloride measurement (moles/volume) 107 mmol/L 98-107 Carbon dioxide 18 mmol/L 21-32 Serum or plasma anion gap determination (moles/volume) 13 mmol/L 5-14 Serum or plasma urea nitrogen measurement (mass/volume) 15 mg/dL 7-18 Serum or plasma creatinine measurement (mass/volume) 0.75 mg/dL 0.60-1.30 Serum or plasma urea nitrogen/creatinine mass ratio 20 NRG Serum or plasma creatinine measurement with calculation of estimated glomerular filtration rate > NRG Serum or plasma glucose measurement (mass/volume) 178 mg/dL 70-105 Serum or plasma calcium measurement (mass/volume) 9.5 mg/dL 8.5-10.1 Serum or plasma total bilirubin measurement (mass/volume) 0.9 mg/dL 0.1-1.0 Serum or plasma alkaline phosphatase measurement (enzymatic activity/volume) 84 U/L 40-136 Serum or plasma aspartate aminotransferase measurement (enzymatic activity/ volume) 25 U/L 5-34 Serum or plasma alanine aminotransferase measurement (enzymatic activity/volume ) 18 U/L 0-55 Serum or plasma protein measurement (mass/volume) 7.3 g/dL 6.4-8.2 Serum or plasma albumin measurement (mass/volume) 4.1 g/dL 3.2-4.5 PT panel in platelet poor plasma by coagulation assay - 07/31/16 21:45 Prothrombin time (PT) in platelet poor plasma by coagulation assay 13.6 s 12.2-14.7 INR in platelet poor plasma or blood by coagulation assay 1.1 0.8-1.4 Activated partial thromboplastin time (aPTT) in platelet poor plasma bycoagulation assay - 07/31/16 21:45 Activated partial thromboplastin time (aPTT) in platelet poor plasma bycoagulation assay 29 s 24-35 Complete blood count (CBC) with automated white blood cell (WBC) differential - 07/31/16 21:45 Blood leukocytes automated count (number/volume) 7.1 10*3/uL 4.3-11.0 Blood erythrocytes automated count (number/volume) 4.24 10*6/uL 4.35-5.85 Venous blood hemoglobin measurement (mass/volume) 13.3 g/dL 11.5-16.0 Blood hematocrit (volume fraction) 40 % 35-52 Automated erythrocyte mean corpuscular volume 94 [foz_us] 80-99 Automated erythrocyte mean corpuscular hemoglobin (mass per erythrocyte) 31 pg 25-34 Automated erythrocyte mean corpuscular hemoglobin concentration measurement ( mass/volume) 34 g/dL 32-36 Automated erythrocyte distribution width ratio 14.1 % 10.0-14.5 Automated blood platelet count (count/volume) 176 10*3/uL 130-400 Automated blood platelet mean volume measurement 10.8 [foz_us] 7.4-10.4 Automated blood neutrophils/100 leukocytes 60 % 42-75 Automated blood lymphocytes/100 leukocytes 26 % 12-44 Blood monocytes/100 leukocytes 13 % 0-12 Automated blood eosinophils/100 leukocytes 2 % 0-10 Automated blood basophils/100 leukocytes 0 % 0-10 Blood neutrophils automated count (number/volume) 4.2 10*3 1.8-7.8 Blood lymphocytes automated count (number/volume) 1.8 10*3 1.0-4.0 Blood monocytes automated count (number/volume) 0.9 10*3 0.0-1.0 Automated eosinophil count 0.1 10*3/uL 0.0-0.3 Automated blood basophil count (count/volume) 0.0 10*3/uL 0.0-0.1 Comprehensive metabolic panel - 07/31/16 21:45 Serum or plasma sodium measurement (moles/volume) 142 mmol/L 135-145 Serum or plasma potassium measurement (moles/volume) 3.7 mmol/L 3.6-5.0 Serum or plasma chloride measurement (moles/volume) 111 mmol/L 98-107 Carbon dioxide 24 mmol/L 21-32 Serum or plasma anion gap determination (moles/volume) 7 mmol/L 5-14 Serum or plasma urea nitrogen measurement (mass/volume) 13 mg/dL 7-18 Serum or plasma creatinine measurement (mass/volume) 0.78 mg/dL 0.60-1.30 Serum or plasma urea nitrogen/creatinine mass ratio 17 NRG Serum or plasma creatinine measurement with calculation of estimated glomerular filtration rate > NRG Serum or plasma glucose measurement (mass/volume) 120 mg/dL 70-105 Serum or plasma calcium measurement (mass/volume) 9.2 mg/dL 8.5-10.1 Serum or plasma total bilirubin measurement (mass/volume) 1.0 mg/dL 0.1-1.0 Serum or plasma alkaline phosphatase measurement (enzymatic activity/volume) 80 U/L 40-136 Serum or plasma aspartate aminotransferase measurement (enzymatic activity/ volume) 21 U/L 5-34 Serum or plasma alanine aminotransferase measurement (enzymatic activity/volume ) 13 U/L 0-55 Serum or plasma protein measurement (mass/volume) 6.9 g/dL 6.4-8.2 Serum or plasma albumin measurement (mass/volume) 4.1 g/dL 3.2-4.5 Magnesium - 07/31/16 21:45 Magnesium 2.4 mg/dL 1.8-2.4 Serum or plasma creatine kinase measurement (enzymatic activity/volume) - 07/31 21:45 Serum or plasma creatine kinase measurement (enzymatic activity/volume) 107 U/L 29-168 Serum or plasma creatine kinase MB measurement (enzymatic activity/volume) - 21:45 Serum or plasma creatine kinase MB measurement (enzymatic activity/volume) 2.3 ng/mL <6.6 Serum or plasma troponin i.cardiac measurement (mass/volume) - 07/31/16 21:45 Serum or plasma troponin i.cardiac measurement (mass/volume) < ng/ mL <0.30 Serum or plasma thyrotropin measurement by detection limit <=0.05 miu/l (units/ volume) - 07/31/16 21:45 Serum or plasma thyrotropin measurement by detection limit <=0.05 miu/l (units/ volume) 2.72 u[iU]/mL 0.35-4.94 Complete urinalysis with reflex to culture - 09/13/16 01:55 Urine color determination YELLOW NRG Urine clarity determination CLEAR NRG Urine pH measurement by test strip 8 5-9 Specific gravity of urine by test strip 1.010 1.016- 1.022 Urine protein assay by test strip, semi-quantitative NEGATIVE NEGATIVE Urine glucose detection by automated test strip NEGATIVE NEGATIVE Erythrocytes detection in urine sediment by light microscopy NEGATIVE NEGATIVE Urine ketones detection by automated test strip NEGATIVE NEGATIVE Urine nitrite detection by test strip NEGATIVE NEGATIVE Urine total bilirubin detection by test strip NEGATIVE NEGATIVE Urine urobilinogen measurement by automated test strip (mass/volume) NORMAL NORMAL Urine leukocyte esterase detection by dipstick NEGATIVE NEGATIVE Automated urine sediment erythrocyte count by microscopy (number/high power field) NONE NRG Automated urine sediment leukocyte count by microscopy (number/high power field ) NONE NRG Bacteria detection in urine sediment by light microscopy NEGATIVE NRG Squamous epithelial cells detection in urine sediment by light microscopy 0-2 NRG Crystals detection in urine sediment by light microscopy NONE NRG Casts detection in urine sediment by light microscopy NONE NRG Mucus detection in urine sediment by light microscopy NEGATIVE NRG Complete urinalysis with reflex to culture NO NRG Complete blood count (CBC) with automated white blood cell (WBC) differential - 09/13/16 02:10 Blood leukocytes automated count (number/volume) 6.8 10*3/uL 4.3-11.0 Blood erythrocytes automated count (number/volume) 4.23 10*6/uL 4.35-5.85 Venous blood hemoglobin measurement (mass/volume) 13.2 g/dL 11.5-16.0 Blood hematocrit (volume fraction) 40 % 35-52 Automated erythrocyte mean corpuscular volume 93 [foz_us] 80-99 Automated erythrocyte mean corpuscular hemoglobin (mass per erythrocyte) 31 pg 25-34 Automated erythrocyte mean corpuscular hemoglobin concentration measurement ( mass/volume) 33 g/dL 32-36 Automated erythrocyte distribution width ratio 13.8 % 10.0-14.5 Automated blood platelet count (count/volume) 161 10*3/uL 130-400 Automated blood platelet mean volume measurement 10.3 [foz_us] 7.4-10.4 Automated blood neutrophils/100 leukocytes 58 % 42-75 Automated blood lymphocytes/100 leukocytes 25 % 12-44 Blood monocytes/100 leukocytes 15 % 0-12 Automated blood eosinophils/100 leukocytes 2 % 0-10 Automated blood basophils/100 leukocytes 0 % 0-10 Blood neutrophils automated count (number/volume) 3.9 10*3 1.8-7.8 Blood lymphocytes automated count (number/volume) 1.7 10*3 1.0-4.0 Blood monocytes automated count (number/volume) 1.0 10*3 0.0-1.0 Automated eosinophil count 0.1 10*3/uL 0.0-0.3 Automated blood basophil count (count/volume) 0.0 10*3/uL 0.0-0.1 Comprehensive metabolic panel - 09/13/16 02:10 Serum or plasma sodium measurement (moles/volume) 144 mmol/L 135-145 Serum or plasma potassium measurement (moles/volume) 3.5 mmol/L 3.6-5.0 Serum or plasma chloride measurement (moles/volume) 111 mmol/L 98-107 Carbon dioxide 21 mmol/L 21-32 Serum or plasma anion gap determination (moles/volume) 12 mmol/L 5-14 Serum or plasma urea nitrogen measurement (mass/volume) 11 mg/dL 7-18 Serum or plasma creatinine measurement (mass/volume) 0.82 mg/dL 0.60-1.30 Serum or plasma urea nitrogen/creatinine mass ratio 13 NRG Serum or plasma creatinine measurement with calculation of estimated glomerular filtration rate > NRG Serum or plasma glucose measurement (mass/volume) 136 mg/dL 70-105 Serum or plasma calcium measurement (mass/volume) 9.2 mg/dL 8.5-10.1 Serum or plasma total bilirubin measurement (mass/volume) 1.0 mg/dL 0.1-1.0 Serum or plasma alkaline phosphatase measurement (enzymatic activity/volume) 79 U/L 40-136 Serum or plasma aspartate aminotransferase measurement (enzymatic activity/ volume) 20 U/L 5-34 Serum or plasma alanine aminotransferase measurement (enzymatic activity/volume ) 12 U/L 0-55 Serum or plasma protein measurement (mass/volume) 6.9 g/dL 6.4-8.2 Serum or plasma albumin measurement (mass/volume) 4.0 g/dL 3.2-4.5 Lipase - 09/13/16 02:10 Lipase 15 U/L 8-78 Complete blood count (CBC) with automated white blood cell (WBC) differential - 10/20/16 04:30 Blood leukocytes automated count (number/volume) 6.3 10*3/uL 4.3-11.0 Blood erythrocytes automated count (number/volume) 4.25 10*6/uL 4.35-5.85 Venous blood hemoglobin measurement (mass/volume) 13.2 g/dL 11.5-16.0 Blood hematocrit (volume fraction) 39 % 35-52 Automated erythrocyte mean corpuscular volume 91 [foz_us] 80-99 Automated erythrocyte mean corpuscular hemoglobin (mass per erythrocyte) 31 pg 25-34 Automated erythrocyte mean corpuscular hemoglobin concentration measurement ( mass/volume) 34 g/dL 32-36 Automated erythrocyte distribution width ratio 14.0 % 10.0-14.5 Automated blood platelet count (count/volume) 172 10*3/uL 130-400 Automated blood platelet mean volume measurement 10.5 [foz_us] 7.4-10.4 Automated blood neutrophils/100 leukocytes 63 % 42-75 Automated blood lymphocytes/100 leukocytes 23 % 12-44 Blood monocytes/100 leukocytes 12 % 0-12 Automated blood eosinophils/100 leukocytes 1 % 0-10 Automated blood basophils/100 leukocytes 0 % 0-10 Blood neutrophils automated count (number/volume) 4.0 10*3 1.8-7.8 Blood lymphocytes automated count (number/volume) 1.5 10*3 1.0-4.0 Blood monocytes automated count (number/volume) 0.8 10*3 0.0-1.0 Automated eosinophil count 0.1 10*3/uL 0.0-0.3 Automated blood basophil count (count/volume) 0.0 10*3/uL 0.0-0.1 Comprehensive metabolic panel - 10/20/16 04:30 Serum or plasma sodium measurement (moles/volume) 141 mmol/L 135-145 Serum or plasma potassium measurement (moles/volume) 3.7 mmol/L 3.6-5.0 Serum or plasma chloride measurement (moles/volume) 108 mmol/L 98-107 Carbon dioxide 20 mmol/L 21-32 Serum or plasma anion gap determination (moles/volume) 13 mmol/L 5-14 Serum or plasma urea nitrogen measurement (mass/volume) 12 mg/dL 7-18 Serum or plasma creatinine measurement (mass/volume) 0.76 mg/dL 0.60-1.30 Serum or plasma urea nitrogen/creatinine mass ratio 16 NRG Serum or plasma creatinine measurement with calculation of estimated glomerular filtration rate > NRG Serum or plasma glucose measurement (mass/volume) 138 mg/dL 70-105 Serum or plasma calcium measurement (mass/volume) 8.9 mg/dL 8.5-10.1 Serum or plasma total bilirubin measurement (mass/volume) 1.0 mg/dL 0.1-1.0 Serum or plasma alkaline phosphatase measurement (enzymatic activity/volume) 77 U/L 40-136 Serum or plasma aspartate aminotransferase measurement (enzymatic activity/ volume) 20 U/L 5-34 Serum or plasma alanine aminotransferase measurement (enzymatic activity/volume ) 11 U/L 0-55 Serum or plasma protein measurement (mass/volume) 6.6 g/dL 6.4-8.2 Serum or plasma albumin measurement (mass/volume) 3.8 g/dL 3.2-4.5 Magnesium - 10/20/16 04:30 Magnesium 2.1 mg/dL 1.8-2.4 Serum or plasma troponin i.cardiac measurement (mass/volume) - 10/20/16 04:30 Serum or plasma troponin i.cardiac measurement (mass/volume) < ng/ mL <0.30 Serum or plasma amylase measurement (enzymatic activity/volume) - 10/20/16 04: 30 Serum or plasma amylase measurement (enzymatic activity/volume) 18 U /L 25-125 Lipase - 10/20/16 04:30 Lipase 11 U/L 8-78 Complete urinalysis with reflex to culture - 10/20/16 04:46 Urine color determination YELLOW NRG Urine clarity determination CLEAR NRG Urine pH measurement by test strip 8 5-9 Specific gravity of urine by test strip 1.010 1.016- 1.022 Urine protein assay by test strip, semi-quantitative NEGATIVE NEGATIVE Urine glucose detection by automated test strip NEGATIVE NEGATIVE Erythrocytes detection in urine sediment by light microscopy NEGATIVE NEGATIVE Urine ketones detection by automated test strip NEGATIVE NEGATIVE Urine nitrite detection by test strip NEGATIVE NEGATIVE Urine total bilirubin detection by test strip NEGATIVE NEGATIVE Urine urobilinogen measurement by automated test strip (mass/volume) NORMAL NORMAL Urine leukocyte esterase detection by dipstick 1+ NEGATIVE Automated urine sediment erythrocyte count by microscopy (number/high power field) NONE NRG Automated urine sediment leukocyte count by microscopy (number/high power field ) [HPF] NRG Bacteria detection in urine sediment by light microscopy TRACE NRG Squamous epithelial cells detection in urine sediment by light microscopy 10-25 NRG Crystals detection in urine sediment by light microscopy NONE NRG Casts detection in urine sediment by light microscopy NONE NRG Mucus detection in urine sediment by light microscopy NEGATIVE NRG Complete urinalysis with reflex to culture YES NRG Bacterial urine culture - 10/20/16 04:46 URINE CULTURE RESULTS <10,000/ML NRG Complete blood count (CBC) with automated white blood cell (WBC) differential - 10/21/16 03:50 Blood leukocytes automated count (number/volume) 5.9 10*3/uL 4.3-11.0 Blood erythrocytes automated count (number/volume) 3.99 10*6/uL 4.35-5.85 Venous blood hemoglobin measurement (mass/volume) 12.4 g/dL 11.5-16.0 Blood hematocrit (volume fraction) 37 % 35-52 Automated erythrocyte mean corpuscular volume 94 [foz_us] 80-99 Automated erythrocyte mean corpuscular hemoglobin (mass per erythrocyte) 31 pg 25-34 Automated erythrocyte mean corpuscular hemoglobin concentration measurement ( mass/volume) 33 g/dL 32-36 Automated erythrocyte distribution width ratio 14.2 % 10.0-14.5 Automated blood platelet count (count/volume) 168 10*3/uL 130-400 Automated blood platelet mean volume measurement 10.9 [foz_us] 7.4-10.4 Automated blood neutrophils/100 leukocytes 55 % 42-75 Automated blood lymphocytes/100 leukocytes 30 % 12-44 Blood monocytes/100 leukocytes 13 % 0-12 Automated blood eosinophils/100 leukocytes 1 % 0-10 Automated blood basophils/100 leukocytes 0 % 0-10 Blood neutrophils automated count (number/volume) 3.3 10*3 1.8-7.8 Blood lymphocytes automated count (number/volume) 1.8 10*3 1.0-4.0 Blood monocytes automated count (number/volume) 0.8 10*3 0.0-1.0 Automated eosinophil count 0.1 10*3/uL 0.0-0.3 Automated blood basophil count (count/volume) 0.0 10*3/uL 0.0-0.1 Comprehensive metabolic panel - 10/21/16 03:50 Serum or plasma sodium measurement (moles/volume) 139 mmol/L 135-145 Serum or plasma potassium measurement (moles/volume) 3.6 mmol/L 3.6-5.0 Serum or plasma chloride measurement (moles/volume) 108 mmol/L 98-107 Carbon dioxide 23 mmol/L 21-32 Serum or plasma anion gap determination (moles/volume) 8 mmol/L 5-14 Serum or plasma urea nitrogen measurement (mass/volume) 13 mg/dL 7-18 Serum or plasma creatinine measurement (mass/volume) 0.92 mg/dL 0.60-1.30 Serum or plasma urea nitrogen/creatinine mass ratio 14 NRG Serum or plasma creatinine measurement with calculation of estimated glomerular filtration rate 58 NRG Serum or plasma glucose measurement (mass/volume) 135 mg/dL 70-105 Serum or plasma calcium measurement (mass/volume) 8.4 mg/dL 8.5-10.1 Serum or plasma total bilirubin measurement (mass/volume) 1.7 mg/dL 0.1-1.0 Serum or plasma alkaline phosphatase measurement (enzymatic activity/volume) 70 U/L 40-136 Serum or plasma aspartate aminotransferase measurement (enzymatic activity/ volume) 17 U/L 5-34 Serum or plasma alanine aminotransferase measurement (enzymatic activity/volume ) 11 U/L 0-55 Serum or plasma protein measurement (mass/volume) 6.1 g/dL 6.4-8.2 Serum or plasma albumin measurement (mass/volume) 3.5 g/dL 3.2-4.5 Complete blood count (CBC) with automated white blood cell (WBC) differential - 10/25/16 08:20 Blood leukocytes automated count (number/volume) 5.6 10*3/uL 4.3-11.0 Blood erythrocytes automated count (number/volume) 4.22 10*6/uL 4.35-5.85 Venous blood hemoglobin measurement (mass/volume) 13.1 g/dL 11.5-16.0 Blood hematocrit (volume fraction) 39 % 35-52 Automated erythrocyte mean corpuscular volume 92 [foz_us] 80-99 Automated erythrocyte mean corpuscular hemoglobin (mass per erythrocyte) 31 pg 25-34 Automated erythrocyte mean corpuscular hemoglobin concentration measurement ( mass/volume) 34 g/dL 32-36 Automated erythrocyte distribution width ratio 14.0 % 10.0-14.5 Automated blood platelet count (count/volume) 168 10*3/uL 130-400 Automated blood platelet mean volume measurement 10.9 [foz_us] 7.4-10.4 Automated blood neutrophils/100 leukocytes 58 % 42-75 Automated blood lymphocytes/100 leukocytes 27 % 12-44 Blood monocytes/100 leukocytes 13 % 0-12 Automated blood eosinophils/100 leukocytes 2 % 0-10 Automated blood basophils/100 leukocytes 0 % 0-10 Blood neutrophils automated count (number/volume) 3.3 10*3 1.8-7.8 Blood lymphocytes automated count (number/volume) 1.5 10*3 1.0-4.0 Blood monocytes automated count (number/volume) 0.7 10*3 0.0-1.0 Automated eosinophil count 0.1 10*3/uL 0.0-0.3 Automated blood basophil count (count/volume) 0.0 10*3/uL 0.0-0.1 Comprehensive metabolic panel - 10/25/16 08:20 Serum or plasma sodium measurement (moles/volume) 143 mmol/L 135-145 Serum or plasma potassium measurement (moles/volume) 3.6 mmol/L 3.6-5.0 Serum or plasma chloride measurement (moles/volume) 109 mmol/L 98-107 Carbon dioxide 25 mmol/L 21-32 Serum or plasma anion gap determination (moles/volume) 9 mmol/L 5-14 Serum or plasma urea nitrogen measurement (mass/volume) 10 mg/dL 7-18 Serum or plasma creatinine measurement (mass/volume) 0.82 mg/dL 0.60-1.30 Serum or plasma urea nitrogen/creatinine mass ratio 12 NRG Serum or plasma creatinine measurement with calculation of estimated glomerular filtration rate > NRG Serum or plasma glucose measurement (mass/volume) 123 mg/dL 70-105 Serum or plasma calcium measurement (mass/volume) 9.0 mg/dL 8.5-10.1 Serum or plasma total bilirubin measurement (mass/volume) 1.6 mg/dL 0.1-1.0 Serum or plasma alkaline phosphatase measurement (enzymatic activity/volume) 71 U/L 40-136 Serum or plasma aspartate aminotransferase measurement (enzymatic activity/ volume) 22 U/L 5-34 Serum or plasma alanine aminotransferase measurement (enzymatic activity/volume ) 16 U/L 0-55 Serum or plasma protein measurement (mass/volume) 6.8 g/dL 6.4-8.2 Serum or plasma albumin measurement (mass/volume) 3.9 g/dL 3.2-4.5 Serum or plasma amylase measurement (enzymatic activity/volume) - 10/25/16 08: 20 Serum or plasma amylase measurement (enzymatic activity/volume) 16 U /L 25-125 Lipase - 10/25/16 08:20 Lipase 11 U/L 8-78 Complete urinalysis with reflex to culture - 10/25/16 08:24 Urine color determination YELLOW NRG Urine clarity determination CLEAR NRG Urine pH measurement by test strip 7 5-9 Specific gravity of urine by test strip 1.005 1.016- 1.022 Urine protein assay by test strip, semi-quantitative NEGATIVE NEGATIVE Urine glucose detection by automated test strip NEGATIVE NEGATIVE Erythrocytes detection in urine sediment by light microscopy NEGATIVE NEGATIVE Urine ketones detection by automated test strip NEGATIVE NEGATIVE Urine nitrite detection by test strip NEGATIVE NEGATIVE Urine total bilirubin detection by test strip NEGATIVE NEGATIVE Urine urobilinogen measurement by automated test strip (mass/volume) NORMAL NORMAL Urine leukocyte esterase detection by dipstick NEGATIVE NEGATIVE Automated urine sediment erythrocyte count by microscopy (number/high power field) NONE NRG Automated urine sediment leukocyte count by microscopy (number/high power field ) NONE NRG Bacteria detection in urine sediment by light microscopy NEGATIVE NRG Squamous epithelial cells detection in urine sediment by light microscopy 0-2 NRG Crystals detection in urine sediment by light microscopy NONE NRG Casts detection in urine sediment by light microscopy NONE NRG Mucus detection in urine sediment by light microscopy NEGATIVE NRG Complete urinalysis with reflex to culture NO NRG Complete blood count (CBC) with automated white blood cell (WBC) differential - 05/09/17 23:26 Blood leukocytes automated count (number/volume) 8.1 10*3/uL 4.3-11.0 Blood erythrocytes automated count (number/volume) 4.49 10*6/uL 4.35-5.85 Venous blood hemoglobin measurement (mass/volume) 14.1 g/dL 11.5-16.0 Blood hematocrit (volume fraction) 42 % 35-52 Automated erythrocyte mean corpuscular volume 94 [foz_us] 80-99 Automated erythrocyte mean corpuscular hemoglobin (mass per erythrocyte) 31 pg 25-34 Automated erythrocyte mean corpuscular hemoglobin concentration measurement ( mass/volume) 33 g/dL 32-36 Automated erythrocyte distribution width ratio 13.8 % 10.0-14.5 Automated blood platelet count (count/volume) 175 10*3/uL 130-400 Automated blood platelet mean volume measurement 10.1 [foz_us] 7.4-10.4 Automated blood neutrophils/100 leukocytes 66 % 42-75 Automated blood lymphocytes/100 leukocytes 20 % 12-44 Blood monocytes/100 leukocytes 13 % 0-12 Automated blood eosinophils/100 leukocytes 1 % 0-10 Automated blood basophils/100 leukocytes 1 % 0-10 Blood neutrophils automated count (number/volume) 5.3 10*3 1.8-7.8 Blood lymphocytes automated count (number/volume) 1.6 10*3 1.0-4.0 Blood monocytes automated count (number/volume) 1.1 10*3 0.0-1.0 Automated eosinophil count 0.1 10*3/uL 0.0-0.3 Automated blood basophil count (count/volume) 0.0 10*3/uL 0.0-0.1 Complete urinalysis with reflex to culture - 05/09/17 23:26 Urine color determination YELLOW NRG Urine clarity determination CLEAR NRG Urine pH measurement by test strip 8 5-9 Specific gravity of urine by test strip 1.010 1.016- 1.022 Urine protein assay by test strip, semi-quantitative NEGATIVE NEGATIVE Urine glucose detection by automated test strip NEGATIVE NEGATIVE Erythrocytes detection in urine sediment by light microscopy NEGATIVE NEGATIVE Urine ketones detection by automated test strip NEGATIVE NEGATIVE Urine nitrite detection by test strip NEGATIVE NEGATIVE Urine total bilirubin detection by test strip NEGATIVE NEGATIVE Urine urobilinogen measurement by automated test strip (mass/volume) NORMAL NORMAL Urine leukocyte esterase detection by dipstick NEGATIVE NEGATIVE Automated urine sediment erythrocyte count by microscopy (number/high power field) NONE NRG Automated urine sediment leukocyte count by microscopy (number/high power field ) RARE NRG Bacteria detection in urine sediment by light microscopy TRACE NRG Squamous epithelial cells detection in urine sediment by light microscopy 0-2 NRG Crystals detection in urine sediment by light microscopy NONE NRG Casts detection in urine sediment by light microscopy NONE NRG Mucus detection in urine sediment by light microscopy NEGATIVE NRG Complete urinalysis with reflex to culture NO NRG PT panel in platelet poor plasma by coagulation assay - 05/09/17 23:26 Prothrombin time (PT) in platelet poor plasma by coagulation assay 13.7 s 12.2-14.7 INR in platelet poor plasma or blood by coagulation assay 1.0 0.8-1.4 Activated partial thromboplastin time (aPTT) in platelet poor plasma bycoagulation assay - 05/09/17 23:26 Activated partial thromboplastin time (aPTT) in platelet poor plasma bycoagulation assay 30 s 24-35 Comprehensive metabolic panel - 05/09/17 23:26 Serum or plasma sodium measurement (moles/volume) 141 mmol/L 135-145 Serum or plasma potassium measurement (moles/volume) 3.6 mmol/L 3.6-5.0 Serum or plasma chloride measurement (moles/volume) 106 mmol/L 98-107 Carbon dioxide 24 mmol/L 21-32 Serum or plasma anion gap determination (moles/volume) 11 mmol/L 5-14 Serum or plasma urea nitrogen measurement (mass/volume) 12 mg/dL 7-18 Serum or plasma creatinine measurement (mass/volume) 0.84 mg/dL 0.60-1.30 Serum or plasma urea nitrogen/creatinine mass ratio 14 NRG Serum or plasma creatinine measurement with calculation of estimated glomerular filtration rate > NRG Serum or plasma glucose measurement (mass/volume) 110 mg/dL 70-105 Serum or plasma calcium measurement (mass/volume) 9.4 mg/dL 8.5-10.1 Serum or plasma total bilirubin measurement (mass/volume) 1.2 mg/dL 0.1-1.0 Serum or plasma alkaline phosphatase measurement (enzymatic activity/volume) 72 U/L 40-136 Serum or plasma aspartate aminotransferase measurement (enzymatic activity/ volume) 22 U/L 5-34 Serum or plasma alanine aminotransferase measurement (enzymatic activity/volume ) 17 U/L 0-55 Serum or plasma protein measurement (mass/volume) 7.6 g/dL 6.4-8.2 Serum or plasma albumin measurement (mass/volume) 4.1 g/dL 3.2-4.5 Magnesium - 05/09/17 23:26 Magnesium 2.3 mg/dL 1.8-2.4 Serum or plasma troponin i.cardiac measurement (mass/volume) - 05/09/17 23:26 Serum or plasma troponin i.cardiac measurement (mass/volume) < ng/ mL <0.30 Serum or plasma thyrotropin measurement by detection limit <=0.05 miu/l (units/ volume) - 05/09/17 23:26 Serum or plasma thyrotropin measurement by detection limit <=0.05 miu/l (units/ volume) 2.66 u[iU]/mL 0.35-4.94 Encounters ACCT No. Visit Date/Time Discharge Status Pt. Type Provider Facility Loc./Unit Complaint [id number] 09/23/2013 11:55:00 09/23/2013 23:59:59 CLS Outpatient ROSIE MARTINEZ DO [id number] 09/23/2013 11:55:00 09/23/2013 23:59:59 CLS Outpatient ROSIE MARTINEZ DO [facility] [id number] 05/09/2017 21:40:00 05/10/2017 00:40:00 DIS Emergency LAMBERT RAMOS DO [facility] ER DIZZINESS [id number] 10/25/2016 07:59:00 10/25/2016 10:30:00 DIS Emergency LAMBERT RAMOS DO [facility] ER LEFT FLANK PAIN/UTI SYMPTOMS [id number] 10/20/2016 06:34:00 10/21/2016 15:00:00 DIS Inpatient PADMA WRIGHT, NAKUR Rider [facility] CSD INTRACTABLE VERTIGO; COLITIS/LUQ-L FLANK;UTI [id number] 09/13/2016 01:33:00 09/13/2016 03:59:00 DIS Emergency LIV WRIGHT, OCTAVIO Lewis [facility] ER ABD PAIN [id number] 07/31/2016 21:21:00 07/31/2016 23:08:00 DIS Emergency LAMBERT RAMOS DO [facility] ER HIGH BP, LEG NUMBNESS [id number] 04/25/2016 23:59:00 04/26/2016 01:52:00 DIS Emergency ANGEL WRIGHT, BRYAN Rico [facility] ER POSS FEVER, UNSTEADY BP, HEADACHE [id number] 11/02/2015 21:19:00 11/05/2015 10:15:00 DIS Inpatient FARTUN WRIGHT, LINDA Ramos [facility] 4TH ACUTE LOWER GI BLEEDING [id number] 12/31/2014 13:58:00 12/31/2014 16:42:00 DIS Emergency BRYAN ORTIZ MD [facility] ER VOMITING/NAUSEA [id number] 12/12/2014 10:47:00 12/12/2014 12:47:00 DIS Emergency MALLORY LUTHER APRN [facility] ER VOMITING;ABD PAIN [id number] 12/10/2014 10:28:00 12/10/2014 12:59:00 DIS Emergency LAMBERT RAMOS DO [facility] ER ABD PAIN/VOMITING [id number] 07/24/2013 11:05:00 08/05/2013 14:00:00 DIS Inpatient MAURICE BASILIO MD [facility] IRF GENERALIZED WEAKNESS NEUROPATHY HYPOKALEMIA [id number] 07/24/2013 04:57:00 07/24/2013 11:18:00 DIS Emergency OCTAVIO PECK MD [facility] ER PASSING OUT [id number] 07/11/2013 18:10:00 07/11/2013 20:57:00 DIS Emergency OCTAVIO PECK MD [facility] ER ABD PAIN [id number] 07/04/2013 21:46:00 07/05/2013 01:27:00 DIS Emergency LAMBERT RAMOS DO [facility] ER ABD PAIN [id number] 07/02/2013 15:21:00 07/02/2013 19:21:00 DIS Emergency SUZIE ANGULO [facility] ER DIFFICULTY SWALLOWING [id number] 06/30/2013 23:50:00 07/02/2013 10:20:00 DIS Outpatient LINDA WILLOUGHBY MD [facility] ABD PAIN [id number] 06/28/2013 22:07:00 06/28/2013 23:50:00 DIS Emergency HIRO BEST MD [facility] ER WEAKNESS, VOMITING [id number] 05/08/2013 13:50:00 05/09/2013 14:30:00 DIS Outpatient NATHANAEL SIMPSON MD [facility] CATH CHEST PAIN [id number] 03/19/2013 09:35:00 03/21/2013 11:20:00 DIS Inpatient POLINA MARTÍNEZ MD [facility] 4TH ABD PAIN [id number] 03/14/2013 17:09:00 03/19/2013 09:35:00 DIS Inpatient MAURICIO WRIGHT, POLINA Rico [facility] 4TH SWB ABD PAIN, TICK BITE [id number] 03/14/2013 17:09:00 03/14/2013 23:59:59 CLS Emergency PRECIOUS WRIGHT, AYAKA Mae [facility] ER ABD PAIN,TICK BITE [id number] 03/12/2013 10:47:00 03/12/2013 13:29:00 DIS Emergency ESTEPHANIA WRIGHT, HIRO Padilla [facility] ER ABD/BACK PAIN FEVER [id number] 03/04/2013 19:02:00 03/09/2013 12:35:00 DIS Inpatient MAURICIO WRIGHT, POLINA Rico [facility] 4TH HYPONATREMIA,UTI, WEAKNESS [id number] 10/23/2012 20:20:00 Document Registration [id number] 08/11/2012 18:32:00 Document Registration
[2017-12-05] MEDS ORDERED: MECL-124 PO (17:15)
[2017-12-05 17:26] LABS: BASOPHILS % (AUTO) 1 % (0-10); EOSINOPHILS # (AUTO) 0.1 10^3/uL (0.0-0.3); EOSINOPHILS % (AUTO) 1 % (0-10); HEMATOCRIT 41 % (35-52); LYMPHOCYTES # (AUTO) 1.4 X 10^3 (1.0-4.0); LYMPHOCYTES % (AUTO) 20 % (12-44); MEAN CORPUSCULAR HEMOGLOBIN 32 PG (25-34); MEAN CORPUSCULAR HGB CONC 34 G/DL (32-36); MEAN CORPUSCULAR VOLUME 94 FL (80-99); MEAN PLATELET VOLUME 10.6 FL (7.4-10.4); MONOCYTES # (AUTO) 0.5 X 10^3 (0.0-1.0); MONOCYTES % (AUTO) 7 % (0-12); NEUTROPHILS % (AUTO) 71 % (42-75); PLATELET COUNT 169 10^3/uL (130-400); RED BLOOD COUNT 4.39 10^6/uL (4.35-5.85); RED CELL DISTRIBUTION WIDTH 13.9 % (10.0-14.5)
--- NOTE | 2017-12-05 17:33 | ED Abdominal Pain ---
General Chief Complaint: General Problems/Pain Stated Complaint: ABD PAIN;VOMITING Nursing Triage Note: ARRIVED VIA EMS FROM HOME. PT HAS CHRONIC DIZZINESS AND ABD PAIN THAT IS WORKSE TODAY ALONG WITH NAUSEA WHICH IS DIFFERENT. PT HAS BEEN DIZZY ALL DAY ET TOOK MECLAZINE 25 MG AT 0730, 1430, AND 1630 Sepsis Screen: No Definite Risk Source of Information: Patient Exam Limitations: No Limitations (BRYAN ORTIZ MD) History of Present Illness Date Seen by Provider: Dec 05, 2017 Time Seen by Provider: 17:09 Initial Comments Here by EMS with report of dizziness and abdominal pain as well as nausea and vomiting. States that she has taken meclizine a few times today and has not helped a lot but has had a fair amount of nausea and vomiting. She states that she has central aching abdominal pain. She states this is been going on since she had her gallbladder out 3 years ago. The pain is achy and nonradiating. She reports that she's had ulcers previously and is not currently on ulcer medicine. Denies vomiting blood. The dizziness is long-standing and she has known vertigo. Usually takes meclizine and that works. This usually dizzy in the morning. Blood pressure noted to be elevated on arrival and patient states that that is not typical for her and she usually has normal blood pressure but it will go up when she has anxiety. Timing/Duration: 12 Hours Severity/Quality: Moderate Location: Epigastric Radiation: No Radiation Activities at Onset: Activity Modifying Factors: Worsens With Eating Associated Symptoms: No Back Pain, No Chest Pain, No Diaphoresis, No Fever/ Chills, Nausea/Vomiting, No Shortness of Air, Weakness (BRYAN ORTIZ MD) Allergies and Home Medications Allergies Coded Allergies: gabapentin (Unverified Adverse Reaction, Unknown, VOMITING. , 12/10/14) Home Medications Meclizine HCl 25 Mg Tab.chew, 25 MG PO PRN, (Reported) Patient Home Medication List Home Medication List Reviewed: Yes (BRYAN ORTIZ MD) Home Medication List Reviewed: Yes (BETZAIDA LEDEZMA) Review of Systems Constitutional: see HPI, No chills, No fever Respiratory: No Symptoms Reported, Denies Orthopnea, Denies Shortness of Air Cardiovascular: Denies Chest Pain, Denies Edema Gastrointestinal: Abdominal Pain, Denies Diarrhea, Nausea, Vomiting Genitourinary: No Symptoms Reported Musculoskeletal: no symptoms reported Skin: no symptoms reported (BRYAN ORTIZ MD) All Other Systems Reviewed Negative Unless Noted: Yes (BRYAN ORTIZ MD) Past Dugtozl-Kcynvl-Ftvlhf Hx Patient Social History Alcohol Use: Denies Use Recreational Drug Use: No Smoking Status: Never a Smoker Recent Foreign Travel: No Contact w/Someone Who Travel: No Recent Infectious Disease Expo: No Recent Hopitalizations: No (BRYAN ORTIZ MD) Immunizations Up To Date Tetanus Booster (TDap): Unknown (BRYAN ORTIZ MD) Seasonal Allergies Seasonal Allergies: Yes (BRYAN ORTIZ MD) Surgeries History of Surgeries: Yes (EGD/ESOPHAGEAL DILATION; CARDIAC CATH--NO INTERVENTION) Surgeries: Appendectomy, Cardiac, Gallbladder (BRYAN ORTIZ MD) Respiratory History of Respiratory Disorde: No (BRYAN ORTIZ MD) Cardiovascular History of Cardiac Disorders: Yes (CARDIAC CATH--NORMAL) Cardiac Disorders: Hypertension (BRYAN ORTIZ MD) Neurological History of Neurological Disord: Yes (CHRONIC VERTIGO) Neurological Disorders: Neuropathy, Vertigo (BRYAN ORTIZ MD) Reproductive System Hx Reproductive Disorders: No Sexually Transmitted Disease: No HIV/AIDS: No Female Reproductive Disorders: Denies XRAY TECH History: Menopausal (BRYAN ORTIZ MD) Genitourinary History of Genitourinary Disor: Yes Genitourinary Disorders: UTI-Chronic (BRYAN ORTIZ MD) Gastrointestinal History of Gastrointestinal Di: Yes (EGD by Dr. Flores 2012--ESOPHAGEAL DILATION FOR STRICTURE;TELLY) Gastrointestinal Disorders: Gastroesophageal Reflux, Hemorrhoids, Ulcer, Gall Bladder Disease (BRYAN ORTIZ MD) Musculoskeletal History of Musculoskeletal Dis: Yes Musculoskeletal Disorders: Arthritis (BRYAN ORTIZ MD) Endocrine History of Endocrine Disorders: Yes (OBESITY) Endocrine Disorders: Hypothyroidsim (BRYAN ORTIZ MD) HEENT History of HEENT Disorders: Yes HEENT Disorders: Tinnitis (BRYAN ORTIZ MD) Cancer History of Cancer: No (BRYAN ORTIZ MD) Psychosocial History of Psychiatric Problem: Yes (not on any pharmacologic treatment) Behavioral Health Disorders: Eating Disorder, Sleep Difficulties, Anxiety, Depression (BRYAN ORTIZ MD) Integumentary History of Skin or Integumenta: No (BRYAN ORTIZ MD) Blood Transfusions History of Blood Disorders: No Adverse Reaction to a Blood Tr: No (BRYAN ORTIZ MD) Reviewed Nursing Assessment Reviewed/Agree w Nursing PMH: Yes (BRYAN ORTIZ MD) Family Medical History Significant Family History: Heart Disease, Cancer Family Medial History: FHx: pancreatic cancer 19 MOTHER, Onset:60 years & older Myocardial infarction 19 FATHER Son (BRYAN ORTIZ MD) Family Medial History: FHx: pancreatic cancer 19 MOTHER, Onset:60 years & older Myocardial infarction 19 FATHER Son (BETZAIDA LEDEZMA) Physical Exam Vital Signs VS - Last 72 Hours, by Label 12/05/17 12/05/17 16:53 19:18 Temp 98.0 Pulse 85 79 79 80 Resp 18 B/P (MAP) 213/90 (131) 194/87 (122) 194/80 (118) 193/104 (133) Pulse Ox 95 O2 Delivery Room Air (BETZAIDA LEDEZMA) Vital Signs Capillary Refill : Less Than 3 Seconds (BRYAN ORTIZ MD) General Appearance: WD/WN, no apparent distress HEENT: PERRL/EOMI, pharynx normal Neck: full range of motion, supple Respiratory: lungs clear, normal breath sounds Cardiovascular: regular rate, rhythm, no murmur Peripheral Pulses: 2+ Dorsalis Pedis (R), 2+ Left Dors-Pedis (L), 2+ Radial Pulses (R), 2+ Radial Pulses (L) Gastrointestinal: non tender, soft Extremities: non-tender, normal inspection Back: normal inspection, no CVA tenderness, no vertebral tenderness Neurologic/Psychiatric: alert, oriented x 3 Skin: normal color, warm/dry (BRYAN ORTIZ MD) Progress/Results/Core Measures Results/Orders Lab Results Laboratory Tests Test 12/05/17 17:17 Range/Units White Blood Count 7.0 4.3-11.0 10^3/uL Red Blood Count 4.39 4.35-5.85 10^6/uL Hemoglobin 14.0 11.5-16.0 G/DL Hematocrit 41 35-52 % Mean Corpuscular Volume 94 80-99 FL Mean Corpuscular Hemoglobin 32 25-34 PG Mean Corpuscular Hemoglobin Concent 34 32-36 G/DL Red Cell Distribution Width 13.9 10.0-14.5 % Platelet Count 169 130-400 10^3/uL Mean Platelet Volume 10.6 H 7.4-10.4 FL Neutrophils (%) (Auto) 71 42-75 % Lymphocytes (%) (Auto) 20 12-44 % Monocytes (%) (Auto) 7 0-12 % Eosinophils (%) (Auto) 1 0-10 % Basophils (%) (Auto) 1 0-10 % Neutrophils # (Auto) 5.0 1.8-7.8 X 10^3 Lymphocytes # (Auto) 1.4 1.0-4.0 X 10^3 Monocytes # (Auto) 0.5 0.0-1.0 X 10^3 Eosinophils # (Auto) 0.1 0.0-0.3 10^3/uL Basophils # (Auto) 0.0 0.0-0.1 10^3/uL Sodium Level 140 135-145 MMOL/L Potassium Level 3.6 3.6-5.0 MMOL/L Chloride Level 105 98-107 MMOL/L Carbon Dioxide Level 23 21-32 MMOL/L Anion Gap 12 5-14 MMOL/L Blood Urea Nitrogen 20 H 7-18 MG/DL Creatinine 0.89 0.60-1.30 MG/DL Estimat Glomerular Filtration Rate > 60 BUN/Creatinine Ratio 22 Glucose Level 161 H 70-105 MG/DL Calcium Level 9.5 8.5-10.1 MG/DL Total Bilirubin 0.9 0.1-1.0 MG/DL Aspartate Amino Transf (AST/SGOT) 20 5-34 U/L Alanine Aminotransferase (ALT/SGPT) 15 0-55 U/L Alkaline Phosphatase 67 40-136 U/L C-Reactive Protein High Sensitivity 0.30 0.00-0.50 MG/DL Total Protein 7.3 6.4-8.2 GM/DL Albumin 4.1 3.2-4.5 GM/DL Amylase Level 25 25-125 U/L Lipase 13 8-78 U/L (BETZAIDA LEDEZMA) My Orders Orders - BETZAIDA LEDEZMA Ondansetron Injection (Zofran Injectio (12/05/17 18:45) Orthostatic Vital Signs (Adult (12/05/17 18:34) (BETZAIDA LEDEZMA) Medications Given in ED Current Medications Medications Dose Ordered Sig/Toyin Route Start Time Stop Time Status Last Admin Dose Admin Al Hydrox/Mg Hydrox/Simethicone 30 ml ONCE ONCE PO 12/05/17 18:15 12/05/17 18:16 DC 12/05/17 18:19 30 ML Lidocaine HCl 15 ml ONCE ONCE PO 12/05/17 18:15 12/05/17 18:16 DC 12/05/17 18:19 15 ML Ondansetron HCl 4 mg ONCE ONCE IVP 12/05/17 18:45 12/05/17 18:46 DC 12/05/17 18:48 4 MG (BETZAIDA LEDEZMA) Vital Signs/I&O Vital Sign - Last 12Hours 12/05/17 12/05/17 16:53 19:18 Temp 98.0 Pulse 85 79 79 80 Resp 18 B/P (MAP) 213/90 (131) 194/87 (122) 194/80 (118) 193/104 (133) Pulse Ox 95 O2 Delivery Room Air (BETZAIDA LEDEZMA) Blood Pressure Mean: 131 Progress Note : Progress Note Seen and evaluated. IV by EMS. We will continue saline 2 500 mL bolus initiated by EMS. Labs ordered. Monitor patient. Blood pressure was elevated on arrival and remains elevated but she states that is typical when she is anxious so we will monitor that. 1820: Labs reviewed. No significant findings. GI cocktail ordered. Fentanyl 50 g IV ordered. I did discuss the case at length with Dr. Ledezma who I have transferred care to as well as the patient. He will continue evaluation. The dizziness seems to be more of a concern currently and blood pressure remains elevated. Further care per Dr. Ledezma. (BRYAN ORTIZ MD) Progress Note #1: Time: 18:47 Progress Note #2: Time: 18:47 Progress Note Met the patient with Dr. Ortiz and assumed care of the patient at 181. Reexamined and listen to the patient's history. The patient seems to be having symptoms of BPPV. According to the son they have had testing by physical therapy as well as their primary care physician as well as she has attempted to do a tilt table testing and she was unable to complete the tilt table. She started to have worsening nausea and dizziness with sensation that the room was moving around her when she closed her eyes after the fentanyl was given for her headache. Her headache has improved however her stomach burning persists. We're waiting for her nausea to improve and have ordered another 4 mg of IV Zofran before giving her her GI cocktail. We have discussed at length getting the GI cocktail versus imaging of her belly and feel that it would be reasonable to just try the GI cocktail that improved her abdominal symptoms given her otherwise good labs this would not need a imaging test but might be reasonable to follow up outpatient for endoscopy. As soon as her nausea is under control will also try and get a set of orthostatic vitals with her. Her blood pressure has remained high in the 170-190s systolic throughout her stay for over an hour. She says her blood pressure is normal most days but when she gets anxious or has this dizziness it shoots up very high like this. At this point she is having no other cardiac symptoms so we are looking to improve her blood pressure probably over hours to days. The son who accompanies her and has been worse possible for her cares chief concern is that he has to go to work tomorrow and the patient will be left alone at home and he is afraid she is going to be at high risk for fall. He admits that they have had this problem for many years and in the past and seen ear nose and throat surgeon locally but was dissatisfied with the care they received because he could not tolerate the tilt table. We discussed with the patient right now has transient dizziness as a side effect to her fentanyl was given for her headache as well as what sounds like BPPV but she's not going to allow me to do Yun-Hallpike maneuvers to prove this and sounds like by history she has already had this done. We discussed that while she will probably not meet any criteria for inpatient admission as she is with an otherwise reasonable vital signs except for the blood pressure and this is not hypertensive emergency that she might be a candidate for placement in acute rehabilitation for work on her BPPV. Other alternatives would be finding some private sitter for her home or looking into assisted living. She is taking her meclizine as prescribed. Progress Note #3: Time: 19:21 Progress Note Patient's nausea is still present but are little better control. We will give her the GI cocktail now see if that doesn't improve some of her stomach pain issues. Orthostatic vitals are unremarkable. She does have high blood pressure. The patient does not take any blood pressure medicines routinely because she says typically she battles hypotension. She says she does get very high blood pressure however with anxiety and her vertigo. We have discussed the plan for outpatient follow-up with a phone call from the chronic care nurse from [facility] tomorrow and the son is satisfied with this option for now. (BETZAIDA LEDEZMA) Consults Consults : Consulting Physician: ROSIE MARTINEZ DO Consults Notes Discussed the case lab findings and concern for history of gastritis versus peptic ulcer disease. Discussed the side effects of her fentanyl for her headache. At this time she doesn't meet any inpatient criteria and Dr. gaines feels that the patient would be an excellent candidate for their chronic care nurse to do a follow-up visit by phone call in the morning. She agrees that if the patient wants to be in the ER you that that also could be a reasonable route for her. She also suggests that if the patient would benefit from home health that they can get that started through their chronic care nurse calling her in the morning. (BETZAIDA LEDEZMA) Departure Impression Impression: Primary Impression: Headache Qualified Codes: G44.209 - Tension-type headache, unspecified, not intractable Additional Impressions: GERD (gastroesophageal reflux disease) Qualified Codes: K21.9 - Gastro-esophageal reflux disease without esophagitis BPPV (benign paroxysmal positional vertigo) Qualified Codes: H81.10 - Benign paroxysmal vertigo, unspecified ear Disposition: 01 HOME, SELF-CARE Condition: Stable Departure-Patient Inst. Decision time for Depature: 19:53 (BETZAIDA LEDEZMA) Referrals: [facility] (PCP) Primary Care Physician ELIF CEVALLOS (Family) Primary Care Physician LONG BRENNAN DO Patient Instructions: Acid Reflux (Gastroesophageal Reflux Disease) in Adults, Vertigo (a Type of Dizziness) (DC) Add. Discharge Instructions: Tomorrow morning please call Dr. Brennan at his office at [phone] requesting appointment for workup of your gastritis/possible peptic ulcer disease. 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 Use the Zofran 1 tablet on the tongue every 6 hours as needed for nausea. Expect a phone call from the chronic care nurse from [facility] tomorrow. Make a follow-up appointment with your primary care physician at [facility] to discuss management of your blood pressure, general healthcare and even referral to a specialist for your BPPV (vertigo). If you begin to have worsening symptoms such as intractable abdominal pain, nausea and not controlled by her Zofran or other worrisome symptoms please return to the ER for further evaluation. All discharge instructions reviewed with patient and/or family. Voiced understanding. Scripts Ondansetron (Zofran Odt) 4 Mg Tab.rapdis 4 MG SL Q4H Y for NAUSEA/VOMITING-1ST LINE, #14 TAB 0 Refills Prov: BETZAIDA LEDEZMA 12/05/17 Copy Copies To 1: LONG BRENNAN DO Copies To 2: ROSIE MARTINEZ TIMOTHY D MD Dec 05, 2017 17:33 BETZAIDA LEDEZMA Dec 05, 2017 19:00
[2017-12-05 17:47] LABS: ALANINE AMINOTRANSFERASE 15 U/L (0-55); ALBUMIN 4.1 GM/DL (3.2-4.5); ALKALINE PHOSPHATASE 67 U/L (40-136); AMYLASE 25 U/L (25-125); BILIRUBIN,TOTAL 0.9 MG/DL (0.1-1.0); BUN/CREATININE RATIO 22; CALCIUM 9.5 MG/DL (8.5-10.1); CARBON DIOXIDE 23 MMOL/L (21-32); CHLORIDE 105 MMOL/L (98-107); CREATININE SERUM 0.89 MG/DL (0.60-1.30); GFR ESTIMATED > 60; GLUCOSE 161 MG/DL (70-105); LIPASE 13 U/L (8-78); POTASSIUM 3.6 MMOL/L (3.6-5.0); SODIUM 140 MMOL/L (135-145); TOTAL PROTEIN 7.3 GM/DL (6.4-8.2)
[2017-12-05] MEDS ORDERED: fentaNYL INJECTION 100 MCG/2 ML AMP IVP STA (18:14)
[2017-12-05] MEDS ORDERED: ANTACID SUSP 30 ML UDC (MYLANTA) PO ONE (18:15)
[2017-12-05] MEDS ORDERED: LIDOCAINE 2% VISCOUS 15 ML UDC PO ONE (18:15)
[2017-12-05] MEDS ORDERED: ONDANSETRON 4 MG/2 ML (SDV) Z0FRAN IVP ONE (18:45)
[2017-12-05 19:18] VITALS: BP_SYST 193; BP_SYST 194; BP_DIAS 104; BP_DIAS 80; BP_DIAS 87
[2017-12-05] MEDS ORDERED: ONDA4TAB8 SL (19:55)
[2017-12-05 20:10] VITALS: BP 193/104
== END 2017-12-05 20:10 | disposition home or self-care (01) ==
LOC: EDUNIT# 16:53 → ER 16:55
DX: H81.10 Benign paroxysmal vertigo, unspecified ear (principal); K21.9 Gastro-esophageal reflux disease without esophagitis; E66.9 Obesity, unspecified; E03.9 Hypothyroidism, unspecified; F41.9 Anxiety disorder, unspecified; F32.9 Major depressive disorder, single episode, unspecified; I10 Essential (primary) hypertension; Z90.49 Acquired absence of other specified parts of digestive tract; Z87.19 Personal history of other diseases of the digestive system; Z68.43 Body mass index [BMI] 50.0-59.9, adult
CPT/HCPCS: 36415; 80053; 82150; 83690; 85025; 86141; 96374; 96375; 99283

== ENCOUNTER 2018-03-06 13:35 | Emergency (ER) | payer MEDICARE ==
[~2018-03-06] VITALS: Ht 162.6 cm; Wt 90.7 kg
[~2018-03-06 13:35] MED LIST changes: +MECL-124 PO; +ONDA4TAB8 SL
[2018-03-06] MEDS ORDERED: NS IV 500 ML 500 ML IV SCH (14:30)
--- NOTE | 2018-03-06 14:38 | ED EENT ---
History of Present Illness General Chief Complaint: General Problems/Pain Stated Complaint: BARRIOS,EARS RINGING Nursing Triage Note: PATIENT STATES THAT FOR THE LAST TWO HOURS SHE HAS HAD A HEADACHE AND THAT HER EARS HAVE BEEN ITCHING AND RINGING. SHE HAS HAS THIS HAPPEN IN THE PAST AND WAS TOLD ITS RELATED TO HER VERTIGO. Source: patient Exam Limitations: no limitations History of Present Illness Date Seen by Provider: Mar 06, 2018 Time Seen by Provider: 14:34 Initial Comments To ER with intense itching in both of her ears, ringing in her ears and dizziness sudden onset 2 hours ago. She has a history of vertigo Timing/Duration: abrupt Severity: moderate Location: ear (R), ear (L) Allergies and Home Medications Allergies Coded Allergies: gabapentin (Unverified Adverse Reaction, Unknown, VOMITING. , 12/10/14) Home Medications Meclizine HCl 25 Mg Tab.chew, 25 MG PO PRN, (Reported) Ondansetron 4 Mg Tab.rapdis, 4 MG SL Q4H PRN for NAUSEA/VOMITING-1ST LINE Prescribed by: BETZAIDA BAILEY on 12/05/171954 Patient Home Medication List Home Medication List Reviewed: Yes Review of Systems Constitutional: see HPI Eyes: No Symptoms Reported Ears: See HPI, Dizziness, Tinnitus Nose: no symptoms reported Mouth: no symptoms reported Throat: no symptoms reported Respiratory: no symptoms reported Cardiovascular: no symptoms reported Musculoskeletal: no symptoms reported Skin: no symptoms reported Neurological: No Symptoms Reported Hematologic/Lymphatic: No Symptoms Reported Immunological/Allergic: no symptoms reported Past Isyfkre-Vcztea-Rvjift Hx Patient Social History Alcohol Use: Denies Use Recreational Drug Use: No Smoking Status: Never a Smoker 2nd Hand Smoke Exposure: No Recent Foreign Travel: No Contact w/Someone Who Travel: No Recent Infectious Disease Expo: No Recent Hopitalizations: No Physical Abuse: No Sexual Abuse: No Immunizations Up To Date Tetanus Booster (TDap): Unknown Seasonal Allergies Seasonal Allergies: Yes Past Medical History Surgeries: Yes (EGD/ESOPHAGEAL DILATION; CARDIAC CATH--NO INTERVENTION) Appendectomy, Cardiac, Gallbladder Respiratory: No Cardiac: Yes (CARDIAC CATH--NORMAL) Hypertension Neurological: Yes (CHRONIC VERTIGO) Neuropathy, Vertigo Reproductive Disorders: No Female Reproductive Disorders: Denies 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 Flores 2012--ESOPHAGEAL DILATION FOR STRICTURE;TELLY) Gastroesophageal Reflux, Hemorrhoids, Ulcer, Gall Bladder Disease Musculoskeletal: Yes Arthritis Endocrine: Yes (OBESITY) Hypothyroidsim HEENT: Yes Tinnitis Cancer: No Psychosocial: Yes (not on any pharmacologic treatment) Eating Disorder, Sleep Difficulties, Anxiety, Depression Nursing Suicide Risk Score: 0 Integumentary: No Blood Disorders: No Adverse Reaction/Blood Tranf: No Family Medical History FHx: pancreatic cancer 19 MOTHER, Onset:60 years & older Myocardial infarction 19 FATHER Son Heart Disease, Cancer Physical Exam Vital Signs Vital Signs - First Documented 03/06/18 13:50 Temp 98.0 Pulse 82 Resp 22 B/P (MAP) 192/70 (110) Pulse Ox 97 General Appearance: WD/WN, no apparent distress Eyes: bilateral eye normal inspection, bilateral eye PERRL, bilateral eye EOMI Ears: bilateral ear auricle normal, bilateral ear canal normal, bilateral ear TM normal, bilateral ear other (excoriation to the outer ears bilaterally were she's been itching and scratching over the past few days) Mouth/Throat: normal mouth inspection, pharynx normal Neck: non-tender, full range of motion Respiratory: no respiratory distress, no accessory muscle use Gastrointestinal: normal bowel sounds, non tender Neurologic/Psychiatric: alert, normal mood/affect, oriented x 3 Skin: normal color, warm/dry Progress/Results/Core Measures Results/Orders Lab Results Laboratory Tests Test 03/06/18 14:45 03/06/18 14:55 Range/Units White Blood Count 6.4 4.3-11.0 10^3/uL Red Blood Count 4.15 L 4.35-5.85 10^6/uL Hemoglobin 13.3 11.5-16.0 G/DL Hematocrit 39 35-52 % Mean Corpuscular Volume 94 80-99 FL Mean Corpuscular Hemoglobin 32 25-34 PG Mean Corpuscular Hemoglobin Concent 34 32-36 G/DL Red Cell Distribution Width 14.3 10.0-14.5 % Platelet Count 177 130-400 10^3/uL Mean Platelet Volume 10.7 H 7.4-10.4 FL Neutrophils (%) (Auto) 69 42-75 % Lymphocytes (%) (Auto) 21 12-44 % Monocytes (%) (Auto) 9 0-12 % Eosinophils (%) (Auto) 1 0-10 % Basophils (%) (Auto) 1 0-10 % Neutrophils # (Auto) 4.4 1.8-7.8 X 10^3 Lymphocytes # (Auto) 1.3 1.0-4.0 X 10^3 Monocytes # (Auto) 0.6 0.0-1.0 X 10^3 Eosinophils # (Auto) 0.1 0.0-0.3 10^3/uL Basophils # (Auto) 0.0 0.0-0.1 10^3/uL Sodium Level 140 135-145 MMOL/L Potassium Level 3.9 3.6-5.0 MMOL/L Chloride Level 108 H 98-107 MMOL/L Carbon Dioxide Level 24 21-32 MMOL/L Anion Gap 8 5-14 MMOL/L Blood Urea Nitrogen 14 7-18 MG/DL Creatinine 0.84 0.60-1.30 MG/DL Estimat Glomerular Filtration Rate > 60 BUN/Creatinine Ratio 17 Glucose Level 119 H 70-105 MG/DL Calcium Level 9.4 8.5-10.1 MG/DL Total Bilirubin 1.4 H 0.1-1.0 MG/DL Aspartate Amino Transf (AST/SGOT) 21 5-34 U/L Alanine Aminotransferase (ALT/SGPT) 13 0-55 U/L Alkaline Phosphatase 65 40-136 U/L Total Protein 6.8 6.4-8.2 GM/DL Albumin 4.0 3.2-4.5 GM/DL Urine Color YELLOW Urine Clarity CLEAR Urine pH 8 5-9 Urine Specific [place] 1.015 L 1.016-1.022 Urine Protein NEGATIVE NEGATIVE Urine Glucose (UA) NEGATIVE NEGATIVE Urine Ketones NEGATIVE NEGATIVE Urine Nitrite NEGATIVE NEGATIVE Urine Bilirubin NEGATIVE NEGATIVE Urine Urobilinogen NORMAL NORMAL MG/DL Urine Leukocyte Esterase NEGATIVE NEGATIVE Urine RBC (Auto) NEGATIVE NEGATIVE Urine RBC NONE /HPF Urine WBC NONE /HPF Urine Squamous Epithelial Cells NONE /HPF Urine Crystals NONE /LPF Urine Bacteria NEGATIVE /HPF Urine Casts NONE /LPF Urine Mucus NEGATIVE /LPF Urine Culture Indicated NO My Orders Orders - [facility] [employer] Cbc With Automated Diff (03/06/18 14:27) Comprehensive Metabolic Panel (03/06/18 14:27) Ua Culture If Indicated (03/06/18 14:27) Iv Heplock-Insert (Order) (03/06/18 14:27) Ns Iv 500 Ml (Sodium Chloride 0.9%) (03/06/18 14:30) Diphenhydramine Injection (Benadryl Inje (03/06/18 14:45) Ondansetron Injection (Zofran Injectio (03/06/18 14:45) Medications Given in ED Current Medications Medications Dose Ordered Sig/Toyin Route Start Time Stop Time Status Last Admin Dose Admin Diphenhydramine HCl 12.5 mg ONCE ONCE IVP 03/06/18 14:45 03/06/18 14:46 DC 03/06/18 14:59 12.5 MG Ondansetron HCl 4 mg ONCE ONCE IVP 03/06/18 14:45 03/06/18 14:46 DC 03/06/18 14:59 4 MG Vital Signs/I&O 03/06/18 13:50 Temp 98.0 Pulse 82 Resp 22 B/P (MAP) 192/70 (110) Pulse Ox 97 Blood Pressure Mean: 110 Departure Communication (Admissions) 4348-she is feeling quite a bit better at this time. There is still some mild itching in the ears but it's much better and she is ready to go home. Impression Primary Impression: Vertigo Disposition: 01 HOME, SELF-CARE Condition: Stable Departure-Patient Inst. Decision time for Depature: 15:40 Referrals: NO,LOCAL PHYSICIAN (PCP/Family) Primary Care Physician Patient Instructions: VERTIGO Add. Discharge Instructions: 1. Follow-up with your doctor next week 2. Return to ER for any concerns All discharge instructions reviewed with patient and/or family. Voiced understanding. [facility] TRANSL[facility] Mar 06, 2018 14:38
[2018-03-06] MEDS ORDERED: ONDANSETRON 4 MG/2 ML (SDV) Z0FRAN IVP ONE (14:45)
[2018-03-06] MEDS ORDERED: diphenhydrAMINE 50 MG/ML INJ (BENADRYL) IVP ONE (14:45)
[2018-03-06 15:07] LABS: BASOPHILS % (AUTO) 1 % (0-10); EOSINOPHILS # (AUTO) 0.1 10^3/uL (0.0-0.3); EOSINOPHILS % (AUTO) 1 % (0-10); HEMATOCRIT 39 % (35-52); HEMOGLOBIN 13.3 G/DL (11.5-16.0); LYMPHOCYTES # (AUTO) 1.3 X 10^3 (1.0-4.0); LYMPHOCYTES % (AUTO) 21 % (12-44); MEAN CORPUSCULAR HEMOGLOBIN 32 PG (25-34); MEAN CORPUSCULAR HGB CONC 34 G/DL (32-36); MEAN CORPUSCULAR VOLUME 94 FL (80-99); MEAN PLATELET VOLUME 10.7 FL (7.4-10.4); MONOCYTES # (AUTO) 0.6 X 10^3 (0.0-1.0); MONOCYTES % (AUTO) 9 % (0-12); NEUTROPHILS # (AUTO) 4.4 X 10^3 (1.8-7.8); NEUTROPHILS % (AUTO) 69 % (42-75); PLATELET COUNT 177 10^3/uL (130-400); RED BLOOD COUNT 4.15 10^6/uL (4.35-5.85); RED CELL DISTRIBUTION WIDTH 14.3 % (10.0-14.5); WHITE BLOOD COUNT 6.4 10^3/uL (4.3-11.0)
[2018-03-06 15:08] LABS: BILIRUBIN,URINE NEGATIVE (NEGATIVE); CLARITY,URINE CLEAR; COLOR,URINE YELLOW; GLUCOSE, URINE (UA) NEGATIVE (NEGATIVE); KETONES,URINE NEGATIVE (NEGATIVE); LEUKOCYTE ESTERASE ,URINE NEGATIVE (NEGATIVE); NITRITE,URINE NEGATIVE (NEGATIVE); PH,URINE 8 (5-9); PROTEIN,URINE NEGATIVE (NEGATIVE); UROBILINOGEN,URINE NORMAL (NORMAL)
[2018-03-06 15:19] LABS: BACTERIA,URINE NEGATIVE /HPF
[2018-03-06 15:27] LABS: BUN/CREATININE RATIO 17; CALCIUM 9.4 MG/DL (8.5-10.1); CARBON DIOXIDE 24 MMOL/L (21-32); CHLORIDE 108 MMOL/L (98-107); CREATININE SERUM 0.84 MG/DL (0.60-1.30); GFR ESTIMATED > 60; GLUCOSE 119 MG/DL (70-105); POTASSIUM 3.9 MMOL/L (3.6-5.0); SODIUM 140 MMOL/L (135-145)
[2018-03-06 15:28] LABS: ALANINE AMINOTRANSFERASE 13 U/L (0-55); ALKALINE PHOSPHATASE 65 U/L (40-136); BILIRUBIN,TOTAL 1.4 MG/DL (0.1-1.0); TOTAL PROTEIN 6.8 GM/DL (6.4-8.2)
[2018-03-06 15:50] VITALS: BP 192/70
== END 2018-03-06 15:52 | disposition home or self-care (01) ==
LOC: EDUNIT# 13:35 → ER 13:37
DX: R42 Dizziness and giddiness (principal); I10 Essential (primary) hypertension; K21.9 Gastro-esophageal reflux disease without esophagitis; E66.9 Obesity, unspecified; E03.9 Hypothyroidism, unspecified; F41.9 Anxiety disorder, unspecified; F32.9 Major depressive disorder, single episode, unspecified; Z82.49 Family history of ischemic heart disease and other diseases of the circulatory system; Z87.19 Personal history of other diseases of the digestive system; Z80.0 Family history of malignant neoplasm of digestive organs; Z87.440 Personal history of urinary (tract) infections; Z88.8 Allergy status to other drugs, medicaments and biological substances; Z90.89 Acquired absence of other organs; Z68.34 Body mass index [BMI] 34.0-34.9, adult
CPT/HCPCS: 36415; 80053; 81000; 85025; 96374; 96375; 99282

== ENCOUNTER 2019-02-26 16:51 | Emergency (ER) | payer MEDICARE ==
[~2019-02-26] VITALS: Ht 162.6 cm; Wt 90.7 kg
--- NOTE | 2019-02-26 17:13 | NUR ---
TO ROOM WITH SON NO CHANGE FROM TRIAGE.
[2019-02-26 17:37] LABS: BASOPHILS % (AUTO) 0 % (0-10); EOSINOPHILS # (AUTO) 0.1 10^3/uL (0.0-0.3); EOSINOPHILS % (AUTO) 1 % (0-10); HEMATOCRIT 40 % (35-52); HEMOGLOBIN 13.7 G/DL (11.5-16.0); LYMPHOCYTES # (AUTO) 1.5 X 10^3 (1.0-4.0); LYMPHOCYTES % (AUTO) 24 % (12-44); MEAN CORPUSCULAR HEMOGLOBIN 32 PG (25-34); MEAN CORPUSCULAR HGB CONC 34 G/DL (32-36); MEAN CORPUSCULAR VOLUME 93 FL (80-99); MEAN PLATELET VOLUME 10.4 FL (7.4-10.4); MONOCYTES # (AUTO) 0.8 X 10^3 (0.0-1.0); MONOCYTES % (AUTO) 13 % (0-12); NEUTROPHILS # (AUTO) 3.8 X 10^3 (1.8-7.8); NEUTROPHILS % (AUTO) 62 % (42-75); PLATELET COUNT 175 10^3/uL (130-400); RED CELL DISTRIBUTION WIDTH 13.8 % (10.0-14.5); WHITE BLOOD COUNT 6.1 10^3/uL (4.3-11.0)
[2019-02-26 18:04] LABS: BILIRUBIN,URINE NEGATIVE (NEGATIVE); CLARITY,URINE CLEAR; COLOR,URINE YELLOW; GLUCOSE, URINE (UA) NEGATIVE (NEGATIVE); KETONES,URINE NEGATIVE (NEGATIVE); LEUKOCYTE ESTERASE ,URINE NEGATIVE (NEGATIVE); NITRITE,URINE NEGATIVE (NEGATIVE); PH,URINE 7 (5-9); PROTEIN,URINE NEGATIVE (NEGATIVE); UROBILINOGEN,URINE NORMAL (NORMAL)
[2019-02-26 18:08] LABS: ALANINE AMINOTRANSFERASE 18 U/L (0-55); ALBUMIN 4.2 GM/DL (3.2-4.5); ALKALINE PHOSPHATASE 66 U/L (40-136); AMYLASE 19 U/L (25-125); BILIRUBIN,TOTAL 1.4 MG/DL (0.1-1.0); BUN/CREATININE RATIO 13; CALCIUM 9.7 MG/DL (8.5-10.1); CARBON DIOXIDE 23 MMOL/L (21-32); CHLORIDE 105 MMOL/L (98-107); CREATININE SERUM 0.84 MG/DL (0.60-1.30); GFR ESTIMATED > 60; GLUCOSE 125 MG/DL (70-105); LIPASE 8 U/L (8-78); POTASSIUM 3.6 MMOL/L (3.6-5.0); SODIUM 139 MMOL/L (135-145); TOTAL PROTEIN 7.2 GM/DL (6.4-8.2)
[2019-02-26 18:17] LABS: BACTERIA,URINE NEGATIVE /HPF; SQUAMOUS EPITHELIAL CELL,UR 0-2 /HPF
[2019-02-26] MEDS ORDERED: ONDANSETRON 4 MG/2 ML (SDV) Z0FRAN IVP ONE (18:30)
[2019-02-26] MEDS ORDERED: fentaNYL INJECTION 100 MCG/2 ML AMP IVP ONE (18:30)
--- NOTE | 2019-02-26 18:48 | NUR ---
REPORT TO SHADI
--- NOTE | 2019-02-26 19:02 | ED Abdominal Pain ---
General Chief Complaint: Abdominal/GI Problems Stated Complaint: NAUSEA,DIFFICULTY EATING Nursing Triage Note: PT STATES EPIGASTRIC PAIN FOR MULTIPLE WEEKS. PT REPORTS FEELING NAUSEATED AND FEELING BLOATED. PT STATES BRIGHT YELLOW STOOLS. Sepsis Screen: No Definite Risk Source of Information: Patient Exam Limitations: No Limitations History of Present Illness Date Seen by Provider: Feb 26, 2019 Time Seen by Provider: 19:01 Initial Comments To ER with reports of epigastric abdominal pain that has been present for several years but over the past few weeks has become more intense and now radiates through the back. She has nausea intermittently, bright yellow stools. History of cholecystectomy. Timing/Duration: 1-2 Days Severity/Quality: Moderate Location: Epigastric Radiation: Back, Epigastric Activities at Onset: None Associated Symptoms: Denies Symptoms Allergies and Home Medications Allergies Coded Allergies: gabapentin (Unverified Adverse Reaction, Unknown, VOMITING. , 12/10/14) Home Medications Meclizine HCl 25 Mg Tab.chew, 25 MG PO PRN, (Reported) Ondansetron 4 Mg Tab.rapdis, 4 MG SL Q4H PRN for NAUSEA/VOMITING-1ST LINE Prescribed by: BETZAIDA BAILEY on 12/05/171954 Pantoprazole Sodium 40 Mg Tablet.dr, 40 MG PO DAILY Prescribed by: MALLORY LUTHER on 02/26/192048 Patient Home Medication List Home Medication List Reviewed: Yes Review of Systems Review of Systems Constitutional: see HPI; No chills, No fever EENTM: No Symptoms Reported Respiratory: No Symptoms Reported Cardiovascular: No Symptoms Reported Gastrointestinal: See HPI, Abdominal Pain, Diarrhea Genitourinary: No Symptoms Reported Musculoskeletal: no symptoms reported Skin: no symptoms reported Psychiatric/Neurological: No Symptoms Reported Past Jcthyvn-Tfqhtr-Ntwrdy Hx Patient Social History Alcohol Use: Denies Use Recreational Drug Use: No Smoking Status: Never a Smoker 2nd Hand Smoke Exposure: No Recent Foreign Travel: No Contact w/Someone Who Travel: No Recent Infectious Disease Expo: No Recent Hopitalizations: No Immunizations Up To Date Tetanus Booster (TDap): Unknown Seasonal Allergies Seasonal Allergies: Yes Past Medical History Surgeries: Yes (EGD/ESOPHAGEAL DILATION; CARDIAC CATH--NO INTERVENTION) Appendectomy, Cardiac, Gallbladder Respiratory: No Cardiac: Yes (CARDIAC CATH--NORMAL) Hypertension Neurological: Yes (CHRONIC VERTIGO) Neuropathy, Vertigo Reproductive Disorders: No Female 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 Flores 2012--ESOPHAGEAL DILATION FOR STRICTURE;TELLY) Gastroesophageal Reflux, Hemorrhoids, Ulcer, Gall Bladder Disease Musculoskeletal: Yes Arthritis Endocrine: Yes (OBESITY) Hypothyroidsim HEENT: Yes Tinnitis Cancer: No Psychosocial: Yes (not on any pharmacologic treatment) Eating Disorder, Sleep Difficulties, Anxiety, Depression Integumentary: No Blood Disorders: No Adverse Reaction/Blood Tranf: No Family Medical History FHx: pancreatic cancer 19 MOTHER, Onset:60 years & older Myocardial infarction 19 FATHER Son Heart Disease, Cancer Physical Exam Vital Signs Vital Signs - First Documented 02/26/19 17:03 Temp 98.1 Pulse 84 Resp 18 B/P (MAP) 196/96 (129) Pulse Ox 94 O2 Delivery Room Air Capillary Refill : Less Than 3 Seconds Height/Weight/BMI Height: 5'4.00" Weight: 200lbs. 0oz. 90.201898mp; 37.1 BMI Method:Stated General Appearance: WD/WN, no apparent distress HEENT: PERRL/EOMI, normal ENT inspection Respiratory: no respiratory distress, no accessory muscle use Cardiovascular: regular rate, rhythm, no murmur Gastrointestinal: normal bowel sounds, soft, tenderness Extremities: normal range of motion, non-tender Neurologic/Psychiatric: alert, normal mood/affect, oriented x 3 Skin: normal color, warm/dry Progress/Results/Core Measures Results/Orders Lab Results Laboratory Tests Test 02/26/19 17:29 02/26/19 17:57 Range/Units White Blood Count 6.1 4.3-11.0 10^3/uL Red Blood Count 4.32 L 4.35-5.85 10^6/uL Hemoglobin 13.7 11.5-16.0 G/DL Hematocrit 40 35-52 % Mean Corpuscular Volume 93 80-99 FL Mean Corpuscular Hemoglobin 32 25-34 PG Mean Corpuscular Hemoglobin Concent 34 32-36 G/DL Red Cell Distribution Width 13.8 10.0-14.5 % Platelet Count 175 130-400 10^3/uL Mean Platelet Volume 10.4 7.4-10.4 FL Neutrophils (%) (Auto) 62 42-75 % Lymphocytes (%) (Auto) 24 12-44 % Monocytes (%) (Auto) 13 H 0-12 % Eosinophils (%) (Auto) 1 0-10 % Basophils (%) (Auto) 0 0-10 % Neutrophils # (Auto) 3.8 1.8-7.8 X 10^3 Lymphocytes # (Auto) 1.5 1.0-4.0 X 10^3 Monocytes # (Auto) 0.8 0.0-1.0 X 10^3 Eosinophils # (Auto) 0.1 0.0-0.3 10^3/uL Basophils # (Auto) 0.0 0.0-0.1 10^3/uL Sodium Level 139 135-145 MMOL/L Potassium Level 3.6 3.6-5.0 MMOL/L Chloride Level 105 98-107 MMOL/L Carbon Dioxide Level 23 21-32 MMOL/L Anion Gap 11 5-14 MMOL/L Blood Urea Nitrogen 11 7-18 MG/DL Creatinine 0.84 0.60-1.30 MG/DL Estimat Glomerular Filtration Rate > 60 BUN/Creatinine Ratio 13 Glucose Level 125 H 70-105 MG/DL Calcium Level 9.7 8.5-10.1 MG/DL Corrected Calcium 9.5 8.5-10.1 MG/DL Total Bilirubin 1.4 H 0.1-1.0 MG/DL Aspartate Amino Transf (AST/SGOT) 24 5-34 U/L Alanine Aminotransferase (ALT/SGPT) 18 0-55 U/L Alkaline Phosphatase 66 40-136 U/L Total Protein 7.2 6.4-8.2 GM/DL Albumin 4.2 3.2-4.5 GM/DL Amylase Level 19 L 25-125 U/L Lipase 8 8-78 U/L Urine Color YELLOW Urine Clarity CLEAR Urine pH 7 5-9 Urine Specific [place] 1.005 L 1.016-1.022 Urine Protein NEGATIVE NEGATIVE Urine Glucose (UA) NEGATIVE NEGATIVE Urine Ketones NEGATIVE NEGATIVE Urine Nitrite NEGATIVE NEGATIVE Urine Bilirubin NEGATIVE NEGATIVE Urine Urobilinogen NORMAL NORMAL MG/DL Urine Leukocyte Esterase NEGATIVE NEGATIVE Urine RBC (Auto) NEGATIVE NEGATIVE Urine RBC NONE /HPF Urine WBC NONE /HPF Urine Squamous Epithelial Cells 0-2 /HPF Urine Crystals NONE /LPF Urine Bacteria NEGATIVE /HPF Urine Casts NONE /LPF Urine Mucus NEGATIVE /LPF Urine Culture Indicated NO My Orders Orders - MALLORY LUTHER APRN Fentanyl Injection (Sublimaze Injection (02/26/19 18:30) Ondansetron Injection (Zofran Injectio (02/26/19 18:30) Ct Abdomen/Pelvis W (02/26/19 18:17) Iohexol Injection (Omnipaque 350 Mg/Ml 1 (02/26/19 19:30) Di Iv Start (Assessment) .IV start (02/26/19 19:29) Received Contrast (Hold Metformin- Contr (02/26/19 19:30) Ns (Ivpb) (Sodium Chloride 0.9% Ivpb Bag (02/26/19 19:30) Antacid Suspension (Mylanta Suspension (02/26/19 20:15) Lidocaine 2% Viscous 15 Ml (Xylocaine Vi (02/26/19 20:15) Medications Given in ED Current Medications Medications Dose Ordered Sig/Toyin Route Start Time Stop Time Status Last Admin Dose Admin Fentanyl Citrate 50 mcg ONCE ONCE IVP 02/26/19 18:30 02/26/19 18:31 DC 02/26/19 18:40 50 MCG Ondansetron HCl 4 mg ONCE ONCE IVP 02/26/19 18:30 02/26/19 18:31 DC 02/26/19 18:37 4 MG Vital Signs/I&O 02/26/19 17:03 Temp 98.1 Pulse 84 Resp 18 B/P (MAP) 196/96 (129) Pulse Ox 94 O2 Delivery Room Air Blood Pressure Mean: 129 Departure Impression Primary Impression: Epigastric abdominal pain Additional Impression: Gastritis Qualified Codes: K29.00 - Acute gastritis without bleeding Disposition: HOME, SELF-CARE Condition: Stable Departure-Patient Inst. Decision time for Depature: 20:48 Referrals: MAURICE NORRIS BRETT D DO KIDO, TAKAAKI MD NO,LOCAL PHYSICIAN (PCP) Primary Care Physician Patient Instructions: Peptic Ulcers (DC) Add. Discharge Instructions: 1. Return to ER for any concerns 2. Follow-up with your doctor next week for recheck 3. You can use bwgz-ddk-tzamoke Prilosec which would be 2 tablets once a day for about 14 days, alternatively if the prescription is cheaper than just take the prescription. All discharge instructions reviewed with patient and/or family. Voiced understanding. Scripts Pantoprazole Sodium (Protonix) 40 Mg Tablet. 40 MG PO DAILY, #14 TAB Prov: MALLORY LUTHER APRN 02/26/19 MALLORY LUTHER APRN Feb 26, 2019 19:02
[2019-02-26] MEDS ORDERED: IOHEXOL 350 MG/ML 100 ML (OMNIPAQUE 350) VIAL IV ONE (19:30)
[2019-02-26] MEDS ORDERED: NS 100 ML (IVPB) BAG IV ONE (19:30)
[2019-02-26] MEDS ORDERED: HOLD METFORMIN - RECEIVED CONTRAST 20 ML VIAL IV SCH (19:30)
[2019-02-26] MEDS ORDERED: LIDOCAINE 2% VISCOUS 15 ML UDC PO ONE (20:15)
[2019-02-26] MEDS ORDERED: ANTACID SUSP 30 ML UDC (MYLANTA) PO ONE (20:15)
--- NOTE | 2019-02-26 20:24 | Diagnostic Imaging Report ---
PROCEDURE: CT abdomen and pelvis with contrast. TECHNIQUE: Multiple contiguous axial images were obtained through the abdomen and pelvis after administration of intravenous contrast. Auto Exposure Controls were utilized during the CT exam to meet ALARA standards for radiation dose reduction. INDICATION: Upper abdominal pain with nausea COMPARISON: 10/25/2016 FINDINGS: The lung bases demonstrate dependent atelectasis. The heart is normal in size. There is no pericardial effusion. There is a small hiatal hernia. The liver demonstrates no focal lesions. Cholecystectomy clips are noted. The spleen appears normal. The pancreas demonstrates fatty atrophy but is otherwise unremarkable. The adrenal glands appear normal. The kidneys demonstrate no focal masses or significant hydronephrosis although there is an extrarenal pelvis bilaterally. The bowel loops are nondistended without obstruction. The appendix is not seen but no secondary findings of appendicitis are seen. There is diverticulosis of the descending and sigmoid colon without diverticulitis seen. No free fluid or free air is seen. There is aortic atherosclerosis. No acute osseous abnormality is seen. There are advanced degenerative changes in the spine. IMPRESSION: 1. Small hiatal hernia. 2. Colonic diverticulosis without diverticulitis. Dictated by: Dictated on workstation # [id number]
[2019-02-26] MEDS ORDERED: PANT40TA2 PO (20:49)
[2019-02-26] MEDS ORDERED: PANTOPRAZOLE 40 MG (PROTONIX) VIAL IV ONE (21:00)
[2019-02-26 21:03] VITALS: BP 178/85
== END 2019-02-26 21:03 | disposition home or self-care (01) ==
LOC: EDUNIT# 16:51 → ER 16:53
DX: K29.70 Gastritis, unspecified, without bleeding (principal); I10 Essential (primary) hypertension; K21.9 Gastro-esophageal reflux disease without esophagitis; E66.9 Obesity, unspecified; E03.9 Hypothyroidism, unspecified; F41.9 Anxiety disorder, unspecified; F32.9 Major depressive disorder, single episode, unspecified; Z87.440 Personal history of urinary (tract) infections; Z88.8 Allergy status to other drugs, medicaments and biological substances; Z90.49 Acquired absence of other specified parts of digestive tract; Z80.0 Family history of malignant neoplasm of digestive organs; Z82.49 Family history of ischemic heart disease and other diseases of the circulatory system
CPT/HCPCS: 36415; 74177; 80053; 81000; 82150; 83690; 85025; 96374; 96375

== ENCOUNTER 2019-03-11 00:25 | Emergency (ER) | payer MEDICARE ==
[~2019-03-11] VITALS: Ht 162.6 cm; Wt 90.7 kg
[~2019-03-11 00:25] MED LIST changes: +PANT40TA2 PO
--- NOTE | 2019-03-11 00:25 | NUR ---
needed to ua before naswering questions. pt refused commode and said she wanted a bedpan. pt here by rescue. ems tx includes iv, liter woth 1/2 gone and stopped already. monitor, no o2, drugs zofran, and transport. pt apparantely been c/o n/v/ and dizziness. dr in seing pt same time. pt has h/o vertigo and takes meclizine already. someone drawing labs from ems and collecting ua. pt demanding and beligerent at the start and . pt told dr it started about 1 1/2 hrs ago. tele applied by me shows sr 74 with artifact. lungs cta with decresed aeration bses bilaterally. withd r exam it appeared pt was tender to epigastric area . done luis armando pt [id number].
[2019-03-11 00:56] LABS: BASOPHILS % (AUTO) 1 % (0-10); EOSINOPHILS # (AUTO) 0.1 10^3/uL (0.0-0.3); EOSINOPHILS % (AUTO) 1 % (0-10); HEMATOCRIT 41 % (35-52); LYMPHOCYTES # (AUTO) 1.3 X 10^3 (1.0-4.0); LYMPHOCYTES % (AUTO) 23 % (12-44); MEAN CORPUSCULAR HEMOGLOBIN 32 PG (25-34); MEAN CORPUSCULAR HGB CONC 34 G/DL (32-36); MEAN CORPUSCULAR VOLUME 93 FL (80-99); MEAN PLATELET VOLUME 10.9 FL (7.4-10.4); MONOCYTES # (AUTO) 0.7 X 10^3 (0.0-1.0); MONOCYTES % (AUTO) 13 % (0-12); NEUTROPHILS # (AUTO) 3.5 X 10^3 (1.8-7.8); NEUTROPHILS % (AUTO) 62 % (42-75); PLATELET COUNT 157 10^3/uL (130-400); RED CELL DISTRIBUTION WIDTH 13.9 % (10.0-14.5); WHITE BLOOD COUNT 5.6 10^3/uL (4.3-11.0)
[2019-03-11 00:57] LABS: BILIRUBIN,URINE NEGATIVE (NEGATIVE); CLARITY,URINE CLEAR; COLOR,URINE YELLOW; GLUCOSE, URINE (UA) NEGATIVE (NEGATIVE); KETONES,URINE NEGATIVE (NEGATIVE); LEUKOCYTE ESTERASE ,URINE NEGATIVE (NEGATIVE); NITRITE,URINE NEGATIVE (NEGATIVE); PH,URINE 8 (5-9); PROTEIN,URINE NEGATIVE (NEGATIVE); UROBILINOGEN,URINE NORMAL (NORMAL)
--- NOTE | 2019-03-11 00:58 | NUR ---
report to cherry augustin
[2019-03-11 01:20] LABS: ALANINE AMINOTRANSFERASE 16 U/L (0-55); ALBUMIN 4.1 GM/DL (3.2-4.5); ALKALINE PHOSPHATASE 71 U/L (40-136); BILIRUBIN,TOTAL 1.4 MG/DL (0.1-1.0); BUN/CREATININE RATIO 11; CALCIUM 9.2 MG/DL (8.5-10.1); CARBON DIOXIDE 20 MMOL/L (21-32); CHLORIDE 107 MMOL/L (98-107); CREATININE SERUM 0.84 MG/DL (0.60-1.30); GFR ESTIMATED > 60; GLUCOSE 122 MG/DL (70-105); LIPASE 11 U/L (8-78); POTASSIUM 3.6 MMOL/L (3.6-5.0); SODIUM 139 MMOL/L (135-145); TOTAL PROTEIN 7.1 GM/DL (6.4-8.2)
--- NOTE | 2019-03-11 01:30 | NUR ---
v/o dr guadarrama while ago. give rest of ems liter. i opened it up w/o this charted time. and told pt nurse
[2019-03-11 01:41] LABS: BACTERIA,URINE TRACE /HPF; SQUAMOUS EPITHELIAL CELL,UR RARE /HPF
[2019-03-11] MEDS ORDERED: PANTOPRAZOLE 40 MG (PROTONIX) VIAL IV ONE (02:15)
[2019-03-11] MEDS ORDERED: ONDANSETRON 4 MG/2 ML (SDV) Z0FRAN IVP ONE (02:15)
[2019-03-11] MEDS ORDERED: FAMOTIDINE 20MG/2ML IV (PEPCID) IVP ONE (02:15)
[2019-03-11] MEDS ORDERED: LIDOCAINE 2% VISCOUS 15 ML UDC PO ONE (02:15)
[2019-03-11] MEDS ORDERED: ANTACID SUSP 30 ML UDC (MYLANTA) PO ONE (02:15)
--- NOTE | 2019-03-11 02:15 | ED General ---
General Chief Complaint: Dizziness/Syncope Stated Complaint: N/V/D Nursing Triage Note: n/v dizzy Nursing Sepsis Screen: No Definite Risk Source of Information: Patient Exam Limitations: No Limitations History of Present Illness Date Seen by Provider: Mar 11, 2019 Time Seen by Provider: 00:27 Initial Comments This 83-year-old woman presents to the emergency room via EMS with complaints of nausea, vomiting, epigastric discomfort, and vertigo. As her history is elaborated upon it was revealed that she has had chronic problems with vertigo for which she takes meclizine. This is really a stable and unchanged problem. Her major issue tonight is the vomiting and epigastric discomfort. Allergies and Home Medications Allergies Coded Allergies: gabapentin (Unverified Adverse Reaction, Unknown, VOMITING. , 12/10/14) Home Medications Meclizine HCl 25 Mg Tab.chew, 25 MG PO PRN, (Reported) Ondansetron 4 Mg Tab.rapdis, 4 MG SL Q4H PRN for NAUSEA/VOMITING-1ST LINE Prescribed by: BETZAIDA BAILEY on 12/05/171954 Ondansetron 4 Mg Tab.rapdis, 4 MG SL Q4H PRN for NAUSEA/VOMITING Prescribed by: OCTAVIO RENO on 03/11/19221 Pantoprazole Sodium 40 Mg Tablet., 40 MG PO DAILY Prescribed by: MALLORY LUTHER on 02/26/192048 Pantoprazole Sodium 40 Mg Tablet.dr, 40 MG PO DAILY Prescribed by: OCTAVIO RENO on 03/11/19221 Sucralfate 1 Gm Tablet, 1 GM PO QID Dissolve in 5-10 mL water to make a slurry. Take 30 minutes before meals and bedtime Prescribed by: OCTAVIO REON on 03/11/19221 Patient Home Medication List Home Medication List Reviewed: Yes Review of Systems Review of Systems Constitutional: no symptoms reported EENTM: no symptoms reported Respiratory: no symptoms reported Cardiovascular: no symptoms reported Gastrointestinal: see HPI Genitourinary: no symptoms reported : No Musculoskeletal: no symptoms reported Skin: no symptoms reported Psychiatric/Neurological: See HPI Hematologic/Lymphatic: No Symptoms Reported Immunological/Allergic: no symptoms reported Past Wokgqfj-Lqgdvq-Fipklf Hx Past Med/Social Hx: Reviewed Nursing Past Med/Soc Hx Patient Social History Alcohol Use: Denies Use Recreational Drug Use: No Smoking Status: Never a Smoker 2nd Hand Smoke Exposure: No Recent Foreign Travel: No Contact w/Someone Who Travel: No Recent Infectious Disease Expo: No Recent Hopitalizations: No Physical Abuse: No Sexual Abuse: No Immunizations Up To Date Tetanus Booster (TDap): Unknown Seasonal Allergies Seasonal Allergies: Yes Past Medical History Surgeries: Yes (EGD/ESOPHAGEAL DILATION; CARDIAC CATH--NO INTERVENTION) Appendectomy, Cardiac, Gallbladder Respiratory: No Cardiac: Yes (CARDIAC CATH--NORMAL) Hypertension Neurological: Yes (CHRONIC VERTIGO) Neuropathy, Vertigo Reproductive Disorders: No Female 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 Flores 2012--ESOPHAGEAL DILATION FOR STRICTURE;TELLY) Gastroesophageal Reflux, Hemorrhoids, Ulcer, Gall Bladder Disease Musculoskeletal: Yes Arthritis Endocrine: Yes (OBESITY) Hypothyroidsim HEENT: Yes Tinnitis Cancer: No Psychosocial: Yes (not on any pharmacologic treatment) Eating Disorder, Sleep Difficulties, Anxiety, Depression Integumentary: No Blood Disorders: No Adverse Reaction/Blood Tranf: No Family Medical History FHx: pancreatic cancer 19 MOTHER, Onset:60 years & older Myocardial infarction 19 FATHER Son Heart Disease, Cancer Physical Exam Vital Signs Vital Signs - First Documented 03/11/19 00:25 Temp 98.6 Pulse 76 Resp 20 B/P (MAP) 188/72 (110) Pulse Ox 95 O2 Delivery Room Air Capillary Refill : Less Than 3 Seconds Height, Weight, BMI Height: 5'4.00" Weight: 200lbs. 0oz. 90.613159pv; 37.1 BMI Method:Stated General Appearance: No Apparent Distress, WD/WN HEENT: PERRL/EOMI, TMs Normal, Normal ENT Inspection, Pharynx Normal Neck: Normal Inspection Respiratory: Lungs Clear, Normal Breath Sounds, No Accessory Muscle Use, No Respiratory Distress Cardiovascular: Regular Rate, Rhythm, No Edema, No Murmur Gastrointestinal: Normal Bowel Sounds, Soft, Tenderness (Epigastrium) Extremity: Normal Inspection, No Pedal Edema Neurologic/Psychiatric: Alert, Oriented x3, No Motor/Sensory Deficits, senior health educator II- XII Norm as Tested, Other (Somewhat irritable) Progress/Results/Core Measures Suspected Sepsis Recent Fever Within 48 Hours: No Infection Criteria Present: None New/Unexplained Altered Menta: No Sepsis Screen: No Definite Risk SIRS Temperature:98.6 Pulse: 76 Respiratory Rate: 20 Blood Pressure 188 /72 Mean: 110 Results/Orders Lab Results My Orders Orders - OCTAVIO PECK MD Iv Push Evaluator Transfer Students Ed (03/11/19 ) Vital Signs/I&O Capillary Refill : Less Than 3 Seconds Blood Pressure Mean: 110 Progress Note : Progress Note Labs were unremarkable. Patient received Zofran, GI cocktail, and Pepcid with improvement in symptoms. Departure Impression Primary Impression: Epigastric abdominal pain Additional Impressions: Nausea & vomiting Qualified Codes: R11.2 - Nausea with vomiting, unspecified Vertigo Disposition: HOME, SELF-CARE Condition: Improved Departure-Patient Inst. Referrals: NO,LOCAL PHYSICIAN (PCP/Family) Primary Care Physician Patient Instructions: Acute Abdomen (Belly Pain) Add. Discharge Instructions: Take Protonix and Carafate as prescribed. You may use Zofran as prescribed for nausea and vomiting. Avoid the following: Eating large meals, eating close to bedtime, caffeine, carbonation, chocolate, citrus fruits and juices, tomato products, mints, alcohol, tobacco products, NSAID medications such as ibuprofen or naproxen, spicy foods, fatty or greasy foods, or anything else you know irritates your stomach. Follow-up with Dr. Brennan and your primary care provider soon as possible. Return to the ER if you have worsening symptoms. All discharge instructions reviewed with patient and/or family. Voiced understanding. Scripts Sucralfate (Carafate) 1 Gm Tablet 1 GM PO QID, #120 TAB Dissolve in 5-10 mL water to make a slurry. Take 30 minutes before meals and bedtime Prov: OCTAVIO PECK MD 03/11/19 Pantoprazole Sodium (Protonix) 40 Mg Tablet. 40 MG PO DAILY, #30 TAB Prov: OCTAVIO PECK MD 03/11/19 Ondansetron (Ondansetron Odt) 4 Mg Tab.rapdis 4 MG SL Q4H PRN for NAUSEA/VOMITING, #10 TAB Prov: OCTAVIO PECK MD 03/11/19 Copy Copies To 1: LONG BRENNAN JOSHUA T MD Mar 11, 2019 02:15
[2019-03-11] MEDS ORDERED: PANT40TA2 PO (02:22)
[2019-03-11] MEDS ORDERED: ONDA4TAB11 SL (02:22)
[2019-03-11] MEDS ORDERED: SUCR1TAB36 PO (02:22)
[2019-03-11 03:25] VITALS: BP 182/87
== END 2019-03-11 03:25 | disposition home or self-care (01) ==
LOC: EDUNIT# 00:25 → ER 00:27
DX: R11.2 Nausea with vomiting, unspecified (principal); R10.13 Epigastric pain; R42 Dizziness and giddiness; I10 Essential (primary) hypertension; G62.9 Polyneuropathy, unspecified; K21.9 Gastro-esophageal reflux disease without esophagitis; E66.9 Obesity, unspecified; E03.9 Hypothyroidism, unspecified; F32.9 Major depressive disorder, single episode, unspecified; F41.9 Anxiety disorder, unspecified; Z68.34 Body mass index [BMI] 34.0-34.9, adult; Z80.0 Family history of malignant neoplasm of digestive organs; Z87.440 Personal history of urinary (tract) infections; Z88.8 Allergy status to other drugs, medicaments and biological substances; Z90.49 Acquired absence of other specified parts of digestive tract
CPT/HCPCS: 36415; 80053; 81000; 83690; 83735; 85025; 96374; 96375; 99283

== ENCOUNTER 2019-03-21 10:31 | Outpatient (CLI) | payer MEDICARE ==
[~2019-03-21] VITALS: Ht 162.6 cm; Wt 90.7 kg
[~2019-03-21 10:31] MED LIST changes: +ONDA4TAB11 SL; +SUCR1TAB36 PO
== END 2019-03-21 14:26 | disposition home or self-care (01) ==
LOC: PREOP 10:31
PROVIDERS: ATTEND Surgery
DX: Z01.818 Encounter for other preprocedural examination (principal)

== ENCOUNTER 2019-03-25 11:19 | Day surgery (SDC) | payer MEDICARE ==
[~2019-03-25] VITALS: Ht 162.6 cm; Wt 90.7 kg
[2019-03-25] MEDS ORDERED: LACTATED RINGERS 1,000 ML IV STA (11:22)
[2019-03-25] MEDS ORDERED: LACTATED RINGERS 1,000 ML IV ONE (11:30)
[2019-03-25] MEDS ORDERED: HURRICAINE EXT TUBE (BENZOCAINE) XX PRN (11:30)
--- NOTE | 2019-03-25 11:34 | Progress Note-Pre Operative ---
Pre-Operative Progress Note H&P Reviewed The H&P was reviewed, patient examined and no changes noted. Time Seen by Provider: 11:31 Date H&P Reviewed: Mar 25, 2019 Time H&P Reviewed: 11:32 Pre-Operative Diagnosis: Chronic Gastritis, Burning epigastric pain MAURICE NORRIS DO Mar 25, 2019 11:34
[2019-03-25 11:44] VITALS: BP 196/72
[2019-03-25] MEDS ORDERED: HURRICAINE EXT TUBE (BENZOCAINE) ONE (11:45)
[2019-03-25] MEDS ORDERED: proPOfol 200 MG/20 ML (DIPRIVAN) VIAL IV ONE (12:10)
[2019-03-25] MEDS ORDERED: MIDAZOLAM 2 MG/2 ML (VERSED) VIAL ONE (12:11)
[2019-03-25] MEDS ORDERED: LIDOCAINE PF 2% 5 ML (XYLOCAINE) VIAL ONE (12:11)
--- NOTE | 2019-03-25 12:32 | Progress Note-Post Operative ---
Post-Operative Progess Note Surgeon (s)/Watch Inspector (s) Surgeon MAURICE NORRIS DO Watch Inspector: none Pre-Operative Diagnosis Chronic Gastritis, Burning epigastric pain Post-Operative Diagnosis Same plus esophagitis Procedure & Operative Findings Date of Procedure 03/25/19 Procedure Performed/Findings EGD with bx Anesthesia Type IV sedation by PRODUCTION COST ESTIMATOR Estimated Blood Loss Estimated blood loss (mL): scant Specimens/Packing Specimens Removed Antral bx Body of stomach bx GE jxn bx MAURICE NORRIS DO Mar 25, 2019 12:32
[2019-03-25] MEDS ORDERED: SUCR1TAB36 PO (12:33)
--- NOTE | 2019-03-25 12:34 | Endoscopy Discharge Instruct ---
Endo Procedure/Findings Findings 1.: Gastritis 2.: Other Findings (esophagitis) Discharge Instructions - Activity: You might feel a little sleepy until tomorrow. This is due to the medicine you received to relax you. Until tomorrow, you should: NOT drive a car, operate machinery or power tools. NOT drink any alcoholic beverages. NOT make any important decisions or sign importortant papers. Do not return to work until tomorrow, unless otherwise instructed. Resume previous activities tomorrow. Diet: Start by taking liquids. If you tolerate liquids, advance to solid food. make an appointment for 2 weeks Notify Physician - If you experience excessive bleeding, unusual abdominal pain, fever, or chest pain, contact your doctor immediately. Follow-Up: - I have received and understand the above instructions and will call my doctor if I have any further questions. Patient Signature Date Nurse Signature Other (Relationship) MAURICE NORRIS DO Mar 25, 2019 12:34
[2019-03-25 12:35] VITALS: BP 189/83
[2019-03-25 12:40] VITALS: BP 188/81
[2019-03-25 12:45] VITALS: BP 194/86
[2019-03-25 13:15] VITALS: BP 174/73
[2019-03-25 13:30] VITALS: BP 174/73
--- NOTE | 2019-03-26 23:51 | OPERATIVE REPORT ---
DATE OF SERVICE: 03/25/2019 PREOPERATIVE DIAGNOSES: Severe gastritis, occasional trouble swallowing. POSTOPERATIVE DIAGNOSIS: Gastritis. PROCEDURE: EGD with biopsy. SURGEON: Drew Blackmon D.O. ITALIAN TEACHER: None. ANESTHESIA: IV sedation by the CONCIERGE. SPECIMEN: Biopsy from the antrum and body of stomach as well as the GE junction. BLOOD LOSS: Scant. FLUIDS: Per anesthesia. POSTOPERATIVE CONDITION: Stable. INDICATION FOR PROCEDURE: The patient is a 83-year-old female who has been having severe gastritis, was getting better with some Protonix, but she then thought it is getting worse and wanted to have her scope performed. FINDINGS: The patient had some gastritis. Picture was taken. Biopsy done. PROCEDURE NOTE: After informed consent was obtained, the patient was brought to the endoscopy suite and placed in the bed in left lateral decubitus position. She was administered IV sedation by the CONCIERGE, we then monitored her vitals the entire time, heart rate, blood pressure and pulse ox. Scope was inserted down the mouth through the esophagus into the stomach. Upon entering the stomach, noted some gastritis, took a picture of this, pushed into the duodenum, first and second portion looked good, pulled back in the antrum, did a biopsy of the antrum and then did a biopsy the body of stomach, retroflexed the scope, did not see any obvious hiatal hernia, pulled the scope back up into the esophagus and then biopsied the GE junction and then pulled the scope up the esophagus and out the mouth. The patient tolerated the procedure, recovered in endoscopy suite. Job ID: [id number] DocumentID: [id number] Dictated Date: 03/26/2019 17:35:03 Soil Conservationist Date: 03/26/2019 23:50:05 Dictated By: DREW BLACKMON DO
== END 2019-03-25 13:30 | disposition home or self-care (01) ==
LOC: ENDO 11:19
PROVIDERS: ATTEND Surgery
DX: K29.50 Unspecified chronic gastritis without bleeding (principal); K27.9 Peptic ulcer, site unspecified, unspecified as acute or chronic, without hemorrhage or perforation; R42 Dizziness and giddiness; M19.91 Primary osteoarthritis, unspecified site; Z79.899 Other long term (current) drug therapy; Z80.0 Family history of malignant neoplasm of digestive organs
CPT/HCPCS: 88305

== ENCOUNTER 2019-05-17 19:09 | Observation (INO) | payer MEDICARE ==
[~2019-05-17] VITALS: Ht 162 cm; Wt 90.8 kg
[~2019-05-17 19:09] MED LIST changes: -OMEP20CA12 PO; +OMEP20CA13 PO
--- NOTE | 2019-05-17 19:24 | ED General ---
General Stated Complaint: VERTIGO,HEADACHE Source of Information: Patient Exam Limitations: No Limitations History of Present Illness Date Seen by Provider: May 17, 2019 Time Seen by Provider: 19:22 Initial Comments To ER per EMS from home where she lives with her son with c/o dizziness and headache after a syncopal event 1 hr prior to arrival. she c/o pain "all over" since then. States that she passes out "a lot". Doesnt have a doctor because she doesnt like going to them. Timing/Duration: Intermittent Severity: Moderate Allergies and Home Medications Allergies Coded Allergies: gabapentin (Unverified Adverse Reaction, Mild, VOMITING. , 03/21/19) Home Medications Meclizine HCl 25 Mg Tab.chew, 25 MG PO PRN, (Reported) Ondansetron 4 Mg Tab.rapdis, 4 MG SL Q4H PRN for NAUSEA/VOMITING Prescribed by: OCTAVIO RENO on 03/11/19221 Pantoprazole Sodium 40 Mg Tablet.dr, 40 MG PO DAILY Prescribed by: OCTAVIO RENO on 03/11/19221 Sucralfate 1 Gm Tablet, 1 GM PO ACHS Prescribed by: MAURICE NORRIS on 03/25/19 1233 Patient Home Medication List Home Medication List Reviewed: Yes Review of Systems Review of Systems Constitutional: see HPI EENTM: see HPI Respiratory: no symptoms reported Cardiovascular: no symptoms reported Genitourinary: no symptoms reported Musculoskeletal: no symptoms reported Skin: no symptoms reported Psychiatric/Neurological: No Symptoms Reported Past Kvkturu-Tpjkoh-Uwiwtw Hx Patient Social History 2nd Hand Smoke Exposure: No Recent Foreign Travel: No Contact w/Someone Who Travel: No Recent Hopitalizations: No Immunizations Up To Date Tetanus Booster (TDap): Unknown Seasonal Allergies Seasonal Allergies: Yes Past Medical History Surgeries: Yes (EGD/ESOPHAGEAL DILATION; CARDIAC CATH--NO INTERVENTION) Appendectomy, Cardiac, Gallbladder Respiratory: No Currently Using CPAP: No Currently Using BIPAP: No Cardiac: Yes (CARDIAC CATH--NORMAL) Hypertension Neurological: Yes (CHRONIC VERTIGO) Neuropathy, Vertigo Reproductive Disorders: No Female Reproductive Disorders: Denies 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 Sexually Transmitted Disease: No HIV/AIDS: No Genitourinary: No Neurogenic Bladder Gastrointestinal: Yes Gastroesophageal Reflux, Hemorrhoids, Ulcer, Gall Bladder Disease Musculoskeletal: Yes Arthritis Endocrine: No Hypothyroidsim HEENT: Yes (READING GLASSES, DENTURES) Tinnitis Loss of Vision: Denies Hearing Impairment: Denies Cancer: No Psychosocial: Yes (not on any pharmacologic treatment) Eating Disorder, Sleep Difficulties, Anxiety, Depression Integumentary: No Blood Disorders: No Adverse Reaction/Blood Tranf: No (N/A) Family Medical History FHx: pancreatic cancer 19 MOTHER, Onset:60 years & older Myocardial infarction 19 FATHER Son Heart Disease, Cancer Physical Exam Vital Signs Vital Signs - First Documented 05/17/19 20:12 Temp 37.2 Pulse 87 Resp 17 B/P (MAP) 205/112 (143) Pulse Ox 96 O2 Delivery Room Air Capillary Refill : Height, Weight, BMI Height: 5'4.00" Weight: 200lbs. 0.0oz. 90.911158mj; 34.3 BMI Method:Stated General Appearance: No Apparent Distress, WD/WN, Other (keeps eyes closed during my entire visit with her, crying the entire time,) Eyes: Bilateral Eye Normal Inspection, Bilateral Eye PERRL, Bilateral Eye EOMI HEENT: PERRL/EOMI, TMs Normal Neck: Full Range of Motion, Normal Inspection Respiratory: No Accessory Muscle Use, No Respiratory Distress Cardiovascular: Regular Rate, Rhythm, Normal Peripheral Pulses Gastrointestinal: Non Tender, Soft Extremity: Normal Capillary Refill, Normal Inspection Neurologic/Psychiatric: Alert, Oriented x3 Skin: Normal Color, Warm/Dry Progress/Results/Core Measures Suspected Sepsis SIRS Temperature: Pulse: Respiratory Rate: Laboratory Tests 05/17/19 19:30: White Blood Count 6.9 Blood Pressure / Mean: Laboratory Tests 05/17/19 19:30: Creatinine 0.83, Platelet Count 179, Total Bilirubin 1.2H Results/Orders Lab Results Laboratory Tests Test 05/17/19 19:24 05/17/19 19:30 Range/Units Urine Color YELLOW Urine Clarity CLEAR Urine pH 8 5-9 Urine Specific [place] 1.010 L 1.016-1.022 Urine Protein NEGATIVE NEGATIVE Urine Glucose (UA) NEGATIVE NEGATIVE Urine Ketones NEGATIVE NEGATIVE Urine Nitrite NEGATIVE NEGATIVE Urine Bilirubin NEGATIVE NEGATIVE Urine Urobilinogen NORMAL NORMAL MG/DL Urine Leukocyte Esterase NEGATIVE NEGATIVE Urine RBC (Auto) NEGATIVE NEGATIVE Urine RBC NONE /HPF Urine WBC RARE /HPF Urine Crystals NONE /LPF Urine Bacteria FEW H /HPF Urine Casts NONE /LPF Urine Mucus NEGATIVE /LPF Urine Culture Indicated NO White Blood Count 6.9 4.3-11.0 10^3/uL Red Blood Count 4.56 4.35-5.85 10^6/uL Hemoglobin 14.4 11.5-16.0 G/DL Hematocrit 43 35-52 % Mean Corpuscular Volume 94 80-99 FL Mean Corpuscular Hemoglobin 32 25-34 PG Mean Corpuscular Hemoglobin Concent 34 32-36 G/DL Red Cell Distribution Width 14.1 10.0-14.5 % Platelet Count 179 130-400 10^3/uL Mean Platelet Volume 10.2 7.4-10.4 FL Neutrophils (%) (Auto) 68 42-75 % Lymphocytes (%) (Auto) 20 12-44 % Monocytes (%) (Auto) 10 0-12 % Eosinophils (%) (Auto) 2 0-10 % Basophils (%) (Auto) 1 0-10 % Neutrophils # (Auto) 4.7 1.8-7.8 X 10^3 Lymphocytes # (Auto) 1.4 1.0-4.0 X 10^3 Monocytes # (Auto) 0.7 0.0-1.0 X 10^3 Eosinophils # (Auto) 0.1 0.0-0.3 10^3/uL Basophils # (Auto) 0.0 0.0-0.1 10^3/uL Sodium Level 139 135-145 MMOL/L Potassium Level 3.6 3.6-5.0 MMOL/L Chloride Level 105 98-107 MMOL/L Carbon Dioxide Level 23 21-32 MMOL/L Anion Gap 11 5-14 MMOL/L Blood Urea Nitrogen 11 7-18 MG/DL Creatinine 0.83 0.60-1.30 MG/DL Estimat Glomerular Filtration Rate > 60 BUN/Creatinine Ratio 13 Glucose Level 105 70-105 MG/DL Calcium Level 10.0 8.5-10.1 MG/DL Corrected Calcium 9.8 8.5-10.1 MG/DL Total Bilirubin 1.2 H 0.1-1.0 MG/DL Aspartate Amino Transf (AST/SGOT) 22 5-34 U/L Alanine Aminotransferase (ALT/SGPT) 14 0-55 U/L Alkaline Phosphatase 82 40-136 U/L Total Protein 7.6 6.4-8.2 GM/DL Albumin 4.3 3.2-4.5 GM/DL My Orders Orders - MALLORY LUTHER APRN Ct Head/Cervical Spine Wo (05/17/19 19:20) Cbc With Automated Diff (05/17/19 19:20) Comprehensive Metabolic Panel (05/17/19 19:20) Ua Culture If Indicated (05/17/19 19:20) Ed Iv/Invasive Line Start (05/17/19 19:20) Labetalol Injection (Normodyne Injection (05/17/19 19:30) Fentanyl Injection (Sublimaze Injection (05/17/19 19:30) Meclizine Tablet (Antivert Tablet) (05/17/19 19:30) Ct Angio Head/Neck (05/17/19 20:33) Iohexol Injection (Omnipaque 350 Mg/Ml 1 (05/17/19 20:45) Received Contrast (Hold Metformin- Contr (05/17/19 20:45) Sodium Chloride Flush (Catheter Flush Sy (05/17/19 20:45) Ns (Ivpb) (Sodium Chloride 0.9% Ivpb Bag (05/17/19 20:45) Ketorolac Injection (Toradol Injection) (05/17/19 20:45) Ondansetron Injection (Zofran Injectio (05/17/19 21:15) Medications Given in ED Current Medications Medications Dose Ordered Sig/Toyin Route Start Time Stop Time Status Last Admin Dose Admin Fentanyl Citrate 25 mcg ONCE ONCE IVP 05/17/19 19:30 05/17/19 19:31 DC 05/17/19 20:05 25 MCG Iohexol 100 ml ONCE ONCE IV 05/17/19 20:45 05/17/19 20:46 DC 05/17/19 21:03 75 ML Ketorolac Tromethamine 15 mg ONCE ONCE IVP 05/17/19 20:45 05/17/19 20:46 DC 05/17/19 20:42 15 MG Labetalol HCl 10 mg ONCE ONCE IV 05/17/19 19:30 05/17/19 19:31 DC 05/17/19 20:05 10 MG Meclizine HCl 25 mg ONCE ONCE PO 05/17/19 19:30 05/17/19 19:31 DC 05/17/19 20:05 25 MG Ondansetron HCl 8 mg ONCE ONCE IVP 05/17/19 21:15 05/17/19 21:16 DC 05/17/19 21:16 8 MG Sodium Chloride 100 ml ONCE ONCE IV 05/17/19 20:45 05/17/19 20:46 DC 05/17/19 21:03 80 ML Vital Signs/I&O 05/17/19 20:12 Temp 37.2 Pulse 87 Resp 17 B/P (MAP) 205/112 (143) Pulse Ox 96 O2 Delivery Room Air Capillary Refill : Departure Communication (Admissions) Time/Spoke to Admitting Phy: 21:[address] Adams, agrees to admit. 2012-blood pressure is better, down to 168 systolic. States her headache is better. States she still very dizzy and couldn't possibly go home like this. Her son is at the bedside. 2133-patient states she is still somewhat nauseous however Zofran has just been given. She's been vomiting. States that if she got up she feels as though she would "kiss the floor". We will apply scopolamine patch, Decadron, admit for observation. She doesn't feel like she can go home tonight, Impression Primary Impression: Vertigo Disposition: HOME, SELF-CARE Condition: Stable Admissions Decision to Admit Reason: Admit from ER (General) Decision to Admit/Date: May 17, 2019 Time/Decision to Admit Time: 21:36 Departure-Patient Inst. Referrals: NO,LOCAL PHYSICIAN (PCP/Family) Primary Care Physician MALLORY LUTHER APRN May 17, 2019 19:24
[2019-05-17] MEDS ORDERED: LABETALOL HCL 20 MG/4 ML VIAL IV ONE (19:30)
[2019-05-17] MEDS ORDERED: MECLIZINE 25 MG (ANTIVERT) TAB PO ONE (19:30)
[2019-05-17] MEDS ORDERED: fentaNYL INJECTION 100 MCG/2 ML AMP IVP ONE (19:30)
[2019-05-17 19:36] LABS: BILIRUBIN,URINE NEGATIVE (NEGATIVE); CLARITY,URINE CLEAR; COLOR,URINE YELLOW; GLUCOSE, URINE (UA) NEGATIVE (NEGATIVE); KETONES,URINE NEGATIVE (NEGATIVE); LEUKOCYTE ESTERASE ,URINE NEGATIVE (NEGATIVE); NITRITE,URINE NEGATIVE (NEGATIVE); PH,URINE 8 (5-9); PROTEIN,URINE NEGATIVE (NEGATIVE); UROBILINOGEN,URINE NORMAL (NORMAL)
[2019-05-17 19:42] LABS: BASOPHILS % (AUTO) 1 % (0-10); EOSINOPHILS # (AUTO) 0.1 10^3/uL (0.0-0.3); EOSINOPHILS % (AUTO) 2 % (0-10); HEMATOCRIT 43 % (35-52); HEMOGLOBIN 14.4 G/DL (11.5-16.0); LYMPHOCYTES # (AUTO) 1.4 X 10^3 (1.0-4.0); LYMPHOCYTES % (AUTO) 20 % (12-44); MEAN CORPUSCULAR HEMOGLOBIN 32 PG (25-34); MEAN CORPUSCULAR HGB CONC 34 G/DL (32-36); MEAN CORPUSCULAR VOLUME 94 FL (80-99); MEAN PLATELET VOLUME 10.2 FL (7.4-10.4); MONOCYTES # (AUTO) 0.7 X 10^3 (0.0-1.0); MONOCYTES % (AUTO) 10 % (0-12); NEUTROPHILS # (AUTO) 4.7 X 10^3 (1.8-7.8); NEUTROPHILS % (AUTO) 68 % (42-75); PLATELET COUNT 179 10^3/uL (130-400); RED CELL DISTRIBUTION WIDTH 14.1 % (10.0-14.5); WHITE BLOOD COUNT 6.9 10^3/uL (4.3-11.0)
[2019-05-17 19:45] LABS: WBC,URINE RARE /HPF
[2019-05-17 19:46] LABS: BACTERIA,URINE FEW /HPF
[2019-05-17 19:58] LABS: ALANINE AMINOTRANSFERASE 14 U/L (0-55); ALBUMIN 4.3 GM/DL (3.2-4.5); ALKALINE PHOSPHATASE 82 U/L (40-136); BILIRUBIN,TOTAL 1.2 MG/DL (0.1-1.0); BUN/CREATININE RATIO 13; CARBON DIOXIDE 23 MMOL/L (21-32); CHLORIDE 105 MMOL/L (98-107); CREATININE SERUM 0.83 MG/DL (0.60-1.30); GFR ESTIMATED > 60; GLUCOSE 105 MG/DL (70-105); POTASSIUM 3.6 MMOL/L (3.6-5.0); SODIUM 139 MMOL/L (135-145); TOTAL PROTEIN 7.6 GM/DL (6.4-8.2)
--- NOTE | 2019-05-17 20:12 | Diagnostic Imaging Report ---
PROCEDURE: CT head and CT cervical spine without contrast. TECHNIQUE: Multiple contiguous axial images were obtained through the brain and cervical spine without the use of intravenous contrast. Sagittal and coronal reformations through the cervical spine were then performed. Auto Exposure Controls were utilized during the CT exam to meet ALARA standards for radiation dose reduction. INDICATION: Vertigo and headache. COMPARISON: Study of 05/09/2017. CT head: Ventricles and sulci are within normal limits given patient's age. No hemorrhage is identified. There is no abnormal mass effect or shift of midline structures. Overall, there has been no significant change. There is atherosclerotic calcification within the distal internal carotid and vertebral arteries. Calvarium is intact. There is no paranasal sinus air-fluid level. IMPRESSION: Senescent findings without acute intracranial abnormality identified. CT cervical spine: Cervical spinal curvature and alignment are unremarkable. Vertebral body heights and disc spaces are maintained. There is no evidence of an acute fracture. Diffuse degenerative facet arthropathy is seen throughout the cervical spine with moderate C5-6 degenerative disc disease. Note is also made of rather advanced degenerative change within the temporomandibular joints, greater on the left. IMPRESSION: Degenerative findings without CT evidence of acute cervical spinal abnormality. Dictated by: Dictated on workstation # [id number]
[2019-05-17] MEDS ORDERED: KETOROLAC 30 MG/ML VIAL IVP ONE (20:45)
[2019-05-17] MEDS ORDERED: HOLD METFORMIN - RECEIVED CONTRAST 20 ML VIAL IV SCH (20:45)
[2019-05-17] MEDS ORDERED: IOHEXOL 350 MG/ML 100 ML (OMNIPAQUE 350) VIAL IV ONE (20:45)
[2019-05-17] MEDS ORDERED: NS 100 ML (IVPB) BAG IV ONE (20:45)
[2019-05-17] MEDS ORDERED: ONDANSETRON 4 MG/2 ML (SDV) Z0FRAN IVP ONE (21:15)
--- NOTE | 2019-05-17 21:21 | Diagnostic Imaging Report ---
PROCEDURE: CT angiography of the head and CT angiography of the neck with and without contrast. TECHNIQUE: Contiguous noncontrast images were obtained from the skull base through the vertex. After intravenous contrast administration, helical CT angiography of the neck was performed. Source data was reformatted into 3D MIP projections. Delayed post contrast acquisition was also obtained. Auto Exposure Controls were utilized during the CT exam to meet ALARA standards for radiation dose reduction. INDICATION: Vertigo and headache. FINDINGS: CTA neck: There is a three-vessel branching pattern arising from the aortic arch. Great vessels in the neck are tortuous. Common carotid arteries are widely patent. There is moderate amount of atherosclerotic plaque at the carotid bifurcations and at the origin of the internal carotid arteries. This results in approximately 50% stenosis of the proximal internal carotid arteries. Internal carotid arteries are otherwise tortuous but widely patent into the neck. Vertebral arteries are small but patent in the neck. Distal right vertebral artery is probable hypoplastic. Basilar artery is small. IMPRESSION: At least 50% stenosis at the origins of internal carotid arteries, bilaterally, due to atherosclerosis. Otherwise, there is no evidence of occlusion or filling defect within the great vessels of the neck. CTA head: Anterior, middle and posterior cerebral arteries are patent, bilaterally. There are prominent bilateral posterior cerebral arteries. No aneurysm or vascular malformation is identified. There is no evidence of filling defect. Note is made of calcific atherosclerosis within left M2 branches. IMPRESSION: Intracranial atherosclerosis most pronounced in the distal left middle cerebral artery. Otherwise, there is no evidence of occlusion, filling defect or significant stenosis. Dictated by: Dictated on workstation # [id number]
[2019-05-17] MEDS ORDERED: DEXAMETHASONE 10 MG/ML (DECADRON) 1 ML VIAL IV ONE (21:45)
--- NOTE | 2019-05-17 21:58 | NUR ---
RN CALLED FOR REPORT. RN TO RETURN CALL.
[2019-05-17] MEDS ORDERED: SCOPOLAMINE 1.5 MG (TRANSDERM-SCOP) PATCH TD ONE (22:00)
[2019-05-17 22:10] VITALS: BP 186/82
[2019-05-17] MEDS ORDERED: ONDANSETRON 4 MG/2 ML (SDV) Z0FRAN IV PRN (22:45)
[2019-05-17] MEDS ORDERED: amLODIPine 5 MG (NORVASC) TAB PO PRN (22:45)
[2019-05-18] VITALS: BP 124/72
[2019-05-18 04:06] VITALS: BP 152/88
[2019-05-18 08:00] VITALS: BP 130/71
[2019-05-18 12:00] VITALS: BP 129/68
--- NOTE | 2019-05-18 12:10 | Physical Therapy Evaluation ---
PT Evaluation-General Medical Diagnosis Admission Date May 17, 2019 at 21:33 Medical Diagnosis: sepsis Onset Date: May 17, 2019 Therapy Diagnosis Therapy Diagnosis: weakness/difficulty walking Height/Weight Height (Feet): 5 Height (Inches): 4.00 Weight (Pounds): 200 Weight (Ounces): 2.0 Precautions Precautions/Isolations: Fall Prevention, Standard Precautions Weight Bear Status Right Lower Extremity: Right Weight Bearing/Tolerated Left Lower Extremity: Left Weight Bearing/Tolerated Referral Physician: Bryan Reason for Referral: Evaluation/Treatment Social History Home: Single Level Current Living Status: Children Entry Into Home: Stairs With Railing PT Steps Into Home: 1 Prior/Core FIM Prior Level of Function Therapy Code Descriptions/Definitions Functional [place] Measure: 0=Not Assessed/NA 4=Minimal Assistance 1=Total Assistance 5=Supervision or Setup 2=Maximal Assistance 6=Modified [place] 3=Moderate Assistance 7=Complete [place] Therapy Quality Codes: 6 Independent with activity with or without an assistive device 5 Patient requires set up or clean up by helper. Patient completes activity by themselves 4 Supervision or touching assist (CGA). [place] provide cues , steadying assist 3 The helper provides less than half the effort to complete the activity 2 The helper provides more than half the effort to complete the activity 1 Dependent. The helper does all the effort to complete an activity 7 Patient refused to complete or attempt activity 9 The patient did not perform the activity before the current illness or injury 88 Not attempted due to Medical conditions or safety concerns Functional Abilities and Goals: Independent: Patient completed the activities by him/herself, with or without an assistive device, with no assistance from a helper. Needed Some Help: Patient needed partial assistance from another person to complete activities. Dependent: A helper completed the activities for the patient. Unknown: Not Applicable: Bed Mobility: 7 Transfers (B,C,W/C) (FIM): 6 Gait: 6 Indoor Mobility (Ambulation): Independent Prior Devices Use: Walker PT Evaluation-Current Subjective States that she is doing better today. Pain Numeric Pain Scale: 0-No Pain Objective Patient Orientation: Person, Place, Time, Situation ROM/Strength Strength Upper Extremities 3+/5 Strength Lower Extremities 3+/5 Transfers Therapy Code Descriptions/Definitions Functional [place] Measure: 0=Not Assessed/NA 4=Minimal Assistance 1=Total Assistance 5=Supervision or Setup 2=Maximal Assistance 6=Modified [place] 3=Moderate Assistance 7=Complete [place] Transfers (B, C, W/C) (FIM): 4 Scootin Supine to/from Sit: 4 Sit to/from Stand: 5 Gait Mode of Locomotion: Walk Anticipated Mode of Locomotion: Walk Gait (FIM): 1 Distance (FIM): 1=up to 49 ft Distance: 20' Gait Level of Assist: 5 Gait Persons Needed: 1 Gait Assistive Device: FWW Assessment/Needs 83 y.o. female with a PT diagnosis of weakness/difficulty walking. The patient has difficulty with functional mobility secondary to weakness and a high fall risk. She should do well with skilled therapy. Rehab Potential: Good PT Short Term Goals Short Term Goals Time Frame: May 22, 2019 Transfers (B,C,W/C) (FIM): 5 Gait (FIM): 5 Distance (FIM): 1=527-99 ft Gait Distance Comment: 125' Gait Level of Assist: 5 Gait Assistive Device: FWW PT Director Of Business Services Goals Correction Goals PT Correction Goals Time Frame: May 25, 2019 Transfers (B,C,W/C) (FIM): 7 Gait (FIM): 6 Gait distance (FIM): 3=150 ft Distance: 250' Gait Level of Assist: 6 Gait Assistive Device: FWW PT Plan Problem List Problem List: Activity Tolerance, Functional Strength, Safety, Balance, Gait, Transfer, Bed Mobility Treatment/Plan Treatment Plan: Continue Plan of Care Treatment Plan: Bed Mobility, Functional Activity Megan, Functional Strength, Gait, Safety, Therapeutic Exercise, Transfers Frequency: 11 times per week Estimated Hrs Per Day: .5 hour per day Discharge Recommendations Therapy Discharge Recommendati: Post Acute PT Time/GCodes Time In: 1145 Time Out: 1200 Total Billed Treatment Time: 15 Total Billed Treatment 1, EV Low Complexity x 15' ELIZABETH PETERS PT May 18, 2019 12:10
--- NOTE | 2019-05-18 12:50 | History & Physical-Hospitalist ---
History of Present Illness HPI/Chief Complaint Pt is an 83yoCF with a PMH of vertigo who presented to the ER with a CC of dizziness, generalized weakness, pain all over her body, and severe headache. CT Head was done on arrival which ruled out ICH. She was unable to ambulate due to vertigo and intractable nausea and vomiting from the vertigo. She had a CTA Head and Neck which was negative as well. She was given meclizine, decadron, and scopolamine patch without relief so was admitted. This morning she reports she is feeling better but still only able to ambulate about 20 feet with assistance. She normally is independently mobile and lives in her own home with her son. Source: patient Exam Limitations: no limitations Date Seen 05/18/19 Time Seen by a Provider: 12:28 Attending Physician Calixto Hernandez MD PCP No,Local Physician Referring Physician Date of Admission May 17, 2019 at 9:33 pm Home Medications & Allergies Home Medications Reviewed patient Home Medication Reconciliation performed by pharmacy medication reconciliations warehouse technician and/or nursing. Patients Allergies have been reviewed. Allergies Allergies Coded Allergies gabapentin (Unverified Adverse Reaction, Mild, VOMITING. , 03/21/19) Past Akiscbs-Muexev-Eqoncv Hx Past Med/Social Hx: Reviewed Nursing Past Med/Soc Hx Patient Social History Employed/Student: retired Alcohol Use: Denies Use Recreational Drug Use: No Smoking Status: Never a Smoker 2nd Hand Smoke Exposure: No Recent Foreign Travel: No Contact w/other who traveled: No Recent Hopitalizations: No Recent Infectious Disease Expo: No Immunizations Up To Date Tetanus Booster (TDap): Unknown Seasonal Allergies Seasonal Allergies: Yes Past Medical History Surgeries: Appendectomy, Cardiac, Gallbladder Currently Using CPAP: No Currently Using BIPAP: No Cardiac: Hypertension Neurological: Neuropathy, Vertigo Reproductive: No Sexually Transmitted Disease: No HIV/AIDS: No Female Reproductive Disorders: Denies Menopausal Genitourinary: Neurogenic Bladder Gastrointestinal: Gastroesophageal Reflux, Hemorrhoids, Ulcer, Gall Bladder Disease Musculoskeletal: Arthritis Endocrine: Hypothyroidsim HEENT: Tinnitis Loss of Vision: Denies Hearing Impairment: Denies Psychosocial: Eating Disorder, Sleep Difficulties, Anxiety, Depression History of Blood Disorders: No Adverse Reaction to Blood Dyer: No (N/A) Family History Reviewed Nursing Family Hx FHx: pancreatic cancer 19 MOTHER, Onset:60 years & older Myocardial infarction 19 FATHER Son Heart Disease, Cancer Review of Systems Constitutional: No diaphoresis; dizziness, weakness EENTM: No ear discharge, No hearing loss, No ear pain Respiratory: no symptoms reported Cardiovascular: no symptoms reported Gastrointestinal: No abdominal pain; nausea, vomiting Genitourinary: no symptoms reported Musculoskeletal: muscle weakness Skin: no symptoms reported Psychiatric/Neurological: No Symptoms Reported Physical Exam Physical Exam Vital Signs Vital Signs - First Documented 05/17/19 20:12 Temp 37.2 Pulse 87 Resp 17 B/P (MAP) 205/112 (143) Pulse Ox 96 O2 Delivery Room Air Capillary Refill : Less Than 3 Seconds Height, Weight, BMI Height: 5'4.00" Weight: 200lbs. 2.0oz. 90.709124ee; 34.00 BMI Method:Stated General Appearance: No Apparent Distress, WD/WN, Obese HEENT: Moist Mucous Membranes; No Scleral Icterus (L), No Scleral Icterus (R) Neck: Supple; No JVD, No Thyromegaly Respiratory: Lungs Clear, No Accessory Muscle Use, No Respiratory Distress Cardiovascular: Regular Rate, Rhythm, No JVD, No Murmur Gastrointestinal: Normal Bowel Sounds, Non Tender, Soft Extremity: No Calf Tenderness, No Pedal Edema, Other (tenderness of medial malleoulus ) Neurologic/Psychiatric: Alert, Oriented x3, Normal Mood/Affect; No Aphasia, No Facial Droop Skin: Normal Color, Warm/Dry Results Results/Procedures Labs Patient resulted labs reviewed. Imaging: Reviewed Imaging Report Assessment/Plan Admission Diagnosis Vertigo with Intractable nausea and vomitting Admission Status: Observation Assessment and Plan Vertigo Intractable nausea and vomiting Scopolamine patch Meclizine prn s/p Decadron Improving but still unsteady on her feet Weakness Will check for flu PT Only able to ambulate 20 feet which is markedly different from her baseline Advised to be OOB and in chair today Clinical Quality Measures DVT/VTE Risk/Contraindication: Risk Factor Score Per Nursin RFS Level Per Nursing on Admit: 4+=Very High CALIXTO HERNANDEZ MD May 18, 2019 12:50
[2019-05-18] MEDS ORDERED: MELATONIN 3 MG TABLET PO PRN (13:00)
[2019-05-18] MEDS ORDERED: BISACODYL 10 MG SUPP (DULCOLAX) PR PRN (13:00)
[2019-05-18] MEDS ORDERED: ANTACID SUSP 30 ML UDC (MYLANTA) PO PRN (13:00)
[2019-05-18] MEDS ORDERED: MILK OF MAGNESIA 400 MG/5 ML 30 ML UDC PO PRN (13:00)
[2019-05-18 16:05] VITALS: BP 121/57
[2019-05-18] MEDS: ACETAMINOPHEN 325 MG TABLET PO PRN (19:47)
[2019-05-18] MEDS: CATHETER FLUSH 10 ML SYR IV PRN (19:47)
[2019-05-18] MEDS: MECLIZINE 25 MG (ANTIVERT) TAB PO PRN (19:47)
[2019-05-18 19:50] VITALS: BP 145/61
[2019-05-19] VITALS: BP 148/62
[2019-05-19 04:00] VITALS: BP 148/78
[2019-05-19] MEDS: MECLIZINE 25 MG (ANTIVERT) TAB PO PRN ×2 (06:20→15:59)
[2019-05-19 07:45] VITALS: BP 181/77
[2019-05-19] MEDS: ACETAMINOPHEN 325 MG TABLET PO PRN ×2 (09:03→15:59)
[2019-05-19 11:40] VITALS: BP 161/71
--- NOTE | 2019-05-19 13:28 | Progress Note - Hospitalist ---
Subjective HPI/CC On Admission Date Seen by Provider: May 19, 2019 Time Seen by Provider: 13:18 Pt is an 83yoCF with a PMH of vertigo who presented to the ER with a CC of dizziness, generalized weakness, pain all over her body, and severe headache. CT Head was done on arrival which ruled out ICH. She was unable to ambulate due to vertigo and intractable nausea and vomiting from the vertigo. She had a CTA Head and Neck which was negative as well. She was given meclizine, decadron, and scopolamine patch without relief so was admitted. This morning she reports she is feeling better but still only able to ambulate about 20 feet with assistance. She normally is independently mobile and lives in her own home with her son. Subjective/Events-last exam Pt reports persistent dizziness with any ambulation. She states she feels like she could fall with walking and refused to ambulate with an aide she thought the aide was too small and could not catch her. She does not feel comfortable going home yet and thinks she will "fall and break a hip" if she leaves today. She also states that a male doctor was in an told her that she could not leave today due to dizziness. To my knowledge I am the only doctor seeing her during this admission. Objective Exam Vital Signs Vital Signs Date Time Temp Pulse Resp B/P (MAP) Pulse Ox O2 Delivery O2 Flow Rate FiO2 05/19/19 11:40 37.3 71 19 161/71 92 Room Air Capillary Refill : Less Than 3 Seconds General Appearance: No Apparent Distress, WD/WN Respiratory: Lungs Clear, No Respiratory Distress Cardiovascular: Regular Rate, Rhythm, No Murmur Results/Procedures Lab Patient resulted labs reviewed. Assessment/Plan Assessment and Plan Assess & Plan/Chief Complaint Vertigo- persistent Intractable nausea and vomiting- resolved Scopolamine patch Meclizine prn s/p Decadron Improving but still subjectively unsteady on her feet Weakness Flu negative Continue PT Only able to ambulate 20 feet which is markedly different from her baseline per family Advised to be OOB and in chair again Discussed possible need for placement if weakness persists and she got very angry and told me not to talk to her about this and that she is "going home no matter what" Diagnosis/Problems Diagnosis/Problems (1) Vertigo Status: Acute (2) weakness Status: Acute Clinical Quality Measures DVT/VTE Risk/Contraindication: Risk Factor Score Per Nursin RFS Level Per Nursing on Admit: 4+=Very High CALIXTO TRAMMELL MD May 19, 2019 1:28 pm
[2019-05-19 15:18] VITALS: BP 146/70
[2019-05-19 19:25] VITALS: BP 167/66
[2019-05-19] MEDS ORDERED: HALOPERIDOL 5 MG/ML (HALDOL) AMP IM PRN (19:30)
[2019-05-19 19:39] LABS: BILIRUBIN,URINE NEGATIVE (NEGATIVE); CLARITY,URINE CLEAR; COLOR,URINE YELLOW; GLUCOSE, URINE (UA) NEGATIVE (NEGATIVE); KETONES,URINE NEGATIVE (NEGATIVE); LEUKOCYTE ESTERASE ,URINE NEGATIVE (NEGATIVE); NITRITE,URINE NEGATIVE (NEGATIVE); PH,URINE 8 (5-9); PROTEIN,URINE NEGATIVE (NEGATIVE); UROBILINOGEN,URINE NORMAL (NORMAL)
[2019-05-19 19:48] LABS: BACTERIA,URINE TRACE /HPF; WBC,URINE RARE /HPF
[2019-05-19] MEDS: CATHETER FLUSH 10 ML SYR IV PRN (20:48)
--- NOTE | 2019-05-20 02:49 | NUR ---
pt resting with eyes closed resp even nonlabored. vital signs not taken at this time per family request to let pt rest Addendum: 05/20/19 at 0250 by CELINA TAYLOR RN Amended: Links added.
[2019-05-20 05:00] VITALS: BP 121/75
[2019-05-20 06:49] LABS: BASOPHILS % (AUTO) 0 % (0-10); EOSINOPHILS # (AUTO) 0.2 10^3/uL (0.0-0.3); EOSINOPHILS % (AUTO) 2 % (0-10); HEMATOCRIT 37 % (35-52); HEMOGLOBIN 12.5 G/DL (11.5-16.0); LYMPHOCYTES # (AUTO) 1.6 X 10^3 (1.0-4.0); LYMPHOCYTES % (AUTO) 24 % (12-44); MEAN CORPUSCULAR HEMOGLOBIN 32 PG (25-34); MEAN CORPUSCULAR HGB CONC 34 G/DL (32-36); MEAN CORPUSCULAR VOLUME 95 FL (80-99); MEAN PLATELET VOLUME 10.7 FL (7.4-10.4); MONOCYTES # (AUTO) 1.1 X 10^3 (0.0-1.0); MONOCYTES % (AUTO) 17 % (0-12); NEUTROPHILS # (AUTO) 3.8 X 10^3 (1.8-7.8); NEUTROPHILS % (AUTO) 56 % (42-75); PLATELET COUNT 161 10^3/uL (130-400); RED CELL DISTRIBUTION WIDTH 14.3 % (10.0-14.5); WHITE BLOOD COUNT 6.7 10^3/uL (4.3-11.0)
[2019-05-20 07:05] LABS: BUN/CREATININE RATIO 22; CALCIUM 9.1 MG/DL (8.5-10.1); CARBON DIOXIDE 22 MMOL/L (21-32); CHLORIDE 106 MMOL/L (98-107); CREATININE SERUM 0.82 MG/DL (0.60-1.30); GFR ESTIMATED > 60; GLUCOSE 106 MG/DL (70-105); POTASSIUM 3.9 MMOL/L (3.6-5.0); SODIUM 138 MMOL/L (135-145)
[2019-05-20 08:00] VITALS: BP 112/67
[2019-05-20] MEDS ORDERED: ACET325T38 PO (08:01)
--- NOTE | 2019-05-20 08:02 | NUR ---
SPOKE WITH PT'S SON (PT LIVES WITH HIM AND HE TAKES CARE OF HER MEDICATION), WELL GOING THRU THE EXT MED HISTORY TO COMPLETE THE MED REC. PT'S SON REPORTS SHE IS NOT ON ANY PRESCRIPTION MEDICATION. OTC MEDS: MECLIZINE 25M TID PRN ACETAMINOPHEN 325M Q 6 H PRN
[2019-05-20] MEDS: MECLIZINE 25 MG (ANTIVERT) TAB PO PRN (09:57)
[2019-05-20] MEDS ORDERED: NON-FORMULARY MEDICATION 1 EA EA (Meclizine HCl 25 MG) PO PRN (10:00)
--- NOTE | 2019-05-20 10:09 | Physical Therapy Daily Note ---
PT Daily Note-Current Subjective Patient agrees to PT. Son present. Pain Numeric Pain Scale: 0-No Pain Location: No Pain Reported Mental Status Patient Orientation: Normal For Age Transfers Therapy Code Descriptions/Definitions Functional [place] Measure: 0=Not Assessed/NA 4=Minimal Assistance 1=Total Assistance 5=Supervision or Setup 2=Maximal Assistance 6=Modified [place] 3=Moderate Assistance 7=Complete [place] Therapy Quality Codes: 6 Independent with activity with or without an assistive device 5 Patient requires set up or clean up by helper. Patient completes activity by themselves 4 Supervision or touching assist (CGA). [place] provide cues , steadying assist 3 The helper provides less than half the effort to complete the activity 2 The helper provides more than half the effort to complete the activity 1 Dependent. The helper does all the effort to complete an activity 7 Patient refused to complete or attempt activity 9 The patient did not perform the activity before the current illness or injury 88 Not attempted due to Medical conditions or safety concerns Transfers (B, C, W/C) (FIM): 6 Scootin Sit to/from Stand: 6 Weight Bearing Right Lower Extremity: Right Weight Bearing/Tolerated Left Lower Extremity: Left Weight Bearing/Tolerated Gait Training Gait (FIM): 5 Distance (FIM): 3=150 ft Distance: 180' Gait Level of Assist: 5 Gait Assistive Device: FWW safe and functional with FWW/no deviation Exercises Seated Therapy Exercises: Ankle pumps, Long arc quads Seated Reps: 15 Assessment Patient tolerated treatment well and returned to recliner with needs met. Patient lives with son and son inquires about a hospital bed for home use secondary to patient sleeps in recliner at home. SW notified of son's request. PT Short Term Goals Short Term Goals Time Frame: May 22, 2019 Transfers (B,C,W/C) (FIM): 5 Gait (FIM): 5 Distance (FIM): 5=276-06 ft Gait Distance Comment: 125' Gait Level of Assist: 5 Gait Assistive Device: FWW PT Network Control Operators Supervisor Goals Network Control Operators Supervisor Goals PT [facility] Goals Time Frame: May 25, 2019 Transfers (B,C,W/C) (FIM): 7 Gait (FIM): 6 Gait distance (FIM): 3=150 ft Distance: 250' Gait Level of Assist: 6 Gait Assistive Device: FWW PT Plan Treatment/Plan Treatment Plan: Continue Plan of Care, Modify Plan, see comments (frequency 6/wk) Treatment Plan: Bed Mobility, Functional Activity Megan, Functional Strength, Gait, Safety, Therapeutic Exercise, Transfers Frequency: 6 times per week Estimated Hrs Per Day: .5 hour per day Time/GCodes Time In: 933 Time Out: 947 Total Billed Treatment Time: 14 Total Billed Treatment 1 visit FA 14 min YVONNE DE JESUS PT May 20, 2019 10:09
[2019-05-20] MEDS ORDERED: SCOP1PAT11 TD (11:28)
--- NOTE | 2019-05-20 11:31 | Discharge Instructions ---
Discharge Instructions Discharge Medications New, Converted or Re-Newed RX: Transmitted to Pharmacy Patient Instructions Patient Instructions: Take medications as prescribed. Attend vestibular rehabilitation. Establish with PCP. [facility] to [facility] For: shortness of breath, intractable dizziness, or if you feel like you are getting worse. Activity & Diet Discharge Diet: No Restrictions Activity as Tolerated: Yes CHRISTEL VRAELA MD May 20, 2019 11:31
[2019-05-20 12:00] VITALS: BP 128/60
--- NOTE | 2019-05-20 14:53 | NUR ---
CM/SS spoke to son (Boyd) and patient in regards to getting a hospital bed. CM/SS does not believe that this will be covered with Medicare. The patients son had questions in regards to having someone come into the home to check on thepatient for a short term duration. CM/SS gave information about Home Health Care and the need for a primary physician prior to being able to get Home Health Care. The patients son states that he will set up a appointment for the patient to have a follow upappointment and get established with a primary physician. The patients son also had questions for in the future about if the patient needed to be placed in a nursing facility. The patients son was instructed by CM/SS that they could start the paper work forMedicaid for additional assistance if it is needed in the home. Patients son requested that the prescription be transferred to the [facility] and pharmacist was notified. Will continue to follow.
--- NOTE | 2019-05-20 15:50 | Discharge Summary ---
Discharge Summary Hospital Course Problems/Dx: (1) Vertigo Status: Acute (2) weakness Status: Acute Hospital Course Date of Admission: May 17, 2019 at 21:33 Admission Diagnosis : vertigo Family Physician/Provider: Yary Cornejo Physician Date of Discharge: 05/20/19 Discharge Diagnosis: vertigo Hospital Course: Lety Cm is an 83-year-old female who presented with vertigo. Her workup did not reveal a cause for her symptoms. She improved with meclizine and a scopolamine patch. She is agreeable to undergoing outpatient vestibular rehabilitation. She was discharged home with family support (son). Labs and Pending Lab Test: Laboratory Tests 05/19/19 19:00: Urine Color YELLOW, Urine Clarity CLEAR, Urine pH 8, Urine Specific [place] 1.010L, Urine Protein NEGATIVE, Urine Glucose (UA) NEGATIVE, Urine Ketones NEGATIVE, Urine Nitrite NEGATIVE, Urine Bilirubin NEGATIVE, Urine Urobilinogen NORMAL, Urine Leukocyte Esterase NEGATIVE, Urine RBC (Auto) NEGATIVE, Urine RBC NONE, Urine WBC RARE, Urine Squamous Epithelial Cells 2-5, Urine Crystals NONE, Urine Bacteria TRACE, Urine Casts NONE, Urine Mucus NEGATIVE, Urine Culture Indicated NO 05/20/19 06:16: White Blood Count 6.7, Red Blood Count 3.91L, Hemoglobin 12.5, Hematocrit 37, Mean Corpuscular Volume 95, Mean Corpuscular Hemoglobin 32, Mean Corpuscular Hemoglobin Concent 34, Red Cell Distribution Width 14.3, Platelet Count 161, Mean Platelet Volume 10.7H, Neutrophils (%) (Auto) 56, Lymphocytes (%) (Auto) 24, Monocytes (%) (Auto) 17H, Eosinophils (%) (Auto) 2, Basophils (%) (Auto) 0, Neutrophils # (Auto) 3.8, Lymphocytes # (Auto) 1.6, Monocytes # (Auto) 1.1H, Eosinophils # (Auto) 0.2, Basophils # (Auto) 0.0, Sodium Level 138, Potassium Level 3.9, Chloride Level 106, Carbon Dioxide Level 22, Anion Gap 10, Blood Urea Nitrogen 18, Creatinine 0.82, Estimat Glomerular Filtration Rate > 60, BUN/Creatinine Ratio 22, Glucose Level 106H, Calcium Level 9.1 Microbiology 05/18/19 Influenza Types A,B Antigen (RAYNE) - Final, Complete Home Meds Active Transderm-Scop (Scopolamine) 1 Each Patch.td72 1 Each TD Q72H PRN 90 Days Reported Tylenol (Acetaminophen) 325 Mg Tablet 325 Mg PO Q6H PRN Meclizine HCl 25 Mg Tab.chew 25 Mg PO TID PRN Assessment/Pt Instructions see "discharge instructions" Discharge Planning: <30 minutes discharge planning Discharge Instructions Discharge Diet: No Restrictions Activity as Tolerated: Yes Pneumonia Vaccine Order Indica: Yes Discharge Physical Examination Vital Signs Vital Signs Date Time Temp Pulse Resp B/P (MAP) Pulse Ox O2 Delivery O2 Flow Rate FiO2 05/20/19 14:30 05/20/19 12:00 36.8 52 20 96 Room Air General Appearance: No Apparent Distress, WD/WN HEENT: PERRL/EOMI, Pharynx Normal Respiratory: Lungs Clear, Normal Breath Sounds, No Respiratory Distress Cardiovascular: Regular Rate, Rhythm, No Edema, No Murmur Gastrointestinal: Normal Bowel Sounds, Non Tender, Soft Extremity: Normal Inspection, Non Tender Skin: Normal Color, Warm/Dry Neurologic/Psychiatric: Alert, Oriented x3 Allergies: Coded Allergies: gabapentin (Unverified Adverse Reaction, Mild, VOMITING. , 03/21/19) Discharge Summary Date of Admission May 17, 2019 at 21:33 Date of Discharge May 20, 2019 at 14:45 Discharge Date: May 20, 2019 Discharge Time: 12:00 Admission Diagnosis Vertigo with Intractable nausea and vomitting Discharge Diagnosis vertigo (1) Vertigo Status: Acute (2) weakness Status: Acute Clinical Quality Measures DVT/VTE Risk/Contraindication: Risk Factor Score Per Nursin RFS Level Per Nursing on Admit: 4+=Very High CHRISTEL VARELA MD May 20, 2019 15:49
[2019-05-20] MEDS ORDERED: SCOPOLAMINE 1.5 MG (TRANSDERM-SCOP) PATCH TOP SCH (22:00)
== END 2019-05-20 11:26 | disposition home or self-care (01) ==
LOC: EDUNIT# 19:09 → ER 19:09 → UNDOADMOB 21:33 → 4TH 21:33 → UNDODISOB 05-20 14:45
PROVIDERS: ADMIT Family Medicine; ATTEND Family Medicine
DX: R42 Dizziness and giddiness (principal); R53.1 Weakness; R51 Headache; I10 Essential (primary) hypertension; G62.9 Polyneuropathy, unspecified; N31.9 Neuromuscular dysfunction of bladder, unspecified; K21.9 Gastro-esophageal reflux disease without esophagitis; M19.90 Unspecified osteoarthritis, unspecified site; E03.9 Hypothyroidism, unspecified; H93.19 Tinnitus, unspecified ear; Z82.49 Family history of ischemic heart disease and other diseases of the circulatory system; Z88.8 Allergy status to other drugs, medicaments and biological substances; Z90.49 Acquired absence of other specified parts of digestive tract
CPT/HCPCS: 36415; 70450; 70496; 70498; 72125; 80048; 80053; 81000; 85025; 87804; 96374; 96375; G0378

== ENCOUNTER 2019-05-22 17:24 | Observation (INO) | payer MEDICARE ==
[~2019-05-22] VITALS: Ht 162 cm; Wt 100.0 kg
[~2019-05-22 17:24] MED LIST changes: +ACET325T38 PO
--- NOTE | 2019-05-22 17:25 | NUR ---
TO ED EMS BRUISE NOTED ON R HAND.
[2019-05-22] MEDS ORDERED: NS IV 1000 ML 1,000 ML IV ONE (18:15)
[2019-05-22 18:31] LABS: BASOPHILS % (AUTO) 0 % (0-10); EOSINOPHILS # (AUTO) 0.2 10^3/uL (0.0-0.3); EOSINOPHILS % (AUTO) 2 % (0-10); HEMATOCRIT 38 % (35-52); LYMPHOCYTES # (AUTO) 1.6 X 10^3 (1.0-4.0); LYMPHOCYTES % (AUTO) 22 % (12-44); MEAN CORPUSCULAR HEMOGLOBIN 32 PG (25-34); MEAN CORPUSCULAR HGB CONC 34 G/DL (32-36); MEAN CORPUSCULAR VOLUME 94 FL (80-99); MEAN PLATELET VOLUME 10.5 FL (7.4-10.4); MONOCYTES # (AUTO) 1.1 X 10^3 (0.0-1.0); MONOCYTES % (AUTO) 15 % (0-12); NEUTROPHILS # (AUTO) 4.4 X 10^3 (1.8-7.8); NEUTROPHILS % (AUTO) 60 % (42-75); PLATELET COUNT 153 10^3/uL (130-400); RED CELL DISTRIBUTION WIDTH 13.8 % (10.0-14.5); WHITE BLOOD COUNT 7.2 10^3/uL (4.3-11.0)
[2019-05-22 18:43] LABS: BILIRUBIN,URINE NEGATIVE (NEGATIVE); CLARITY,URINE CLEAR; COLOR,URINE YELLOW; GLUCOSE, URINE (UA) NEGATIVE (NEGATIVE); KETONES,URINE NEGATIVE (NEGATIVE); LEUKOCYTE ESTERASE ,URINE NEGATIVE (NEGATIVE); NITRITE,URINE NEGATIVE (NEGATIVE); PH,URINE 7 (5-9); PROTEIN,URINE NEGATIVE (NEGATIVE); UROBILINOGEN,URINE NORMAL (NORMAL)
[2019-05-22 18:50] LABS: ALANINE AMINOTRANSFERASE 17 U/L (0-55); ALBUMIN 3.8 GM/DL (3.2-4.5); ALKALINE PHOSPHATASE 86 U/L (40-136); BILIRUBIN,TOTAL 1.6 MG/DL (0.1-1.0); BUN/CREATININE RATIO 13; CALCIUM 9.2 MG/DL (8.5-10.1); CARBON DIOXIDE 24 MMOL/L (21-32); CHLORIDE 106 MMOL/L (98-107); CREATININE SERUM 0.77 MG/DL (0.60-1.30); GFR ESTIMATED > 60; GLUCOSE 111 MG/DL (70-105); MAGNESIUM 2.4 MG/DL (1.6-2.4); POTASSIUM 3.6 MMOL/L (3.6-5.0); SODIUM 137 MMOL/L (135-145); TOTAL PROTEIN 6.6 GM/DL (6.4-8.2)
[2019-05-22 18:58] LABS: WBC,URINE 0-2 /HPF
[2019-05-22 18:59] LABS: BACTERIA,URINE NEGATIVE /HPF
[2019-05-22] MEDS ORDERED: IOHEXOL 350 MG/ML 100 ML (OMNIPAQUE 350) VIAL IV ONE (19:30)
[2019-05-22] MEDS ORDERED: HOLD METFORMIN - RECEIVED CONTRAST 20 ML VIAL IV SCH (19:30)
[2019-05-22] MEDS ORDERED: NS 100 ML (IVPB) BAG IV ONE (19:30)
--- NOTE | 2019-05-22 20:05 | Diagnostic Imaging Report ---
PROCEDURE: CT abdomen and pelvis with contrast. TECHNIQUE: Multiple contiguous axial images were obtained through the abdomen and pelvis after administration of intravenous contrast. Auto Exposure Controls were utilized during the CT exam to meet ALARA standards for radiation dose reduction. INDICATION: Upper abdominal pain and nausea Comparison is made to study of 02/26/2019. There is mild basilar atelectasis and/or scarring. Low-density seen throughout the liver with previous cholecystectomy. There is no evidence of pancreatic, adrenal gland or splenic lesion. There is a subcentimeter cyst again noted within the anterior left renal cortex. Prominence of both renal collecting systems is again noted which may be due to extrarenal pelves. Small focal defect at the level of the umbilicus contains herniated omental fat. There is no evidence of bowel hernia. There is no evidence of free fluid. Bladder is distended without evidence of filling defect. There is no evidence of focal inflammation or organized fluid collection seen within the abdomen or pelvis. Advanced lumbar spondylosis is again noted. IMPRESSION: Stable CT scan of the abdomen and pelvis without evidence of acute abnormality or adverse change. Dictated by: Dictated on workstation # [id number]
[2019-05-22] MEDS ORDERED: KETOROLAC 30 MG/ML VIAL IVP ONE (20:45)
--- NOTE | 2019-05-22 20:51 | ED General ---
General Chief Complaint: Dizziness/Syncope Stated Complaint: SYNCOPE Nursing Triage Note: ARRIVED VIA EMS FROM HOME AFTER TWO SYNCAPLE EPISODES AT HOME. DENIES FALLING. Nursing Sepsis Screen: No Definite Risk Source of Information: Patient, Family, Old Records Exam Limitations: No Limitations History of Present Illness Date Seen by Provider: May 22, 2019 Time Seen by Provider: 18:00 Initial Comments This 83-year-old woman presents to the emergency room accompanied by her son with complaints of syncope 2 tonight. She has generally been very weak. Her first syncopal episode occurred while rising. The second occurred while sitting in her chair. She reports having had multiple episodes over the past month. She denies any chest pain. She has had "black spots" in her vision associated with her dizziness. She was admitted recently from May 17- for intractable vertigo. Chart from this visit was reviewed. Placement was discussed at that time. Nursing staff notes patient is quite debilitated and required for people to transfer into the bed. She reports meclizine and scopolamine patch control heard dizziness fairly well. Dizziness is described as a spinning or vertigo sensation. Patient lives with her son but he is unable to safely care for her at this time. She had an extensive workup during her last admission including advanced imaging with CT angiogram of the head and neck. Allergies and Home Medications Allergies Coded Allergies: gabapentin (Unverified Adverse Reaction, Mild, VOMITING. , 03/21/19) Home Medications Acetaminophen 325 Mg Tablet, 325 MG PO Q6H PRN for PAIN-MILD, (Reported) Meclizine HCl 25 Mg Tab.chew, 25 MG PO TID PRN for DIZZINESS, (Reported) Scopolamine 1 Each Patch.td72, 1 EACH TD Q72H PRN for DIZZINESS Prescribed by: CHRISTEL VARELA on 05/20/19 1128 Patient Home Medication List Home Medication List Reviewed: Yes Review of Systems Review of Systems Constitutional: see HPI, weakness EENTM: see HPI, other (Visual disturbances) Respiratory: no symptoms reported Cardiovascular: see HPI, syncope Gastrointestinal: no symptoms reported Genitourinary: no symptoms reported : No Musculoskeletal: no symptoms reported Skin: no symptoms reported Psychiatric/Neurological: See HPI Hematologic/Lymphatic: No Symptoms Reported Immunological/Allergic: no symptoms reported Past Einkogt-Kezijl-Xoqhaz Hx Past Med/Social Hx: Reviewed Nursing Past Med/Soc Hx Patient Social History Alcohol Use: Denies Use Recreational Drug Use: No Smoking Status: Never a Smoker 2nd Hand Smoke Exposure: No Recent Foreign Travel: No Contact w/Someone Who Travel: No Recent Infectious Disease Expo: No Recent Hopitalizations: No Immunizations Up To Date Tetanus Booster (TDap): Unknown Seasonal Allergies Seasonal Allergies: Yes Past Medical History Surgeries: Yes (EGD/ESOPHAGEAL DILATION; CARDIAC CATH--NO INTERVENTION) Appendectomy, Cardiac, Gallbladder Respiratory: No Currently Using CPAP: No Currently Using BIPAP: No Cardiac: Yes (CARDIAC CATH--NORMAL) Hypertension, Peripheral Vascular Neurological: Yes (CHRONIC VERTIGO) Neuropathy, Vertigo Reproductive Disorders: No Female Reproductive Disorders: Denies 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 Sexually Transmitted Disease: No HIV/AIDS: No Genitourinary: No Neurogenic Bladder Gastrointestinal: Yes Gastroesophageal Reflux, Hemorrhoids, Ulcer, Gall Bladder Disease Musculoskeletal: Yes Arthritis Endocrine: No Hypothyroidsim HEENT: Yes (READING GLASSES, DENTURES) Tinnitis Loss of Vision: Denies Hearing Impairment: Denies Cancer: No Psychosocial: Yes (not on any pharmacologic treatment) Eating Disorder, Sleep Difficulties, Anxiety, Depression Integumentary: No Blood Disorders: No Adverse Reaction/Blood Tranf: No (N/A) Family Medical History FHx: pancreatic cancer 19 MOTHER, Onset:60 years & older Myocardial infarction 19 FATHER Son Heart Disease, Cancer Physical Exam Vital Signs Vital Signs - First Documented 05/22/19 17:25 Temp 37.5 Pulse 78 Resp 16 B/P (MAP) 160/77 (104) Pulse Ox 93 O2 Delivery Room Air Capillary Refill : Less Than 3 Seconds Height, Weight, BMI Height: 5'4.00" Weight: 200lbs. 2.0oz. 90.087251rn; 38.00 BMI Method:Stated General Appearance: No Apparent Distress, WD/WN HEENT: PERRL/EOMI, Normal ENT Inspection, Pharynx Normal Neck: Normal Inspection; No Carotid Bruit, No JVD Respiratory: Lungs Clear, Normal Breath Sounds Cardiovascular: Regular Rate, Rhythm, No Edema, No Murmur Gastrointestinal: Normal Bowel Sounds, Soft, Tenderness (Mild in the right upper quadrant and right flank) Back: Other (First-degree burn on the right lower and right mid back. 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 Norm as Tested, Motor Weakness (Generalized without focal deficit) Skin: Normal Color, Warm/Dry, Ecchymosis (Few bruises on extremities) Progress/Results/Core Measures Suspected Sepsis Recent Fever Within 48 Hours: No Infection Criteria Present: None New/Unexplained Altered Menta: No Sepsis Screen: No Definite Risk SIRS Temperature: Pulse: 78 Respiratory Rate: 16 Laboratory Tests 05/22/19 18:19: White Blood Count 7.2 05/23/19 04:44: White Blood Count 5.7 Blood Pressure 160 /77 Mean: 104 Laboratory Tests 05/22/19 18:19: Creatinine 0.77, Platelet Count 153, Total Bilirubin 1.6H 05/23/19 04:44: Creatinine 0.78, Platelet Count 158, Total Bilirubin 1.9H Results/Orders Lab Results Laboratory Tests Test 05/22/19 17:44 05/22/19 18:19 05/23/19 04:44 Range/Units Urine Color YELLOW Urine Clarity CLEAR Urine pH 7 5-9 Urine Specific [place] 1.005 L 1.016-1.022 Urine Protein NEGATIVE NEGATIVE Urine Glucose (UA) NEGATIVE NEGATIVE Urine Ketones NEGATIVE NEGATIVE Urine Nitrite NEGATIVE NEGATIVE Urine Bilirubin NEGATIVE NEGATIVE Urine Urobilinogen NORMAL NORMAL MG/DL Urine Leukocyte Esterase NEGATIVE NEGATIVE Urine RBC (Auto) NEGATIVE NEGATIVE Urine RBC NONE /HPF Urine WBC 0-2 /HPF Urine Crystals NONE /LPF Urine Bacteria NEGATIVE /HPF Urine Casts NONE /LPF Urine Mucus NEGATIVE /LPF Urine Culture Indicated NO White Blood Count 7.2 5.7 4.3-11.0 10^3/uL Red Blood Count 4.04 L 3.85 L 4.35-5.85 10^6/uL Hemoglobin 13.0 12.3 11.5-16.0 G/DL Hematocrit 38 37 35-52 % Mean Corpuscular Volume 94 95 80-99 FL Mean Corpuscular Hemoglobin 32 32 25-34 PG Mean Corpuscular Hemoglobin Concent 34 34 32-36 G/DL Red Cell Distribution Width 13.8 14.0 10.0-14.5 % Platelet Count 153 158 130-400 10^3/uL Mean Platelet Volume 10.5 H 10.9 H 7.4-10.4 FL Neutrophils (%) (Auto) 60 52 42-75 % Lymphocytes (%) (Auto) 22 26 12-44 % Monocytes (%) (Auto) 15 H 19 H 0-12 % Eosinophils (%) (Auto) 2 3 0-10 % Basophils (%) (Auto) 0 1 0-10 % Neutrophils # (Auto) 4.4 3.0 1.8-7.8 X 10^3 Lymphocytes # (Auto) 1.6 1.5 1.0-4.0 X 10^3 Monocytes # (Auto) 1.1 H 1.1 H 0.0-1.0 X 10^3 Eosinophils # (Auto) 0.2 0.1 0.0-0.3 10^3/uL Basophils # (Auto) 0.0 0.0 0.0-0.1 10^3/uL Sodium Level 137 142 135-145 MMOL/L Potassium Level 3.6 3.6 3.6-5.0 MMOL/L Chloride Level 106 111 H 98-107 MMOL/L Carbon Dioxide Level 24 22 21-32 MMOL/L Anion Gap 7 9 5-14 MMOL/L Blood Urea Nitrogen 10 9 7-18 MG/DL Creatinine 0.77 0.78 0.60-1.30 MG/DL Estimat Glomerular Filtration Rate > 60 > 60 BUN/Creatinine Ratio 13 12 Glucose Level 111 H 104 70-105 MG/DL Calcium Level 9.2 8.6 8.5-10.1 MG/DL Corrected Calcium 9.4 9.1 8.5-10.1 MG/DL Magnesium Level 2.4 1.6-2.4 MG/DL Total Bilirubin 1.6 H 1.9 H 0.1-1.0 MG/DL Aspartate Amino Transf (AST/SGOT) 21 20 5-34 U/L Alanine Aminotransferase (ALT/SGPT) 17 13 0-55 U/L Alkaline Phosphatase 86 71 40-136 U/L Total Protein 6.6 5.9 L 6.4-8.2 GM/DL Albumin 3.8 3.4 3.2-4.5 GM/DL Neutrophils % (Manual) 57 % Lymphocytes % (Manual) % Monocytes % (Manual) 12 % Eosinophils % (Manual) 2 % Blood Morphology Comment NORMAL My Orders Orders - OCTAVIO PECK MD Cbc With Automated Diff (05/22/19 18:00) Comprehensive Metabolic Panel (05/22/19 18:00) Magnesium (05/22/19 18:00) Ua Culture If Indicated (05/22/19 18:00) Ed Iv/Invasive Line Start (05/22/19 18:00) Ekg Tracing (05/22/19 18:00) Monitor-Rhythm Ecg Trace Only (05/22/19 18:00) Ns Iv 1000 Ml (Sodium Chloride 0.9%) (05/22/19 18:15) Ct Abdomen/Pelvis W (05/22/19 19:19) Iohexol Injection (Omnipaque 350 Mg/Ml 1 (05/22/19 19:30) Received Contrast (Hold Metformin- Contr (05/22/19 19:30) Ns (Ivpb) (Sodium Chloride 0.9% Ivpb Bag (05/22/19 19:30) Ketorolac Injection (Toradol Injection) (05/22/19 20:45) Medications Given in ED Current Medications Medications Dose Ordered Sig/[place]oyin Route Start Time Stop Time Status Last Admin Dose Admin Ketorolac Tromethamine 15 mg ONCE ONCE IVP 05/22/19 20:45 05/22/19 20:46 DC 05/22/19 20:57 15 MG Vital Signs/I&O 05/22/19 05/22/19 05/22/19 05/23/19 21:27 21:59 22:15 00:28 Temp 37.5 37.0 36.6 Pulse 70 81 64 Resp 18 18 16 B/P (MAP) 155/70 (104) 171/80 152/67 (95) Pulse Ox 98 95 94 O2 Delivery Room Air Room Air Room Air Room Air 05/23/19 04:25 Temp 36.5 Pulse 62 Resp 16 B/P (MAP) 129/76 (93) Pulse Ox 96 O2 Delivery Room Air 05/23/19 00:00 Intake Total 1000 ml Balance 1000 ml Capillary Refill : Less Than 3 Seconds Blood Pressure Mean: 104 Progress Note : Progress Note Patient was thoroughly evaluated. Labs revealed no significant abnormalities. Part way through her ER stay, patient complained of right upper quadrant pain radiating around through her flank and into her back. She used a heating pad in this area yesterday. Examination of the back shows erythematous skin on the right mid and lower back suggesting she obtained a first-degree burn from her heating pad. No underlying rash was evident. A CT scan was performed to evaluate her abdominal and flank pain. There is a small fat-containing hernia that may explain some of that pain. She was given Toradol to treat pain. Dizziness was assessed with EKG, telemetry, and labs. Yun-Hallpike maneuver was attempted to test for vertigo. She could not lay her head back sufficiently to obtain very reliable results. To the extent she could be tested, there was no response with Yun-Hallpike on either side. Patient certainly would not tolerate an Breanne maneuver. Patient was significantly debilitated even after IV fluids. She required assistance with sitting up. Nursing staff reported it took for staff members to get her in the bed. I discussed options with patient. She does not appear to be safe at home and her present status she represents a significant fall risk. Source of dizziness is still not been determined. CT angiogram of head and neck performed on the last visit demonstrated 50 percent carotid stenosis but no critical stenosis. I did discuss long-term options with the patient which might include placement in prison for strengthening and rehabilitation. She is adamantly opposed to this idea. I've tried to set realistic expectations with patient and son and my visits with them. They both seem to have unrealistic expectations that all problems will be explained and resolved and the patient will return home. They do not seem to think a prison is appropriate or acceptable. Patient and son request Do Not Resuscitate status. ECG Initial ECG Impression Date: May 23, 2019 Initial ECG Impression Time: 18:21 Initial ECG Rate: 71 Initial ECG Rhythm: Normal Sinus Comment Sinus rhythm with slight first-degree AV block. No ST elevation or depression. No axis deviation. Diagnostic Imaging Diagonstic Imaging: CT Plain Films/CT/US/NM/MRI: abdomen, pelvis Comments CT abdomen and pelvis viewed by me and report reviewed. See report below: NAME: FELICIANO CARVER [facility] REC#: [id number] PT STATUS: ADM IN : 1935 PHYSICIAN: OCTAVIO PECK MD ADMIT DATE: 05/22/19 Signed Date of Exam: 05/22/19 CT ABDOMEN/PELVIS W PROCEDURE: CT abdomen and pelvis with contrast. TECHNIQUE: Multiple contiguous axial images were obtained through the abdomen and pelvis after administration of intravenous contrast. Auto Exposure Controls were utilized during the CT exam to meet ALARA standards for radiation dose reduction. INDICATION: Upper abdominal pain and nausea Comparison is made to study of 02/26/2019. There is mild basilar atelectasis and/or scarring. Low-density seen throughout the liver with previous cholecystectomy. There is no evidence of pancreatic, adrenal gland or splenic lesion. There is a subcentimeter cyst again noted within the anterior left renal cortex. Prominence of both renal collecting systems is again noted which may be due to extrarenal pelves. Small focal defect at the level of the umbilicus contains herniated omental fat. There is no evidence of bowel hernia. There is no evidence of free fluid. Bladder is distended without evidence of filling defect. There is no evidence of focal inflammation or organized fluid collection seen within the abdomen or pelvis. Advanced lumbar spondylosis is again noted. IMPRESSION: Stable CT scan of the abdomen and pelvis without evidence of acute abnormality or adverse change. Dictated by: Dictated on workstation # [id number] Dict: 05/22/191956 Trans: 05/22/192216 Interpreted by: SUSANA CONNOLLY MD Electronically signed by: SUSANA CONNOLLY MD 05/22/192216 Departure Communication (Admissions) Time/Spoke to Admitting Phy: 20:45 Dr. Pinto Impression Primary Impression: Dizziness Additional Impressions: Right flank pain First degree burn of back Qualified Codes: T21.14XA - Burn of first degree of lower back, initial encounter Abdominal wall hernia Debility Syncope Qualified Codes: R55 - Syncope and collapse Disposition: ADMITTED INPATIENT Condition: Stable Admissions Decision to Admit Reason: Admit from ER (General) Decision to Admit/Date: May 22, 2019 Time/Decision to Admit Time: 20:40 Departure-Patient Inst. Referrals: NO,LOCAL PHYSICIAN (PCP/Family) Primary Care Physician OCTAVIO PECK MD May 22, 2019 20:51
--- NOTE | 2019-05-22 21:45 | NUR ---
FELICIANO CARVER admitted to room 420-1, with an admitting diagnosis of SYNCOPE, RIGHT FLANK PAIN, 1ST DEGREE BURN AND DEBILITY on 05/22/19 from ED via , accompanied by ED STAFF. WENCELIAFELICIANO Michele introduced to surroundings, call light, bed controls, phone, TV, temperature control, lights, meal times, smoking policy, visitor policy, side rail policy, bathrooms and showers. Patient Rights given to patient in the handbook. FELICIANO CARVER verbalizes understanding that [facility] is not responsible for the loss or damage to any personal effects or valuables that are kept in the patients posession during their hospitalization. Patient Care Plans were discussed with the PT AND FAMILY. FELICIANO CARVER verbalizes understanding of Interdisciplinary Patient Education. Patient and/or family were informed about the Rapid Response Team and its purpose.
[2019-05-22 21:59] VITALS: BP 171/80
[2019-05-22] MEDS ORDERED: MECLIZINE 25 MG (ANTIVERT) TAB PO PRN (22:15)
[2019-05-22] MEDS ORDERED: ONDANSETRON 4 MG/2 ML (SDV) Z0FRAN IV PRN (22:15)
[2019-05-22] MEDS ORDERED: SCOPOLAMINE 1.5 MG (TRANSDERM-SCOP) PATCH TOP SCH (22:15)
[2019-05-22] MEDS ORDERED: ACETAMINOPHEN 500 MG TAB (TYLENOL) PO PRN (22:15)
[2019-05-22] MEDS ORDERED: IBUPROFEN TABLET 200 MG TAB PO PRN (22:15)
[2019-05-23 00:28] VITALS: BP 152/67
[2019-05-23 04:25] VITALS: BP 129/76
[2019-05-23 05:27] LABS: BASOPHILS % (AUTO) 1 % (0-10); EOSINOPHILS # (AUTO) 0.1 10^3/uL (0.0-0.3); EOSINOPHILS % (AUTO) 3 % (0-10); HEMATOCRIT 37 % (35-52); HEMOGLOBIN 12.3 G/DL (11.5-16.0); LYMPHOCYTES # (AUTO) 1.5 X 10^3 (1.0-4.0); LYMPHOCYTES % (AUTO) 26 % (12-44); MEAN CORPUSCULAR HEMOGLOBIN 32 PG (25-34); MEAN CORPUSCULAR HGB CONC 34 G/DL (32-36); MEAN CORPUSCULAR VOLUME 95 FL (80-99); MEAN PLATELET VOLUME 10.9 FL (7.4-10.4); MONOCYTES # (AUTO) 1.1 X 10^3 (0.0-1.0); MONOCYTES % (AUTO) 19 % (0-12); NEUTROPHILS % (AUTO) 52 % (42-75); PLATELET COUNT 158 10^3/uL (130-400); WHITE BLOOD COUNT 5.7 10^3/uL (4.3-11.0)
[2019-05-23 05:59] LABS: ALANINE AMINOTRANSFERASE 13 U/L (0-55); ALBUMIN 3.4 GM/DL (3.2-4.5); ALKALINE PHOSPHATASE 71 U/L (40-136); BILIRUBIN,TOTAL 1.9 MG/DL (0.1-1.0); BUN/CREATININE RATIO 12; CALCIUM 8.6 MG/DL (8.5-10.1); CARBON DIOXIDE 22 MMOL/L (21-32); CHLORIDE 111 MMOL/L (98-107); CREATININE SERUM 0.78 MG/DL (0.60-1.30); GFR ESTIMATED > 60; GLUCOSE 104 MG/DL (70-105); POTASSIUM 3.6 MMOL/L (3.6-5.0); SODIUM 142 MMOL/L (135-145); TOTAL PROTEIN 5.9 GM/DL (6.4-8.2)
[2019-05-23 06:08] LABS: EOSINOPHILS % (MANUAL) 2 %; MONOCYTES % (MANUAL) 12 %; NEUTROPHILS % (MANUAL) 57 %
[2019-05-23 06:09] LABS: RBC MORPH NORMAL
[2019-05-23 08:41] VITALS: BP 136/60
[2019-05-23] MEDS ORDERED: ACET-168 PO (08:59)
--- NOTE | 2019-05-23 10:16 | NUR ---
CM/SS spoke with the patient and her son. Son feels she is back to her baseline that she has been at home, he feels it was a medication mix up that got her back here. He feels ready for her to discharge back to home. He asked about a bedside commode and insurance coverage, discussed where these are available.
[2019-05-23] MEDS ORDERED: MECL-124 PO (11:49)
--- NOTE | 2019-05-23 11:53 | Discharge Instructions ---
Discharge Instructions Reconcile Patient Problems Problems Reviewed?: Yes Discharge Medications New, Converted or Re-Newed RX: RX on Chart Patient Instructions Patient Instructions Take medications as prescribed. Decrease to Meclizine 12.5 mg every 8 hours as needed. Continue Scopolamine. Continue Tylenol 1000 mg three times daily for arthritis. Follow up with Dr. Cooley to establish primary care physician as scheduled. Return to [facility] For: lightheadedness/dizziness, chest pain, shortness of breath, or if you feel like you are getting worse. Activity & Diet Discharge Diet: No Restrictions Activity as Tolerated: Yes CHRISTEL VARELA MD May 23, 2019 11:53
[2019-05-23 12:00] VITALS: BP 150/69
[2019-05-23 15:05] VITALS: BP 150/69
--- NOTE | 2019-05-23 15:10 | Short Stay Summary-Hospitalist ---
History of Present Illness HPI/Chief Complaint 83-year-old female with recent admission for vertigo presented with presyncope. Further evaluation found that she had overdosed her meclizine. She denied any syncopal events. Upon my examination her symptoms had resolved. I recommended decreasing her meclizine dose to 12.5 mg 3 times daily as needed for dizziness. She also was complaining about her arthritis pain and I recommended Tylenol 1000 mg 3 times daily as needed. She does not currently have a primary care physician, but she does have an appointment to establish care with Dr. Cooley on June 06. Source: patient Exam Limitations: no limitations Date Seen 05/23/19 Time Seen by a Provider: 10:00 Attending Physician Cheikh Pinto MD PCP Grzegorz Cooley MD Referring Physician Date of Admission May 22, 2019 at 20:48 Home Medications & Allergies Home Medications Reviewed patient Home Medication Reconciliation performed by pharmacy medication reconciliations broadcast operations technician and/or nursing. Patients Allergies have been reviewed. Allergies Allergies Coded Allergies gabapentin (Unverified Adverse Reaction, Mild, VOMITING. , 03/21/19) Past Nhzbldl-Imenmm-Gslwzc Hx Past Med/Social Hx: Reviewed Nursing Past Med/Soc Hx Patient Social History Alcohol Use: Denies Use Recreational Drug Use: No Smoking Status: Never a Smoker 2nd Hand Smoke Exposure: No Recent Foreign Travel: No Contact w/other who traveled: No Recent Hopitalizations: No Recent Infectious Disease Expo: No Immunizations Up To Date Tetanus Booster (TDap): Unknown Seasonal Allergies Seasonal Allergies: Yes Past Medical History Surgeries: Appendectomy, Cardiac, Gallbladder Currently Using CPAP: No Currently Using BIPAP: No Cardiac: Hypertension, Peripheral Vascular Neurological: Neuropathy, Vertigo : No Reproductive: No Sexually Transmitted Disease: No HIV/AIDS: No Female Reproductive Disorders: Denies Menopausal Genitourinary: Neurogenic Bladder Gastrointestinal: Gastroesophageal Reflux, Hemorrhoids, Ulcer, Gall Bladder Disease Musculoskeletal: Arthritis Endocrine: Hypothyroidsim HEENT: Tinnitis Loss of Vision: Denies Hearing Impairment: Denies Psychosocial: Eating Disorder, Sleep Difficulties, Anxiety, Depression History of Blood Disorders: No Adverse Reaction to Blood Dyer: No (N/A) Family History FHx: pancreatic cancer 19 MOTHER, Onset:60 years & older Myocardial infarction 19 FATHER Son Heart Disease, Cancer Review of Systems Constitutional: dizziness EENTM: no symptoms reported Respiratory: no symptoms reported Cardiovascular: no symptoms reported Gastrointestinal: no symptoms reported Genitourinary: no symptoms reported Musculoskeletal: no symptoms reported Skin: no symptoms reported Psychiatric/Neurological: No Symptoms Reported Physical Exam Physical Exam Vital Signs Vital Signs - First Documented 05/22/19 17:25 Temp 37.5 Pulse 78 Resp 16 B/P (MAP) 160/77 (104) Pulse Ox 93 O2 Delivery Room Air Capillary Refill : Less Than 3 Seconds Height, Weight, BMI Height: 5'4.00" Weight: 200lbs. 2.0oz. [id number]; 38.10 BMI Method:Stated General Appearance: No Apparent Distress, WD/WN, Obese HEENT: PERRL/EOMI, Pharynx Normal Neck: Normal Inspection, Supple Respiratory: Lungs Clear, Normal Breath Sounds Cardiovascular: Regular Rate, Rhythm, No Edema, No Murmur Gastrointestinal: Normal Bowel Sounds, Non Tender, Soft Extremity: Normal Inspection, Non Tender, No Pedal Edema Neurologic/Psychiatric: Alert, Oriented x3, No Motor/Sensory Deficits, Normal Mood/Affect Results Results/Procedures Labs Laboratory Tests 05/22/19 18:19 05/23/19 04:44 Patient resulted labs reviewed. Short Stay Diagnosis Discharge Diagnosis-Short Stay Admission Diagnosis Presyncope Final Discharge Diagnosis Accidental overdose of meclizine Conclusion Plan Pre-syncope Accidental overdose of meclizine Symptoms now resolved Decrease as necessary dose of meclizine Continue scopolamine Establish care with Dr. Cooley Diagnosis/Problems Diagnosis/Problems (1) Accidental overdose Status: Acute Qualifiers: Qualified Codes: T50.901A - Poisoning by unspecified drugs, medicaments and biological substances, accidental (unintentional), initial encounter (2) Pre-syncope Status: Acute Clinical Quality Measures DVT/VTE Risk/Contraindication: Risk Factor Score Per Nursin RFS Level Per Nursing on Admit: 3=High CHRISTEL VARELA MD May 23, 2019 15:10
[2019-05-25] MEDS ORDERED: SCOPOLAMINE PATCH REMOVAL TP SCH (22:15)
== END 2019-05-23 11:48 | disposition home or self-care (01) ==
LOC: EDUNIT# 17:24 → ER 17:25 → UNDOADMIN 20:48 → 4TH 20:48 → UNDODISIN 05-23 15:05
PROVIDERS: ADMIT Internal Medicine; ATTEND Internal Medicine
DX: T45.0X1A Poisoning by antiallergic and antiemetic drugs, accidental (unintentional), initial encounter (principal); T21.14XA Burn of first degree of lower back, initial encounter; R55 Syncope and collapse; J30.9 Allergic rhinitis, unspecified; I10 Essential (primary) hypertension; I73.9 Peripheral vascular disease, unspecified; K21.9 Gastro-esophageal reflux disease without esophagitis; M19.90 Unspecified osteoarthritis, unspecified site; K46.9 Unspecified abdominal hernia without obstruction or gangrene; R53.81 Other malaise; E03.9 Hypothyroidism, unspecified; F41.9 Anxiety disorder, unspecified; F32.9 Major depressive disorder, single episode, unspecified; Z88.8 Allergy status to other drugs, medicaments and biological substances; Z90.89 Acquired absence of other organs; Z80.0 Family history of malignant neoplasm of digestive organs; Z82.49 Family history of ischemic heart disease and other diseases of the circulatory system
CPT/HCPCS: 36415; 70450; 70496; 70498; 72125; 74177; 80048; 80053; 81000; 83735; 85007; 85025; 85027; 87804; 93005; 93041; 96361; 96374; 96375; G0378

== ENCOUNTER 2022-03-03 09:43 | Emergency (ER) | payer MEDICARE, MEDICAID ==
[~2022-03-03] VITALS: Ht 152.4 cm; Wt 83.9 kg
[~2022-03-03 09:43] MED LIST changes: +ACET-168 PO; -OMEP20CA13 PO; +OMEP20CA18 PO; -OMEP40CA36 PO; +OMEP40CA6 PO; +SCOP1PAT10 TD; -SCOP1PAT11 TD
[2022-03-03 10:08] VITALS: BP 152/79
[2022-03-03 12:30] LABS: BASOPHILS % (AUTO) 0 % (0-10); MEAN CORPUSCULAR VOLUME 94 fL (80-99)
[2022-03-03] MEDS ORDERED: NS IV 500 ML 500 ML IV ONE (12:30)
[2022-03-03 12:32] LABS: EOSINOPHILS % (AUTO) 1 % (0-10); HEMATOCRIT 33 % (35-52); HEMOGLOBIN 10.4 g/dL (11.5-16.0); LYMPHOCYTES # (AUTO) 1.1 10^3/uL (1.0-4.0); LYMPHOCYTES % (AUTO) 24 % (12-44); MEAN CORPUSCULAR HEMOGLOBIN 30 pg (25-34); MEAN CORPUSCULAR HGB CONC 32 g/dL (32-36); MEAN PLATELET VOLUME 11.9 fL (9.0-12.2); MONOCYTES # (AUTO) 0.3 10^3/uL (0.0-1.0); MONOCYTES % (AUTO) 7 % (0-12); NEUTROPHILS % (AUTO) 67 % (42-75); PLATELET COUNT 130 10^3/uL (130-400); WHITE BLOOD COUNT 4.5 10^3/uL (4.3-11.0)
[2022-03-03 12:38] LABS: POTASSIUM 4.6 MMOL/L (3.6-5.0)
[2022-03-03 12:39] LABS: CALCIUM 8.2 MG/DL (8.5-10.1)
[2022-03-03 12:43] LABS: CREATININE SERUM 0.7 MG/DL (0.60-1.30)
[2022-03-03 13:16] LABS: BILIRUBIN,URINE NEGATIVE (NEGATIVE); CLARITY,URINE CLEAR; COLOR,URINE YELLOW; GLUCOSE, URINE (UA) NEGATIVE (NEGATIVE); KETONES,URINE TRACE (NEGATIVE); LEUKOCYTE ESTERASE ,URINE 2+ (NEGATIVE); NITRITE,URINE NEGATIVE (NEGATIVE); PH,URINE 6.5 (5-9); PROTEIN,URINE NEGATIVE (NEGATIVE)
[2022-03-03 13:24] LABS: BACTERIA,URINE FEW /HPF; RBC,URINE RARE /HPF
--- NOTE | 2022-03-03 14:30 | ED General ---
General Chief Complaint: General Problems/Pain Stated Complaint: MOANING Nursing Triage Note: PT TO ROOM 04 VIA [facility]. PT WAS MOANING AND SON WANTED PT EVALUATED. EMS STATES PT HAS NOT MOANED SINCE THEY ARRIVED. Source of Information: Patient Exam Limitations: No Limitations History of Present Illness Date Seen by Provider: Mar 03, 2022 Time Seen by Provider: 11:50 Initial Comments This 86-year-old woman presents to the emergency room via EMS at the request of her son who notes that she was moaning this morning instead of responding normally when he was interacting with her. She has also not been acting herself in the last few days and not participating to her usual capacity with ADLs. She has been on Seroquel the past 10 days. It was also noted that risperidone 1 mg had been filled but has not been started yet. Her Seroquel 25 mg dose was recently changed to 50 mg ER. Son reports that she remains restless through the night despite Seroquel use, but he does believe it helps some. He does not get the impression that her symptoms today are related to Seroquel use. He wonders about hydration status and urinary tract infection as these are often causes of changes in behavior. Allergies and Home Medications Allergies Coded Allergies: gabapentin (Unverified Adverse Reaction, Mild, VOMITING. , 03/21/19) Patient Home Medication List Home Medication List Reviewed: Yes Acetaminophen (Acetaminophen Extra Strength) 500 Mg Tablet, 500-1,000 MG PO Q6H PRN for PAIN-MILD, (Reported) Entered as Reported by: RENAY PEREZ on 05/23/19 0859 Clopidogrel Bisulfate (Clopidogrel) 75 Mg Tablet, (Reported) Entered as Reported by: ANDREA CABALLERO on 03/07/22 1229 Meclizine HCl (Meclizine HCl) 25 Mg Tab.chew, 12.5 MG PO TID PRN for DIZZINESS Prescribed by: CHRISTEL VARELA on 05/23/19 1149 Metoprolol Tartrate (Metoprolol Tartrate) 50 Mg Tablet, (Reported) Entered as Reported by: ANDREA CABALLERO on 03/07/22 1229 Risperidone (Risperidone) 1 Mg Tablet, (Reported) Entered as Reported by: ANDREA CABALLERO on 03/07/22 1229 Scopolamine (Transderm-Scop) 1 Each Patch.td72, 1 EACH TD Q72H PRN for DIZZINESS Prescribed by: CHRISTEL VARELA on 05/20/19 1128 Review of Systems Review of Systems Constitutional: see HPI EENTM: no symptoms reported Respiratory: no symptoms reported Cardiovascular: no symptoms reported Gastrointestinal: no symptoms reported Genitourinary: no symptoms reported : No Musculoskeletal: no symptoms reported Skin: no symptoms reported Psychiatric/Neurological: See HPI Hematologic/Lymphatic: No Symptoms Reported Immunological/Allergic: no symptoms reported Past Gjtckrs-Yvvoan-Bxcaac Hx Patient Social History Tobacco Use?: No Smoking Status: Unknown if Ever Smoked Smokeless Tobacco Frequency: Unknown if Ever Used Use of E-Cig and/or Vaping dev: Unable to obtain Use of E-Cig and/or Vaping [place]: Unknown if Ever Used Substance use?: Unable to obtain Alcohol Use?: Unable to obtain Pt feels they are or have been: Unable to obtain Immunizations Up To Date Tetanus Booster (TDap): Unknown Seasonal Allergies Seasonal Allergies: Yes Past Medical History Surgeries: Yes (EGD/ESOPHAGEAL DILATION; CARDIAC CATH--NO INTERVENTION) Appendectomy, Cardiac, Gallbladder Respiratory: No Currently Using CPAP: No Currently Using BIPAP: No Cardiac: Yes (CARDIAC CATH--NORMAL) Hypertension, Peripheral Vascular Neurological: Yes (CHRONIC VERTIGO) Dementia, Neuropathy, Vertigo Reproductive Disorders: No Female Reproductive Disorders: Denies 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 Sexually Transmitted Disease: No HIV/AIDS: No Genitourinary: Yes Neurogenic Bladder Gastrointestinal: Yes Gastroesophageal Reflux, Hemorrhoids, Ulcer, Gall Bladder Disease Musculoskeletal: Yes Arthritis Endocrine: Yes Hypothyroidsim HEENT: Yes (READING GLASSES, DENTURES) Tinnitis Loss of Vision: Denies Hearing Impairment: Denies Cancer: No Psychosocial: Yes (not on any pharmacologic treatment) Eating Disorder, Sleep Difficulties, Anxiety, Depression Integumentary: No Blood Disorders: No Adverse Reaction/Blood Tranf: No (N/A) Family Medical History FHx: pancreatic cancer 19 MOTHER, Onset:60 years & older Myocardial infarction 19 FATHER Son Heart Disease, Cancer Physical Exam Vital Signs Vital Signs - First Documented 03/03/22 10:08 Temp 37.0 Pulse 77 Resp 15 B/P (MAP) 152/79 (103) O2 Delivery Room Air Capillary Refill : Less Than 3 Seconds Height, Weight, BMI Height: 5'4.00" Weight: 200lbs. 2.0oz. [id number]; 36.00 BMI Method:Stated General Appearance: No Apparent Distress, WD/WN Eyes: Bilateral Eye Other (Chronic edema and inflammatory changes around the periorbital region and eyelid, stated is unchanged) HEENT: PERRL/EOMI, Normal ENT Inspection, Pharynx Normal Neck: Normal Inspection Respiratory: Lungs Clear, Normal Breath Sounds, No Accessory Muscle Use Cardiovascular: Regular Rate, Rhythm, No Edema, No Murmur Gastrointestinal: Normal Bowel Sounds, Non Tender, Soft Extremity: Normal Inspection, Non Tender, No Pedal Edema Neurologic/Psychiatric: Alert, No Motor/Sensory Deficits, Normal Mood/Affect, Other (Mentation at baseline) Skin: Normal Color, Warm/Dry Progress/Results/Core Measures Suspected Sepsis SIRS Temperature: Pulse: 77 Respiratory Rate: 15 Laboratory Tests 03/03/22 10:41: White Blood Count 4.5 Blood Pressure 152 /79 Mean: 103 Laboratory Tests 03/03/22 10:41: Creatinine 0.70, Platelet Count 130 Results/Orders Lab Results Laboratory Tests Test 03/03/22 10:41 03/03/22 13:08 Range/Units White Blood Count 4.5 4.3-11.0 10^3/uL Red Blood Count 3.46 L 3.80-5.11 10^6/uL Hemoglobin 10.4 L 11.5-16.0 g/dL Hematocrit 33 L 35-52 % Mean Corpuscular Volume 94 80-99 fL Mean Corpuscular Hemoglobin 30 25-34 pg Mean Corpuscular Hemoglobin Concent 32 32-36 g/dL Red Cell Distribution Width 17.2 H 10.0-14.5 % Platelet Count 130 130-400 10^3/uL Mean Platelet Volume 11.9 9.0-12.2 fL Immature Granulocyte % (Auto) 0 % Neutrophils (%) (Auto) 67 42-75 % Lymphocytes (%) (Auto) 24 12-44 % Monocytes (%) (Auto) 7 0-12 % Eosinophils (%) (Auto) 1 0-10 % Basophils (%) (Auto) 0 0-10 % Neutrophils # (Auto) 3.0 1.8-7.8 10^3/uL Lymphocytes # (Auto) 1.1 1.0-4.0 10^3/uL Monocytes # (Auto) 0.3 0.0-1.0 10^3/uL Eosinophils # (Auto) 0.0 0.0-0.3 10^3/uL Basophils # (Auto) 0.0 0.0-0.1 10^3/uL Immature Granulocyte # (Auto) 0.0 0.0-0.1 10^3/uL Percent Immature Platelet Fraction 4.6 0.0-7.6 % Sodium Level 131 L 135-145 MMOL/L Potassium Level 4.6 3.6-5.0 MMOL/L Chloride Level 99 98-107 MMOL/L Carbon Dioxide Level 24 21-32 MMOL/L Anion Gap 8 5-14 MMOL/L Blood Urea Nitrogen 11 7-18 MG/DL Creatinine 0.70 0.60-1.30 MG/DL Estimat Glomerular Filtration Rate 84 BUN/Creatinine Ratio 16 Glucose Level 81 70-105 MG/DL Calcium Level 8.2 L 8.5-10.1 MG/DL Urine Color YELLOW Urine Clarity CLEAR Urine pH 6.5 5-9 Urine Specific [place] <=1.005 1.016-1.022 Urine Protein NEGATIVE NEGATIVE Urine Glucose (UA) NEGATIVE NEGATIVE Urine Ketones TRACE H NEGATIVE Urine Nitrite NEGATIVE NEGATIVE Urine Bilirubin NEGATIVE NEGATIVE Urine Urobilinogen 4.0 < = 1.0 MG/DL Urine Leukocyte Esterase 2+ H NEGATIVE Urine RBC (Auto) 1+ H NEGATIVE Urine RBC RARE /HPF Urine WBC 5-10 H /HPF Urine Squamous Epithelial Cells 5-10 /HPF Urine Crystals NONE /LPF Urine Bacteria FEW H /HPF Urine Casts NONE /LPF Urine Mucus NEGATIVE /LPF Urine Culture Indicated YES Micro Results Microbiology 03/03/22 Urine Culture - Final, Complete Mixed Bacterial Elvi My Orders Orders - OCTAVIO PECK MD Ed Iv/Invasive Line Start (03/03/22 12:24) Ns Iv 500 Ml (Sodium Chloride 0.9%) (03/03/22 12:30) Basic Metabolic Panel (03/03/22 12:24) Cbc With Automated Diff (03/03/22 12:24) Ua Culture If Indicated (03/03/22 12:24) Urine Culture (03/03/22 13:08) Medications Given in ED Vital Signs/I&O 03/03/22 10:08 Temp 37.0 Pulse 77 Resp 15 B/P (MAP) 152/79 (103) O2 Delivery Room Air Capillary Refill : Less Than 3 Seconds Blood Pressure Mean: 103 Progress Note : Progress Note Patient was hydrated with a 500 mL normal saline bolus. Labs were relatively unremarkable except for suggestion of urinary tract infection on urinalysis. Antibiotic was prescribed. See discharge instructions for further discussion. Departure Impression Primary Impression: Urinary tract infection Qualified Codes: N39.0 - Urinary tract infection, site not specified Additional Impression: Altered behavior Disposition: 01 HOME, SELF-CARE Condition: Stable Departure-Patient Inst. Decision time for Depature: 14:29 Referrals: ALLYSSA MURRAY MD (PCP/Family) Primary Care Physician Patient Instructions: Urinary Tract Infection, Adult (DC) Add. Discharge Instructions: You may start the amoxicillin prescription you have at home. Please have your primary care provider check on the urine culture results on Monday to ensure the bacteria grown in the culture is appropriately treated with amoxicillin. Encourage plenty of clear liquids. For better induction of sleep at nighttime, consider taking the quetiapine extended release dose earlier, perhaps just after supper. For agitation later in the day, consider adding in 12.5 to 25 mg of the immediate release dose. Call your doctor with questions or concerns. Return to the ER if there are worsening symptoms. All discharge instructions reviewed with patient and/or family. Voiced understanding. Copy Copies To 1: ALLYSSA MURRAY MD, JOSHUA T MD Mar 03, 2022 14:30
== END 2022-03-03 14:38 | disposition home or self-care (01) ==
LOC: EDUNIT# 09:43 → ER 09:48
DX: N39.0 Urinary tract infection, site not specified (principal); R41.82 Altered mental status, unspecified; Z79.899 Other long term (current) drug therapy
CPT/HCPCS: 36415; 80048; 81000; 85025; 87088; 96360; 99283

== ENCOUNTER 2022-03-07 11:50 | Inpatient (IN) | payer MEDICARE, MEDICAID ==
[~2022-03-07] VITALS: Ht 162.5 cm; Wt 78.2 kg
[2022-03-07] MEDS ORDERED: NS IV 500 ML 500 ML IV ONE (12:15)
[2022-03-07 12:16] LABS: BILIRUBIN,URINE NEGATIVE (NEGATIVE); CLARITY,URINE CLEAR; COLOR,URINE YELLOW; GLUCOSE, URINE (UA) NEGATIVE (NEGATIVE); KETONES,URINE 1+ (NEGATIVE); LEUKOCYTE ESTERASE ,URINE NEGATIVE (NEGATIVE); NITRITE,URINE NEGATIVE (NEGATIVE); PROTEIN,URINE TRACE (NEGATIVE)
[2022-03-07 12:16] LABS: BASOPHILS % (AUTO) 0 % (0-10); EOSINOPHILS % (AUTO) 0 % (0-10); HEMATOCRIT 33 % (35-52); HEMOGLOBIN 10.6 g/dL (11.5-16.0); LYMPHOCYTES # (AUTO) 1.1 10^3/uL (1.0-4.0); LYMPHOCYTES % (AUTO) 16 % (12-44); MEAN CORPUSCULAR HEMOGLOBIN 30 pg (25-34); MEAN CORPUSCULAR HGB CONC 33 g/dL (32-36); MEAN CORPUSCULAR VOLUME 91 fL (80-99); MEAN PLATELET VOLUME 10.8 fL (9.0-12.2); MONOCYTES # (AUTO) 0.5 10^3/uL (0.0-1.0); MONOCYTES % (AUTO) 7 % (0-12); NEUTROPHILS # (AUTO) 5.1 10^3/uL (1.8-7.8); NEUTROPHILS % (AUTO) 76 % (42-75); PLATELET COUNT 156 10^3/uL (130-400); WHITE BLOOD COUNT 6.7 10^3/uL (4.3-11.0)
[2022-03-07 12:23] LABS: ALBUMIN 2.6 GM/DL (3.2-4.5); POTASSIUM 3.9 MMOL/L (3.6-5.0)
[2022-03-07 12:24] LABS: CALCIUM 8.2 MG/DL (8.5-10.1)
[2022-03-07 12:24] LABS: BACTERIA,URINE NEGATIVE /HPF; RBC,URINE RARE /HPF; SQUAMOUS EPITHELIAL CELL,UR 0-2 /HPF
[2022-03-07 12:25] LABS: TOTAL PROTEIN 7.7 GM/DL (6.4-8.2)
[2022-03-07 12:27] LABS: BILIRUBIN,TOTAL 1.2 MG/DL (0.1-1.0)
[2022-03-07 12:29] LABS: CREATININE SERUM 0.65 MG/DL (0.60-1.30)
[2022-03-07] MEDS ORDERED: CLOP75TA28 PO (12:29)
[2022-03-07] MEDS ORDERED: METO50TA15 PO (12:29)
[2022-03-07] MEDS ORDERED: RISP1TAB93 (12:29)
[2022-03-07 12:32] LABS: MAGNESIUM 1.9 MG/DL (1.6-2.4)
--- NOTE | 2022-03-07 13:12 | Diagnostic Imaging Report ---
INDICATION: Weakness, altered mental status. TECHNIQUE: Single view chest at 12:55 PM. CORRELATION STUDY: 05/09/2017. FINDINGS: Patient is rotated on this study. Given this, the heart size and mediastinum are enlarged and mildly prominent. Vasculature is overall stable. Probable combination of small effusion along with atelectasis or infiltrate at both lung bases, right greater than left, which overall appear changed from prior. IMPRESSION: 1. Cardiac enlargement with borderline vasculature. 2. Combination of atelectasis or infiltrate along with effusions at both lung bases, right greater than left. Dictated by: Dictated on workstation # [id number]
[2022-03-07 13:46] LABS: ABG BASE EXCESS -3.3 MMOL/L (-2.5-2.5); ABG OXYGEN SATURATION 96 % (94-100); ABG PCO2 34 MMHG (35-45); ABG PO2 75 MMHG (79-93); ABG TCO2 21.8 MMOL/L (21.0-31.0)
[2022-03-07 13:47] LABS: ALLENS TEST YES-POS; INSPIRED O2 2 L; PATIENT TEMP 98.9; VENTILATOR NO
--- NOTE | 2022-03-07 13:49 | ED GI ---
General Chief Complaint: General Problems/Pain Stated Complaint: WEAKNESS Nursing Triage Note: PT ARRIVED BY EMS, PT HAS HX OF DEMENTIA, HAS INCREASED WEAKNESS, HAS RECENTLY BEEN SEEN IN ED. PT HAS LG AMT OF KATIE OBITAL EDEMA, PT IS WET FROM URINE. PT IS MUMBLING TO STAFF. SON STATES UNABLE TO CHANGE HER DIAPER TODAY AND IS JUST SITTING IN CHAIR. PT DENIES PAIN. PT HAS LARGE AMT OF SKIN BREAKDOWN ON COCCYX. SON STATES HAS RECENTLY HAS A UTI. Source of Information: Patient, Family (son caregiver) Exam Limitations: No Limitations History of Present Illness Date Seen by Provider: Mar 07, 2022 Time Seen by Provider: 12:10 Initial Comments Patient to the ER by EMS from [place] with her son who is her caregiver whom she lives with. She has a chief complaint of altered mental status, cough productive of yellow-green, fevers of 100.7 over the past couple days and decreased mental status as well as weakness and inability to stand or transfer. She has a history of dementia and has been living with her son for the past year. He has not been able to care for her because she has been so weak and thought maybe she should go to the shelter but he wanted to make sure there is nothing else could be done. She has Dr. Martinez as her primary care provider. Last month he started her on Seroquel for her dementia related behavi ors and to help her with sleep and now he thinks may be that this medication has the patient too sedated. She takes 50 mg extended release Seroquel at night and 25 mg immediate release twice a day. He says she has chronic edema for the past year and her eyelids because she sits sleeping slumped forward in the chair. He says sometimes her oxygen saturations will go down to the upper 80s at night and if he tells her to take a deep breath they go back up to the mid 90s. She does not use supplemental oxygen at baseline. She was seen for 5 days ago in the ER and thought that she perhaps had a UTI and started on amoxicillin. A day or 2 after starting amoxicillin she developed diarrhea so the son stopped the amoxicillin and the diarrhea has slowed down. She has decreased appetite and fluid intake although she is complaining of feeling dry. Urine culture and urinalysis appear to be consistent with contamination and today's urinalysis is unrevealing. Son reiterates that the patient is a DNR. Allergies and Home Medications Allergies Coded Allergies: gabapentin (Unverified Adverse Reaction, Mild, VOMITING. , 03/21/19) Patient Home Medication List Home Medication List Reviewed: Yes Acetaminophen (Acetaminophen Extra Strength) 500 Mg Tablet, 500-1,000 MG PO Q6H PRN for PAIN-MILD, (Reported) Entered as Reported by: RENAY PEREZ on 05/23/19 0859 Clopidogrel Bisulfate (Clopidogrel) 75 Mg Tablet, (Reported) Entered as Reported by: ANDREA CABALLERO on 03/07/22 1229 Last Action: New Order Meclizine HCl (Meclizine HCl) 25 Mg Tab.chew, 12.5 MG PO TID PRN for DIZZINESS Prescribed by: CHRISTEL VARELA on 05/23/19 1149 Metoprolol Tartrate (Metoprolol Tartrate) 50 Mg Tablet, (Reported) Entered as Reported by: ANDREA CABALLERO on 03/07/221228 Last Action: New Order Risperidone (Risperidone) 1 Mg Tablet, (Reported) Entered as Reported by: ANDREA CABALLERO on 03/07/221228 Last Action: New Order Scopolamine (Transderm-Scop) 1 Each Patch.td72, 1 EACH TD Q72H PRN for DIZZINESS Prescribed by: CHRISTEL VARELA on 05/20/19 1128 Review of Systems Review of Systems Constitutional: chills, fever EENTM: No Blurred Vision, No Double Vision Respiratory: Cough, Shortness of Air Cardiovascular: Denies Chest Pain, Denies Lightheadedness Gastrointestinal: See HPI; Denies Constipated; Diarrhea; Denies Nausea Past Kgrhvuy-Ikyiuz-Cbqiqr Hx Patient Social History Tobacco Use?: No Substance use?: No Alcohol Use?: No Pt feels they are or have been: No Immunizations Up To Date Tetanus Booster (TDap): Unknown Seasonal Allergies Seasonal Allergies: Yes Past Medical History Surgery/Hospitalization HX: DEMENTIA, RECENT UTI Surgeries: Yes (EGD/ESOPHAGEAL DILATION; CARDIAC CATH--NO INTERVENTION) Appendectomy, Cardiac, Gallbladder Respiratory: No Currently Using CPAP: No Currently Using BIPAP: No Cardiac: Yes (CARDIAC CATH--NORMAL) Hypertension, Peripheral Vascular Neurological: Yes (CHRONIC VERTIGO) Neuropathy, Vertigo Reproductive Disorders: No Female Reproductive Disorders: Denies 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 Sexually Transmitted Disease: No HIV/AIDS: No Genitourinary: No Neurogenic Bladder Gastrointestinal: Yes Gastroesophageal Reflux, Hemorrhoids, Ulcer, Gall Bladder Disease Musculoskeletal: Yes Arthritis Endocrine: No Hypothyroidsim HEENT: Yes (READING GLASSES, DENTURES) Tinnitis Loss of Vision: Denies Hearing Impairment: Denies Cancer: No Psychosocial: Yes (not on any pharmacologic treatment) Eating Disorder, Sleep Difficulties, Anxiety, Depression Integumentary: No Blood Disorders: No Adverse Reaction/Blood Tranf: No (N/A) Family Medical History FHx: pancreatic cancer 19 MOTHER, Onset:60 years & older Myocardial infarction 19 FATHER Son Heart Disease, Cancer Physical Exam Vital Signs Vital Signs - First Documented 03/07/22 11:50 Temp 37.8 Pulse 89 Resp 18 B/P (MAP) 149/67 (94) Pulse Ox 94 O2 Delivery Nasal Cannula O2 Flow Rate 2.00 Capillary Refill : Less Than 3 Seconds Height/Weight/BMI Height: 5'4.00" Weight: 200lbs. 2.0oz. [id number]; 31.00 BMI Method:Stated General Appearance: mild distress, other (Chronically ill) HEENT: PERRL/EOMI, TMs normal; No pharynx normal (Dry oral mucous) Neck: full range of motion, supple, normal inspection Respiratory: no accessory muscle use, respiratory distress (Mild hypoxemia 88- 89% on room air), crackles (Bibasilar right worse than left) Cardiovascular: normal peripheral pulses, regular rate, rhythm Gastrointestinal: normal bowel sounds, non tender, soft Extremities: no pedal edema, normal capillary refill Neurologic/Psychiatric: alert, other (Oriented to person) Skin: normal color, warm/dry Progress/Results/Core Measures Results/Orders Lab Results Laboratory Tests Test 03/07/22 12:03 03/07/22 12:11 03/07/22 12:35 03/07/22 13:30 Range/Units White Blood Count 6.7 4.3-11.0 10^3/uL Red Blood Count 3.57 L 3.80-5.11 10^6/uL Hemoglobin 10.6 L 11.5-16.0 g/dL Hematocrit 33 L 35-52 % Mean Corpuscular Volume 91 80-99 fL Mean Corpuscular Hemoglobin 30 25-34 pg Mean Corpuscular Hemoglobin Concent 33 32-36 g/dL Red Cell Distribution Width 16.8 H 10.0-14.5 % Platelet Count 156 130-400 10^3/uL Mean Platelet Volume 10.8 9.0-12.2 fL Immature Granulocyte % (Auto) 0 % Neutrophils (%) (Auto) 76 H 42-75 % Lymphocytes (%) (Auto) 16 12-44 % Monocytes (%) (Auto) 7 0-12 % Eosinophils (%) (Auto) 0 0-10 % Basophils (%) (Auto) 0 0-10 % Neutrophils # (Auto) 5.1 1.8-7.8 10^3/uL Lymphocytes # (Auto) 1.1 1.0-4.0 10^3/uL Monocytes # (Auto) 0.5 0.0-1.0 10^3/uL Eosinophils # (Auto) 0.0 0.0-0.3 10^3/uL Basophils # (Auto) 0.0 0.0-0.1 10^3/uL Immature Granulocyte # (Auto) 0.0 0.0-0.1 10^3/uL Sodium Level 129 L 135-145 MMOL/L Potassium Level 3.9 3.6-5.0 MMOL/L Chloride Level 97 L 98-107 MMOL/L Carbon Dioxide Level 18 L 21-32 MMOL/L Anion Gap 14 5-14 MMOL/L Blood Urea Nitrogen 10 7-18 MG/DL Creatinine 0.65 0.60-1.30 MG/DL Estimat Glomerular Filtration Rate 85 BUN/Creatinine Ratio 15 Glucose Level 76 70-105 MG/DL Calcium Level 8.2 L 8.5-10.1 MG/DL Corrected Calcium 9.3 8.5-10.1 MG/DL Magnesium Level 1.9 1.6-2.4 MG/DL Total Bilirubin 1.2 H 0.1-1.0 MG/DL Aspartate Amino Transf (AST/SGOT) 197 H 5-34 U/L Alanine Aminotransferase (ALT/SGPT) 35 0-55 U/L Alkaline Phosphatase 50 40-136 U/L C-Reactive Protein High Sensitivity 3.96 H 0.00-0.50 MG/DL Total Protein 7.7 6.4-8.2 GM/DL Albumin 2.6 L 3.2-4.5 GM/DL Urine Color YELLOW Urine Clarity CLEAR Urine pH 6.0 5-9 Urine Specific [place] 1.020 1.016-1.022 Urine Protein TRACE H NEGATIVE Urine Glucose (UA) NEGATIVE NEGATIVE Urine Ketones 1+ H NEGATIVE Urine Nitrite NEGATIVE NEGATIVE Urine Bilirubin NEGATIVE NEGATIVE Urine Urobilinogen 1.0 < = 1.0 MG/DL Urine Leukocyte Esterase NEGATIVE NEGATIVE Urine RBC (Auto) NEGATIVE NEGATIVE Urine RBC RARE /HPF Urine WBC NONE /HPF Urine Squamous Epithelial Cells 0-2 /HPF Urine Crystals NONE /LPF Urine Bacteria NEGATIVE /HPF Urine Casts NONE /LPF Urine Mucus NEGATIVE /LPF Urine Culture Indicated NO SARS-CoV-2 RNA (RT-PCR) Not Detected Not Detecte Blood Gas Puncture Site RT RAD Blood Gas Patient Temperature 98.9 Arterial Blood pH 7.40 7.37-7.43 Arterial Blood Partial Pressure CO2 34 L 35-45 MMHG Arterial Blood Partial Pressure O2 75 L 79-93 MMHG Arterial Blood HCO3 21 L 23-27 MMOL/L Arterial Blood Total CO2 21.8 21.0-31.0 MMOL/L Arterial Blood Oxygen Saturation 96 94-100 % Arterial Blood Base Excess -3.3 L -2.5-2.5 MMOL/L Herrera Test YES-POS Blood Gas Ventilator Setting NO Blood Gas Inspired Oxygen 2 L My Orders Orders - BETZAIDA BAILEY Cbc With Automated Diff (03/07/22 12:08) Comprehensive Metabolic Panel (03/07/22 12:08) Hs C Reactive Protein (03/07/22 12:08) Ua Culture If Indicated (03/07/22 12:08) Shelton Cath (03/07/22 12:08) Ed Iv/Invasive Line Start (03/07/22 12:08) Ns Iv 500 Ml (Sodium Chloride 0.9%) (03/07/22 12:15) Magnesium (03/07/22 12:08) Chest 1 View, Ap/Pa Only (03/07/22 12:29) Covid 19 Inhouse Test (03/07/22 12:29) Arterial Blood Gas (03/07/22 13:40) Ed Admission (Communication) (03/07/22 14:07) Ed Iv/Invasive Line Start (03/07/22 14:07) Ns Iv 1000 Ml (Sodium Chloride 0.9%) (03/07/22 14:15) Ceftriaxone 1 Gm Pre-Mix (Rocephin 1 Gm (03/07/22 14:15) Azithromycin Injection (Zithromax Inject (03/07/22 14:15) Medications Given in ED Current Medications Medications Dose Ordered Sig/Toyin Route Start Time Stop Time Status Last Admin Dose Admin Sodium Chloride 500 ml @ 0 mls/hr Q0M ONCE IV 03/07/22 12:15 03/07/22 12:16 DC 03/07/22 12:38 500 MLS/HR Vital Signs/I&O 03/07/22 11:50 Temp 37.8 Pulse 89 Resp 18 B/P (MAP) 149/67 (94) Pulse Ox 94 O2 Delivery Nasal Cannula O2 Flow Rate 2.00 Blood Pressure Mean: 94 Progress Progress Note : Time: 14:04 Progress Note The patient does not meet septic criteria however she does have a history of fever. She has no white count tachycardia. She is hypoxic on the monitor so we put her on 2 L and is maintaining her oxygen sats in the low to mid 90s. Even on 2 L her ABG shows her hypoxemia is persistent PaO2 of 70. Plan to go ahead and cover her with Rocephin, azithromycin, give her some more IV fluids and admit. The urinalysis appears to be contamination from previous as today's uri nalysis is normal and the culture grew out mixed vinicio. Diagnostic Imaging Diagonstic Imaging: Xray Plain Films/CT/US/NM/MRI: chest Comments [facility] [place], [place] NAME: FELICIANO CARVER [facility] REC#: [id number] PT STATUS: REG ER : 1935 PHYSICIAN: BETZAIDA BAILEY MD ADMIT DATE: 03/07/22/ER Draft Date of Exam:03/07/22 CHEST 1 VIEW, AP/PA ONLY INDICATION: Weakness, altered mental status. TECHNIQUE: Single view chest at 12:55 PM. CORRELATION STUDY: 05/09/2017. FINDINGS: Patient is rotated on this study. Given this, the heart size and mediastinum are enlarged and mildly prominent. Vasculature is overall stable. Probable combination of small effusion along with atelectasis or infiltrate at both lung bases, right greater than left, which overall appear changed from prior. IMPRESSION: 1. Cardiac enlargement with borderline vasculature. 2. Combination of atelectasis or infiltrate along with effusions at both lung bases, right greater than left. Dictated on workstation # [id number] Dict: 03/07/22 1257 Trans: 03/07/22 1311 [id number] Interpreted by: NANDO LAZO DO Electronically signed by: Reviewed: Reviewed by Me Departure Communication (Admissions) Time/Spoke to Admitting Phy: 14:00 Discussed the case with Dr. Sequeira and she agrees to put in queued orders for pneumonia treatment with Rocephin and azithromycin and some fluids. Floor bed. Impression Primary Impression: Pneumonia Qualified Codes: J18.9 - Pneumonia, unspecified organism Additional Impressions: Acute respiratory failure with hypoxia Delirium due to another medical condition Disposition: ADMITTED INPATIENT Condition: Stable Admissions Decision to Admit Reason: Admit from ER (General) Decision to Admit/Date: Mar 07, 2022 Time/Decision to Admit Time: 13:50 Departure-Patient Inst. Referrals: ALLYSSA MURRAY MD (PCP/Family) Primary Care Physician BETZAIDA BAILEY Mar 07, 2022 13:49
[2022-03-07] MEDS ORDERED: AZITHROMYCIN INJECTION 500 MG in NS (IVPB) 250 ML IV ONE (14:15)
[2022-03-07] MEDS ORDERED: NS IV 1000 ML 1,000 ML IV SCH (14:15)
[2022-03-07] MEDS ORDERED: cefTRIAXone 1 GM PRE-MIX 50 ML IV ONE (14:15)
[2022-03-07] MEDS ORDERED: ONDANSETRON 4 MG/2 ML (SDV) Z0FRAN IV PRN (15:30)
[2022-03-07] MEDS ORDERED: BISACODYL 10 MG SUPP (DULCOLAX) PR PRN (15:30)
[2022-03-07] MEDS ORDERED: diphenhydrAMINE 50 MG/ML INJ (BENADRYL) IVP PRN (15:30)
[2022-03-07] MEDS ORDERED: ONDANSETRON 4 MG (ZOFRAN) ORAL DISSOLVE TAB PO PRN (15:30)
[2022-03-07] MEDS ORDERED: CALCIUM CARBONATE 500 MG (TUMS) TAB.CHEW PO PRN (15:30)
[2022-03-07] MEDS ORDERED: MILK OF MAGNESIA 400 MG/5 ML 30 ML UDC PO PRN (15:30)
[2022-03-07] MEDS ORDERED: ACETAMINOPHEN 325 MG TABLET PO PRN (15:30)
[2022-03-07] MEDS ORDERED: morphine INJ 4 MG/ML 1 ML (VIAL/SYRINGE) IV PRN (15:30)
[2022-03-07] MEDS ORDERED: polyethylene glycoL POWDER 17 GM (MIRALAX) PACK PO PRN (15:30)
[2022-03-07] MEDS ORDERED: MELATONIN 3 MG TABLET PO PRN (15:30)
[2022-03-07] MEDS ORDERED: diphenhydrAMINE 25 MG TAB (BENADRYL) PO PRN (15:30)
[2022-03-07] MEDS ORDERED: ALPRAZolam 0.25 MG (XANAX) TAB PO PRN (15:30)
[2022-03-07] MEDS ORDERED: LACTULOSE SYRUP 10GM/15ML (ENULOSE) 30ML UDC PO PRN (15:30)
[2022-03-07] MEDS ORDERED: ANTACID SUSP 30 ML UDC (MYLANTA) PO PRN (15:30)
[2022-03-07] MEDS ORDERED: AZITHROMYCIN INJECTION 500 MG in NS (IVPB) 250 ML IV NR (15:45)
[2022-03-07 15:55] VITALS: BP 112/57
[2022-03-07 16:08] VITALS: BP 112/57
[2022-03-07] MEDS ORDERED: RT-ALBUTEROL/IPRATROPIUM 3 ML (DUONEB) VIAL INH PRN (16:30)
[2022-03-07] MEDS: cefTRIAXone 1 GM PRE-MIX 50 ML IV SCH (17:41)
[2022-03-07] MEDS: ENOXAPARIN 40 MG/0.4 ML (LOVENOX) SYR SC SCH (17:46)
[2022-03-07] MEDS: NS IV 1000 ML 1,000 ML IV SCH (17:47)
[2022-03-07 19:43] VITALS: BP 140/78
[2022-03-07] MEDS: RT-ALBUTEROL/IPRATROPIUM 3 ML (DUONEB) VIAL INH SCH (20:49)
[2022-03-07] MEDS: SENNOSIDES 8.6 MG (SENOKOT) TAB PO SCH (20:52)
[2022-03-07] MEDS: DOCUSATE SODIUM 100 MG (COLACE) CAP PO SCH (20:52)
[2022-03-08] VITALS (7 sets, daily range): BP systolic 114–154; BP diastolic 59–66
[2022-03-08] MEDS: RT-ALBUTEROL/IPRATROPIUM 3 ML (DUONEB) VIAL INH SCH ×4 (01:29→21:32)
[2022-03-08] MEDS: NS IV 1000 ML 1,000 ML IV SCH ×3 (06:17→22:21)
[2022-03-08 07:21] LABS: BASOPHILS % (AUTO) 0 % (0-10); EOSINOPHILS % (AUTO) 0 % (0-10); HEMATOCRIT 31 % (35-52); LYMPHOCYTES # (AUTO) 0.9 10^3/uL (1.0-4.0); LYMPHOCYTES % (AUTO) 13 % (12-44); MEAN CORPUSCULAR HEMOGLOBIN 30 pg (25-34); MEAN CORPUSCULAR HGB CONC 32 g/dL (32-36); MEAN CORPUSCULAR VOLUME 93 fL (80-99); MEAN PLATELET VOLUME 10.1 fL (9.0-12.2); MONOCYTES # (AUTO) 0.6 10^3/uL (0.0-1.0); MONOCYTES % (AUTO) 9 % (0-12); NEUTROPHILS # (AUTO) 5.2 10^3/uL (1.8-7.8); NEUTROPHILS % (AUTO) 78 % (42-75); PLATELET COUNT 132 10^3/uL (130-400); WHITE BLOOD COUNT 6.7 10^3/uL (4.3-11.0)
[2022-03-08 07:44] LABS: ALBUMIN 2.2 GM/DL (3.2-4.5); BILIRUBIN,TOTAL 0.9 MG/DL (0.1-1.0); CALCIUM 7.7 MG/DL (8.5-10.1); CREATININE SERUM 0.63 MG/DL (0.60-1.30); POTASSIUM 3.5 MMOL/L (3.6-5.0); TOTAL PROTEIN 6.6 GM/DL (6.4-8.2)
--- NOTE | 2022-03-08 08:49 | Diagnostic Imaging Report ---
EXAMINATION: Chest 1 view HISTORY: Pneumonia COMPARISON: 03/07/2022 FINDINGS: Heart size is enlarged. Small bilateral pleural effusions. Mild interstitial opacities within the mid and lower lungs. Degenerative changes of the thoracic spine. Osseous structures are otherwise intact. IMPRESSION: 1. Stable small bilateral pleural effusions with bibasilar interstitial opacities. Dictated by: Dictated on workstation # [id number]
[2022-03-08] MEDS: AZITHROMYCIN 250 MG TAB (ZITHROMAX) PO SCH (09:57)
[2022-03-08] MEDS: SENNOSIDES 8.6 MG (SENOKOT) TAB PO SCH ×2 (09:57→20:40)
[2022-03-08] MEDS: DOCUSATE SODIUM 100 MG (COLACE) CAP PO SCH ×2 (09:57→20:40)
--- NOTE | 2022-03-08 11:46 | Physical Therapy Evaluation ---
PT Evaluation-General Medical Diagnosis Admission Date Mar 07, 2022 at 14:08 Medical Diagnosis: respiratory failure with hypoxia Onset Date: Mar 07, 2022 Therapy Diagnosis Therapy Diagnosis: debility/weakness Height/Weight Height (Feet): 5 Height (Inches): 4.00 Weight (Pounds): 200 Weight (Ounces): 2.0 Precautions Precautions/Isolations: Fall Prevention, Standard Precautions Referral Physician: Fabby Reason for Referral: Evaluation/Treatment Medical History Pertinent Medical History: Dementia, HTN, Neuropathy, PVD Current History EMS secondary to AMS, fever, weakness, coccyx wound Reviewed History: Yes Social History Home: Single Level Current Living Status: Children son is caregiver Prior Prior Level of Function SCALE: Activities may be completed with or without assistive devices. 6-Iachokijma-vibaygd completes the activity by him/herself with no assistance from a helper. 5-Set-up or Clean-up Assistance-helper sets up or cleans up; patient completes activity. [place] assists only prior to or following the activity. 4-Supervision or Touching Assistance-helper provides verbal cues and/or touching/steadying and/or contact guard assistance as patient completes activity. Assistance may be provided throughout the activity or intermittently. 3-Partial/Moderate Assistance-helper does LESS THAN HALF the effort. [place] lifts, holds or supports trunk or limbs, but provides less than half the effort. 2-Substantial/Maximal Assistance-helper does MORE THAN HALF the effort. [place] lifts or holds trunk or limbs and provides more than half the effort. 7-Bspjohnvn-ejixik does ALL the effort. Patient does none of the effort to complete the activity. Or, the assistance of 2 or more helpers is required for the patient to complete the activity. If activity was not attempted, code reason: 7-Patient Refused. 9-Not Applicable-not attempted and the patient did not perform the activity before the current illness, exacerbation or injury. 10-Not Attempted due to Environmental Limitations-(lack of equipment, weather restraints, etc.). 88-Not Attempted due to Medical Conditions or Safety Concerns. Bed Mobility: 2 Transfers (B,C,W/C): 2 Gait: 9 Stairs: 9 Indoor Mobility (Ambulation): Not [place] Stairs: Not [place] Prior Devices Use: Manual wheelchair, Walker PT Evaluation-Current Subjective Patient and son agree to PT. Objective Patient Orientation: Confused Attachments: Oxygen, Shelton Catheter, IV ROM/Strength ROM Lower Extremities bilateral LE WFL Strength Lower Extremities 3/5 grossly bilateral LE Integumentary/Posture Integumentary refer to nursing notes Bladder Incontinence: Shelton Cath Posture slightly kyphotic Neuromuscular (Tone, Coordination, Reflexes) grossly intact Sensory Vision: Functional Hearing: Functional Transfers Lying to Sitting/Side of Bed(Q: 2 Sit to Stand (QC): 2 Chair/Tdo-fs-Xcgpw Xfer(QC): 2 (able to stand to FWW and pivot to recliner) Gait Does the Patient Walk?: No and Walking Goal NOT indicated Balance Sitting Static: Fair Sitting Dynamic: Fair Standing Static: Fair Standing Dynamic: Poor Assessment/Needs 86 y.o. female, will be seen short term by skilled PT to address functional strength and mobility to improve current LOF. Patient is non ambulatory per family report but is able to stand and transfer. Son is primary caregiver. Rehab Potential: Guarded PT Employment Director Goals Group Home Goals PT Group Home Goals Time Frame: Mar 19, 2022 Roll Left & Right (QC): 3 Sit to Lying (QC): 3 Lying-Sitting on Side/Bed(QC): 3 Sit to Stand (QC): 3 Chair/Wne-zc-Sgrny Xfer(QC): 3 PT Plan Problem List Problem List: Activity Tolerance, Functional Strength, Safety, Balance, Gait, Transfer, Bed Mobility Treatment/Plan Treatment Plan: Continue Plan of Care Treatment Plan: Bed Mobility, Education, Functional Activity Megan, Functional Strength, Gait, Safety, Therapeutic Exercise, Transfers Treatment Duration: Mar 19, 2022 Frequency: 6 times per week Estimated Hrs Per Day: .25 hour per day Time/GCodes Time In: 1045 Time Out: 1055 Total Billed Treatment Time: 10 Total Billed Treatment 1 visit EVModC 10 min YVONNE DE JESUS PT Mar 08, 2022 11:46
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
--- NOTE | 2022-03-08 13:04 | History & Physical-Hospitalist ---
NATHAN REY 03/08/22 1304: History of Present Illness HPI/Chief Complaint Patient is an 86 y/o female that presents to the ER with her son, who is her car jennifer, with a chief complaint of AMS, fever, and yellowish/green sputum production. Patient currently has altered mental status and is unable to answer my questions at this time. All H+P information was obtained from her son. Patient has a past medical history of dementia, hypertension, and hyperli pidemia. Patient also recently had a UTI approximately a week ago and was started on amoxicillin. Patient took amoxicillin for four days and then began to develop diarrhea and then D/C'd the amoxicillin. Patient states that the diarrhea continued for three days, but seemed to have stopped either last night or this morning. Patient states that starting four days ago he also noticed a decrease in appetite, energy, strength, and a more sudden change in mental status. Patient's son states that over the past few months he has began to notice some subtle changes in mental status. Dr. Cooley, patient's PCP, attempted to place the patient on seroquel to help with patient's mental status. The son states that recently, her dose was increased, with some immediate release tablets added. Son states that this seemed to sedate her too much. This is also around the time he began to notice the more rapid change in mental status. During my visit patient was still in the process of waking up and was not very alert or oriented. In the ER, a CXR was performed and found atelectasis at the bases of both lungs with bilateral pleural effusions. Patient was started on rocephin and azithromycin. During visit of patient with Dr. Rouse, patient seemed more alert, and was oriented to self, but not place or time. Source: family (Son, patient unable to give H+P at tme of my visit 2/ AMS) Exam Limitations: clinical condition Date Seen 03/08/22 Attending Physician Grzegorz Cooley MD PCP Admitting Physician: Milka Sequeira DO Attending Physician: Ankur Rouse MD Referring Physician Date of Admission Mar 07, 2022 at 14:08 Home Medications & Allergies Home Medications Reviewed patient Home Medication Reconciliation performed by pharmacy medication reconciliations advanced manufacturing technician and/or nursing. Patients Allergies have been reviewed. Allergies Allergies Coded Allergies gabapentin (Unverified Adverse Reaction, Mild, VOMITING. , 03/21/19) Past Tfmsynj-Bifkgl-Khqfti Hx Patient Social History Marrital Status: Tobacco Use?: No Use of E-Cig and/or Vaping dev: No Substance use?: No Alcohol Use?: No Pt feels they are or have been: No Immunizations Up To Date First/Initial COVID19 Vaccinat: NONE Tetanus Booster (TDap): More Than 5 Years Hepatitis A: No Hepatitis B: No Seasonal Allergies Seasonal Allergies: Yes Current Status status: No status: No Advance Directives: Yes Advance Directive Location: Copy from prev record Communicates: Verbally Primary Language: Israeli Preferred Spoken Language: Israeli Is interpretation needed?: No Sensory deficits: Vision impairment Implanted or Applied Medical D: None Past Medical History Surgeries: Appendectomy, Cardiac, Gallbladder Currently Using CPAP: No Currently Using BIPAP: No Hypertension, Peripheral Vascular Neuropathy, Vertigo SITE COORDINATOR History: Menopausal Sexually Transmitted Disease: No HIV/AIDS: No Neurogenic Bladder Gastroesophageal Reflux, Hemorrhoids, Ulcer, Gall Bladder Disease Arthritis Hypothyroidsim Tinnitis Loss of Vision: Denies Hearing Impairment: Denies Eating Disorder, Sleep Difficulties, Anxiety, Depression Blood Disorders: No Adverse Reaction/Blood Tranf: No (N/A) PMHx: Vertigo PSurgHx: Cholecystectomy Appendectomy Family Medical History FHx: pancreatic cancer 19 MOTHER, Onset:60 years & older Myocardial infarction 19 FATHER Son Heart Disease, Cancer Review of Systems ROS-Unable to Obtain: Patient unable to give ROS due to current clinical condition Physical Exam Physical Exam Vital Signs Vital Signs - First Documented 03/07/22 03/07/22 11:50 16:08 Temp 37.8 Pulse 89 Resp 18 B/P (MAP) 149/67 (94) Pulse Ox 94 O2 Delivery Nasal Cannula O2 Flow Rate 2.00 FiO2 28 Capillary Refill : Less Than 3 Seconds Height, Weight, BMI Height: 5'4.00" Weight: 200lbs. 2.0oz. 90.726578dh; 29.80 BMI Method:Stated General Appearance: WD/WN, Other (eyes closed, still not very alert to surroundings, talking some to herself) Neck: Non Tender, Supple Respiratory: No Accessory Muscle Use, No Respiratory Distress, Decreased Breath Sounds Cardiovascular: Regular Rate, Rhythm, Normal Peripheral Pulses, Systolic Murmur (LUSB, radiates to carotids ) Gastrointestinal: No Pulsatile Mass, Non Tender, Soft Rectal: Deferred Extremity: Normal Inspection, No Calf Tenderness, No Pedal Edema, Other (severe bilateral hallux valgus) Neurologic/Psychiatric: Disoriented, Other (not really alert or oriented at in itial visit, upon revisit with Dr. Rouse patient was A+Ox1) Skin: Normal Color, Warm/Dry Results Results/Procedures Labs Laboratory Tests 03/07/22 12:03 03/08/22 07:12 Patient resulted labs reviewed. Assessment/Plan Admission Diagnosis Sepsis Pneumonia Altered mental status Admission Status: Inpatient Order (span 2 midnights) Reason for Inpatient Admission: Sepsis Pneumonia Altered mental status Assessment and Plan Sepsis Pneumonia * Patient started on rocephin and azithromycin in the ER on 03/07. * CXR from 03/08 shows, stable small bilateral pleural effusions with bibasilar interstitial opacities. * Patient no longer has fever. * Continue to monitor and consider repeat CXR in 24-48 hours. Acute delirium on chronic dementia * Patient having intermittent bouts of delirium with agitation and aggravation, likely synergistic with chronic dementia and underlying infection. * Patient recently started on seroquel to help with her dementia, but her Son states it makes her too drowsy. * Son was asking if we could try an AchE inhibitor like galantamine or memantine instead for her symptoms. * Will consider starting once patient's PNA is under control and we can further assess new baseline * Frequent reassurance and orientation to crop duster helper in minimizing disorientation in the hospital setting * Continue to monitor Acute Hypoxia, resolved * Patient had an episode of hypoxia in the ER and was placed on breathing treatments and 2L NC O2. * Patient no longer on oxygen, continue giving duoneb Hyperbilirubinemia Elevated Liver enzymes * Bilirubin 1.2 on arrival, now trending down at 0.9 * AST 197 on arrival now 170 * Consider viral hepatits panel * Consider RUQ US if labs begin to worsen or fail to improve, especially in light of AMS. Hypertension * Patient on Toprol on home, continue Hyperlipidemia * Hold statin until liver enzyme work-up has been completed DVT prophylaxis * ANKUR Chavarria MD 03/08/22 8107: History of Present Illness Time Seen by a Provider: 10:25 Past Fknruhp-Yfpwqt-Nkaizs Hx Family Medical History FHx: pancreatic cancer 19 MOTHER, Onset:60 years & older Myocardial infarction 19 FATHER Son Review of Systems Constitutional: other (unable to obtain) Supervisory-Addendum Brief Verification & Attestation Participated in pt care: history, MDM, physical Personally performed: exam, history, MDM, supervision of care Care discussed with: Medical Student Procedures: n/a I personally saw and examined patient and did my own history and exam to confirm the student documentation. She has overlapping second toes over her great toe, rather than typical hallux valgus. Will obtain echo as last one many years ago and has murmur at this time. I directed the plan of care as documented by the medical student. NATHAN REY Mar 08, 2022 13:04 ANKUR ROUSE MD Mar 08, 2022 15:37
[2022-03-08] MEDS ORDERED: ATOR40TA70 PO (13:26)
[2022-03-08] MEDS ORDERED: MELA1TAB51 PO (13:26)
[2022-03-08] MEDS ORDERED: QUET25TA35 PO (13:26)
[2022-03-08] MEDS ORDERED: QUET50TA4 PO (13:29)
[2022-03-08] MEDS: ENOXAPARIN 40 MG/0.4 ML (LOVENOX) SYR SC SCH (15:37)
[2022-03-08] MEDS: cefTRIAXone 1 GM PRE-MIX 50 ML IV SCH (15:38)
[2022-03-08] MEDS ORDERED: NON-FORMULARY MEDICATION 1 EA EA (Melatonin 1 MG) PO PRN (15:45)
--- NOTE | 2022-03-08 16:29 | Diagnostic Imaging Report ---
EXAMINATION: US Abdomen limited. TECHNIQUE: Multiple real-time grayscale images were obtained over the right upper quadrant in various projections. HISTORY: Elevated LFTs. COMPARISON: 05/22/2019. FINDINGS: Pancreas: The pancreas is nonvisualized secondary to overlying bowel gas. Liver: The liver is normal in echogenicity and contour. No focal lesions are seen. The portal vein is patent with hepatopetal flow. Gallbladder and biliary tree: The gallbladder is surgically absent. There is no biliary ductal dilation. The common duct is obscured by overlying bowel gas. Right kidney: The right kidney is normal without hydronephrosis. Aorta and IVC: The aorta is nonvisualized secondary to overlying bowel gas. The visualized IVC is normal. Fluid: No ascites is seen. IMPRESSION: 1. Unremarkable right upper quadrant ultrasound. Dictated by: Dictated on workstation # [id number]
[2022-03-08] MEDS: meTOprolol TARTRATE 50 MG (LOPRESSOR) TAB PO SCH (20:39)
[2022-03-08 23:05] LABS: HEPATITIS C ANTIBODY C Reactive (Non-Reactive)
[2022-03-09] MEDS: RT-ALBUTEROL/IPRATROPIUM 3 ML (DUONEB) VIAL INH SCH ×4 (02:43→21:30)
[2022-03-09 03:53] VITALS: BP 154/67
[2022-03-09 05:24] LABS: BASOPHILS % (AUTO) 0 % (0-10); EOSINOPHILS # (AUTO) 0.1 10^3/uL (0.0-0.3); EOSINOPHILS % (AUTO) 1 % (0-10); HEMATOCRIT 31 % (35-52); HEMOGLOBIN 9.5 g/dL (11.5-16.0); LYMPHOCYTES % (AUTO) 19 % (12-44); MEAN CORPUSCULAR HEMOGLOBIN 29 pg (25-34); MEAN CORPUSCULAR HGB CONC 31 g/dL (32-36); MEAN CORPUSCULAR VOLUME 95 fL (80-99); MEAN PLATELET VOLUME 10.5 fL (9.0-12.2); MONOCYTES # (AUTO) 0.5 10^3/uL (0.0-1.0); MONOCYTES % (AUTO) 8 % (0-12); NEUTROPHILS # (AUTO) 3.9 10^3/uL (1.8-7.8); NEUTROPHILS % (AUTO) 71 % (42-75); PLATELET COUNT 143 10^3/uL (130-400); WHITE BLOOD COUNT 5.5 10^3/uL (4.3-11.0)
[2022-03-09 05:32] LABS: ALBUMIN 2.2 GM/DL (3.2-4.5)
[2022-03-09 05:33] LABS: POTASSIUM 3.2 MMOL/L (3.6-5.0)
[2022-03-09 05:34] LABS: CALCIUM 7.6 MG/DL (8.5-10.1)
[2022-03-09 05:35] LABS: TOTAL PROTEIN 6.2 GM/DL (6.4-8.2)
[2022-03-09 05:37] LABS: BILIRUBIN,TOTAL 0.7 MG/DL (0.1-1.0)
[2022-03-09 05:39] LABS: CREATININE SERUM 0.59 MG/DL (0.60-1.30)
[2022-03-09] MEDS ORDERED: KCL 20 MEQ TAB (K-DUR) PO ONE (07:30)
[2022-03-09 07:32] VITALS: BP 124/86
[2022-03-09] MEDS: CLOPIDOGREL 75 MG (PLAVIX) TABLET PO SCH (08:17)
[2022-03-09] MEDS: AZITHROMYCIN 250 MG TAB (ZITHROMAX) PO SCH (08:17)
[2022-03-09] MEDS: SENNOSIDES 8.6 MG (SENOKOT) TAB PO SCH ×2 (08:17→20:35)
[2022-03-09] MEDS: DOCUSATE SODIUM 100 MG (COLACE) CAP PO SCH ×2 (08:17→20:34)
[2022-03-09] MEDS: meTOprolol TARTRATE 50 MG (LOPRESSOR) TAB PO SCH ×2 (08:17→20:33)
--- NOTE | 2022-03-09 08:24 | Progress Note ---
NATHAN REY 03/09/22 0824: Subjective Subjective/Events-last exam Patient is being seen in follow up for PNA and Acute delirium on chronic dementia. Patient is awake and alert this morning. Oriented x1. I am still unsure how close this is to her baseline, as son says she usually does not know the date. Patient states she is feeling better today. Denies any pain. Is able to hold a conversation with me. Patient did have a reactive Hep C test with an Ab Index of 7.05. Further testing with HCV PCR has been started. Patient's son told me that the skill nursing facilities that they looked at going at were full and that they would probably be requiring home physical therapy. The son asked if he could speak to social human services assistants again. Review of Systems General: No Chills, No Night Sweats HEENT: No Head Aches, No Visual Changes Pulmonary: No Dyspnea, No Cough Cardiovascular: No: Chest Pain, Palpitations Gastrointestinal: No: Nausea, Vomiting, Abdominal Pain Genitourinary: No Dysuria, No Frequency Objective Exam Last Set of Vital Signs Vital Signs Date Time Temp Pulse Resp B/P (MAP) Pulse Ox O2 Delivery O2 Flow Rate FiO2 03/09/22 07:32 37.0 80 18 124/86 (99) 96 Nasal Cannula 2.00 03/07/22 16:08 28 Capillary Refill : Less Than 3 Seconds I&O l Intake and Output 03/09/22 00:00 Intake Total 1695 ml Output Total 375 ml Balance 1320 ml Intake Oral 645 ml IV Total 1050 ml Output Urine Total 375 ml # Bowel Movements 1 General: Alert, Other (A+Ox1) HEENT: Atraumatic, PERRLA Neck: Supple, No JVD Heart: Regular Rate, Other (Systolic murmur, LUSB radiates to carotids) Abdomen: Normal Bowel Sounds, Soft Extremities: No Clubbing, No Cyanosis, Normal Pulses, Other (right toes medially deviate and cross with big toe bilaterally) Neuro: Normal Speech Results/Procedures Lab Laboratory Tests 03/09/22 05:12: White Blood Count 5.5, Red Blood Count 3.26L, Hemoglobin 9.5L, Hematocrit 31L, Mean Corpuscular Volume 95, Mean Corpuscular Hemoglobin 29, Mean Corpuscular H emoglobin Concent 31L, Red Cell Distribution Width 17.0H, Platelet Count 143, Mean Platelet Volume 10.5, Immature Granulocyte % (Auto) 0, Neutrophils (%) (Auto) 71, Lymphocytes (%) (Auto) 19, Monocytes (%) (Auto) 8, Eosinophils (%) (Auto) 1, Basophils (%) (Auto) 0, Neutrophils # (Auto) 3.9, Lymphocytes # (Auto) 1.0, Monocytes # (Auto) 0.5, Eosinophils # (Auto) 0.1, Basophils # (Auto) 0.0, Immature Granulocyte # (Auto) 0.0, Sodium Level 135, Potassium Level 3.2L, Chloride Level 106, Carbon Dioxide Level 17L, Anion Gap 12, Blood Urea Nitrogen 7, Creatinine 0.59L, Estimat Glomerular Filtration Rate 87, BUN/Creatinine Ratio 12, Glucose Level 69L, Calcium Level 7.6L, Corrected Calcium 9.0, Total Bilirubin 0.7, Aspartate Amino Transf (AST/SGOT) 161H, Alanine Aminotransferase (ALT/SGPT) 30, Alkaline Phosphatase 38L, Total Protein 6.2L, Albumin 2.2L Microbiology 03/07/22 Blood Culture - Preliminary, Resulted No growth Assessment/Plan Assessment/Plan Admission Dx Sepsis Pneumonia Acute delirium on chronic dementia Assessment & Plan Sepsis Pneumonia * Patient started on rocephin and azithromycin in the ER on 03/07. Currently day 3 of . * CXR from 03/08 shows, stable small bilateral pleural effusions with bibasilar interstitial opacities. * Patient no longer has fever. * Continue to monitor and consider repeat CXR in 24-48 hours or before discharge Acute delirium on chronic dementia * Patient having intermittent bouts of delirium with agitation and aggravation, likely synergistic with chronic dementia and underlying infection. * Patient's mental status improved today, 03/09. Son states she is not quite back to baseline * Patient recently started on seroquel to help with her dementia, but her Son states it makes her too drowsy. * Consider starting low dose of memantine tomorrow, 03/10, if patient continues to improve today * Frequent reassurance and orientation to roaster helper in minimizing disorientation in the hospital setting * Continue to monitor Acute Hypoxia, resolved * Patient had an episode of hypoxia in the ER and was placed on breathing treatments and 2L NC O2. * Patient no longer on oxygen, continue giving duoneb Hyperbilirubinemia Elevated Liver enzymes * Bilirubin 1.2 on arrival, now trending down at 0.9 * AST 197 on arrival now 161 * Patient has reactive hep C antibody. Next step is testing is HCV PCR. Awaiting results * RUQ US shows no acute pathology Hypertension * Patient on Toprol on home, continue Hyperlipidemia * Hold statin until liver enzyme work-up has been completed DVT prophylaxis * Robertx ANKUR ROUSE MD 03/09/22 2015: Supervisory-Addendum Brief Verification & Attestation Participated in pt care: history, MDM, physical Personally performed: exam, history, MDM, supervision of care Care discussed with: Medical Student Procedures: n/a I personally saw and examined patient and repeated history and exam. At time of my exam, she was on 2 lpm supplemental oxygen. Otherwise agree with documentation by medical student and I directed the plan of care as documented. NATHAN REY Mar 09, 2022 08:24 ANKUR ROUSE MD Mar 09, 2022 20:15
--- NOTE | 2022-03-09 09:44 | Physical Therapy Daily Note ---
PT Daily Note-Current Subjective Patient in recliner pre tx, agrees to PT, has some back pain. Appearance Patient in recliner post tx with nurse call, phone, tray, all needs met, family in room. Mental Status Patient Orientation: Person, Place, Situation Attachments: Oxygen, Shelton Catheter, IV Transfers SCALE: Activities may be completed with or without assistive devices. 0-Fkqiysohra-bcroqud completes the activity by him/herself with no assistance from a helper. 5-Set-up or Clean-up Assistance-helper sets up or cleans up; patient completes activity. [place] assists only prior to or following the activity. 4-Supervision or Touching Assistance-helper provides verbal cues and/or touching/steadying and/or contact guard assistance as patient completes activity. Assistance may be provided throughout the activity or intermittently. 3-Partial/Moderate Assistance-helper does LESS THAN HALF the effort. [place] lifts, holds or supports trunk or limbs, but provides less than half the effort. 2-Substantial/Maximal Assistance-helper does MORE THAN HALF the effort. [place] lifts or holds trunk or limbs and provides more than half the effort. 3-Eokzzgxcl-npmlus does ALL the effort. Patient does none of the effort to complete the activity. Or, the assistance of 2 or more helpers is required for the patient to complete the activity. If activity was not attempted, code reason: 7-Patient Refused. 9-Not Applicable-not attempted and the patient did not perform the activity before the current illness, exacerbation or injury. 10-Not Attempted due to Environmental Limitations-(lack of equipment, weather restraints, etc.). 88-Not Attempted due to Medical Conditions or Safety Concerns. Sit to Stand (QC): 3 mod assist for sit to stand from recliner, cues for hand placement and positioning Gait Training Distance: 10' Walk 10 feet (QC): 3 Gait Persons Needed: 1 Gait Assistive Device: FWW Patient ambulated 5' forward and 5' backward using rolling walker, when ambulating backward she needed min assist to maintain balance Exercises Seated Therapy Exercises: Ankle pumps, Long arc quads Seated Reps: 20 Standing: Heel/toe raises, Marching, Mini squats Standing Reps: 10 Treatments ambulation, LE strengthening Assessment Current Status: Fair Progress slightly improved general mobility from yesterday PT Chcf Goals Chcf Goals PT Chcf Goals Time Frame: Mar 19, 2022 Roll Left & Right (QC): 3 Sit to Lying (QC): 3 Lying-Sitting on Side/Bed(QC): 3 Sit to Stand (QC): 3 Chair/Bbb-yi-Hrvyb Xfer(QC): 3 PT Plan Problem List Problem List: Activity Tolerance, Functional Strength, Safety, Balance, Gait, Transfer, Bed Mobility, ROM Treatment/Plan Treatment Plan: Continue Plan of Care Treatment Plan: Bed Mobility, Education, Functional Activity Megan, Functional Strength, Gait, Safety, Therapeutic Exercise, Transfers Treatment Duration: Mar 19, 2022 Frequency: 6 times per week Estimated Hrs Per Day: .25 hour per day Safety Risks/Education Patient Education: Gait Training, Transfer Techniques, Correct Positioning, Safety Issues Teaching Recipient: Patient Teaching Methods: Demonstration, Discussion Response to Teaching: Reinforcement Needed Time/GCodes Time In: 917 Time Out: 926 Total Billed Treatment Time: 9 Total Billed Treatment 1 visit EX 9' LUIGI ROWELL PT Mar 09, 2022 09:44
[2022-03-09 11:23] VITALS: BP 127/59
--- NOTE | 2022-03-09 11:28 | Occupational Ther Daily Note ---
OT Current Status-Daily Note Subjective Pt sitting in recliner and finishing lunch upon OT arrival, agreeable to tx. Pt much more verbal and interactive today. Mental Status/Objective Patient Orientation: Person Attachments: Shelton Catheter, IV, Oxygen (2L via NC) ADL-Treatment Therapy Code Descriptions/Definitions Functional [place] Measure: 0=Not Assessed/NA 4=Minimal Assistance 1=Total Assistance 5=Supervision or Setup 2=Maximal Assistance 6=Modified [place] 3=Moderate Assistance 7=Complete IndependenceSCALE: Activities may be completed with or without assistive devices. 1-Edfekcxgaj-ngsnkaz completes the activity by him/herself with no assistance from a helper. 5-Set-up or Clean-up Assistance-helper sets up or cleans up; patient completes activity. [place] assists only prior to or following the activity. 4-Supervision or Touching Assistance-helper provides verbal cues and/or touching/steadying and/or contact guard assistance as patient completes activity. Assistance may be provided throughout the activity or intermittently. 3-Partial/Moderate Assistance-helper does LESS THAN HALF the effort. [place] lifts, holds or supports trunk or limbs, but provides less than half the effort. 2-Substantial/Maximal Assistance-helper does MORE THAN HALF the effort. [place] lifts or holds trunk or limbs and provides more than half the effort. 7-Zrxouvkuh-jbueqg does ALL the effort. Patient does none of the effort to complete the activity. Or, the assistance of 2 or more helpers is required for the patient to complete the activity. If activity was not attempted, code reason: 7-Patient Refused. 9-Not Applicable-not attempted and the patient did not perform the activity before the current illness, exacerbation or injury. 10-Not Attempted due to Environmental Limitations-(lack of equipment, weather restraints, etc.). 88-Not Attempted due to Medical Conditions or Safety Concerns. Eating (QC): 5 (Assistance to open milk container per pt report) Oral Hygiene (QC): 2 (Pt's son brushes dentures and pt places them in mouth per pt report) Other Treatment Pt remained in recliner throughout tx. Pt politely declined oral care as she already completed routine earlier with son. Pt educated on the importance of increasing BUE strength and endurance so she can assist with transfers and increase IND in ADLs, pt nodded in agreement although level of understanding is unclear. She completed 2x10 of the following BUE exercises: shoulder flexion, isometric tricep extensions with pillow, fist pumps with yellow sponge (light resistance), and digital opposition with yellow sponge. Post tx, pt left in recliner with call light in reach and all needs met. Education OT Patient Education: Correct positioning, Energy conservation, Exercise pr ogram, Progress toward Goal/Update tx plan, Purpose of tx/functional activities, Rehab process Teaching Recipient: Patient Teaching Methods: Demonstration, Discussion Response to Teaching: Verbalize Understanding, Return Demonstration, Reinforcement Needed OT Half-Way Goals Half-Way Goals Time Frame: Apr 01, 2022 Eating (QC): 5 Oral Hygiene (QC): 5 Shower/Bathe Self (QC): 2 Upper Body Dressing (QC): 5 Additional Goals: 1-Demonstrate ADL Tasks, 2-Verbalize Understanding, 3- ImproveStrength/Megan 1=Demonstrate adherence to instructed precautions during ADL tasks. 2=Patient will verbalize/demonstrate understanding of assistive devices/modifications for ADL. 3=Patient will improve strength/tolerance for activity to enable patient to perform ADL's. OT Education/Plan Problem List/Assessment Assessment: Decreased Activ Tolerance, Decreased UE Strength, Impaired Cognition, Impaired Funct Balance, Impaired I ADL's, Impaired Self-Care Skills Pt would benefit from skilled OT services in order to strengthen BUE and increase activity tolerance so pt can assist in transfers and perform ADLs (oral hygiene/grooming tasks) in order to decrease caregiver burden. Discharge Recommendations Plan/Recommendations: Continue POC Treatment Plan/Plan of Care Patient would benefit from OT for education, treatment and training to promote independence in ADL's, mobility, safety and/or upper extremity function for ADL's. Plan of Care: ADL Retraining, Caregiver Training, Functional Mobility, UE Funct Exercise/Act Treatment Duration: Apr 01, 2022 Frequency: 3 times per week (3-5x/wk) Estimated Hrs Per Day: .25 hour per day Rehab Potential: Guarded Time/GCodes Start Time: 10:58 Stop Time: 11:16 Total Time Billed (hr/min): 18 Billed Treatment Time 1, Ex (18') MADIHA ABRAHAM OT Mar 09, 2022 11:28
[2022-03-09] MEDS: cefTRIAXone 1 GM PRE-MIX 50 ML IV SCH (14:59)
[2022-03-09] MEDS: ENOXAPARIN 40 MG/0.4 ML (LOVENOX) SYR SC SCH (14:59)
[2022-03-09 16:00] VITALS: BP 162/68
[2022-03-09 19:13] VITALS: BP 156/70
[2022-03-09] MEDS: MELATONIN 3 MG TABLET PO PRN (20:38)
[2022-03-10] VITALS: BP 132/62
[2022-03-10] MEDS: RT-ALBUTEROL/IPRATROPIUM 3 ML (DUONEB) VIAL INH SCH ×4 (02:25→19:25)
[2022-03-10] MEDS: NS IV 1000 ML 1,000 ML IV SCH (03:50)
[2022-03-10 06:23] LABS: BASOPHILS % (AUTO) 0 % (0-10); EOSINOPHILS # (AUTO) 0.1 10^3/uL (0.0-0.3); EOSINOPHILS % (AUTO) 3 % (0-10); HEMATOCRIT 29 % (35-52); HEMOGLOBIN 9.2 g/dL (11.5-16.0); LYMPHOCYTES # (AUTO) 0.8 10^3/uL (1.0-4.0); LYMPHOCYTES % (AUTO) 19 % (12-44); MEAN CORPUSCULAR HEMOGLOBIN 30 pg (25-34); MEAN CORPUSCULAR HGB CONC 32 g/dL (32-36); MEAN CORPUSCULAR VOLUME 94 fL (80-99); MEAN PLATELET VOLUME 10.8 fL (9.0-12.2); MONOCYTES # (AUTO) 0.4 10^3/uL (0.0-1.0); MONOCYTES % (AUTO) 10 % (0-12); NEUTROPHILS # (AUTO) 3.1 10^3/uL (1.8-7.8); NEUTROPHILS % (AUTO) 69 % (42-75); PLATELET COUNT 144 10^3/uL (130-400); WHITE BLOOD COUNT 4.5 10^3/uL (4.3-11.0)
[2022-03-10 06:33] LABS: ALBUMIN 2.1 GM/DL (3.2-4.5)
[2022-03-10 06:34] LABS: POTASSIUM 3.5 MMOL/L (3.6-5.0)
[2022-03-10 06:35] LABS: CALCIUM 7.7 MG/DL (8.5-10.1)
[2022-03-10 06:36] LABS: TOTAL PROTEIN 6.1 GM/DL (6.4-8.2)
[2022-03-10 06:38] LABS: BILIRUBIN,TOTAL 0.6 MG/DL (0.1-1.0)
[2022-03-10 06:40] LABS: CREATININE SERUM 0.57 MG/DL (0.60-1.30)
[2022-03-10 07:22] VITALS: BP 149/67
[2022-03-10] MEDS ORDERED: KCL 20 MEQ TAB (K-DUR) PO ONE (08:00)
[2022-03-10] MEDS: AZITHROMYCIN 250 MG TAB (ZITHROMAX) PO SCH (08:50)
[2022-03-10] MEDS: meTOprolol TARTRATE 50 MG (LOPRESSOR) TAB PO SCH ×2 (08:50→22:03)
[2022-03-10] MEDS: CLOPIDOGREL 75 MG (PLAVIX) TABLET PO SCH (08:50)
[2022-03-10] MEDS: DOCUSATE SODIUM 100 MG (COLACE) CAP PO SCH ×2 (08:51→22:05)
[2022-03-10] MEDS: SENNOSIDES 8.6 MG (SENOKOT) TAB PO SCH ×2 (08:51→22:05)
--- NOTE | 2022-03-10 11:35 | Physical Therapy Daily Note ---
PT Daily Note-Current Subjective Patient and son agree to PT. Mental Status Patient Orientation: Confused Attachments: Oxygen, [place] Catheter Transfers SCALE: Activities may be completed with or without assistive devices. 8-Dwcectzlyw-iyiqdfj completes the activity by him/herself with no assistance from a helper. 5-Set-up or Clean-up Assistance-helper sets up or cleans up; patient completes activity. [place] assists only prior to or following the activity. 4-Supervision or Touching Assistance-helper provides verbal cues and/or touching/steadying and/or contact guard assistance as patient completes activity. Assistance may be provided throughout the activity or intermittently. 3-Partial/Moderate Assistance-helper does LESS THAN HALF the effort. [place] lifts, holds or supports trunk or limbs, but provides less than half the effort. 2-Substantial/Maximal Assistance-helper does MORE THAN HALF the effort. [place] lifts or holds trunk or limbs and provides more than half the effort. 7-Zfuaydpjl-wnryal does ALL the effort. Patient does none of the effort to complete the activity. Or, the assistance of 2 or more helpers is required for the patient to complete the activity. If activity was not attempted, code reason: 7-Patient Refused. 9-Not Applicable-not attempted and the patient did not perform the activity before the current illness, exacerbation or injury. 10-Not Attempted due to Environmental Limitations-(lack of equipment, weather restraints, etc.). 88-Not Attempted due to Medical Conditions or Safety Concerns. Lying to Sitting/Side of Bed(Q: 2 Sit to Stand (QC): 2 Chair/Dhh-ih-Lofbl Xfer(QC): 2 Gait Training Distance: 10' x 2 Walk 10 feet (QC): 3 Gait Assistive Device: FWW slow, shuffle gait sequence with minimal foot clearance with VC's for gait sequence Assessment Patient tolerated treatment well and is up in recliner with family present. Patient tolerated minimal activity. PT Mcfp Goals Mcfp Goals PT Learning Support Teacher Goals Time Frame: Mar 19, 2022 Roll Left & Right (QC): 3 Sit to Lying (QC): 3 Lying-Sitting on Side/Bed(QC): 3 Sit to Stand (QC): 3 Chair/Lqf-ub-Rhvkb Xfer(QC): 3 PT Plan Treatment/Plan Treatment Plan: Continue Plan of Care Treatment Plan: Bed Mobility, Education, Functional Activity Megan, Functional Strength, Gait, Safety, Therapeutic Exercise, Transfers Treatment Duration: Mar 19, 2022 Frequency: 6 times per week Estimated Hrs Per Day: .25 hour per day Time/GCodes Time In: 1115 Time Out: 1128 Total Billed Treatment Time: 13 Total Billed Treatment 1 visit GT 13 min YVONNE DE JESUS PT Mar 10, 2022 11:35
--- NOTE | 2022-03-10 11:57 | Occupational Ther Daily Note ---
OT Current Status-Daily Note Subjective Pt seated in recliner with son present upon OT arrival, agreeable to tx. Mental Status/Objective Patient Orientation: Person ADL-Treatment Therapy Code Descriptions/Definitions Functional [place] Measure: 0=Not Assessed/NA 4=Minimal Assistance 1=Total Assistance 5=Supervision or Setup 2=Maximal Assistance 6=Modified [place] 3=Moderate Assistance 7=Complete IndependenceSCALE: Activities may be completed with or without assistive devices. 5-Uvygvkdprd-sfymajz completes the activity by him/herself with no assistance from a helper. 5-Set-up or Clean-up Assistance-helper sets up or cleans up; patient completes activity. Clear assists only prior to or following the activity. 4-Supervision or Touching Assistance-helper provides verbal cues and/or touching/steadying and/or contact guard assistance as patient completes activity. Assistance may be provided throughout the activity or intermittently. 3-Partial/Moderate Assistance-helper does LESS THAN HALF the effort. Clear lifts, holds or supports trunk or limbs, but provides less than half the effort. 2-Substantial/Maximal Assistance-helper does MORE THAN HALF the effort. Clear lifts or holds trunk or limbs and provides more than half the effort. 5-Gkvufoyhk-ktfqul does ALL the effort. Patient does none of the effort to complete the activity. Or, the assistance of 2 or more helpers is required for the patient to complete the activity. If activity was not attempted, code reason: 7-Patient Refused. 9-Not Applicable-not attempted and the patient did not perform the activity befo re the current illness, exacerbation or injury. 10-Not Attempted due to Environmental Limitations-(lack of equipment, weather re straints, etc.). 88-Not Attempted due to Medical Conditions or Safety Concerns. Other Treatment OT offered oral care, but pt's son declined stating he helps her wash her dentures at home and he will continue to assist at discharge. Pt's son requests OT to focus on UE exercises. Pt remained in recliner throughout tx. She participated in the following BUE exercises to increase strength and endurance needed for transfers and self-care activities: 2x10 shoulder flexion with 1lb wrist weights, 2x10 bicep curls with 1lb wrist weights, 1x10 wrist extensions with 1lb wrist weights, 2x10 isometric tricep extensions with pillow, and 1x10 fist pumps with yellow sponge (light resistance). Pt tolerated exercises well, needing brief RBs in between sets and exercises. Post tx, pt left in recliner with call light in reach and all needs met. Education OT Patient Education: Correct positioning, Energy conservation, Exercise program, Progress toward Goal/Update tx plan, Purpose of tx/functional activities, Rehab process Teaching Recipient: Patient Teaching Methods: Demonstration, Discussion Response to Teaching: Verbalize Understanding, Return Demonstration OT Upholstery Restorer Goals Upholstery Restorer Goals Time Frame: Apr 01, 2022 Eating (QC): 5 Oral Hygiene (QC): 5 Shower/Bathe Self (QC): 2 Upper Body Dressing (QC): 5 Additional Goals: 1-Demonstrate ADL Tasks, 2-Verbalize Understanding, 3-Improve Strength/Megan 1=Demonstrate adherence to instructed precautions during ADL tasks. 2=Patient will verbalize/demonstrate understanding of assistive devices/modifications for ADL. 3=Patient will improve strength/tolerance for activity to enable patient to pe rform ADL's. OT Education/Plan Problem List/Assessment Assessment: Decreased Activ Tolerance, Decreased UE Strength, Impaired Funct Balance, Impaired I ADL's, Impaired Self-Care Skills Pt would benefit from skilled OT services in order to strengthen BUE and increase activity tolerance so pt can assist in transfers and perform ADLs (oral hygiene/grooming tasks) in order to decrease caregiver burden. Discharge Recommendations Plan/Recommendations: Continue POC Treatment Plan/Plan of Care Patient would benefit from OT for education, treatment and training to promote independence in ADL's, mobility, safety and/or upper extremity function for ADL's. Plan of Care: ADL Retraining, Caregiver Training, Functional Mobility, UE Funct Exercise/Act Treatment Duration: Apr 01, 2022 Frequency: 3 times per week (3-5x/wk) Estimated Hrs Per Day: .25 hour per day Rehab Potential: Guarded Time/GCodes Start Time: 11:36 Stop Time: 11:50 Total Time Billed (hr/min): 14 Billed Treatment Time 1, Ex (14') MADIHA ABRAHAM OT Mar 10, 2022 11:57
[2022-03-10 12:30] VITALS: BP 156/70
[2022-03-10] MEDS: GALANTAMINE 4 MG PO SCH (15:21)
[2022-03-10] MEDS: ENOXAPARIN 40 MG/0.4 ML (LOVENOX) SYR SC SCH (15:21)
[2022-03-10 15:57] VITALS: BP 131/77
--- NOTE | 2022-03-10 16:11 | Progress Note ---
NATHAN REY 03/10/22 1611: Subjective Subjective/Events-last exam Patient is being seen in follow up for PNA and AMS. Patient resting comfortably upon me entering the room. Still wearing 2L NC. Patient states she has no complaints at this time. Patient is A+Ox1 today still. This may be her baseline. Patient is going to trial galantamine today. According to son, patient had an episode of acute delirium last night due to disorientation. Patient also struggled w/ PT today. Son was concerned that if patient was unable to cooperate well enough that he may not be able to care for he alone. Son states they would consider SNF at that point. Objective Exam Last Set of Vital Signs Vital Signs Date Time Temp Pulse Resp B/P (MAP) Pulse Ox O2 Delivery O2 Flow Rate FiO2 03/10/22 15:57 37.1 68 20 131/77 (95) 95 Room Air 03/10/22 12:30 2.00 03/07/22 16:08 28 Capillary Refill : Less Than 3 Seconds I&O Intake and Output 03/10/22 00:00 Intake Total 1060 ml Output Total 350 ml Balance 710 ml Intake Oral 1060 ml Output Urine Total 350 ml General: Alert, Cooperative, Other (Ox1) HEENT: Atraumatic, PERRLA Neck: Supple, No JVD Lungs: Clear to Auscultation (anterior posts only) Heart: Regular Rate, No Murmurs Abdomen: Normal Bowel Sounds, Soft, No Tenderness Neuro: Normal Speech Results/Procedures Lab Laboratory Tests 03/10/22 05:40: White Blood Count 4.5, Red Blood Count 3.07L, Hemoglobin 9.2L, Hematocrit 29L, Mean Corpuscular Volume 94, Mean Corpuscular Hemoglobin 30, Mean Corpuscular Hemoglobin Concent 32, Red Cell Distribution Width 17.2H, Platelet Count 144, Mean Platelet Volume 10.8, Immature Granulocyte % (Auto) 0, Neutrophils (%) (Auto) 69, Lymphocytes (%) (Auto) 19, Monocytes (%) (Auto) 10, Eosinophils (%) (Auto) 3, Basophils (%) (Auto) 0, Neutrophils # (Auto) 3.1, Lymphocytes # (Auto) 0.8L, Monocytes # (Auto) 0.4, Eosinophils # (Auto) 0.1, Basophils # (Auto) 0.0, Immature Granulocyte # (Auto) 0.0, Sodium Level 134L, Potassium Level 3.5L, Chloride Level 106, Carbon Dioxide Level 19L, Anion Gap 9, Blood Urea Nitrogen 6L, Creatinine 0.57L, Estimat Glomerular Filtration Rate 88, BUN/Creatinine Ratio 11, Glucose Level 72, Calcium Level 7.7L, Corrected Calcium 9.2, Total Bilirubin 0.6, Aspartate Amino Transf (AST/SGOT) 153H, Alanine Aminotransferase (ALT/SGPT) 32, Alkaline Phosphatase 40, Total Protein 6.1L, Albumin 2.1L Microbiology 03/07/22 Blood Culture - Preliminary, Resulted No growth Assessment/Plan Assessment/Plan Admission Dx Sepsis PNA AMS Assessment & Plan Sepsis Pneumonia * Patient started on rocephin and azithromycin in the ER on 03/07. Currently day 4 of . Patient removed IV last night, does not want a new one inserted. Will switch from Ceftriaxone to cefdinir * CXR from 03/08 shows, stable small bilateral pleural effusions with bibasilar interstitial opacities. * Patient no longer has fever. * Continue to monitor Acute delirium on chronic dementia * Patient's mental status seems to have improved, apparently had an episode of delirium last night after taking 1.5mg of melatonin. Plan is to stay one more day and then D/C tomorrow. * Patient starting trial of galantamine today * Frequent reassurance and orientation to cd storage and materials make up helper in minimizing disorientation in the hospital setting * Continue to monitor Acute Hypoxia, resolved * Patient had an episode of hypoxia in the ER and was placed on breathing treatments and 2L NC O2. * Patient has been on 2L NC pretty much constantly. Will have RT do a home evaluation. Hyperbilirubinemia Elevated Liver enzymes * Bilirubin 1.2 on arrival, now trending down at 0.9 * AST 197 on arrival now 153 * Patient has reactive hep C antibody. Next step is testing is HCV PCR. Awaiting results * RUQ US shows no acute pathology Hypertension * Patient on Toprol on home, continue Hyperlipidemia * Hold statin until liver enzyme work-up has been completed DVT prophylaxis * ANKUR Chavarria MD 03/10/22 1781: Supervisory-Addendum Brief Verification & Attestation Participated in pt care: history, MDM, physical Personally performed: exam, history, MDM, supervision of care Care discussed with: Medical Student Procedures: n/a I personally saw and examined patient and did my own history and exam which confirm that documented by the medical student. I directed the plan of care as documented by the medical student. NATHAN REY Mar 10, 2022 16:11 ANKUR ROUSE MD Mar 10, 2022 17:27
[2022-03-10 19:18] VITALS: BP 178/72
[2022-03-10] MEDS: MELATONIN 3 MG TABLET PO PRN (22:04)
[2022-03-10] MEDS: CEFDINIR 300 MG (OMNICEF) CAP PO SCH (22:04)
[2022-03-11 00:12] VITALS: BP 151/69
[2022-03-11] MEDS: RT-ALBUTEROL/IPRATROPIUM 3 ML (DUONEB) VIAL INH SCH ×2 (01:45→10:45)
[2022-03-11 04:00] VITALS: BP 135/60
[2022-03-11] MEDS: GALANTAMINE 4 MG PO SCH (06:25)
[2022-03-11 07:03] LABS: BASOPHILS % (AUTO) 0 % (0-10); EOSINOPHILS # (AUTO) 0.1 10^3/uL (0.0-0.3); EOSINOPHILS % (AUTO) 2 % (0-10); HEMATOCRIT 33 % (35-52); HEMOGLOBIN 10.3 g/dL (11.5-16.0); LYMPHOCYTES # (AUTO) 1.2 10^3/uL (1.0-4.0); LYMPHOCYTES % (AUTO) 24 % (12-44); MEAN CORPUSCULAR HEMOGLOBIN 29 pg (25-34); MEAN CORPUSCULAR HGB CONC 32 g/dL (32-36); MEAN CORPUSCULAR VOLUME 92 fL (80-99); MEAN PLATELET VOLUME 10.9 fL (9.0-12.2); MONOCYTES # (AUTO) 0.5 10^3/uL (0.0-1.0); MONOCYTES % (AUTO) 9 % (0-12); NEUTROPHILS # (AUTO) 3.3 10^3/uL (1.8-7.8); NEUTROPHILS % (AUTO) 65 % (42-75); PLATELET COUNT 181 10^3/uL (130-400); WHITE BLOOD COUNT 5.1 10^3/uL (4.3-11.0)
[2022-03-11 07:35] LABS: ALBUMIN 2.2 GM/DL (3.2-4.5); BILIRUBIN,TOTAL 0.7 MG/DL (0.1-1.0); CALCIUM 7.9 MG/DL (8.5-10.1); CREATININE SERUM 0.62 MG/DL (0.60-1.30); POTASSIUM 3.9 MMOL/L (3.6-5.0); TOTAL PROTEIN 6.6 GM/DL (6.4-8.2)
[2022-03-11 07:55] VITALS: BP 122/71
[2022-03-11] MEDS: CEFDINIR 300 MG (OMNICEF) CAP PO SCH (08:35)
[2022-03-11] MEDS: AZITHROMYCIN 250 MG TAB (ZITHROMAX) PO SCH (08:35)
[2022-03-11] MEDS: DOCUSATE SODIUM 100 MG (COLACE) CAP PO SCH (08:35)
[2022-03-11] MEDS: meTOprolol TARTRATE 50 MG (LOPRESSOR) TAB PO SCH (08:35)
[2022-03-11] MEDS: SENNOSIDES 8.6 MG (SENOKOT) TAB PO SCH (08:35)
[2022-03-11] MEDS: CLOPIDOGREL 75 MG (PLAVIX) TABLET PO SCH (08:35)
--- NOTE | 2022-03-11 10:23 | Physical Therapy Daily Note ---
PT Daily Note-Current Subjective Son agrees to family training/education with patient to assess ability to return to home. Mental Status Patient Orientation: Confused Transfers SCALE: Activities may be completed with or without assistive devices. 9-Jpottriuvc-dlehmze completes the activity by him/herself with no assistance from a helper. 5-Set-up or Clean-up Assistance-helper sets up or cleans up; patient completes activity. [place] assists only prior to or following the activity. 4-Supervision or Touching Assistance-helper provides verbal cues and/or touching/steadying and/or contact guard assistance as patient completes activity. Assistance may be provided throughout the activity or intermittently. 3-Partial/Moderate Assistance-helper does LESS THAN HALF the effort. [place] lifts, holds or supports trunk or limbs, but provides less than half the effort. 2-Substantial/Maximal Assistance-helper does MORE THAN HALF the effort. [place] lifts or holds trunk or limbs and provides more than half the effort. 4-Liiutqiey-qhysrj does ALL the effort. Patient does none of the effort to complete the activity. Or, the assistance of 2 or more helpers is required for the patient to complete the activity. If activity was not attempted, code reason: 7-Patient Refused. 9-Not Applicable-not attempted and the patient did not perform the activity before the current illness, exacerbation or injury. 10-Not Attempted due to Environmental Limitations-(lack of equipment, weather restraints, etc.). 88-Not Attempted due to Medical Conditions or Safety Concerns. Lying to Sitting/Side of Bed(Q: 3 Sit to Stand (QC): 3 Chair/Mid-jx-Dwowy Xfer(QC): 3 Toilet Transfer (QC): 3 Gait Training Distance: 15' x 2 Walk 10 feet (QC): 3 Gait Assistive Device: FWW very slow, shuffle gait sequence Assessment Per son, patient is at "baseline" and he feels comfortable with returning to home. Patient and son performed all mobility with use of gait belt. SW notified of session. PT Usp Goals Electrician Underground Goals PT Electrician Underground Goals Time Frame: Mar 19, 2022 Roll Left & Right (QC): 3 Sit to Lying (QC): 3 Lying-Sitting on Side/Bed(QC): 3 Sit to Stand (QC): 3 Chair/Ztm-lr-Opegl Xfer(QC): 3 PT Plan Treatment/Plan Treatment Plan: Continue Plan of Care Treatment Plan: Bed Mobility, Education, Functional Activity Megan, Functional Strength, Gait, Safety, Therapeutic Exercise, Transfers Treatment Duration: Mar 19, 2022 Frequency: 6 times per week Estimated Hrs Per Day: .25 hour per day Time/GCodes Time In: 901 Time Out: 926 Total Billed Treatment Time: 25 Total Billed Treatment 1 visit FA x 2 25 min YVONNE DE JESUS PT Mar 11, 2022 10:23
[2022-03-11] MEDS ORDERED: CEFD300C3 PO (10:26)
[2022-03-11] MEDS ORDERED: GALA4TAB PO (10:26)
--- NOTE | 2022-03-11 10:32 | D/C HH Face to Face Order ---
D/C Face to Face Orders Instructions for Patient Patient Instructions/FollowUp: Follow up with Dr. Cooley within a week of discharge. Hold your atorvastatin until liver follow up tests are done. Physician to follow Patient: Lenora Discharge Diet for Home: Regular Diet Patient Problems: Community Acquired Pneumonia Dementia with Delirium Patient Data-Allergies,Ht & Wt Patient Allergies: Coded Allergies: gabapentin (Unverified Adverse Reaction, Mild, VOMITING. , 03/21/19) Height (Feet): 5 Height (Inches): 4.00 Weight (Pounds): 200 Weight (Ounces): 2.0 Home Health Need/Face to Face Date of Face to Face: Mar 11, 2022 Clinical Findings: Generalized weakness and fatigue I have seen Pt hqqo-bu-seiu: Yes Discharged To: Home Diagnosis/Conditions: See patient problems Patient is Homebound due to: CognItive deficits, [place] fall risk due to instabilty Homebound Status Due to the above stated illness, injury or surgical procedure (medical condition or diagnosis) and associated clinical findings, the patient is homebound because of his/her inability to leave home except with aid of a supportive device and/or person AND leaving the home requires a considerable and taxing effort or is medically contraindicated. Pt req the following assistanc: Aid of another person, Walker Home Health Nursing Orders Home Health Services Order: Photo Colorer-Evaluate & Treat, Physical Therapy-Evaluate & Treat Home Health Infusion Therapy Line Start Date: Mar 07, 2022 Certify Stmt I certify that this patient is under my care and that I, a nurse practitioner or a physician; a paralegal assistant working with me, had a face to face encounter that - meets the physician face to face encounter requirements with this patient as dated. ANKUR ROUSE MD Mar 11, 2022 10:32
[2022-03-11 11:31] VITALS: BP 135/76
[2022-03-11] MEDS ORDERED: MEMA5TAB43 PO (13:43)
[2022-03-11 14:47] VITALS: BP 135/76
--- NOTE | 2022-03-11 15:27 | Discharge Summary ---
NATHAN REY 03/11/22 1520: Discharge Summary Hospital Course Hospital Course Date of Admission: Mar 07, 2022 at 14:08 Admission Diagnosis : Family Physician/Provider: Grzegorz Cooley MD Date of Discharge: 03/11/22 Discharge Diagnosis: Pneumonia, resolved Dementia Hospital Course: Patient is an 86 y/o female that presents to the ER with her son, who is her commercial helicopter pilot, with a chief complaint of AMS, fever, and yellowish/green sputum production. In the ER, a CXR was performed and found atelectasis at the bases of both lungs with bilateral pleural effusions. Patient was started on rocephin and azithromycin. Patient's home seroquel was held, as son thought that this could be contributing to patients AMS. Patient's mental status during her stay was ini tially waxing and waning, with episodes of acute delirium, however as time went on patient's mental status continued to improve. Patient's pneumonia continued to improve with no real concerns. Patient was started on galantamine in the hospital. Patient was found by RT to require 2L O2 NC at home. Patient had elevated liver enzymes during her hospital stay and was found to be Hep C antibody positive. Hep C PCR testing was sent off and is pending results at time of discharge. Patient is to be discharged with 2.5 doses of Omnicef to finish antibiotic treatment. Patient was switched from galantamine to memantine due to outpatient cost. Patient is being sent home with an order for home oxygen. Patient is going back to home to live with her son. Patient is to see Dr. Martinez within one week of discharge. Labs and Pending Lab Test: Laboratory Tests 03/11/22 06:11: White Blood Count 5.1, Red Blood Count 3.52L, Hemoglobin 10.3L, Hematocrit 33L, Mean Corpuscular Volume 92, Mean Corpuscular Hemoglobin 29, Mean Corpuscular Hemoglobin Concent 32, Red Cell Distribution Width 17.3H, Platelet Count 181, Mean Platelet Volume 10.9, Immature Granulocyte % (Auto) 0, Neutrophils (%) (Auto) 65, Lymphocytes (%) (Auto) 24, Monocytes (%) (Auto) 9, Eosinophils (%) (Auto) 2, Basophils (%) (Auto) 0, Neutrophils # (Auto) 3.3, Lymphocytes # (Auto) 1.2, Monocytes # (Auto) 0.5, Eosinophils # (Auto) 0.1, Basophils # (Auto) 0.0, Immature Granulocyte # (Auto) 0.0, Sodium Level 133L, Potassium Level 3.9, Chloride Level 105, Carbon Dioxide Level 17L, Anion Gap 11, Blood Urea Nitrogen 5L, Creatinine 0.62, Estimat Glomerular Filtration Rate 86, BUN/Creatinine Ratio 8, Glucose Level 68L, Calcium Level 7.9L, Corrected Calcium 9.3, Total Bilirubin 0.7, Aspartate Amino Transf (AST/SGOT) 165H, Alanine Aminotransferase (ALT/SGPT) 37, Alkaline Phosphatase 47, Total Protein 6.6, Albumin 2.2L Microbiology 03/07/22 Blood Culture - Preliminary, Resulted No growth Home Meds Active Memantine HCl 5 Mg Tablet 5 Mg PO DAILY Cefdinir 300 Mg Capsule 300 Mg PO BID 2 Days Reported Melatonin 1 Mg Tablet 1 Mg PO HS PRN Clopidogrel (Clopidogrel Bisulfate) 75 Mg Tablet 75 Mg PO DAILY Metoprolol Tartrate 50 Mg Tablet 25 Mg PO BID TAKES OF A 50MG Assessment/Pt DC Instructions director of supply chain prescriptions and home oxygen. Follow up with Dr. Martinez within one week of discharge Discharge Diet: No Restrictions Discharge Physical Examination Allergies: Coded Allergies: gabapentin (Unverified Adverse Reaction, Mild, VOMITING. , 03/21/19) General Appearance: No Apparent Distress, WD/WN HEENT: PERRL/EOMI Respiratory: Chest Non Tender, Lungs Clear (anterior posts only), Normal Breath Sounds, No Accessory Muscle Use, No Respiratory Distress Cardiovascular: Regular Rate, Rhythm, No Murmur, Normal Peripheral Pulses Gastrointestinal: Normal Bowel Sounds, Non Tender, Soft Extremity: Non Tender, No Calf Tenderness, No Pedal Edema Skin: Normal Color, Warm/Dry Neurologic/Psychiatric: Alert, Normal Mood/Affect, Disoriented Discharge Summary Date of Admission Mar 07, 2022 at 14:08 Date of Discharge Mar 11, 2022 at 14:48 Discharge Date: Mar 11, 2022 Admission Diagnosis Sepsis Pneumonia Altered mental status Discharge Diagnosis ANKUR ROUSE MD 03/11/22 1618: Discharge Summary Discharge Physical Examination Allergies: Coded Allergies: gabapentin (Unverified Adverse Reaction, Mild, VOMITING. , 03/21/19) Supervisory-Addendum Brief Verification & Attestation Participated in pt care: history, MDM, physical Personally performed: exam, history, MDM, supervision of care Care discussed with: Medical Student Procedures: n/a I personally saw and examined patient and did my own history and exam which conf irmed the findings documented by the medical student. I directed the plan of care as documented. We changed galantamine to memantine on discharge due to availability. NATHAN REY Mar 11, 2022 15:20 ANKUR ROUSE MD Mar 11, 2022 16:18
--- NOTE | 2022-03-11 19:01 | Physician Query Clarification ---
Physician Query-General Query to Physician: The medical record reflects the following clinical scenario: The patient, in the setting of History/Risk factors, Sepsis, Pneumonia, No documentation of previous home 02 use Clinical Findings RR 18 to 20, has been on 2 L consistently since admission, did have a pulse ox reading of 85% once on 2 L documentation of shortness of air with exertion on admission Treatment Supplemental O2 for 4 days, IV ABX, Question: Do you agree with the impression of Acute Respiratory Failure with Hypoxia per Dr. Lakesha Ledezma? 1. Yes; will document Acute Respiratory Failure with Hypoxia, present on admission in the Progress Notes 2. No; will continue current documentation in the Progress Notes 3. Other; will document explanation of clinical findings 4. Clinically undetermined; no explanation for clinical findings Please clarify and document your clinical opinion in the Progress Notes and Discharge Summary including the definitive and/or presumptive diagnosis, (suspected or probable), related to the above clinical findings. Please include clinical findings supporting your diagnosis. In responding to this query, please exercise your independent professional judgment. The purpose of this communication is to more accurately reflect the complexity of your patients condition. The fact that a question is asked does not imply that any particular answer is desired or expected. Thank you for timely response to this clarification. Princess Mayorga, MSN, RN Clinical Phlebotomy Specialist [phone] [email or web address] PHYSICIAN RESPONSE: Based on the clinical findings in the record, please respond to the query above on this document as an addendum. Physician Response: If you have questions please contact: Track Repair Supervisor: Ext: Thank you for your time and cooperation. Clinical Phlebotomy Specialist/Track Repair Supervisor This is a permanent part of the medical record PRINCESS MAYORGA Mar 11, 2022 19:01
== END 2022-03-11 14:48 | disposition home health service (06) | DRG 871 ==
LOC: ER 11:51 → 4TH 14:08
PROVIDERS: ADMIT Internal Medicine; ATTEND Family Medicine
DX: A41.9 Sepsis, unspecified organism (principal); J18.9 Pneumonia, unspecified organism; J96.01 Acute respiratory failure with hypoxia; R17 Unspecified jaundice; J90 Pleural effusion, not elsewhere classified; F03.90 Unspecified dementia, unspecified severity, without behavioral disturbance, psychotic disturbance, mood disturbance, and anxiety; I10 Essential (primary) hypertension; G62.9 Polyneuropathy, unspecified; N31.9 Neuromuscular dysfunction of bladder, unspecified; K21.9 Gastro-esophageal reflux disease without esophagitis; M19.90 Unspecified osteoarthritis, unspecified site; E03.9 Hypothyroidism, unspecified; F41.9 Anxiety disorder, unspecified; F32.A Depression, unspecified; R41.0 Disorientation, unspecified; E78.5 Hyperlipidemia, unspecified
CPT/HCPCS: 36415; 51702; 71045; 76705; 80053; 80074; 81000; 82805; 83735; 85025; 86141; 87040; 87522; 87636; 93306; 94640; 94760; 94761

== ENCOUNTER 2022-03-14 11:40 | Emergency (ER) | payer MEDICARE, MEDICAID ==
[~2022-03-14 11:40] MED LIST changes: +ATOR40TA70 PO; +CEFD300C3 PO; +CLOP75TA28 PO; +GALA4TAB PO; +MELA1TAB51 PO; +MEMA5TAB43 PO; +METO50TA15 PO; +QUET25TA35 PO; +QUET50TA4 PO; +RISP1TAB93
--- NOTE | 2022-03-14 12:10 | ED General ---
General Chief Complaint: General Problems/Pain Stated Complaint: WEAKNESS Source of Information: Patient, Family Exam Limitations: No Limitations History of Present Illness Date Seen by Provider: Mar 14, 2022 Time Seen by Provider: 12:06 Initial Comments Patient is a 86-year-old female with a history of dementia, hypertension, hyperlipidemia presents the ED by EMS for altered mental status, bilateral leg weakness. Patient was discharged from our facility last Monday for pneumonia. According to son who is patient's DPOA states patient was doing much better until yesterday. Was complaining of bilateral leg weakness was not wanting to use her legs. He states that she became confused acutely. Patient started u sing her legs upon arrival. According to son history of TIA. Patient alert and oriented x1. He states patient appears more confused. He contacted primary care physician Dr. Ervin who recommended come to ED for further evaluation. It was discussed for inpatient rehab with patient. Patient currently on cefdinir for pneumonia. Son states oxygen level was in the 80s. On arrival EMS states oxygen was in the 90s was placed on 2 L. Does have oxygen at home that she wears intermittently. Patient denies of any headache, visual changes, upper extremity weakness, facial droop, chest pain, shortness of breath, cough. He reports decreased urination. Patient currently on galantamine Allergies and Home Medications Allergies Coded Allergies: gabapentin (Unverified Adverse Reaction, Mild, VOMITING. , 03/21/19) Patient Home Medication List Home Medication List Reviewed: Yes Cefdinir (Cefdinir) 300 Mg Capsule, 300 MG PO BID Prescribed by: ANKUR ROUSE on 03/11/22 1026 Clopidogrel Bisulfate (Clopidogrel) 75 Mg Tablet, 75 MG PO DAILY, (Reported) Entered as Reported by: ANDREA CABALLERO on 03/07/22 1229 Melatonin (Melatonin) 1 Mg Tablet, 1 MG PO HS PRN for SLEEP, (Reported) Entered as Reported by: LILY BAER on 03/08/22 1326 Memantine HCl (Memantine HCl) 5 Mg Tablet, 5 MG PO DAILY Prescribed by: ANKUR ROUSE on 03/11/22 1343 Metoprolol Tartrate (Metoprolol Tartrate) 50 Mg Tablet, 25 MG PO BID, (Reported) Entered as Reported by: ANDREA CABALLERO on 03/07/22 1229 Discontinued Medications Acetaminophen (Acetaminophen Extra Strength) 500 Mg Tablet, 500-1,000 MG PO Q6H PRN for PAIN-MILD, (Reported) Discontinued Reason: Duplicate Order Entered as Reported by: RENAY PEREZ on 05/23/19 0859 Atorvastatin Calcium (Atorvastatin Calcium) 40 Mg Tablet, 40 MG PO HS, (Reported) Entered as Reported by: LILY BAER on 03/08/22 1326 Meclizine HCl (Meclizine HCl) 25 Mg Tab.chew, 12.5 MG PO TID PRN for DIZZINESS Discontinued Reason: No Longer Taking Prescribed by: CHRISTEL VARELA on 05/23/19 1149 Quetiapine Fumarate (Quetiapine Fumarate) 25 Mg Tablet, 12.5 MG PO 0100,0700, (Reported) Entered as Reported by: LILY BAER on 03/08/22 1326 Quetiapine Fumarate (Seroquel Xr) 50 Mg Tab.er.24h, 50 MG PO 1700, (Reported) Entered as Reported by: LILY BAER on 03/08/22 1329 Risperidone (Risperidone) 1 Mg Tablet, (Reported) Discontinued Reason: No Longer Taking Entered as Reported by: ANDREA CABALLERO on 03/07/22 1229 Scopolamine (Transderm-Scop) 1 Each Patch.td72, 1 EACH TD Q72H PRN for DIZZINESS Discontinued Reason: Duplicate Order Prescribed by: CHRISTEL VARELA on 05/20/19 1128 Review of Systems Review of Systems Constitutional: No chills, No diaphoresis, No malaise, No weakness EENTM: No blurred vision, No double vision, No vision loss, No mouth pain, No mouth swelling, No throat pain, No throat swelling Respiratory: No cough, No short of breath Cardiovascular: No chest pain Gastrointestinal: No abdominal pain, No diarrhea, No nausea, No vomiting Musculoskeletal: No back pain, No joint pain Skin: No change in color Psychiatric/Neurological: Weakness (Bilateral leg weakness), Other (Altered mental status) Past Iugrbtg-[place]rx[place] Hx Patient Social History Tobacco Use?: No Use of E-Cig and/or Vaping dev: No Substance use?: No Alcohol Use?: No Pt feels they are or have been: No Immunizations Up To Date Tetanus Booster (TDap): Unknown First/Initial COVID19 Vaccinat: NONE Second COVID19 Vaccination Gonzalo: NONE Third COVID19 Vaccination Date: NONE Seasonal Allergies Seasonal Allergies: Yes Past Medical History Surgery/Hospitalization HX: DEMENTIA, RECENT UTI, PNEUMONIA Surgeries: Yes (EGD/ESOPHAGEAL DILATION; CARDIAC CATH--NO INTERVENTION) Appendectomy, Cardiac, Gallbladder Respiratory: No Currently Using CPAP: No Currently Using BIPAP: No Cardiac: Yes (CARDIAC CATH--NORMAL) Hypertension, Peripheral Vascular Neurological: Yes (CHRONIC VERTIGO) Neuropathy, Vertigo Reproductive Disorders: No Female Reproductive Disorders: Denies 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 Sexually Transmitted Disease: No HIV/AIDS: No Genitourinary: No Neurogenic Bladder Gastrointestinal: Yes Gastroesophageal Reflux, Hemorrhoids, Ulcer, Gall Bladder Disease Musculoskeletal: Yes Arthritis Endocrine: No Hypothyroidsim HEENT: Yes (READING GLASSES, DENTURES) Tinnitis Loss of Vision: Denies Hearing Impairment: Denies Cancer: No Psychosocial: Yes (not on any pharmacologic treatment) Eating Disorder, Sleep Difficulties, Anxiety, Depression Integumentary: No Blood Disorders: No Adverse Reaction/Blood Tranf: No (N/A) Family Medical History FHx: pancreatic cancer 19 MOTHER, Onset:60 years & older Myocardial infarction 19 FATHER Son Heart Disease, Cancer Physical Exam Vital Signs Vital Signs - First Documented 03/14/22 11:40 Temp 36.8 Pulse 75 Resp 20 B/P (MAP) 150/69 (96) Capillary Refill : Height, Weight, BMI Height: 5'4.00" Weight: 200lbs. 2.0oz. [id number]; 29.80 BMI Method:Stated General Appearance: No Apparent Distress, WD/WN Eyes: Bilateral Eye Normal Inspection, Bilateral Eye PERRL, Bilateral Eye EOMI HEENT: PERRL/EOMI, TMs Normal, Normal ENT Inspection, Pharynx Normal Neck: Full Range of Motion, Normal Inspection, Non Tender Respiratory: Chest Non Tender, Lungs Clear, Normal Breath Sounds, No Accessory Muscle Use, No Respiratory Distress Cardiovascular: Regular Rate, Rhythm, No Edema, No Gallop, No JVD, No Murmur Gastrointestinal: Normal Bowel Sounds, No Organomegaly, No Pulsatile Mass, Non Tender, Soft Neurologic/Psychiatric: Alert, No Motor/Sensory Deficits; No Aphasia; Disoriented; No Facial Droop Skin: Normal Color, Warm/Dry Progress/Results/Core Measures Suspected Sepsis SIRS Temperature: Pulse: Respiratory Rate: Laboratory Tests 03/14/22 12:06: White Blood Count 5.2 Blood Pressure / Mean: Laboratory Tests 03/14/22 12:06: Creatinine 0.60, INR Comment 1.2, Platelet Count 178, Total Bilirubin 0.9 Results/Orders Lab Results Laboratory Tests Test 03/14/22 12:06 03/14/22 13:45 Range/Units White Blood Count 5.2 4.3-11.0 10^3/uL Red Blood Count 3.43 L 3.80-5.11 10^6/uL Hemoglobin 10.0 L 11.5-16.0 g/dL Hematocrit 31 L 35-52 % Mean Corpuscular Volume 90 80-99 fL Mean Corpuscular Hemoglobin 29 25-34 pg Mean Corpuscular Hemoglobin Concent 32 32-36 g/dL Red Cell Distribution Width 17.5 H 10.0-14.5 % Platelet Count 178 130-400 10^3/uL Mean Platelet Volume 10.3 9.0-12.2 fL Immature Granulocyte % (Auto) 0 % Neutrophils (%) (Auto) 67 42-75 % Lymphocytes (%) (Auto) 20 12-44 % Monocytes (%) (Auto) 12 0-12 % Eosinophils (%) (Auto) 1 0-10 % Basophils (%) (Auto) 0 0-10 % Neutrophils # (Auto) 3.5 1.8-7.8 10^3/uL Lymphocytes # (Auto) 1.0 1.0-4.0 10^3/uL Monocytes # (Auto) 0.6 0.0-1.0 10^3/uL Eosinophils # (Auto) 0.0 0.0-0.3 10^3/uL Basophils # (Auto) 0.0 0.0-0.1 10^3/uL Immature Granulocyte # (Auto) 0.0 0.0-0.1 10^3/uL Prothrombin Time 15.7 H 12.2-14.7 SEC INR Comment 1.2 0.8-1.4 Activated Partial Thromboplast Time 29 24-35 SEC Sodium Level 135 135-145 MMOL/L Potassium Level 3.4 L 3.6-5.0 MMOL/L Chloride Level 102 98-107 MMOL/L Carbon Dioxide Level 22 21-32 MMOL/L Anion Gap 11 5-14 MMOL/L Blood Urea Nitrogen 5 L 7-18 MG/DL Creatinine 0.60 0.60-1.30 MG/DL Estimat Glomerular Filtration Rate 87 BUN/Creatinine Ratio 8 Glucose Level 86 70-105 MG/DL Calcium Level 8.2 L 8.5-10.1 MG/DL Corrected Calcium 9.5 8.5-10.1 MG/DL Magnesium Level 1.8 1.6-2.4 MG/DL Total Bilirubin 0.9 0.1-1.0 MG/DL Aspartate Amino Transf (AST/SGOT) 162 H 5-34 U/L Alanine Aminotransferase (ALT/SGPT) 37 0-55 U/L Alkaline Phosphatase 44 40-136 U/L C-Reactive Protein High Sensitivity 3.87 H 0.00-0.50 MG/DL B-Type Natriuretic Peptide 247.0 H <100.0 PG/ML Total Protein 7.0 6.4-8.2 GM/DL Albumin 2.4 L 3.2-4.5 GM/DL Procalcitonin 0.11 H <0.10 NG/ML Urine Color YELLOW Urine Clarity CLEAR Urine pH 6.0 5-9 Urine Specific [place] 1.015 L 1.016-1.022 Urine Protein TRACE H NEGATIVE Urine Glucose (UA) NEGATIVE NEGATIVE Urine Ketones 1+ H NEGATIVE Urine Nitrite NEGATIVE NEGATIVE Urine Bilirubin NEGATIVE NEGATIVE Urine Urobilinogen 0.2 < = 1.0 MG/DL Urine Leukocyte Esterase 1+ H NEGATIVE Urine RBC (Auto) TRACE-I H NEGATIVE Urine RBC 0-2 /HPF Urine WBC 5-10 H /HPF Urine Squamous Epithelial Cells 5-10 /HPF Urine Crystals NONE /LPF Urine Bacteria FEW H /HPF Urine Casts NONE /LPF Urine Mucus NEGATIVE /LPF Urine Yeast FEW H /HPF Urine Culture Indicated YES My Orders Orders - RAQUEL BONILLA Cbc With Automated Diff (03/14/22 12:03) Comprehensive Metabolic Panel (03/14/22 12:03) Ekg Tracing (03/14/22 12:03) Bnp [place] (03/14/22 12:03) Ct Head Wo (03/14/22 12:03) Procalcitonin (Pct) (03/14/22 12:03) Hs C Reactive Protein (03/14/22 12:03) Urinalysis (03/14/22 12:03) Magnesium (03/14/22 12:03) Partial Thromboplastin Time (03/14/22 12:03) Protime With Inr (03/14/22 12:03) Chest 1 View, Ap/Pa Only (03/14/22 13:14) Urine Culture (03/14/22 13:45) Vital Signs/I&O 03/14/22 03/14/22 11:40 17:52 Temp 36.8 36.8 Pulse 75 80 Resp 20 18 B/P (MAP) 150/69 (96) 159/67 Capillary Refill : Departure Communication (PCP) Patient with history of dementia, hypertension presents ED with lower extremity weakness increased confusion. Was recently discharged from our facility for pneumonia. She has 1 day worth of cefdinir left. According to EMS oxygen was in her lower 90s on arrival. She does have oxygen at home that she wears intermittently. Was placed on 2 L. Lung sounds clear bilateral. No increasing leg swelling. Patient appears to be having appropriate lower extremity movement. Normal sensation. Decreased urine output today. Urinalysis with [place] catheter placement secondary to not able to stand was concerning for early UTI. Last urinalysis was unremarkable. Normal white blood count. Patient had a slight elevated BNP of 247. Denies of any current chest pain or shortness of breath. Chest x-ray shows increasing bilateral pleural fluid. Focal increased density in the right hilum could be related to localized infiltrate although adenopathy or mask could have similar appearance. May need further evaluation with CT scan. CT scan head was negative for acute abnormality. Patient slept through most of her visit here. She had no focal neural deficits. She is alert and oriented x1. According to DPOA her son states she appears to be close to her baseline. DPOA requesting inpatient rehab as he saw improvement when she was admitted and discharged this past Monday. Patient was using a walker and ambulating without any difficulties until Monday. He was wanting inpatient rehab versus intermediate. Due to limited beds at our facility was able to transfer patient to [place] with the accepting Dr. Sequeira. Right before discharge family were requesting to go to [facility] as this was closer to their home town of [place]. Has been seen by Dr. Magaña at [facility]. Patient was discussed with Dr. Magaña who accepts to admit for observation and will work on intermediate for patient. Family does not want shelter at this time. If failed intermediate and/or rehab will look into shelter. Once again patient was not wanting to ambulate secondary to weakness in her lower extremities. Patient will be transferred by EMS. Concern for worsening dementia. Currently on galamantine Impression Primary Impression: generalized weakness Additional Impressions: Dementia AMS (altered mental status) UTI (urinary tract infection) Disposition: 02 XFER SHT-TRM HOSP Condition: Stable Transfer Transfer Reason: Diversion Time Spoke to Accepting Phy: 14:56 Transfer Progress Notes Patient was requesting to be transferred to [facility] for inpatient and rehab. Patient has been seen by Dr. Magaña at [facility] Transfer Time: 14:57 Transfer Facility: [facility] Method of Transfer: Private Vehicle Departure-Patient Inst. Referrals: ALLYSSA MURRAY MD (PCP/Family) Primary Care Physician RAQUEL BONILLA Mar 14, 2022 12:10
[2022-03-14 12:12] LABS: ALBUMIN 2.4 GM/DL (3.2-4.5); BASOPHILS % (AUTO) 0 % (0-10); EOSINOPHILS % (AUTO) 1 % (0-10); HEMATOCRIT 31 % (35-52); LYMPHOCYTES % (AUTO) 20 % (12-44); MEAN CORPUSCULAR HEMOGLOBIN 29 pg (25-34); MEAN CORPUSCULAR HGB CONC 32 g/dL (32-36); MEAN CORPUSCULAR VOLUME 90 fL (80-99); MEAN PLATELET VOLUME 10.3 fL (9.0-12.2); MONOCYTES # (AUTO) 0.6 10^3/uL (0.0-1.0); MONOCYTES % (AUTO) 12 % (0-12); NEUTROPHILS # (AUTO) 3.5 10^3/uL (1.8-7.8); NEUTROPHILS % (AUTO) 67 % (42-75); PLATELET COUNT 178 10^3/uL (130-400); POTASSIUM 3.4 MMOL/L (3.6-5.0); WHITE BLOOD COUNT 5.2 10^3/uL (4.3-11.0)
[2022-03-14 12:13] LABS: CALCIUM 8.2 MG/DL (8.5-10.1)
[2022-03-14 12:16] LABS: BILIRUBIN,TOTAL 0.9 MG/DL (0.1-1.0)
[2022-03-14 12:18] LABS: CREATININE SERUM 0.6 MG/DL (0.60-1.30); INR 1.2 (0.8-1.4); PROTHROMBIN TIME PATIENT 15.7 SEC (12.2-14.7)
[2022-03-14 12:21] LABS: MAGNESIUM 1.8 MG/DL (1.6-2.4)
--- NOTE | 2022-03-14 13:07 | Diagnostic Imaging Report ---
PROCEDURE: CT head without contrast. TECHNIQUE: Multiple contiguous axial images were obtained through the brain without the use of intravenous contrast. Auto Exposure Controls were utilized during the CT exam to meet ALARA standards for radiation dose reduction. INDICATION: Altered mental status The ventricles are normal in size, shape and position. There are no masses or hemorrhages. There are no extra-axial fluid collections. There is basal ganglia calcification. IMPRESSION: Senescent changes of the brain with diffuse cerebral degeneration. No acute abnormality seen. Dictated by: Dictated on workstation # [id number]
[2022-03-14 13:55] LABS: BILIRUBIN,URINE NEGATIVE (NEGATIVE); CLARITY,URINE CLEAR; COLOR,URINE YELLOW; GLUCOSE, URINE (UA) NEGATIVE (NEGATIVE); KETONES,URINE 1+ (NEGATIVE); LEUKOCYTE ESTERASE ,URINE 1+ (NEGATIVE); NITRITE,URINE NEGATIVE (NEGATIVE); PROTEIN,URINE TRACE (NEGATIVE)
[2022-03-14 14:16] LABS: BACTERIA,URINE FEW /HPF; RBC,URINE 0-2 /HPF; YEAST,URINE FEW /HPF
--- NOTE | 2022-03-14 14:22 | Diagnostic Imaging Report ---
INDICATION: Cough. TECHNIQUE/COMPARISON: An AP view of the chest was obtained with comparison made to the study of 03/08/2022. FINDINGS: There is mild cardiomegaly. There is air trapping bilaterally. There has been an increase in blunting of the costophrenic sulci, greater on the left. There is also an increased density in the right hilum compared to the previous study. No midline shift is identified. IMPRESSION: Increasing bilateral pleural fluid and/or thickening. Focal increased density in the right hilum could be related to localized infiltrate although adenopathy and/or mass could have a similar appearance. Followup PA and lateral views of the chest or possible CT imaging could be considered for assessment. Dictated by: Dictated on workstation # [id number]
[2022-03-14 17:52] VITALS: BP 159/67
== END 2022-03-14 17:51 | disposition short-term general hospital (02) ==
LOC: ER 11:42
DX: N39.0 Urinary tract infection, site not specified (principal); F03.90 Unspecified dementia, unspecified severity, without behavioral disturbance, psychotic disturbance, mood disturbance, and anxiety; Z28.310 Unvaccinated for COVID-19
CPT/HCPCS: 36415; 51702; 70450; 71045; 80053; 81000; 83735; 83880; 84145; 85025; 85610; 85730; 86141; 87088; 93005

== ENCOUNTER → 2022-04-09 | Outpatient (CLI) | payer MEDICARE, MEDICAID ==
[2022-04-09 08:08] LABS: CLARITY,URINE SL CLOUDY; COLOR,URINE YELLOW; GLUCOSE, URINE (UA) NEGATIVE (NEGATIVE); KETONES,URINE 2+ (NEGATIVE); LEUKOCYTE ESTERASE ,URINE TRACE (NEGATIVE); NITRITE,URINE NEGATIVE (NEGATIVE); PROTEIN,URINE 1+ (NEGATIVE)
[2022-04-09 08:30] LABS: BACTERIA,URINE FEW /HPF; WBC,URINE RARE /HPF
[2022-04-09 08:31] LABS: BILIRUBIN,URINE 1+ (NEGATIVE)
== END ==
LOC: LABNPT 07:45
PROVIDERS: ATTEND Internal Medicine
DX: Z01.89 Encounter for other specified special examinations (principal)
CPT/HCPCS: 81000; 87077; 87088; 87186

== ENCOUNTER 2022-05-01 10:07 | Inpatient (IN) | payer MEDICAID, MEDICARE ==
[~2022-05-01] VITALS: Ht 152 cm; Wt 70.4 kg
[2022-05-01 10:32] LABS: BASOPHILS % (AUTO) 0 % (0-10)
[2022-05-01 10:33] LABS: CLARITY,URINE SL CLOUDY; COLOR,URINE DARK YELLOW; GLUCOSE, URINE (UA) NEGATIVE (NEGATIVE); KETONES,URINE 1+ (NEGATIVE); LEUKOCYTE ESTERASE ,URINE 1+ (NEGATIVE); NITRITE,URINE POSITIVE (NEGATIVE); PROTEIN,URINE 1+ (NEGATIVE)
[2022-05-01 10:34] LABS: EOSINOPHILS % (AUTO) 0 % (0-10); HEMATOCRIT 32 % (35-52); HEMOGLOBIN 10.1 g/dL (11.5-16.0); LYMPHOCYTES # (AUTO) 1.1 10^3/uL (1.0-4.0); LYMPHOCYTES % (AUTO) 11 % (12-44); MEAN CORPUSCULAR HEMOGLOBIN 29 pg (25-34); MEAN CORPUSCULAR HGB CONC 32 g/dL (32-36); MEAN CORPUSCULAR VOLUME 90 fL (80-99); MEAN PLATELET VOLUME 10.9 fL (9.0-12.2); MONOCYTES # (AUTO) 0.5 10^3/uL (0.0-1.0); MONOCYTES % (AUTO) 5 % (0-12); NEUTROPHILS % (AUTO) 83 % (42-75); PLATELET COUNT 102 10^3/uL (130-400); WHITE BLOOD COUNT 9.7 10^3/uL (4.3-11.0)
[2022-05-01 10:40] LABS: ALBUMIN 2.5 GM/DL (3.2-4.5); POTASSIUM 3.3 MMOL/L (3.6-5.0)
[2022-05-01 10:41] LABS: CALCIUM 8.5 MG/DL (8.5-10.1)
[2022-05-01 10:42] LABS: TOTAL PROTEIN 7.4 GM/DL (6.4-8.2)
[2022-05-01 10:46] LABS: CREATININE SERUM 0.91 MG/DL (0.60-1.30)
[2022-05-01 10:54] LABS: BILIRUBIN,URINE 1+ (NEGATIVE)
[2022-05-01 10:55] LABS: BACTERIA,URINE MODERATE /HPF
[2022-05-01] MEDS ORDERED: dilTIAZem DRIP PRE-MIX 125 ML IV SCH (11:00)
--- NOTE | 2022-05-01 11:01 | ED General ---
General Chief Complaint: Neurological Problems Stated Complaint: WEAKNESS Nursing Triage Note: [place]. from [place]. Adult Son at bedside for historian. reports past couple days of mental decline by patient. Moaning/grunting. reports increased generalized weakness. pt. sent here for eval Source of Information: EMS, Family, Senior Care Records, Old Records Exam Limitations: No Limitations History of Present Illness Date Seen by Provider: May 01, 2022 Time Seen by Provider: 10:10 Initial Comments This 86-year-old woman presents to the emergency room via EMS and is accompanied by her son. She has dementia and has had notable decline over the past few months and an acute decline in the last couple of days. She has recently been living at [facility]. She has had notable weight loss. She recently has struggled with thrush and has had difficulty swallowing. Oral intake has been very poor over the past week. Today she is not engaging in any verbal interaction and is persistently moaning. She was hypotensive initially for EMS with a blood pressure of 82/48. Blood sugar was 108. EMS had difficulty obtaining pulse oximetry and noted oxygen saturation of 77% with poor waveform on room air and saturation of 95% on mask. She received outpatient IV fluid therapy earlier this week. Urine output has been decreased. According to her son, 4 days ago she was still able to converse, express a desire to improve her physical health through physical therapy, and participate in physical therapy. Patient had COVID 19 a couple months ago and recovered. Allergies and Home Medications Allergies Coded Allergies: gabapentin (Unverified Adverse Reaction, Mild, VOMITING. , 03/21/19) Patient Home Medication List Home Medication List Reviewed: Yes Acetaminophen (Acetaminophen) 500 Mg Tablet, 1,000 MG PO Q8H PRN for PAIN-MILD (1-4), (Reported) Entered as Reported by: LILY BAER on 05/02/22 0939 Last Action: Reviewed Amlodipine Besylate (Amlodipine Besylate) 5 Mg Tablet, 5 MG PO DAILY, (Reported) Entered as Reported by: RM YUAN on 05/01/22 1600 Last Action: Reviewed Clopidogrel Bisulfate (Clopidogrel) 75 Mg Tablet, 75 MG PO DAILY, (Reported) Entered as Reported by: ANDREA CABALLERO on 03/07/22 1229 Last Action: Reviewed Ibuprofen (Ibuprofen) 200 Mg Tablet, 400 MG PO Q8H PRN for PAIN-MILD (1-4), (Reported) Entered as Reported by: LILY BAER on 05/02/22 0939 Last Action: Reviewed Melatonin (Melatonin) 1 Mg Tablet, 1 MG PO HS PRN for SLEEP, (Reported) Entered as Reported by: LILY BAER on 03/08/22 1326 Last Action: Reviewed Metoprolol Tartrate (Metoprolol Tartrate) 75 Mg Tablet, 75 MG PO 0800,1600, (Reported) Entered as Reported by: RM YUAN on 05/01/22 1600 Last Action: Reviewed Nystatin (Nystatin) 100,000 Unit/Gram Powder, 1 APPLIC TOP BID PRN for ITCHING AND RASH, (Reported) Entered as Reported by: RM YUAN on 05/01/22 1600 Last Action: Reviewed Potassium Chloride (Potassium Chloride) 20 Meq Tab.er.prt, 20 MEQ PO DAILY, (Reported) Entered as Reported by: RM YUAN on 05/01/22 1601 Last Action: Reviewed Sertraline HCl (Sertraline HCl) 50 Mg Tablet, 50 MG PO DAILY, (Reported) Entered as Reported by: RM YUAN on 05/01/22 1600 Last Action: Reviewed Discontinued Medications Acetaminophen (Tylenol) 325 Mg Tablet, 1,000 MG PO Q8H PRN for PAIN-MILD (1-4), (Reported) Discontinued Reason: Prescription changed Entered as Reported by: RM YUAN on 05/01/22 1602 Last Action: New Order Cefdinir (Cefdinir) 300 Mg Capsule, 300 MG PO BID Discontinued Reason: No Longer Taking Prescribed by: ANKUR ROUSE on 03/11/22 1026 Last Action: Discontinued Ibuprofen (Ibuprofen) 400 Mg Tablet, 400 MG PO Q8H, (Reported) Discontinued Reason: Prescription changed Entered as Reported by: RM YUAN on 05/01/22 1603 Last Action: New Order Metoprolol Tartrate (Metoprolol Tartrate) 50 Mg Tablet, 25 MG PO BID, (Reported) Discontinued Reason: No Longer Taking Entered as Reported by: ANDREA CABALLERO on 03/07/22 1229 Last Action: Discontinued Review of Systems Review of Systems Constitutional: see HPI, weakness EENTM: other (Dry mucous membranes) Respiratory: see HPI Cardiovascular: see HPI Gastrointestinal: see HPI Genitourinary: no symptoms reported : No Musculoskeletal: no symptoms reported Skin: no symptoms reported Psychiatric/Neurological: See HPI Hematologic/Lymphatic: No Symptoms Reported Immunological/Allergic: no symptoms reported Past Lbiyxcf-Qgoxjv-Euzdim Hx Patient Social History Tobacco Use?: No Use of E-Cig and/or Vaping dev: No Substance use?: No Alcohol Use?: No Pt feels they are or have been: Unable to obtain Immunizations Up To Date Tetanus Booster (TDap): Unknown Influenza Vaccine Up-to-Date: No; Not Current First/Initial COVID19 Vaccinat: NONE Second COVID19 Vaccination Gonzalo: NONE Third COVID19 Vaccination Date: NONE Seasonal Allergies Seasonal Allergies: Yes Past Medical History Surgery/Hospitalization HX: DEMENTIA, RECENT UTI, PNEUMONIA Surgeries: Yes (EGD/ESOPHAGEAL DILATION; CARDIAC CATH--NO INTERVENTION) Appendectomy, Cardiac, Gallbladder Respiratory: No Currently Using CPAP: No Currently Using BIPAP: No Cardiac: Yes (CARDIAC CATH--NORMAL) Atrial Fibrillation (Paroxysmal), Hypertension, Peripheral Vascular Neurological: Yes (CHRONIC VERTIGO) Neuropathy, Vertigo Reproductive Disorders: No 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 Sexually Transmitted Disease: No HIV/AIDS: No Genitourinary: No Neurogenic Bladder Gastrointestinal: Yes Gastroesophageal Reflux, Hemorrhoids, Ulcer, Gall Bladder Disease Musculoskeletal: Yes Arthritis Endocrine: No Hypothyroidsim HEENT: Yes (READING GLASSES, DENTURES) Tinnitis Loss of Vision: Denies Hearing Impairment: Denies Cancer: No Psychosocial: Yes (not on any pharmacologic treatment) Eating Disorder, Sleep Difficulties, Anxiety, Depression Integumentary: No Blood Disorders: No Adverse Reaction/Blood Tranf: No (N/A) Family Medical History FHx: pancreatic cancer 19 MOTHER, Onset:60 years & older Myocardial infarction 19 FATHER Son Heart Disease, Cancer Physical Exam-Suspected Sepsis Physical Exam Vital Signs Vital Signs - First Documented 05/02/22 08:03 FiO2 96 Capillary Refill : Greater Than 3 Seconds Blood Pressure Mean: 80 Height, Weight, BMI Height: 5'4.00" Weight: 200lbs. 2.0oz. 90.623775es; 29.80 BMI Method:Stated General Appearance: WD/WN, Thin, Other (Ill-appearing and minimally responsive) HEENT: PERRL/EOMI, Normal ENT Inspection Neck: Normal Inspection Respiratory: Lungs Clear, Normal Breath Sounds, Other (Moaning and grunting observed) Cardiovascular: Regular Rate, Rhythm, No Edema, No Murmur Gastrointestinal: Soft; No Distended; Other (Feeling of fullness and firmness in the LLQ) Extremity: Normal Inspection, No Pedal Edema Neurologic/Psychiatric: Other (Does not follow instructions. Minimally responsive. Moans and grunting.) Skin: normal color, warm/dry Focused Exam Lactate Level Lactic Acid Level Progress/Results/Core Measures Suspected Sepsis SIRS Temperature: Pulse: 140 Respiratory Rate: 38 Laboratory Tests 05/02/22 04:40: White Blood Count 8.0 Blood Pressure 103 /61 Mean: 80 Laboratory Tests 05/02/22 04:40: Creatinine 0.87, Platelet Count 73L, Total Bilirubin 0.8 Results/Orders Lab Results Micro Results My Orders Medications Given in ED Vital Signs/I&O 05/04/22 05/04/22 19:23 21:00 O2 Delivery Room Air Room Air Capillary Refill : Greater Than 3 Seconds Blood Pressure Mean: 80 Progress Note : Time: 13:05 Progress Note This patient is known to me from prior visits and appears very decompensated from my prior experience with her. Multiple problems are identified today including urinary tract infection and atrial fibrillation with RVR with a troponin elevation. She has received 1 L of IV fluid and is currently receiving the second liter. Hypotension did resolve. Antibiotic therapy was started with daptomycin based on recent urine culture demonstrating a highly resistant Enterococcus species. We are also adding Zosyn for broad-spectrum coverage. There is some question of lingering pneumonia for which she has been recently treated. Shelton catheter was placed and she is producing urine. Cognitive status is poor. She is not verbally communicating but moans and groans. She does appear to have lower abdominal pain. CT of the head and CT abdomen and pelvis did not show any acute problems to explain her status. Case was reviewed with Dr. Sequeira who is placing orders and will initiate anticoagulation for stroke prophylaxis. Dr. Santillan was consulted. She is being admitted to the ICU. CODE STATUS is DO NOT RESUSCITATE. I discussed prognosis with patient's son. He is excepting that her reserve is poor and she may not survive this admission. He would like to try some aggressive care for a day or 2 and see how she responds. eICU provider was not immediately available. I asked eICU nurse to have him review documentation and call me if he had questions. ECG Initial ECG Impression Date: May 01, 2022 Initial ECG Impression Time: 10:36 Initial ECG Rate: 131 Initial ECG Rhythm: A Fib/Flutter Initial ECG Impression: Atrial Fibrillation w/RVR Comment Atrial fibrillation with RVR and ST depression. No axis deviation. Diagnostic Imaging Diagonstic Imaging: CT Plain Films/CT/US/NM/MRI: head Comments CT head viewed by me and report reviewed. See report below: NAME: FELICIANO CARVER [facility] REC#: [id number] PT STATUS: REG ER : 1935 PHYSICIAN: OCTAVIO PECK MD ADMIT DATE: 05/01/22/ER Draft Date of Exam:05/01/22 CT HEAD WO PROCEDURE: CT head without contrast. TECHNIQUE: Multiple contiguous axial images were obtained through the brain without the use of intravenous contrast. Auto Exposure Controls were utilized during the CT exam to meet ALARA standards for radiation dose reduction. INDICATION: Pain. Comparison is made with prior exam of 03/14/2022. FINDINGS: There is prominence of the ventricles and sulci. There is no hydrocephalus or cerebral edema. There is no midline shift or mass-effect. There is no intracranial mass, hemorrhage, or extra-axial fluid collection. There is some diffuse decreased attenuation of the periventricular white matter which is nonspecific. The visualized paranasal sinuses and mastoid air cells are clear. There are no regional areas of decreased attenuation appreciated to suggest an acute CVA. IMPRESSION: 1. No acute intracranial process. 2. Age-appropriate atrophy. 3. Decreased attenuation of the periventricular white matter which is nonspecific, however, likely reflects senescent change and/or chronic small vessel ischemic disease. Dictated on workstation # [id number] Dict: 05/01/22 1154 Trans: 05/01/22 1202 CVB [id number] Interpreted by: ABILIO ZAMARRIPA MD Diagonstic Imaging: Xray Plain Films/CT/US/NM/MRI: chest Comments Chest x-ray viewed by me and report reviewed. See report below: NAME: FELICIANO CARVER [facility] REC#: [id number] PT STATUS: REG ER : 1935 PHYSICIAN: OCTAVIO PECK MD ADMIT DATE: 05/01/22/ER Draft Date of Exam:05/01/22 CHEST 1 VIEW, AP/PA ONLY EXAM: CHEST 1 VIEW, AP/PA ONLY INDICATION: Shortness of air. Hypoxia. Weakness. COMPARISON: Chest radiograph 03/14/2022. FINDINGS: Cardiomegaly with mild pulmonary vascular congestion. Mild atelectasis or infiltrate in the lung bases. Small left pleural effusion. No pneumothorax. No acute osseous findings. IMPRESSION: Persistent mild atelectasis or infiltrate in the lung bases and small left pleural effusion. Dictated on workstation # [id number] Dict: 05/01/22 1119 Trans: 05/01/22 1129 CVB [id number] Interpreted by: MALIKA LIMON MD Diagonstic Imaging: CT Plain Films/CT/US/NM/MRI: abdomen, pelvis Comments CT abdomen and pelvis viewed by me and report reviewed. See report below: NAME: FELICIANO CARVER [facility] REC#: [id number] PT STATUS: REG ER : 1935 PHYSICIAN: OCTAVIO PECK MD ADMIT DATE: 05/01/22/ER Draft Date of Exam:05/01/22 CT ABDOMEN/PELVIS W PROCEDURE: CT abdomen and pelvis with contrast. TECHNIQUE: Multiple contiguous axial images were obtained through the abdomen and pelvis after administration of intravenous contrast. Auto Exposure Controls were utilized during the CT exam to meet ALARA standards for radiation dose reduction. All CT scans use one or more of the following dose optimizing techniques: automated exposure control, MA and/or KvP adjustment based on patient size and exam type or iterative reconstruction. INDICATION: Abdominal pain and mass. COMPARISON: 05/22/2019 CT abdomen and pelvis with IV contrast. FINDINGS: Partially visualized small to moderate left pleural effusion. Dependent consolidation in the lung bases. Cholecystectomy. Urinary bladder is decompressed by Shelton catheter. Small amount of free fluid in the pelvis. Moderate colonic diverticulosis without evidence of active diverticulitis. No free intraperitoneal air or fluid. No lymphadenopathy. No evidence of bowel obstruction. The liver, pancreas, spleen, adrenals, kidneys, collecting systems are negative. No acute osseous findings. Stable spondylotic changes in the lumbar spine and chronic superior endplate L4 compression fracture. IMPRESSION: 1. No acute CT findings in the abdomen or pelvis. 2. Dependent consolidation lung bases likely due to atelectasis. Small to moderate left pleural effusions partially visualized. 3. Moderate colonic diverticulosis without evidence of active diverticulitis. 4. Additional chronic and incidental findings as above. Dictated on workstation # [id number] Dict: 05/01/22 1155 Trans: 05/01/22 1211 CV [id number] Interpreted by: MALIKA LIMON MD Departure Communication (Admissions) Time/Spoke to Admitting Phy: 12:55 Dr. Sequeira Time/Spoke to Consulting Phy: 13:05 Dr. Santillan Impression Primary Impression: Atrial fibrillation with RVR Additional Impressions: UTI (urinary tract infection) Qualified Codes: N39.0 - Urinary tract infection, site not specified Elevated troponin Altered mental status Qualified Codes: R41.82 - Altered mental status, unspecified Hypernatremia Disposition: ADMITTED INPATIENT Condition: Stable Admissions Decision to Admit Reason: Admit from ER (General) Decision to Admit/Date: May 01, 2022 Time/Decision to Admit Time: 12:55 Departure-Patient Inst. Referrals: ALLYSSA MURRAY MD (PCP/Family) Primary Care Physician Copy Copies To 1: ALLYSSA MURRAY MD, JOSHUA T MD May 01, 2022 11:01
[2022-05-01] MEDS ORDERED: morphine INJ 10 MG/ML 1ML (SYR OR VIAL) IVP STA (11:06)
[2022-05-01 11:07] LABS: MAGNESIUM 1.9 MG/DL (1.6-2.4)
[2022-05-01 11:11] LABS: INR 1.3 (0.8-1.4); PROTHROMBIN TIME PATIENT 16.6 SEC (12.2-14.7)
[2022-05-01] MEDS ORDERED: IOHEXOL 350 MG/ML 100 ML (OMNIPAQUE 350) VIAL IV ONE (11:15)
[2022-05-01] MEDS ORDERED: NS 100 ML (IVPB) BAG IV ONE (11:15)
[2022-05-01] MEDS ORDERED: CATHETER FLUSH 10 ML SYR IV PRN (11:15)
[2022-05-01] MEDS ORDERED: HOLD METFORMIN - RECEIVED CONTRAST 20 ML VIAL IV SCH (11:15)
--- NOTE | 2022-05-01 11:30 | Diagnostic Imaging Report ---
EXAM: CHEST 1 VIEW, AP/PA ONLY INDICATION: Shortness of air. Hypoxia. Weakness. COMPARISON: Chest radiograph 03/14/2022. FINDINGS: Cardiomegaly with mild pulmonary vascular congestion. Mild atelectasis or infiltrate in the lung bases. Small left pleural effusion. No pneumothorax. No acute osseous findings. IMPRESSION: Persistent mild atelectasis or infiltrate in the lung bases and small left pleural effusion. Dictated by: Dictated on workstation # [id number]
--- NOTE | 2022-05-01 12:02 | Diagnostic Imaging Report ---
PROCEDURE: CT head without contrast. TECHNIQUE: Multiple contiguous axial images were obtained through the brain without the use of intravenous contrast. Auto Exposure Controls were utilized during the CT exam to meet ALARA standards for radiation dose reduction. INDICATION: Pain. Comparison is made with prior exam of 03/14/2022. FINDINGS: There is prominence of the ventricles and sulci. There is no hydrocephalus or cerebral edema. There is no midline shift or mass-effect. There is no intracranial mass, hemorrhage, or extra-axial fluid collection. There is some diffuse decreased attenuation of the periventricular white matter which is nonspecific. The visualized paranasal sinuses and mastoid air cells are clear. There are no regional areas of decreased attenuation appreciated to suggest an acute CVA. IMPRESSION: 1. No acute intracranial process. 2. Age-appropriate atrophy. 3. Decreased attenuation of the periventricular white matter which is nonspecific, however, likely reflects senescent change and/or chronic small vessel ischemic disease. Dictated by: Dictated on workstation # [id number]
--- NOTE | 2022-05-01 12:12 | Diagnostic Imaging Report ---
PROCEDURE: CT abdomen and pelvis with contrast. TECHNIQUE: Multiple contiguous axial images were obtained through the abdomen and pelvis after administration of intravenous contrast. Auto Exposure Controls were utilized during the CT exam to meet ALARA standards for radiation dose reduction. All CT scans use one or more of the following dose optimizing techniques: automated exposure control, MA and/or KvP adjustment based on patient size and exam type or iterative reconstruction. INDICATION: Abdominal pain and mass. COMPARISON: 05/22/2019 CT abdomen and pelvis with IV contrast. FINDINGS: Partially visualized small to moderate left pleural effusion. Dependent consolidation in the lung bases. Cholecystectomy. Urinary bladder is decompressed by Shelton catheter. Small amount of free fluid in the pelvis. Moderate colonic diverticulosis without evidence of active diverticulitis. No free intraperitoneal air or fluid. No lymphadenopathy. No evidence of bowel obstruction. The liver, pancreas, spleen, adrenals, kidneys, collecting systems are negative. No acute osseous findings. Stable spondylotic changes in the lumbar spine and chronic superior endplate L4 compression fracture. IMPRESSION: 1. No acute CT findings in the abdomen or pelvis. 2. Dependent consolidation lung bases likely due to atelectasis. Small to moderate left pleural effusions partially visualized. 3. Moderate colonic diverticulosis without evidence of active diverticulitis. 4. Additional chronic and incidental findings as above. Dictated by: Dictated on workstation # [id number]
[2022-05-01] MEDS ORDERED: DAPTOmycin INJECTION 500 MG in NS (IVPB) 50 ML IV STA (12:25)
[2022-05-01] MEDS ORDERED: PIPERACILLIN SODIUM/TAZOBACTAM 4.5 GM in NS (IVPB) 100 ML IV ONE (12:30)
[2022-05-01] MEDS ORDERED: PIPERACILLIN/TAZO 4.5 GM VIAL (ZOSYN) IV ONE (12:54)
[2022-05-01] MEDS ORDERED: LACTATED RINGERS 1,000 ML IV ONE (13:00)
[2022-05-01 13:23] VITALS: BP 91/50
--- NOTE | 2022-05-01 13:51 | Tele-ICU Consult ---
Progress Note 86 y/o female with dementioa presents with a fib Started on diltiazem drip Focused Exam Lactate Level 05/01/22 10:47: Lactic Acid Level 2.49*H Height, Weight, BMI Height: 5'4.00" Weight: 200lbs. 2.0oz. 90.783206he; 29.80 BMI Method:Stated Lactic Acid Level Laboratory Tests Test 05/01/22 10:47 Lactic Acid Level 2.49 MMOL/L (0.50-2.00) *H Labs Laboratory Tests 05/01/22 10:10 Results Results/Procedures Labs Laboratory Tests 05/01/22 10:10 Patient resulted labs reviewed. Results Labs Labs Laboratory Tests 05/01/22 10:10: White Blood Count 9.7, Red Blood Count 3.52L, Hemoglobin 10.1L, Hematocrit 32L, Mean Corpuscular Volume 90, Mean Corpuscular Hemoglobin 29, Mean Corpuscular Hemoglobin Concent 32, Red Cell Distribution Width 18.2H, Platelet Count 102L, Mean Platelet Volume 10.9, Immature Granulocyte % (Auto) 1, Neutrophils (%) (Auto) 83H, Lymphocytes (%) (Auto) 11L, Monocytes (%) (Auto) 5, Eosinophils (%) (Auto) 0, Basophils (%) (Auto) 0, Neutrophils # (Auto) 8.0H, Lymphocytes # (Auto) 1.1, Monocytes # (Auto) 0.5, Eosinophils # (Auto) 0.0, Basophils # (Auto) 0.0, Immature Granulocyte # (Auto) 0.1, Percent Immature Platelet Fraction 3.2, Sodium Level 153H, Potassium Level 3.3L, Chloride Level 115H, Carbon Dioxide Level 18L, Anion Gap 20H, Blood Urea Nitrogen 33H, Creatinine 0.91, Estimat Glomerular Filtration Rate 61, BUN/Creatinine Ratio 36, Glucose Level 98, Calcium Level 8.5, Corrected Calcium 9.7, Magnesium Level 1.9, Total Bilirubin 1.0, Aspartate Amino Transf (AST/SGOT) 128H, Alanine Aminotransferase (ALT/SGPT) 40, Alkaline Phosphatase 100, Myoglobin 2221.4H, Troponin I 1.962*H, C-Reactive Protein High Sensitivity 5.47H, Total Protein 7.4, Albumin 2.5L, Procalcitonin 0.24H 05/01/22 10:23: Urine Color DARK YELLOW, Urine Clarity SL CLOUDY, Urine pH 6.0, Urine Specific [place] 1.010L, Urine Protein 1+H, Urine Glucose (UA) NEGATIVE, Urine Ketones 1+H, Urine Nitrite POSITIVEH, Urine Bilirubin 1+H, Urine Urobilinogen 1.0, Urine Leukocyte Esterase 1+H, Urine RBC (Auto) 2+H, Urine RBC 2-5H, Urine WBC 5-10H, Urine Squamous Epithelial Cells 2-5, Urine Crystals NONE, Urine Bacteria MODERATEH, Urine Casts NONE, Urine Mucus NEGATIVE, Urine Culture Indicated CULTURE PENDING 05/01/22 10:47: Prothrombin Time 16.6H, INR Comment 1.3, Activated Partial Thromboplast Time 30, Lactic Acid Level 2.49*H TOM DECKER MD May 01, 2022 13:51
[2022-05-01] MEDS ORDERED: polyethylene glycoL POWDER 17 GM (MIRALAX) PACK PO PRN (14:00)
[2022-05-01] MEDS ORDERED: VANCOMYCIN INJECTION 0.1 MG in NS (IVPB) 250 ML IV SCH (14:00)
[2022-05-01] MEDS ORDERED: BISACODYL 10 MG SUPP (DULCOLAX) PR PRN (14:00)
[2022-05-01] MEDS ORDERED: ACETAMINOPHEN 325 MG TABLET PO PRN (14:00)
[2022-05-01] MEDS ORDERED: LACTULOSE SYRUP 10GM/15ML (ENULOSE) 30ML UDC PO PRN (14:00)
[2022-05-01] MEDS ORDERED: MELATONIN 3 MG TABLET PO PRN (14:00)
[2022-05-01] MEDS ORDERED: DexMEDEtomidine 250 ML DRIP 250 ML IV SCH (14:00)
[2022-05-01] MEDS ORDERED: ONDANSETRON 4 MG (ZOFRAN) ORAL DISSOLVE TAB PO PRN (14:00)
[2022-05-01] MEDS ORDERED: diphenhydrAMINE 50 MG/ML INJ (BENADRYL) IVP PRN (14:00)
[2022-05-01] MEDS ORDERED: ONDANSETRON 4 MG/2 ML (SDV) Z0FRAN IV PRN (14:00)
[2022-05-01] MEDS ORDERED: ANTACID SUSP 30 ML UDC (MYLANTA) PO PRN (14:00)
[2022-05-01] MEDS ORDERED: ENOXAPARIN 40 MG/0.4 ML (LOVENOX) SYR SC SCH (14:00)
[2022-05-01] MEDS ORDERED: diphenhydrAMINE 25 MG TAB (BENADRYL) PO PRN (14:00)
[2022-05-01] MEDS ORDERED: MILK OF MAGNESIA 400 MG/5 ML 30 ML UDC PO PRN (14:00)
[2022-05-01] MEDS ORDERED: NS IV 500 ML 500 ML IV PRN (14:00)
[2022-05-01] MEDS ORDERED: CALCIUM CARBONATE 500 MG (TUMS) TAB.CHEW PO PRN (14:00)
[2022-05-01] MEDS: NS IV 1000 ML 1,000 ML IV SCH ×2 (14:29→22:17)
[2022-05-01] MEDS: dilTIAZem DRIP PRE-MIX 125 ML IV SCH ×2 (14:35→21:12)
[2022-05-01] MEDS ORDERED: VANCOMYCIN 1250 MG/NS 250 ML IVPB IV NR ×2 (15:00)
[2022-05-01] MEDS ORDERED: ENOXAPARIN 60 MG/0.6 ML (LOVENOX) SYR SC SCH (15:00)
[2022-05-01] MEDS: ENOXAPARIN 60 MG/0.6 ML (LOVENOX) SYR SC SCH (15:18)
--- NOTE | 2022-05-01 15:53 | History & Physical-Hospitalist ---
History of Present Illness HPI/Chief Complaint CC: AMS with AF RVR HPI: This is an 86yoWF [place] resident at [facility] who presented to the ER with AMS. Her son who previously took care of his mother and is very close to her reported that she has had a complicated course since she returned from [facility] and had an episode of AF there but was not placed on any new meds for that. She remains DNR and is extremely debilitated and does not wake up and grunts to pain stimuli. Dr Jose informed her son that she will likely not survive this admit. Cardizem drip initiated along with Daptomycin and Zosyn for highly resistant UTI along with PNA on CXR. Source: family, RN/MD, old records Date Seen 05/01/22 Time Seen by a Provider: 13:00 Attending Physician Grzegorz Cooley MD PCP Admitting Physician: Milka Sequeira DO Attending Physician: Milka Sequeira DO Referring Physician Date of Admission May 01, 2022 at 13:15 Home Medications & Allergies Home Medications Reviewed patient Home Medication Reconciliation performed by pharmacy medication reconciliations collision repair technician and/or nursing. Patients Allergies have been reviewed. Allergies Allergies Coded Allergies gabapentin (Unverified Adverse Reaction, Mild, VOMITING. , 03/21/19) Past Qkrywas-Otmucc-Thegnm Hx Patient Social History Marrital Status: single Employed/Student: retired Tobacco Use?: No Smoking Status: Unknown if Ever Smoked Use of E-Cig and/or Vaping dev: No Substance use?: No Alcohol Use?: No Pt feels they are or have been: Unable to obtain Immunizations Up To Date First/Initial COVID19 Vaccinat: NONE Second COVID19 Vaccination Gonzalo: NONE Tetanus Booster (TDap): More Than 5 Years Hepatitis A: No Hepatitis B: No Seasonal Allergies Seasonal Allergies: Yes Current Status status: No status: No Advance Directives: Yes Advance Directive Location: Copy placed in chart Communicates: Does Not Communicate Primary Language: Montserratian Past Medical History Surgeries: Appendectomy, Cardiac, Gallbladder Currently Using CPAP: No Currently Using BIPAP: No Hypertension, Peripheral Vascular Dementia, Neuropathy, 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 Sexually Transmitted Disease: No HIV/AIDS: No Neurogenic Bladder Gastroesophageal Reflux, Hemorrhoids, Ulcer, Gall Bladder Disease Arthritis Hypothyroidsim Tinnitis Loss of Vision: Denies Hearing Impairment: Denies Eating Disorder, Sleep Difficulties, Anxiety, Depression Blood Disorders: No Adverse Reaction/Blood Tranf: No (N/A) PMHx: Vertigo PSurgHx: Cholecystectomy Appendectomy Family Medical History FHx: pancreatic cancer 19 MOTHER, Onset:60 years & older Myocardial infarction 19 FATHER Son Heart Disease, Cancer Review of Systems Constitutional: see HPI Physical Exam Physical Exam Vital Signs Vital Signs - First Documented Capillary Refill : Greater Than 3 Seconds Height, Weight, BMI Height: 5'4.00" Weight: 200lbs. 2.0oz. 90.875007ab; 27.91 BMI Method:Stated General Appearance: Chronically ill, Thin, Other (severely ill) Respiratory: Accessory Muscle Use, Decreased Breath Sounds Cardiovascular: Irregularly Irregular, Tachycardia Neurologic/Psychiatric: Disoriented, Other (grunts) Results Results/Procedures Labs Laboratory Tests 05/01/22 10:10 Patient resulted labs reviewed. Assessment/Plan Admission Diagnosis Assessment: Sepsis UTI resistant type PNA AF RVR Dementia Plan: Cardizem drip IV abx Precedex IVF DNR Hypokalemia Admission Status: Inpatient Order (span 2 midnights) Reason for Inpatient Admission: sepsis MILKA SEQUEIRA DO May 01, 2022 15:53
[2022-05-01] MEDS ORDERED: AMLO-250 PO (16:00)
[2022-05-01] MEDS ORDERED: SERT-413 PO (16:00)
[2022-05-01] MEDS ORDERED: NYST15PO4 TOP (16:00)
[2022-05-01] MEDS ORDERED: METO75TA PO (16:00)
[2022-05-01] MEDS ORDERED: POTA-179 PO (16:01)
[2022-05-01] MEDS ORDERED: ACET325T38 PO (16:02)
[2022-05-01] MEDS ORDERED: IBUP-1779 PO (16:03)
[2022-05-01] MEDS: PIPERACILLIN SODIUM/TAZOBACTAM 4.5 GM in NS (IVPB) 100 ML IV SCH (18:12)
[2022-05-01] MEDS: DOCUSATE SODIUM 100 MG (COLACE) CAP PO SCH (20:55)
[2022-05-01] MEDS: SENNOSIDES 8.6 MG (SENOKOT) TAB PO SCH (20:56)
[2022-05-02] MEDS: PIPERACILLIN SODIUM/TAZOBACTAM 4.5 GM in NS (IVPB) 100 ML IV SCH (02:27)
[2022-05-02] MEDS: ENOXAPARIN 60 MG/0.6 ML (LOVENOX) SYR SC SCH (02:28)
[2022-05-02] MEDS: morphine INJ 4 MG/ML 1 ML (VIAL/SYRINGE) IV PRN ×4 (02:32→15:30)
[2022-05-02 04:53] LABS: BASOPHILS % (AUTO) 0 % (0-10); EOSINOPHILS # (AUTO) 0.1 10^3/uL (0.0-0.3); EOSINOPHILS % (AUTO) 1 % (0-10); HEMATOCRIT 27 % (35-52); HEMOGLOBIN 8.7 g/dL (11.5-16.0); LYMPHOCYTES # (AUTO) 1.1 10^3/uL (1.0-4.0); LYMPHOCYTES % (AUTO) 13 % (12-44); MEAN CORPUSCULAR HEMOGLOBIN 29 pg (25-34); MEAN CORPUSCULAR HGB CONC 32 g/dL (32-36); MEAN CORPUSCULAR VOLUME 91 fL (80-99); MEAN PLATELET VOLUME 11.3 fL (9.0-12.2); MONOCYTES # (AUTO) 0.5 10^3/uL (0.0-1.0); MONOCYTES % (AUTO) 6 % (0-12); NEUTROPHILS # (AUTO) 6.3 10^3/uL (1.8-7.8); NEUTROPHILS % (AUTO) 79 % (42-75); PLATELET COUNT 73 10^3/uL (130-400)
[2022-05-02 05:02] LABS: ALBUMIN 2.1 GM/DL (3.2-4.5); POTASSIUM 2.8 MMOL/L (3.6-5.0)
[2022-05-02 05:03] LABS: CALCIUM 7.6 MG/DL (8.5-10.1)
[2022-05-02 05:06] LABS: BILIRUBIN,TOTAL 0.8 MG/DL (0.1-1.0)
[2022-05-02 05:07] LABS: TRIGLYCERIDES 101 MG/DL (<150); VLDL CHOLESTEROL 20 MG/DL (5-40)
[2022-05-02 05:08] LABS: CREATININE SERUM 0.87 MG/DL (0.60-1.30); PHOSPHORUS 2.2 MG/DL (2.3-4.7)
[2022-05-02 05:11] LABS: CHOLESTEROL 92 MG/DL (< 200)
[2022-05-02 05:11] LABS: MAGNESIUM 1.8 MG/DL (1.6-2.4)
[2022-05-02 05:12] LABS: HDL CHOLESTEROL 21 MG/DL (40-60)
[2022-05-02] MEDS: KCL 20 MEQ TAB (K-DUR) PO SCH (05:28)
[2022-05-02] MEDS ORDERED: POTASSIUM CL 10MEQ/50ML IVPB 250 ML IV ONE (05:30)
[2022-05-02] MEDS: NS IV 1000 ML 1,000 ML IV SCH (05:34)
[2022-05-02] MEDS: POTASSIUM CL 10MEQ/50ML IVPB 50 ML IV SCH ×5 (05:34→09:50)
[2022-05-02] MEDS ORDERED: POTASSIUM CL 10MEQ/50ML IVPB 50 ML IV SCH (06:00)
[2022-05-02] MEDS ORDERED: MAGNESIUM 1 GM/100 ML IVPB 100 ML IV SCH (06:00)
[2022-05-02] MEDS: DOCUSATE SODIUM 100 MG (COLACE) CAP PO SCH ×2 (07:40→20:52)
[2022-05-02] MEDS: SENNOSIDES 8.6 MG (SENOKOT) TAB PO SCH ×2 (07:40→20:52)
--- NOTE | 2022-05-02 08:48 | Diagnostic Imaging Report ---
INDICATION: Shortness of breath with hypoxia. Comparison with 05/01/2022. FINDINGS: The heart remains enlarged. Pulmonary vasculature is prominent. There has been increase in interstitial markings. Mild blunting of the costophrenic angle. IMPRESSION: Findings are consistent with congestive failure with some increase in pulmonary edema when compared with previous exam. Dictated by: Dictated on workstation # [id number]
--- NOTE | 2022-05-02 08:48 | Consultation-Cardiology ---
HPI-Cardiology Cardiology Consultation: Date of Consultation 05/02/22 Time Seen by a Provider: 08:15 Date of Admission 05-01-22 Attending Physician Grzegorz Cooley MD Admitting Physician Admitting Physician: Milka Sequeira DO Attending Physician: Triny Dave MD Consulting Physician THA CARNEY HPI: Chief Complaint: A-fib with RVR Ms. Carver is an 86 yr old female admitted to ICU 8 from the ED with sepsis and a- fib with RVR. She has converted to SR on a Cardizem gtt. She currently resides at [facility]. Her son is at the bedside. He states that she had an episode of pneu monia a few months ago and was hospitalized here. He reports he took her home and after 3 days she became progressively weak. He reports he then took her to [facility] and was told her BP was high and she had an episode of a- fib. He reports he was told then, that she had/had a heart attack. They advised medical management. He does not know if she was started on a blood thinner at that time or not. He reports she has had a decline in her health over the course of the last several months. He states she was then admitted to [facility] following that hospitalization at which time contracted COVID. She was managed at the facility, but has continued to decline in health. She is unable to answer any questions. She is unable to answer any questions. Review of Systems-Cardiology Review of Systems Other comments ROS unable to be obtained RSJ-Qqvhzi-Ggekee Hx Patient Social History Marrital Status: single Employed/Student: retired Smoking Status: Unknown if Ever Smoked 2nd Hand Smoke Exposure: No Have you traveled recently?: Unable to obtain Alcohol Use?: No Pt feels they are or have been: Unable to obtain Immunizations Up To Date Tetanus Booster (TDap): Unknown Past Medical History PMH As described under Assessment. Family Medical History Family Medical History: Reported family h/o father having GA. Family History: FHx: pancreatic cancer 19 MOTHER, Onset:60 years & older Myocardial infarction 19 FATHER Son Allergies and Home Medications Allergies Coded Allergies: gabapentin (Unverified Adverse Reaction, Mild, VOMITING. , 03/21/19) Patient Home Medication List Acetaminophen (Acetaminophen) 500 Mg Tablet, 1,000 MG PO Q8H PRN for PAIN-MILD (1-4), (Reported) Entered as Reported by: LILY BAER on 05/02/22 0939 Last Action: Reviewed Amlodipine Besylate (Amlodipine Besylate) 5 Mg Tablet, 5 MG PO DAILY, (Reported) Entered as Reported by: RM YUAN on 05/01/22 1600 Last Action: Reviewed Clopidogrel Bisulfate (Clopidogrel) 75 Mg Tablet, 75 MG PO DAILY, (Reported) Entered as Reported by: ANDREA CABALLERO on 03/07/22 1229 Last Action: Reviewed Ibuprofen (Ibuprofen) 200 Mg Tablet, 400 MG PO Q8H PRN for PAIN-MILD (1-4), (Reported) Entered as Reported by: LILY BAER on 05/02/22 0939 Last Action: Reviewed Melatonin (Melatonin) 1 Mg Tablet, 1 MG PO HS PRN for SLEEP, (Reported) Entered as Reported by: LILY BAER on 03/08/22 1326 Last Action: Reviewed Metoprolol Tartrate (Metoprolol Tartrate) 75 Mg Tablet, 75 MG PO 0800,1600, (Reported) Entered as Reported by: RM YUAN on 05/01/22 1600 Last Action: Reviewed Nystatin (Nystatin) 100,000 Unit/Gram Powder, 1 APPLIC TOP BID PRN for ITCHING AND RASH, (Reported) Entered as Reported by: RM YUAN on 05/01/22 1600 Last Action: Reviewed Potassium Chloride (Potassium Chloride) 20 Meq Tab.er.prt, 20 MEQ PO DAILY, (Reported) Entered as Reported by: RM YUAN on 05/01/22 1601 Last Action: Reviewed Sertraline HCl (Sertraline HCl) 50 Mg Tablet, 50 MG PO DAILY, (Reported) Entered as Reported by: RM YUAN on 05/01/22 1600 Last Action: Reviewed Discontinued Medications Acetaminophen (Tylenol) 325 Mg Tablet, 1,000 MG PO Q8H PRN for PAIN-MILD (1-4), (Reported) Discontinued Reason: Prescription changed Entered as Reported by: RM YUAN on 05/01/22 160 Last Action: New Order Cefdinir (Cefdinir) 300 Mg Capsule, 300 MG PO BID Discontinued Reason: No Longer Taking Prescribed by: ANKUR ROUSE on 03/11/22 1026 Last Action: Discontinued Ibuprofen (Ibuprofen) 400 Mg Tablet, 400 MG PO Q8H, (Reported) Discontinued Reason: Prescription changed Entered as Reported by: RM YUAN on 05/01/22 1603 Last Action: New Order Metoprolol Tartrate (Metoprolol Tartrate) 50 Mg Tablet, 25 MG PO BID, (Reported) Discontinued Reason: No Longer Taking Entered as Reported by: ANDREA CABALLERO on 03/07/22 1229 Last Action: Discontinued Physical Exam-Cardiology Physical Exam Vital Signs/I&O 05/03/22 00:00 Intake Total 1100 ml Balance 1100 ml Capillary Refill : Less Than 3 Seconds Constitutional: other (frail) Neck: No carotid bruit; carotid pulses are 2 + bilaterally Respiratory: No accessory muscle use, No respiratory distress; chest expansion is symmetric, chest is bilaterally symmetric, other (good air entry) Cardiovascular: regular rate-rhythm; No JVD; S1 and S2 Gastrointestinal: soft, audible bowel sounds Extremities: no lower extremity edema bilateral Neurologic/Psychiatric: other (opens eyes to conversation, does not follow commands) Skin: No rash on exposed areas, No ulcerations on exposed areas Data Review Labs Microbiology 05/01/22 MRSA Screen - Final, Complete MRSA not isolated 05/01/22 Blood Culture - Preliminary, Resulted No growth 05/01/22 Urine Culture - Preliminary, Resulted Staphylococcus epidermidis Culture In Progress Radiology NAME: FELICIANO CARVER [facility] REC#: [id number] PT STATUS: ADM IN : 1935 PHYSICIAN: OCTAVIO PECK MD ADMIT DATE: 05/01/22/ICU Signed Date of Exam:05/01/22 CHEST 1 VIEW, AP/PA ONLY EXAM: CHEST 1 VIEW, AP/PA ONLY INDICATION: Shortness of air. Hypoxia. Weakness. COMPARISON: Chest radiograph 03/14/2022. FINDINGS: Cardiomegaly with mild pulmonary vascular congestion. Mild atelectasis or infiltrate in the lung bases. Small left pleural effusion. No pneumothorax. No acute osseous findings. IMPRESSION: Persistent mild atelectasis or infiltrate in the lung bases and small left pleural effusion. Dictated by: Dictated on workstation # [id number] Dict: 05/01/22 1119 Trans: 05/01/22 1614 CV [id number] Interpreted by: MALIKA LIMON MD Electronically signed by: MALIKA LIMON MD 05/01/22 3148 ECG Impression ECG Initial ECG Impression: Atrial Fibrillation A/P-Cardiology Assessment/Admission Diagnosis PAF - currently SR with controlled rate (converted on Cardizem gtt) - initiate OAC with Eliquis - low dose d/t advanced age and fraility - Echocardiogram of March [address] Junior showed mod concentric hypertophy with LVEF 60-65%. LA severely dilated. Mild to mod mitral valve calcification. PASP 45 mmHg Elevated troponin - likely Type 2 GA secondary to a-fib with RVR and sepsis UTI with sepsis - management per medical services HTN - currently controlled Cardiac cath of 05-08-[address] Justice showed non-obstructive dz with LVEF 60% Fraility Poor prognosis Discussion and Recomendations PAF - has converted to SR with Cardizem gtt - stop gtt and change to oral if able to tolerated p.o. intake Start OAC with Eliquis if able to take oral intake - if not then continue Lovenox for stroke prophylaxis Management of UTI with sepsis per medical services Spoke with Dr. Dave of medical services this morning; if pt unable to take oral intake then family does not wish to have feeding tube placed. Poor prognosis Ok to transfer to medical floor without tele if pt is to be DNR status Replace electrolytes - receiving IV replacement Monitor lab closely Replace electrolytes as indicated Further recs will be based on her hospital course THA DIAS May 02, 2022 08:48
[2022-05-02] MEDS ORDERED: DAPTOmycin INJECTION 500 MG in NS (IVPB) 50 ML IV ONE (09:00)
[2022-05-02] MEDS ORDERED: DAPTOmycin INJECTION 500 MG in NS (IVPB) 50 ML IV SCH (09:00)
[2022-05-02] MEDS ORDERED: FLUCONAZOLE 100 MG/50 ML 50 ML IV SCH (09:00)
[2022-05-02] MEDS: APIXABAN 2.5 MG (ELIQUIS) TABLET PO SCH ×2 (09:31→20:52)
[2022-05-02] MEDS: dilTIAZem120 MG (CARDIZEM CD) CAP PO SCH (09:32)
[2022-05-02] MEDS ORDERED: ACET-93 PO (09:39)
[2022-05-02] MEDS ORDERED: IBUP-2473 PO (09:39)
[2022-05-02] MEDS ORDERED: ACETAMINOPHEN 650 MG SUPP (TYLENOL) PR PRN (10:45)
[2022-05-02] MEDS ORDERED: ARTIFICAL TEARS 0.4 ML UNIT DOSE (REFRESH PLUS) OU PRN (10:45)
[2022-05-02] MEDS ORDERED: SALIVA STIMULANT MOUTH SPRAY (BIOTENE) 1.5 OZ MM PRN (10:45)
[2022-05-02] MEDS ORDERED: BISACODYL 10 MG SUPP (DULCOLAX) PR PRN (10:45)
[2022-05-02] MEDS ORDERED: PROMETHAZINE INJ 25 MG/ML (PHENERGAN) AMP IVP PRN (10:45)
[2022-05-02] MEDS ORDERED: ONDANSETRON 4 MG/2 ML (SDV) Z0FRAN IVP PRN (10:45)
[2022-05-02] MEDS ORDERED: RT-ALBUTEROL/IPRATROPIUM 3 ML (DUONEB) VIAL INH PRN (10:45)
--- NOTE | 2022-05-02 10:54 | Progress Note ---
Subjective Subjective/Events-last exam Patient unable to communicate this AM. Opens eyes to name and moans. Discussed plan of care with son and 2 daughters. Discussed her rapid decline and they wish to move forward with comfort care. Patient is already DNR. Review of Systems Unable to access due to patient status Focused Exam Lactate Level 05/01/22 10:47: Lactic Acid Level 2.49*H 05/01/22 15:10: Lactic Acid Level 4.10*H Objective Exam Last Set of Vital Signs Vital Signs Date Time Temp Pulse Resp B/P (MAP) Pulse Ox O2 Delivery O2 Flow Rate FiO2 05/02/22 10:00 74 18 99/49 95 OxyMask 2.00 05/02/22 08:03 96 05/02/22 04:00 36.7 Capillary Refill : Less Than 3 Seconds I&O Intake and Output 05/02/22 00:00 Intake Total 4250 ml Output Total 275 ml Balance 3975 ml Intake Oral 0 ml IV Total 4250 ml Output Urine Total 275 ml Daily Weight Change Unsure General: Other (Opens eyes to name, resting comfortably) Lungs: Clear to Auscultation Heart: Regular Rate, No Murmurs Abdomen: Soft Results/Procedures Lab Laboratory Tests 05/01/22 10:47: Prothrombin Time 16.6H, INR Comment 1.3, Activated Partial Thromboplast Time 30, Lactic Acid Level 2.49*H 05/01/22 15:10: Lactic Acid Level 4.10*H 05/02/22 04:40: White Blood Count 8.0, Red Blood Count 2.98L, Hemoglobin 8.7L, Hematocrit 27L, Mean Corpuscular Volume 91, Mean Corpuscular Hemoglobin 29, Mean Corpuscular Hemoglobin Concent 32, Red Cell Distribution Width 18.1H, Platelet Count 73L, Mean Platelet Volume 11.3, Immature Granulocyte % (Auto) 1, Neutrophils (%) (Auto) 79H, Lymphocytes (%) (Auto) 13, Monocytes (%) (Auto) 6, Eosinophils (%) (Auto) 1, Basophils (%) (Auto) 0, Neutrophils # (Auto) 6.3, Lymphocytes # (Auto) 1.1, Monocytes # (Auto) 0.5, Eosinophils # (Auto) 0.1, Basophils # (Auto) 0.0, Immature Granulocyte # (Auto) 0.0, Sodium Level 156H, Potassium Level 2.8L, Chloride Level 123H, Carbon Dioxide Level 16L, Anion Gap 17H, Blood Urea Nitrogen 28H, Creatinine 0.87, Estimat Glomerular Filtration Rate 64, BUN/Creatinine Ratio 32, Glucose Level 103, Calcium Level 7.6L, Corrected Calcium 9.1, Phosphorus Level 2.2L, Magnesium Level 1.8, Total Bilirubin 0.8, Aspartate Amino Transf (AST/SGOT) 100H, Alanine Aminotransferase (ALT/SGPT) 30, Alkaline Phosphatase 77, Total Protein 6.0L, Albumin 2.1L 05/02/22 04:45: Triglycerides Level 101, Cholesterol Level 92, LDL Cholesterol Direct 41, VLDL Cholesterol 20, HDL Cholesterol 21L Microbiology 05/01/22 Urine Culture - Preliminary, Resulted Radiology NAME: FELICIANO CARVER [facility] REC#: [id number] PT STATUS: ADM IN : 1935 PHYSICIAN: OCTAVIO PECK MD ADMIT DATE: 05/01/22/ICU Signed Date of Exam:05/01/22 CHEST 1 VIEW, AP/PA ONLY EXAM: CHEST 1 VIEW, AP/PA ONLY INDICATION: Shortness of air. Hypoxia. Weakness. COMPARISON: Chest radiograph 03/14/2022. FINDINGS: Cardiomegaly with mild pulmonary vascular congestion. Mild atelectasis or infiltrate in the lung bases. Small left pleural effusion. No pneumothorax. No acute osseous findings. IMPRESSION: Persistent mild atelectasis or infiltrate in the lung bases and small left pleural effusion. Dictated by: Dictated on workstation # [id number] Dict: 05/01/22 1119 Trans: 05/01/22 1614 [facility] [id number] Interpreted by: MALIKA LIMON MD Electronically signed by: MALIKA LIMON MD 05/01/22 1614 Assessment/Plan Assessment/Plan (1) Sepsis Status: Acute Assessment & Plan: 05/02: h/o multi-resistant UTI, culture pending, Patient showing no improvement with IV antibiotics and fluids, Discussed plan of care with son who is the DPOA and 2 daughters and they are in agreement that comfort care is appropriate, level of care changed to comfort care. Patient transferred to 4th floor. DNR Qualifiers: Qualified Codes: A41.9 - Sepsis, unspecified organism; R65.20 - Severe sepsis without septic shock; J96.01 - Acute respiratory failure with hypoxia (2) Lactic acidosis Status: Acute (3) Urinary tract infection Status: Acute Qualifiers: Qualified Codes: N30.01 - Acute cystitis with hematuria (4) Acute respiratory failure with hypoxia Status: Acute (5) Atrial fibrillation with rapid ventricular response Status: Acute Assessment & Plan: 05/02: Dr Santillan consulted and appreciate recommendations, patient is unable to take PO medications and her AD specifically states no feeding tube which is appropriate, discussed with Dr Santillan that we are transitioning patient to comfort care (6) Elevated troponin Status: Acute (7) AMS (altered mental status) Status: Acute Qualifiers: Qualified Codes: R41.0 - Disorientation, unspecified (8) Hypernatremia Status: Acute (9) Hypokalemia Status: Acute KRYSTLE NEVAREZ MD May 02, 2022 10:54
[2022-05-02] MEDS ORDERED: VANCOMYCIN 1 GM/NS 250 ML IVPB IV SCH ×2 (15:00)
--- NOTE | 2022-05-02 17:30 | Consultation-Cardiology ---
HPI-Cardiology Cardiology Consultation: Date of Consultation 05/02/22 Time Seen by a Provider: 09:00 Date of Admission Attending Physician Grzegorz Cooley MD Admitting Physician Admitting Physician: Milka Sequeira DO Attending Physician: Trniy Dave MD Consulting Physician FAIZAN FOSTER MD, MA, FACP, FACC, [facility], CCDS HPI: Chief Complaint: A-fib with RVR Ms. Cm is an 86 yr old female admitted to ICU 8 from the ED with sepsis and a- fib with RVR. She has converted to SR on a Cardizem gtt. She currently resides at [facility]. Her son is at the bedside. He states that she had an episode of pneumonia a few months ago and was hospitalized here. He reports he took her home and after 3 days she became progressively weak. He reports he then took her to [facility] and was told her BP was high and she had an episode of a-fib. He reports he was told then, that she had/had a heart attack. They advised medical management. He does not know if she was started on a blood thinner at that time or not. He reports she has had a decline in her health over the course of the last several months. He states she was then admitted to [facility] following that hospitalization at which time contracted COVID. She was man aged at the facility, but has continued to decline in health. She is unable to answer any questions. She is unable to answer any questions. Review of Systems-Cardiology Review of Systems : No NXO-Wqstuw-Mlbvwr Hx Patient Social History Marrital Status: single Employed/Student: retired Smoking Status: Unknown if Ever Smoked 2nd Hand Smoke Exposure: No Have you traveled recently?: Unable to obtain Alcohol Use?: No Pt feels they are or have been: Unable to obtain Immunizations Up To Date Tetanus Booster (TDap): Unknown Past Medical History PMH As described under Assessment. Family Medical History Family Medical History: Reported family h/o father having MA. Family History: FHx: pancreatic cancer 19 MOTHER, Onset:60 years & older Myocardial infarction 19 FATHER Son Allergies and Home Medications Allergies Coded Allergies: gabapentin (Unverified Adverse Reaction, Mild, VOMITING. , 03/21/19) Patient Home Medication List Home Medication List Reviewed: Yes Acetaminophen (Acetaminophen) 500 Mg Tablet, 1,000 MG PO Q8H PRN for PAIN-MILD ( 1-4), (Reported) Entered as Reported by: LILY BAER on 05/02/22 0939 Last Action: Reviewed Amlodipine Besylate (Amlodipine Besylate) 5 Mg Tablet, 5 MG PO DAILY, (Reported) Entered as Reported by: RM YUAN on 05/01/22 1600 Last Action: Reviewed Clopidogrel Bisulfate (Clopidogrel) 75 Mg Tablet, 75 MG PO DAILY, (Reported) Entered as Reported by: ANDREA CABALLERO on 03/07/22 1229 Last Action: Reviewed Ibuprofen (Ibuprofen) 200 Mg Tablet, 400 MG PO Q8H PRN for PAIN-MILD (1-4), (Reported) Entered as Reported by: LILY BAER on 05/02/22 0939 Last Action: Reviewed Melatonin (Melatonin) 1 Mg Tablet, 1 MG PO HS PRN for SLEEP, (Reported) Entered as Reported by: LILY BAER on 03/08/22 1326 Last Action: Reviewed Metoprolol Tartrate (Metoprolol Tartrate) 75 Mg Tablet, 75 MG PO 0800,1600, (Reported) Entered as Reported by: RM YUAN on 05/01/22 1600 Last Action: Reviewed Nystatin (Nystatin) 100,000 Unit/Gram Powder, 1 APPLIC TOP BID PRN for ITCHING AND RASH, (Reported) Entered as Reported by: RM YUAN on 05/01/22 1600 Last Action: Reviewed Potassium Chloride (Potassium Chloride) 20 Meq Tab.er.prt, 20 MEQ PO DAILY, (Reported) Entered as Reported by: RM YUAN on 05/01/22 160 Last Action: Reviewed Sertraline HCl (Sertraline HCl) 50 Mg Tablet, 50 MG PO DAILY, (Reported) Entered as Reported by: RM YUAN on 05/01/22 1600 Last Action: Reviewed Discontinued Medications Acetaminophen (Tylenol) 325 Mg Tablet, 1,000 MG PO Q8H PRN for PAIN-MILD (1-4), (Reported) Discontinued Reason: Prescription changed Entered as Reported by: RM YUAN on 05/01/22 160 Last Action: New Order Cefdinir (Cefdinir) 300 Mg Capsule, 300 MG PO BID Discontinued Reason: No Longer Taking Prescribed by: ANKUR ROUSE on 03/11/22 1026 Last Action: Discontinued Ibuprofen (Ibuprofen) 400 Mg Tablet, 400 MG PO Q8H, (Reported) Discontinued Reason: Prescription changed Entered as Reported by: RM YUAN on 05/01/22 1603 Last Action: New Order Metoprolol Tartrate (Metoprolol Tartrate) 50 Mg Tablet, 25 MG PO BID, (Reported) Discontinued Reason: No Longer Taking Entered as Reported by: ANDREA CABALLERO on 03/07/22 1229 Last Action: Discontinued Physical Exam-Cardiology Physical Exam Vital Signs/I&O 05/02/22 05/02/22 05/02/22 05/02/22 05:40 06:00 06:12 07:00 Pulse 73 70 Resp 18 19 B/P (MAP) 99/52 96/49 Pulse Ox 96 96 O2 Delivery OxyMask OxyMask OxyMask OxyMask O2 Flow Rate 4.00 4.00 2.00 2.00 05/02/22 05/02/22 05/02/22 05/02/22 07:00 08:00 08:03 09:00 Pulse 70 72 80 Resp 19 14 B/P (MAP) 100/56 113/56 Pulse Ox 96 95 O2 Delivery OxyMask OxyMask OxyMask O2 Flow Rate 2.00 2.00 2.00 FiO2 96 05/02/22 05/02/22 05/02/22 10:00 11:00 12:00 Pulse 74 74 73 Resp 18 21 19 B/P (MAP) 99/49 104/53 101/49 (66) Pulse Ox 95 94 94 O2 Delivery OxyMask OxyMask OxyMask O2 Flow Rate 2.00 2.00 2.00 05/01/22 23:59 Intake Total 3250 ml Output Total 275 ml Balance 2975 ml Capillary Refill : Less Than 3 Seconds Constitutional: other (frail) Neck: No carotid bruit; carotid pulses are 2 + bilaterally Respiratory: No accessory muscle use, No respiratory distress; chest expansion is symmetric, chest is bilaterally symmetric, other (good air entry) Cardiovascular: regular rate-rhythm; No JVD; S1 and S2 Gastrointestinal: soft, audible bowel sounds Extremities: no lower extremity edema bilateral Neurologic/Psychiatric: other (opens eyes to conversation, does not follow commands) Skin: No rash on exposed areas, No ulcerations on exposed areas Data Review Labs Laboratory Tests 05/02/22 04:40: White Blood Count 8.0, Red Blood Count 2.98L, Hemoglobin 8.7L, Hematocrit 27L, Mean Corpuscular Volume 91, Mean Corpuscular Hemoglobin 29, Mean Corpuscular Hemoglobin Concent 32, Red Cell Distribution Width 18.1H, Platelet Count 73L, Mean Platelet Volume 11.3, Immature Granulocyte % (Auto) 1, Neutrophils (%) (Auto) 79H, Lymphocytes (%) (Auto) 13, Monocytes (%) (Auto) 6, Eosinophils (%) (Auto) 1, Basophils (%) (Auto) 0, Neutrophils # (Auto) 6.3, Lymphocytes # (Auto) 1.1, Monocytes # (Auto) 0.5, Eosinophils # (Auto) 0.1, Basophils # (Auto) 0.0, Immature Granulocyte # (Auto) 0.0, Sodium Level 156H, Potassium Level 2.8L, Chloride Level 123H, Carbon Dioxide Level 16L, Anion Gap 17H, Blood Urea Nitrogen 28H, Creatinine 0.87, Estimat Glomerular Filtration Rate 64, BUN/Creatinine Ratio 32, Glucose Level 103, Calcium Level 7.6L, Corrected Calcium 9.1, Phosphorus Level 2.2L, Magnesium Level 1.8, Total Bilirubin 0.8, Aspartate Amino Transf (AST/SGOT) 100H, Alanine Aminotransferase (ALT/SGPT) 30, Alkaline Phosphatase 77, Total Protein 6.0L, Albumin 2.1L 05/02/22 04:45: Triglycerides Level 101, Cholesterol Level 92, LDL Cholesterol Direct 41, VLDL Cholesterol 20, HDL Cholesterol 21L Microbiology 05/01/22 MRSA Screen - Final, Complete MRSA not isolated 05/01/22 Blood Culture - Preliminary, Resulted No growth 05/01/22 Urine Culture - Preliminary, Resulted Staphylococcus epidermidis Culture In Progress A/P-Cardiology Assessment/Admission Diagnosis PAF - currently SR with controlled rate (converted on Cardizem gtt) - initiate OAC with Eliquis - low dose d/t advanced age and fraility - Echocardiogram of March [address] Junior showed mod concentric hypertophy with LVEF 60-65%. LA severely dilated. Mild to mod mitral valve calcification. PASP 45 mmHg Elevated troponin - likely Type 2 MA secondary to a-fib with RVR and sepsis UTI with sepsis - management per medical services HTN - currently controlled Cardiac cath of 05-08-[address] Justice showed non-obstructive dz with LVEF 60% Fraility Poor prognosis Discussion and Recomendations PAF - has converted to SR with Cardizem gtt - stop gtt and change to oral if able to tolerate p.o. intake Start OAC with Eliquis if able to take oral intake - if not then continue Lovenox for stroke prophylaxis Management of UTI with sepsis per medical services Spoke with Dr. Dave of medical services this morning; if pt unable to take oral intake then family does not wish to have feeding tube placed. Poor prognosis Ok to transfer to medical floor without tele if pt is to be DNR status Replace electrolytes - receiving IV replacement Monitor lab closely Replace electrolytes as indicated Further recs will be based on her hospital course FAIZAN FOSTER MD FACP FACC CCDS May 02, 2022 17:30
[2022-05-03] MEDS: GLYCOPYRROLATE 0.2 MG/ML (ROBINUL) 2 ML VIAL IV PRN (00:50)
[2022-05-03] MEDS: morphine INJ 4 MG/ML 1 ML (VIAL/SYRINGE) IV PRN ×5 (00:53→20:06)
[2022-05-03] MEDS: KCL 20 MEQ TAB (K-DUR) PO SCH (05:03)
[2022-05-03] MEDS: SENNOSIDES 8.6 MG (SENOKOT) TAB PO SCH (09:29)
[2022-05-03] MEDS: DOCUSATE SODIUM 100 MG (COLACE) CAP PO SCH (09:29)
[2022-05-03] MEDS: APIXABAN 2.5 MG (ELIQUIS) TABLET PO SCH (09:29)
[2022-05-03] MEDS: dilTIAZem120 MG (CARDIZEM CD) CAP PO SCH (09:29)
[2022-05-03] MEDS: LORazepam 1 MG (ATIVAN) TAB SL PRN ×2 (10:25→12:16)
[2022-05-03] MEDS ORDERED: TROUGH ORDER-PHARMACY XX NR (14:00)
--- NOTE | 2022-05-03 14:43 | Progress Note - Cardiology ---
Cardiology SOAP Progress Note Subjective: Verbally unresponsive [facility] by bedside Objective: I&O/Vital Signs 05/03/22 08:55 O2 Delivery OxyMask O2 Flow Rate 1.00 05/03/22 00:00 Intake Total 1100 ml Balance 1100 ml Weight (Pounds): 200 Weight (Ounces): 2.0 Weight (Calculated Kilograms): [id number] Constitutional: other (frail, verbally unresponsive) Respiratory: No accessory muscle use, No respiratory distress; chest expansion is symmetric, chest is bilaterally symmetric, other (good air entry) Cardiovascular: regular rate-rhythm; No JVD; S1 and S2 Gastrointestional: soft, audible bowel sounds Extremities: no lower extremity edema bilateral Neurologic/Psychiatric: other (not able to cooperate with any neuro exam) Skin: No rash on exposed areas, No ulcerations on exposed areas Results/Procedures: Labs Microbiology 05/01/22 MRSA Screen - Final, Complete MRSA not isolated 05/01/22 Blood Culture - Preliminary, Resulted No growth 05/01/22 Urine Culture - Preliminary, Resulted Staphylococcus epidermidis Pseudomonas aeruginosa Culture In Progress A/P: Assessment: PAF - currently SR with controlled rate (converted on Cardizem gtt) - initiate OAC with Eliquis - low dose d/t advanced age and fraility - Echocardiogram of March [address] Junior showed mod concentric hypertophy with LVEF 60-65%. LA severely dilated. Mild to mod mitral valve calcification. PASP 45 mmHg Elevated troponin - likely Type 2 [place] secondary to a-fib with RVR and sepsis UTI with sepsis - management per medical services HTN - currently controlled Cardiac cath of 05-08-[address] Justice showed non-obstructive dz with LVEF 60% Cachexia/Frailty Poor prognosis Plan: As previously documented, we recommend long-acting dilt for vent rate control and OAC for stroke prophylaxis. We have discussed this with the fam with Dr Dave, her attending physician [facility] has requested comfort care only Clinical Quality Measures Type of Care: Type of Care: Comfort Measures FAIZAN FOSTER MD [facility] CCDS May 03, 2022 14:43
--- NOTE | 2022-05-03 19:47 | Progress Note ---
Subjective Subjective/Events-last exam Patient resting comfortably in bed. Family at bedside. No ON events. Review of Systems Unable to access due to patient status Focused Exam Lactate Level 05/01/22 10:47: Lactic Acid Level 2.49*H 05/01/22 15:10: Lactic Acid Level 4.10*H Objective Exam Last Set of Vital Signs Vital Signs Date Time Temp Pulse Resp B/P (MAP) Pulse Ox O2 Delivery O2 Flow Rate FiO2 05/03/22 08:55 OxyMask 1.00 05/02/22 12:00 73 19 101/49 (66) 94 05/02/22 08:03 96 05/02/22 04:00 36.7 Capillary Refill : Less Than 3 Seconds I&O Intake and Output 05/03/22 00:00 Intake Total 2450 ml Output Total 250 ml Balance 2200 ml Intake Oral 0 ml IV Total 2450 ml Output Urine Total 250 ml General: Other (opens eye very briefly to tactile stimuli) HEENT: Other (dry mouth, mouth breathing) Abdomen: Soft Extremities: Other (toes are mottled) Results/Procedures Lab Microbiology 05/01/22 MRSA Screen - Final, Complete MRSA not isolated 05/01/22 Blood Culture - Preliminary, Resulted No growth 05/01/22 Urine Culture - Preliminary, Resulted Staphylococcus epidermidis Pseudomonas aeruginosa Culture In Progress Radiology NAME: FELICIANO CARVER [facility] REC#: [id number] PT STATUS: ADM IN : 1935 PHYSICIAN: OCTAVIO PECK MD ADMIT DATE: 05/01/22/ICU Signed Date of Exam:05/01/22 CHEST 1 VIEW, AP/PA ONLY EXAM: CHEST 1 VIEW, AP/PA ONLY INDICATION: Shortness of air. Hypoxia. Weakness. COMPARISON: Chest radiograph 03/14/2022. FINDINGS: Cardiomegaly with mild pulmonary vascular congestion. Mild atelectasis or infiltrate in the lung bases. Small left pleural effusion. No pneumothorax. No acute osseous findings. IMPRESSION: Persistent mild atelectasis or infiltrate in the lung bases and small left pleural effusion. Dictated by: Dictated on workstation # [id number] Dict: 05/01/22 1119 Trans: 05/01/22 1614 [facility] [id number] Interpreted by: MALIKA LIMON MD Electronically signed by: MALIKA LIMON MD 05/01/22 7239 Assessment/Plan Assessment/Plan (1) Sepsis Status: Acute Assessment & Plan: 05/02: h/o multi-resistant UTI, culture pending, Patient showing no improvement with IV antibiotics and fluids, Discussed plan of care with son who is the DPOA and 2 daughters and they are in agreement that comfort care is appropriate, level of care changed to comfort care. Patient transferred to 4th floor. DNR 05/03: Patient is comfort care, family wishes to keep her in the hospital rather then transfer back to [place], Patient is comfortable and does not seem to be agit ated or in pain, educated family on signs of pain and agitation Qualifiers: Qualified Codes: A41.9 - Sepsis, unspecified organism; R65.20 - Severe sepsis without septic shock; J96.01 - Acute respiratory failure with hypoxia (2) Lactic acidosis Status: Acute (3) Urinary tract infection Status: Acute Qualifiers: Qualified Codes: N30.01 - Acute cystitis with hematuria (4) Acute respiratory failure with hypoxia Status: Acute (5) Atrial fibrillation with rapid ventricular response Status: Acute Assessment & Plan: 05/02: Dr Santillan consulted and appreciate recommendations, patient is unable to take PO medications and her AD specifically states no feeding tube which is appropriate, discussed with Dr Santillan that we are transitioning patient to comfort care (6) Elevated troponin Status: Acute (7) AMS (altered mental status) Status: Acute Qualifiers: Qualified Codes: R41.0 - Disorientation, unspecified (8) Hypernatremia Status: Acute (9) Hypokalemia Status: Acute KRYSTLE NEVAREZ MD May 03, 2022 19:47
[2022-05-04] MEDS: morphine INJ 4 MG/ML 1 ML (VIAL/SYRINGE) IV PRN ×4 (04:12→22:10)
--- NOTE | 2022-05-04 16:37 | Progress Note ---
Subjective Subjective/Events-last exam Patient resting comfortably. Family at bedside Review of Systems Unable to access due to patient status Objective Exam Last Set of Vital Signs Vital Signs Date Time Temp Pulse Resp B/P (MAP) Pulse Ox O2 Delivery O2 Flow Rate FiO2 05/03/22 08:55 OxyMask 1.00 05/02/22 12:00 73 19 101/49 (66) 94 05/02/22 08:03 96 05/02/22 04:00 36.7 Capillary Refill : Less Than 3 Seconds I&O Intake and Output 05/04/22 00:00 Intake Total 6000 ml Balance 6000 ml IV Total 6000 ml General: Other (Moans with cares) HEENT: Other (Dry mucus membranes) Lungs: Other (shallow breathing) Heart: Other (Irregularly irregular rate) Extremities: Other (feet with some mottling) Results/Procedures Lab Microbiology 05/01/22 MRSA Screen - Final, Complete MRSA not isolated 05/01/22 Blood Culture - Preliminary, Resulted No growth 05/01/22 Urine Culture - Final, Complete Staphylococcus epidermidis Pseudomonas aeruginosa Radiology NAME: FELICIANO CARVER [facility] REC#: [id number] PT STATUS: ADM IN : 1935 PHYSICIAN: OCTAVIO PECK MD ADMIT DATE: 05/01/22/ICU Signed Date of Exam:05/01/22 CHEST 1 VIEW, AP/PA ONLY EXAM: CHEST 1 VIEW, AP/PA ONLY INDICATION: Shortness of air. Hypoxia. Weakness. COMPARISON: Chest radiograph 03/14/2022. FINDINGS: Cardiomegaly with mild pulmonary vascular congestion. Mild atelectasis or infiltrate in the lung bases. Small left pleural effusion. No pneumothorax. No acute osseous findings. IMPRESSION: Persistent mild atelectasis or infiltrate in the lung bases and small left pleural effusion. Dictated by: Dictated on workstation # [id number] Dict: 05/01/22 1119 Trans: 05/01/22 1614 [facility] [id number] Interpreted by: MALIKA LIMON MD Electronically signed by: MALIKA LIMON MD 05/01/22 1614 Assessment/Plan Assessment/Plan (1) Sepsis Status: Acute Assessment & Plan: 05/02: h/o multi-resistant UTI, culture pending, Patient showing no improvement with IV antibiotics and fluids, Discussed plan of care with son who is the DPOA and 2 daughters and they are in agreement that comfort care is appropriate, level of care changed to comfort care. Patient transferred to 4th floor. DNR 05/03: Patient is comfort care, family wishes to keep her in the hospital rather then transfer back to [place], Patient is comfortable and does not seem to be agitated or in pain, educated family on signs of pain and agitation 05/04: Patient taken off oxygen today, family needs addressed Qualifiers: Qualified Codes: A41.9 - Sepsis, unspecified organism; R65.20 - Severe sepsis without septic shock; J96.01 - Acute respiratory failure with hypoxia (2) Lactic acidosis Status: Acute (3) Urinary tract infection Status: Acute Qualifiers: Qualified Codes: N30.01 - Acute cystitis with hematuria (4) Acute respiratory failure with hypoxia Status: Acute (5) Atrial fibrillation with rapid ventricular response Status: Acute Assessment & Plan: 05/02: Dr Santillan consulted and appreciate recommendations, patient is unable to take PO medications and her AD specifically states no feeding tube which is appropriate, discussed with Dr Santillan that we are transitioning patient to comfort care (6) Elevated troponin Status: Acute (7) AMS (altered mental status) Status: Acute Qualifiers: Qualified Codes: R41.0 - Disorientation, unspecified (8) Hypernatremia Status: Acute (9) Hypokalemia Status: Acute KRYSTLE NEVAREZ MD May 04, 2022 16:37
[2022-05-04] MEDS: GLYCOPYRROLATE 0.2 MG/ML (ROBINUL) 2 ML VIAL IV PRN ×2 (19:02→23:00)
[2022-05-05] MEDS: GLYCOPYRROLATE 0.2 MG/ML (ROBINUL) 2 ML VIAL IV PRN (02:32)
[2022-05-05] MEDS: morphine INJ 4 MG/ML 1 ML (VIAL/SYRINGE) IV PRN (02:33)
--- NOTE | 2022-05-05 12:30 | Physician Query Clarification ---
Physician Query-General Query to Physician: The medical record reflects the following clinical scenario: The patient, in the setting of History/Risk factors, At. 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 1. 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 No; will continue current documentation in the Progress Notes 3. Other; will document explanation of clinical findings 4. Clinically undetermined; no explanation for clinical findings Please clarify and document your clinical opinion in the Progress Notes and Discharge Summary including the definitive and/or presumptive diagnosis, (suspected or probable), related to the above clinical findings. Please include clinical findings supporting your diagnosis. In responding to this query, please exercise your independent professional judgment. The purpose of this communication is to more accurately reflect the complexity of your patients condition. The fact that a question is asked does not imply that any particular answer is desired or expected. Thank you for timely response to this clarification. Princess Mayorga RN, MSN Clinical Log Rider [phone] PHYSICIAN RESPONSE: Based on the clinical findings in the record, please respond to the query above on this document as an addendum. 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 Clinical Log Rider/Purification Supervisor This is a permanent part of the medical record PRINCESS MAYORGA May 05, 2022 12:30 KRYSTLE NEVAREZ MD May 06, 2022 10:57
--- NOTE | 2022-05-05 12:40 | Physician Query Clarification ---
Physician Query-General Query to Physician: The medical record reflects the following clinical scenario: The patient, in the setting of History/Risk factors, Sepsis, advanced age, Hypernatremia, UTI Clinical Findings presented to the ER with AMS, GCS 12 on admission, does not wake up and grunts to pain stimuli. Admission CT Head on admission: 1. No acute intracranial process. 2. Age-appropriate atrophy. Na 154 on admission increased to 156< Urine culture pos for Staph Epidermidis and Pseudomonas A[place] Treatment Neuro assessments, CT head, discussions about EOL wishes, family opted for comfort care 1. Likely Metabolic encephalopathy, present on admission 2. Other explanation of clinical findings 3. Unable to determine (no explanation for clinical findings) Please clarify and document your clinical opinion in the Progress Notes and Discharge Summary including the definitive and/or presumptive diagnosis, (suspected or probable), related to the above clinical findings. Please include clinical findings supporting your diagnosis. In responding to this query, please exercise your independent professional judgment. The purpose of this communication is to more accurately reflect the complexity of your patients condition. The fact that a question is asked does not imply that any particular answer is desired or expected. Thank you for timely response to this clarification. Princess Mayorga RN, MSN Clinical Timber Bucker [phone] PHYSICIAN RESPONSE: Based on the clinical findings in the record, please respond to the query above on this document as an addendum. Physician Response: Physician Response 1 If you have questions please contact: Superintendent Job: Ext: Thank you for your time and cooperation. Clinical Timber Bucker/Superintendent Job This is a permanent part of the medical record PRINCESS MAYORGA May 05, 2022 12:40 KRYSTLE NEVAREZ MD May 06, 2022 10:58
== END 2022-05-05 07:30 | disposition expired | DRG 871 ==
LOC: EDUNIT# 10:07 → ER 10:10 → ICU 13:15 → 4TH 05-02 13:00
PROVIDERS: ADMIT Internal Medicine; ATTEND Family Medicine
DX: A41.9 Sepsis, unspecified organism (principal); I21.A1 Myocardial infarction type 2; G93.41 Metabolic encephalopathy; J96.01 Acute respiratory failure with hypoxia; J18.9 Pneumonia, unspecified organism; E87.2 Acidosis; N39.0 Urinary tract infection, site not specified; E87.0 Hyperosmolality and hypernatremia; R64 Cachexia; Z16.24 Resistance to multiple antibiotics; Z66 Do not resuscitate; Z51.5 Encounter for palliative care; E87.6 Hypokalemia; I10 Essential (primary) hypertension; I73.9 Peripheral vascular disease, unspecified; F03.90 Unspecified dementia, unspecified severity, without behavioral disturbance, psychotic disturbance, mood disturbance, and anxiety; G62.9 Polyneuropathy, unspecified; N31.9 Neuromuscular dysfunction of bladder, unspecified; K21.9 Gastro-esophageal reflux disease without esophagitis; M19.90 Unspecified osteoarthritis, unspecified site; E03.9 Hypothyroidism, unspecified; F41.9 Anxiety disorder, unspecified; F32.A Depression, unspecified; Z86.16 Personal history of COVID-19; I48.0 Paroxysmal atrial fibrillation; Z68.30 Body mass index [BMI] 30.0-30.9, adult
CPT/HCPCS: 36415; 51702; 70450; 71045; 74177; 80053; 80061; 81000; 83605; 83735; 83874; 84100; 84145; 84484; 85025; 85610; 85730; 86141; 87040; 87077; 87081; 87088; 87186; 93005; 93041